=== PATIENT | female | born 1935 | race Caucasian/White ===

== ENCOUNTER 2016-05-21 14:58 | Emergency (ER) | payer OTHER ==
[~2016-05-21] VITALS: Ht 174 cm; Wt 87.5 kg
[2016-05-21 14:58] VITALS: TEMP 36.4; Ht 174 cm; Wt 87.5 kg
[~2016-05-21 14:58] MED LIST: ALBUAER19 INH; ASCO1CAP3 PO; ASPEC81 PO; BENZ100C6 PO; CALCTAB PO; CETI10TA10 PO; CHOL1000 PO; FISHCAP PO; FURO-85 PO; GARL10007 PO; IPRA0.037 NAE; KELP100T PO; MECL1TAB40 PO; NSNN50 NAE; NTRGSL/4 PO; OLOP0.1S2 OP; OXYM0.0592; PLV75 PO; PRLSR20 PO; ROSU5TAB PO; TPRSR/25 PO; ULT50 PO; VITA10004 PO
--- NOTE | 2016-05-21 15:20 | EMERGENCY ROOM VISIT NOTE ---
History Report prepared by Artur: Che Pelletier Under the Supervision of: Dr. Jessi Childress M.D. First contact with patient: 15:04 Chief Complaint: COUGH Stated Complaint: SHORTNESS OF BREATH Nursing Triage Summary: Patient arrived by ambulance ALS from pcp office with c/o productive cough and feeling tired. Patient reports she had a GI illness approx 3 wks ago, and she is now having productive cough and feeling tired. Patient denies any pain or shortness of breath History of Present Illness The patient is a 81 year old female who presents to the Emergency Room with complaints of shortness of breath starting a few days ago and worsening yesterday. The patient also complains of a cough, chills, lightheadedness, and weakness. She denies fevers, chest pain, or any other complaints. She had a GI illness a few weeks ago. Source of History: patient Onset: a few days ago Position: other (global) Quality: other (shortness of breath) Timing: worsening Associated Symptoms: + chills, + cough, + weakness, No chest pain, No fevers Review of Systems See HPI for pertinent positives & negatives. A total of 10 systems reviewed and were otherwise negative. Past Medical & Surgical Medical Problems: (1) Dizziness (2) Fall (3) Headache (4) Heart disease (5) Hypertension (6) Myocardial infarct (7) Rib fracture (8) Rib fracture (9) Urinary tract infection (10) Vertigo Family History Cancer Diabetes mellitus Gallbladder disease Heart disease Hypertension Social History Smoking Status: Never Smoker Alcohol Use: none Marital Status: Housing Status: lives alone Occupation Status: retired Current/Historical Medications Scheduled Ascorbic Acid (Vitamin C), 500 MG PO DAILY Aspirin (Aspirin EC Low Dose), 81 MG PO QAM Calcium Carbonate (Calcarb 600), 1 TAB PO BID Cetirizine Hcl (Zyrtec), 1 TAB PO DAILY Cholecalciferol (Vitamin D3), 1,000 INTER.UNIT PO DAILY Clopidogrel Bisulfate (Clopidogrel), 75 MG PO QAM Fish Oil-Borage Oil-Flaxseed O (Sm Natural [place]-3 Fish O), 1 CAP PO HS Garlic (Garlic), 1,000 MG PO DAILY Kelp (Kelp), 100 MG PO DAILY Metoprolol Succinate (Metoprolol Succinate ER), 25 MG PO HS Mometasone Furoate (Nasal) (Nasonex), 2 SPRY [place] DAILY Nitrofurantoin Monohyd Macro (Macrobid), 100 MG PO BID Omeprazole (Prilosec), 20 MG PO BID Rosuvastatin Calcium (Crestor), 5 MG PO DAILY Vitamin E (Vitamin E), 1,000 INTER.UNIT PO DAILY Scheduled PRN Albuterol Inhaler (Ventolin Inhaler), 2 PUFFS INH QID PRN for Shortness of Breath Benzonatate (Tessalon Perles), 100 MG PO TID PRN for Cough Ipratropium [employer] (Nasal) (Atrovent Nasal [place]), 2 SPRY [place] TID PRN for Nasal Congestion Meclizine HCl (Meclizine HCl), 1 TAB PO TID PRN for vertigo Nitroglycerin (Nitrostat), 0.4 MG PO UD PRN for Chest Pain Olopatadine Hydrochloride (Patanol 0.1% Oph), 1 DROP OP for dry eyes Oxymetazoline Hcl (Nasal [place]), 2 SPRAYS NA Q4H PRN for nasal dryness Tramadol HCl (Tramadol HCl), 1 TAB PO TID PRN for Pain Allergies Coded Allergies: Isosorbide (Unverified Allergy, Mild, HEADACHE TO ISOSORBIDE DINITRATE, ) Codeine (Verified Allergy, Unknown, 05/21/16) Cortisone (Verified Allergy, Unknown, 05/21/16) Latex (Verified Allergy, Unknown, UNKNOWN, 05/21/16) Morphine (Verified Allergy, Unknown, nausea, 05/21/16) Nitroglycerin (Verified Allergy, Unknown, severe headache, 05/21/16) Penicillins (Verified Allergy, Unknown, 05/21/16) Physical Exam Vital Signs Date Time Temp Pulse Resp B/P Pulse Ox O2 Delivery O2 Flow Rate FiO2 05/21/16 18:48 108 22 142/77 95 Room Air 05/21/16 18:48 90 Room Air 05/21/16 17:10 86 18 125/66 96 Room Air 05/21/16 15:05 84 05/21/16 14:58 96 Room Air 05/21/16 14:58 36.4 92 20 125/71 96 Room Air Physical Exam CONSTITUTIONAL: Mild distress. Appears weak but not toxic. HEENT: No icterus, moist mucous membranes NECK: No meningismus, trachea is midline. CARDIOVASCULAR: Regular rate, normal perfusion RESPIRATORY: Unlabored breathing. Clear to auscultation. GASTROINTESTINAL: Non-tender GENITOURINARY: No flank tenderness MUSCULOSKELETAL: Full range of motion NEUROLOGIC: No acute gross focal deficits. PSYCHIATRIC: Normal affect SKIN: Normal for ethnicity. Medical Decision & Procedures ER Provider Diagnostic Interpretation: X-ray results as stated below per interpretation by me and the radiologist. TWO VIEW CHEST CLINICAL HISTORY: Cough and weakness. FINDINGS: PA and lateral chest radiographs are compared to chest x-ray and chest CT dated 02/12/2015. The cardiomediastinal silhouette is unremarkable. There is atherosclerotic calcification of the thoracic area. A large hiatal hernia is similar to previous. There is chronic elevation of the right hemidiaphragm and interstitial thickening. Bibasilar airspace opacities are identified. No pleural effusion or pneumothorax is seen. The skeletal structures are osteopenic. Degenerative change and mild scoliosis are noted in the thoracic spine. Cholecystectomy clips are identified in the right upper quadrant. IMPRESSION: 1. Large hiatal hernia. 2. There are bibasilar airspace opacities. This could represent atelectasis and/or an infectious/inflammatory pneumonitis. Clinical correlation will be required. Electronically signed by: Reyes Everett M.D. 05/21/2016 3:48 PM Dictated Date/Time: 05/21/2016 3:46 PM Laboratory Results 05/21/16 14:46 Red Blood Count 4.83, Mean Corpuscular Volume 89.4, Mean Corpuscular Hemoglobin 30.2, Mean Corpuscular Hemoglobin Concent 33.8, Mean Platelet Volume 9.9, Neutrophils (%) (Auto) 48.9, Lymphocytes (%) (Auto) 42.2, Monocytes (%) (Auto) 6.5, Eosinophils (%) (Auto) 1.7, Basophils (%) (Auto) 0.7, Neutrophils # (Auto) 2.63, Lymphocytes # (Auto) 2.27, Monocytes # (Auto) 0.35, Eosinophils # (Auto) 0.09, Basophils # (Auto) 0.04 05/21/16 14:46 Test 05/21/16 14:46 05/21/16 15:30 05/21/16 17:10 White Blood Count 5.38 K/uL (4.8-10.8) Red Blood Count 4.83 M/uL (4.2-5.4) Hemoglobin 14.6 g/dL (12.0-16.0) Hematocrit 43.2 % (37-47) Mean Corpuscular Volume 89.4 fL (80-100) Mean Corpuscular Hemoglobin 30.2 pg (25-34) Mean Corpuscular Hemoglobin Concent 33.8 g/dl (32-36) Platelet Count 156 K/uL (130-400) Mean Platelet Volume 9.9 fL (7.4-10.4) Neutrophils (%) (Auto) 48.9 % Lymphocytes (%) (Auto) 42.2 % Monocytes (%) (Auto) 6.5 % Eosinophils (%) (Auto) 1.7 % Basophils (%) (Auto) 0.7 % Neutrophils # (Auto) 2.63 K/uL (1.4-6.5) Lymphocytes # (Auto) 2.27 K/uL (1.2-3.4) Monocytes # (Auto) 0.35 K/uL (0.11-0.59) Eosinophils # (Auto) 0.09 K/uL (0-0.5) Basophils # (Auto) 0.04 K/uL (0-0.2) RDW Standard Deviation 46.4 fL (36.4-46.3) RDW Coefficient of Variation 14.2 % (11.5-14.5) Immature Granulocyte % (Auto) 0.0 % Immature Granulocyte # (Auto) 0.00 K/uL (0.00-0.02) Anion Gap 9.0 mmol/L (3-11) Est Creatinine Clear Calc Drug Dose 57.9 ml/min Estimated GFR () 70.4 Estimated GFR (Non- 60.8 BUN/Creatinine Ratio 13.4 (10-20) Calcium Level 8.8 mg/dl (8.5-10.1) Magnesium Level 2.4 mg/dl (1.8-2.4) Total Bilirubin 0.4 mg/dl (0.2-1) Aspartate Amino Transf (AST/SGOT) 19 U/L (15-37) Alanine Aminotransferase (ALT/SGPT) 19 U/L (12-78) Alkaline Phosphatase 75 U/L (45-117) Total Creatine Kinase 88 U/L (26-192) Troponin I < 0.015 ng/ml (0-0.045) Total Protein 7.3 gm/dl (6.4-8.2) Albumin 3.8 gm/dl (3.4-5.0) Globulin 3.5 gm/dl (2.5-4.0) Albumin/Globulin Ratio 1.1 (0.9-2) Lipase 232 U/L (73-393) Thyroid Stimulating Hormone (TSH) 0.904 uIu/ml (0.300-4.500) Chemistry Specimen Hemolysis Influenza Type A Antigen Neg for Influ A (NEG) Influenza Type B Antigen Neg for Influ B (NEG) Urine Color YELLOW Urine Appearance CLOUDY (CLEAR) Urine pH 7.0 (4.5-7.5) Urine Specific [place] 1.014 (1.000-1.030) Urine Protein NEG (NEG) Urine Glucose (UA) NEG (NEG) Urine Ketones NEG (NEG) Urine Occult Blood TRACE (NEG) Urine Nitrite POS (NEG) Urine Bilirubin NEG (NEG) Urine Urobilinogen NEG (NEG) Urine Leukocyte Esterase TRACE (NEG) Urine WBC (Auto) 1-5 /hpf (0-5) Urine RBC (Auto) 10-30 /hpf (0-4) Urine Hyaline Casts (Auto) 1-5 /lpf (0-5) Urine Epithelial Cells (Auto) >30 /lpf (0-5) Urine Bacteria (Auto) 4+ (NEG) Labs reviewed by ED physician. Medications Administered Medications (Trade) Dose Ordered Sig/Brady Route Start Time Stop Time Status Last Admin Dose Admin Ceftriaxone Sodium (Rocephin Inj) 1 gm NOW STAT IV 05/21/16 18:52 05/21/16 18:53 DC 05/21/16 18:52 1 GM ECG Indication: SOB/dyspnea Rate (beats per minute): 87 Rhythm: normal sinus Findings: no ectopy, other (Normal axis; normal ST segments) ED Course 1504: Past medical records reviewed. The patient was evaluated in room C07. A complete history and physical examination was performed. 1852: Rocephin Inj 1 gm IV 1900: Upon reexamination the patient is resting comfortably. I discussed results and treatment plan with the patient. She verbalizes agreement and understanding. The patient is ready for discharge. Medical Decision Differential diagnosis includes but is not limited to viral syndrome, dehydration, pneumonia. 81-year-old presented to the emergency Department with family for evaluation generalized weakness after several weeks of viral like symptoms. Physical exam was essentially benign, vitals normal and laboratory examination ER revealed a likely UTI given the positive nitrates and 4+ bacteria (epithelial cells also noted. Rocephin IV and prescription for Macrobid written. Results discussed with patient and family who are in agreement with plan for discharge at this time. Impression Primary Impression: Weakness Additional Impression: Urinary tract infection Scribe Attestation The scribe's documentation has been prepared under my direction and personally reviewed by me in its entirety. I confirm that the note above accurately reflects all work, treatment, procedures, and medical decision making performed by me. Departure Information Dispostion Home / Self-Care Prescriptions Nitrofurantoin Monohyd Macro (MACROBID) 100 Mg Cap 100 MG PO BID for 7 Days, #14 CAP Prov: Jessi Childress MD 05/21/16 Referrals Karly Taylor M.D. Forms HOME CARE DOCUMENTATION FORM, IMPORTANT VISIT INFORMATION Patient Instructions ED UTI Cystitis Female, My [facility] Problem Qualifiers
[2016-05-21 15:34] LABS: BASO % 0.7 %; BASO ABS # 0.04 K/uL (0-0.2); COMPLETE YES; EOS % 1.7 %; HEMATOCRIT 43.2 % (37-47); LYMPH % 42.2 %; LYMPH ABS # 2.27 K/uL (1.2-3.4); MEAN CELL VOLUME 89.4 fL (80-100); MEAN CORPUSCULAR HEMOGLOBIN 30.2 pg (25-34); MEAN CORPUSCULAR HGB CONC 33.8 g/dl (32-36); MEAN PLATELET VOLUME 9.9 fL (7.4-10.4); MONO % 6.5 %; NEUT % 48.9 %; PLATELET COUNT 156 K/uL (130-400); RED BLOOD COUNT 4.83 M/uL (4.2-5.4); WHITE BLOOD COUNT 5.38 K/uL (4.8-10.8)
--- NOTE | 2016-05-21 15:51 | DIAGNOSTIC IMAGING REPORT ---
TWO VIEW CHEST CLINICAL HISTORY: Cough and weakness. FINDINGS: PA and lateral chest radiographs are compared to chest x-ray and chest CT dated 02/12/2015. The cardiomediastinal silhouette is unremarkable. There is atherosclerotic calcification of the thoracic area. A large hiatal hernia is similar to previous. There is chronic elevation of the right hemidiaphragm and interstitial thickening. Bibasilar airspace opacities are identified. No pleural effusion or pneumothorax is seen. The skeletal structures are osteopenic. Degenerative change and mild scoliosis are noted in the thoracic spine. Cholecystectomy clips are identified in the right upper quadrant. IMPRESSION: 1. Large hiatal hernia. 2. There are bibasilar airspace opacities. This could represent atelectasis and/or an infectious/inflammatory pneumonitis. Clinical correlation will be required. Electronically signed by: Reyes Everett M.D. 05/21/2016 3:48 PM Dictated Date/Time: 05/21/2016 3:46 PM
[2016-05-21 16:12] LABS: ALB/GLOB RATIO 1.1 (0.9-2); ALKALINE PHOSPHATASE 75 U/L (45-117); ALT/SGPT 19 U/L (12-78); AST/SGOT 19 U/L (15-37); BLOOD UREA NITROGEN 12 mg/dl (7-18); BUN/CREATININE RATIO 13.4 (10-20); CALCIUM 8.8 mg/dl (8.5-10.1); CARBON DIOXIDE 28 mmol/L (21-32); CHLORIDE 107 mmol/L (98-107); CREATININE 0.89 mg/dl (0.60-1.20); GLUCOSE 91 mg/dl (70-99); MAGNESIUM 2.4 mg/dl (1.8-2.4); POTASSIUM 3.9 mmol/L (3.5-5.1); SODIUM 144 mmol/L (136-145); THYROID STIMULATING HORMONE 0.904 uIu/ml (0.300-4.500)
[2016-05-21 17:36] LABS: URINE APPEARANCE CLOUDY (CLEAR); URINE BILIRUBIN NEG (NEG); URINE COLOR YELLOW; URINE EPITHELIAL CELL AUTO >30 /lpf (0-5); URINE NITRITE POS (NEG); URINE SPECIFIC GRAVITY 1.014 (1.000-1.030); UROBILINOGEN NEG (NEG); ZZUR CULT IF INDIC CLEAN CATCH YES
[2016-05-21 17:49] LABS: MANUAL MICROSCOPIC REQUIRED? NO; REVIEW REQ? NO
[2016-05-21] MEDS ORDERED: CEFTRIAXONE SOD INJ 1 GM ADDVIAL IV STA (18:52)
[2016-05-21] MEDS ORDERED: NITR1CAP16 PO (18:54)
[2016-05-21 19:43] VITALS: BP 137/64; PULSE 81; O2SAT 96
== END 2016-05-21 20:01 | disposition home or self-care (01) ==
LOC: EDBD 14:58 → C.EDC 15:00
DX: N39.0 Urinary tract infection, site not specified (principal); R53.1 Weakness; R05 Cough; I10 Essential (primary) hypertension; I25.2 Old myocardial infarction; Z79.82 Long term (current) use of aspirin; Z79.899 Other long term (current) drug therapy

== ENCOUNTER 2023-06-12 11:47 | Inpatient (IN) ==
--- OUTSIDE RECORDS SUMMARY | 2023-06-12 11:54 | External Medical Summary | Summary of Care ---
Author Name Unknown Organization [facility] Address [address] [facility] [place] [address] Phone [phone] Care Team Providers Care Ed Special Education Teacher Name Role Phone Karly Taylor MD Primary Care Provider + Reason for Visit * Reason Comments Follow Up Patient presents in office today for a follow-up visit regarding urinary tract infection/bladder infection. Encounter Details Date Type Department Care Team (Late st Contact Info) Description 04/09/2023 1:00 PM EST Office Visit Family Practice [facility] [address] [place] [address] Ritu Gaspar MD [address] [place] [address] Loss of weight*; Post-nasal drip; Urinary frequency; COPD, mild (HCC) Allergies Active Allergy Reactions Criticality Noted Date Comments Codeine Nausea/vomiting 07/07/2012 Isosorbide Other (Please comment) 09/30/2018 Severe headache Latex Rash 03/26/2010 Morphine And Related Nausea/vomiting 02/03/2000 Penicillins Nausea/vomiting 02/03/2000 documented as of this encounter (statuses as of 04/09/2023) Medications Medication Sig Dispensed Refills Start Date End Date Status FISH [id number] LOWER PO CAPS Take by mouth. 0 08/25/2010 Active VITAMIN E 1000 UNIT PO CAPS Take by mouth. 0 11/19/2010 Active GARLIC 1000 MG PO CAPS 1 tablet by mouth daily 0 02/02/2012 Active VITAMIN D3 1000 UNITS PO CAPS 1 CAPSULE DAILY 0 02/02/2012 Active PATANOL 0.1 % ophthalmic solution As needed 0 10/23/2014 Activ e Kelp TABS Take 1 Tab by mouth daily. 0 01/30/2015 Active cetirizine (ZYRTEC) 10 MG TabletIndications:Al lergic rhinitis Take 1 Tab by mouth daily. For allergies. 30 Tab 5 09/19/2015 Active meclizine (ANTIVERT) 25 MG TabletIndications:Di zziness Take 1 Tab by mouth 3 times a day as needed for Dizziness. 30 Tab 1 09/19/2015 Active aspirin enteric coated 81 MG TBECIndications:Athe rosclerosis of chilkoot coronary artery of chilkoot heart without angina pectoris Take 1 Tablet by mouth in the morning. 100 Tab 3 03/01/2018 Active Nitroglycerin 0.4 MG Sublingual Tablet Sublingual (Nitrostat)Indicatio ns:Atherosclerosis of ch[place]koot coronary artery of [place] heart without angina pectoris Place 1 Tab under the tongue as needed for Pain, Chest. May repeat 3 times. If chest pain continues, call 911. 25 Tab 11 02/18/2021 Active Furosemide 20 MG Oral Tablet (Lasix) Take by mouth 1 Tablet in the morning. As needed for ankle swelling. 30 Tablet 5 12/24/2021 Active Triamcinolone Acetonide 0.1 % External Ointment (Aristocort)Indicati ons:Vulvar irritation Apply topically to affected area 2 times a day as needed for Itching. Apply to vulva 30 g 2 01/08/2022 Active Incruse Ellipta 62.5 MCG/INH Inhalation Aerosol Powder Breath Activated (umeclidinium [place])Indications: COPD, mild (HCC) INHALE 1 PUFF BY MOUTH ONCE DAILY 30 Each 11 03/25/2022 Active Calcium 500 MG Oral Tablet Take 1 Tablet by mouth in the morning. 0 Active Benzonatate 100 MG Oral CapsuleIndications:B acterial pneumonia Take 2 Capsules by mouth 3 times a day as needed for Cough. 30 Capsule 1 07/31/2022 Active Clopidogrel Bisulfate 75 MG Oral Tablet (pLAVix)Indications: Atherosclerosis of ch[place]koot coronary artery of ch[place] heart without angina pectoris,Coronary atherosclerosis TAKE 1 TABLET BY MOUTH ONCE DAILY 90 Tablet 3 10/16/2022 Active Metoprolol Succinate ER 25 MG Oral Tablet Extended Release 24 Hour (toPROL XL)Indications:Ather osclerosis of ch[place]koot coronary artery of ch[place] heart without angina pectoris,Coronary atherosclerosis TAKE 1 TABLET BY MOUTH ONCE DAILY 90 Tablet 3 10/16/2022 Active Fish Oil 1000 MG Oral Capsule Take 1 Capsule by mouth in the morning. 0 Active Rosuvastatin Calcium 5 MG Oral Tablet (Crestor) TAKE 1 TABLET BY MOUTH EVERY MORNING 90 Tablet 1 01/11/2023 Active Omeprazole 20 MG Oral Capsule Delayed Release (PriLOSEC)Indication s:Gastroesophageal reflux disease without esophagitis TAKE ONE CAPSULE BY MOUTH IN THE MORNING AND ONE BEFORE BEDTIME 180 Capsule 1 01/11/2023 Active Estradiol 0.1 MG/GM Vaginal Cream (Estrace) Apply topically to affected area every night at bedtime. Apply finger tip amount to external area and urethra 42.5 g 0 01/20/2023 Active Albuterol Sulfate HFA 108 (90 Base) MCG/ACT Inhalation Aerosol SolutionIndications: COPD, mild (HCC) INHALE TWO PUFFS BY MOUTH FOUR TIMES DAILY 18 g 1 01/25/2023 Active DULoxetine HCl 20 MG Oral Capsule Delayed Release Particles (Cymbalta) 1 tab daily for 7 days then 1 tab twice daily 60 Capsule 2 01/26/2023 Active Fluticasone Propionate 50 MCG/ACT Nasal Suspension (Flonase)Indications :Post-nasal drip Administer 2 Sprays into each nostril in the morning. 1 Each 11 04/09/2023 Active fluticasone (FLONASE) 50 MCG/ACT nasal spray Administer 2 Sprays into each nostril daily. 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 MCI (mild cognitive impairment) 11/19/2014 ADVANCE DIRECTIVE INFORMATION 11/24/2012 Overview: Yes, Patient instructed to provide copy of advance directive for provider to review and to be scanned into Electronic Medical Record COPD, mild 09/16/2012 Periodic limb movement 05/08/2011 Sleep related hypoxia 05/08/2011 CEREBROVASCULAR DZ, POST-STROKE 08/14/2008 Overview: Modified per CVA protocol #8 CORONARY ATHEROSCLEROSIS OF UNSPECIFIED TYPE OF VESSEL, [place] OR GRAFT Irritable bowel syndrome Diaphragmatic hernia DIVERTICULOSIS OF COLON GENERALIZED ANXIETY DIS GENERAL OSTEOARTHROSIS documented as of this encounter (statuses as of 04/09/2023) Resolved Problems Problem Noted Date Diagnosed Date Resolved Date 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 06/27/2020 07/31/2021 Hemiplegia 06/27/2020 07/31/2021 Angina pectoris 05/19/2019 05/19/2019 Vertebral fracture, pathological 10/08/2016 10/08/2016 Major depression, single episode 10/08/2016 10/08/2016 Genetic Sleep Disorder [facility] Other*[id number] 12/23/2010 12/04/2015 Other B-complex deficiencies 09/30/2010 10/08/2016 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 Chronic cholecystitis 01/12/20052018 LUMB-LUMBOSAC DISC DEGEN 02/20/200410/2018 CERVICAL DISC DEGEN 02/20/2004 09/06/19 19 Persistent insomnia 08/03/2003 04/29/20 18 LOC PRIM OSTEOART-SHLDER 03/20/200310/2018 FX CARPAL BONE NOS-CLOSE 08/09/200210/2018 irritated inflammed seborrhe ic keratosis- R forearm 06/11/00 05/09/2002 04/29/2018 intradermal nevus- R breast 11/24/01, lower back 05/09/2002 04/29/2018 seborrheic keratosis- upper back 05/09/2002 04/29/2018 traumatized annalise. keratosis-u pper mid back 05/09/2002 04/29/2018 compound nevus- upper R back 05/09/2002 04/29/2018 benign keratosis w/ wart fea tures- mid forehead 05/09/2002 04/29/2018 intradermal nevus-mid back 05/09/2002 04/29/2018 annalise. keratosis-Left & mid back 05/09/2002 04/29/2018 Mixed dyslipidemia 12/16/2001 9 Overview: Per Lipid Taxonomy. [facility] BEHAV [place] SKIN 11/24/2001 8 MALIG [place]ST[place] SKIN LEG 11/24/2001 8 Other allergic rhinitis 05/24/200104/03 Overview: ICD-10 update of inactive term CVA 08/16/2008 Overview: Modified per CVA protocol #8 Postmenopausal bleeding 10/2018 Esophageal reflux 09/05/2018 Dyslipidemia, goal to be determined 03/27/2009 Overview: Per Lipid Taxonomy Bronchitis 10/30/2013 documented as of this encounter (statuses as of 04/09/2023) Immunizations Name Administration Dates Next Due Diptheria/Tetanus (Adult) 08/31/2006 H1N1 2009 Influenza, IM 06/06/2009 Pneumococcal Conjugate Vacc, 13 Valent (Prevnar) 06/17/2018 Seasonal Influenza, Split, I IV3, With Preserve, Inj 02/16/2012,02/03/2011,02/26/2010,2008,03/08/2008 TD, Preservative Free 08/31/2006 documented as of this encounter Social History Tobacco Use Types Packs/Day Years Used Date Smoking Tobacco: Never Smokeless Tobacco: Never Comments:Passive smoke expos ure smoked Alcohol Use Standard Drinks/Week Comments No 0 (1 standard drink = 0.6 oz pur e alcohol) PHQ-2 Answer Date Recorded PHQ Adult Total Score 0 08/25/2022 Hunger Vital Sign Answer Date Recorded Worried About Running Out of Food in the Last Ye ar Never true 05/11/2019 Ran Out of Food in the Last Year Never true 05/11/2019 Sex and Gender Information Value Date Recorded Sex Assigned at Female 11/08/2018 1:27 PM EDT Gender Identity Female 11/08/2018 1:27 PM EDT Sexual Orientation Straight 11/08/2018 1: 27 PM EDT Job Start Date Occupation Industry Not on file Not on file Not on file documented as of this encounter Last Filed Vital Signs Vital Sign Reading Time Taken Comments Blood Pressure 112/64 04/09/2023 1:01 PM EST Pulse 78 04/09/2023 1:01 PM EST Temperature - - Respiratory Rate 18 04/09/2023 1:01 PM EST Oxygen Saturation 98% 04/09/2023 1:01 PM EST Inhaled Oxygen Concentration - - Weight 75.3 kg (166 lb) 04/09/2023 1:01 PM EST Height 174 cm (5' 8.5") 04/09/2023 1:01 PM EST Body Mass Index 24.87 04/09/2023 1:01 PM EST documented in this encounter Patient Instructions * Patient Instructions* Ritu Gaspar MD - 04/09/2023 1:41 PM EST Next Steps: -- restart flonase -- give it 2-4 weeks to see if this helps with nausea and appetite -- if not, let me know. We will get bloodwork, chest x-ray, maybe other imaging. documented in this encounter Progress Notes * Ritu Gaspar MD - 04/09/2023 1:09 PM EST Images from the original note were not included. History of Present Illness Sylvia Torres is a 87 year old female that presents for Follow Up (Patient presents in office today for a follow-up visit regarding urinary tract infection/bladder infection.) Appetite is gone. Has to force self to eat. Nauseous frequently. Sometimes so much so that feels like will pass out. No vomiting. Drinking 100 oz water a day. Also juice (6-8oz cranberry), 1 cup coffee, sometimes chamomile tea. Sometimes other juices. Has to urinate within 150-30min of drinking. Waking 2-3x/night to urinate. Urine usually really clear. Moving bowels regularly. 1-2x/day. Not diarrhea, no blood, not small pellets. Has a lot of mucous in the throat. Sometimes wakes up coughing. Doesn't sense PND. No retrosternal burning, lots of burping/hiccups. Gets short of breath, more like fatigue. Unpredictable. No NSAIDs. No nicotine. Taking omeprazole daily. NOT taking flonase. Ran out. Taking plavix, asa 81, prilosec 20mg 2x/day, toprol 25mg, crestor Decreased vitamin E to 1-2x/wk Takes garlic, kelp, D3, fish oil, B12, calcium. Was getting B12 injections prior ot pandemic. Hasn't been taking OTC supplement. Levels have been within normal range, at the low end. Never started cymbalta. Not taking lasix. medication and allergy list reviewed Past med hx and problem list reviewed Physical Exam Vitals: 04/09/23 1301 Pulse: 78 Resp: 18 SpO2: 98% BP: 112/64 BMI: 24.87 BP Readings from Last 3 Encounters: 04/09/23 112/64 03/09/23 110/64 02/26/23 106/62 Wt Readings from Last 3 Encounters: 04/09/23 75.3 kg (166 lb) 02/24/23 81.2 kg (179 lb) 01/26/23 81.6 kg (179 lb 12.8 oz) Physical Exam Vitals and nursing note reviewed. Constitutional: General: She is not in acute distress. Appearance: Normal appearance. She is not ill-appearing. HENT: Head: Normocephalic and atraumatic. Nose: Nose normal. Mouth/Throat: Mouth: Mucous membranes are moist. Pharynx: Oropharynx is clear. No oropharyngeal exudate. Eyes: General: No scleral icterus. Conjunctiva/sclera: Conjunctivae normal. Pupils: Pupils are equal, round, and reactive to light. Neck: Thyroid: No thyroid mass, thyromegaly or thyroid tenderness. Cardiovascular: Rate and Rhythm: Normal rate and regular rhythm. Heart sounds: No murmur heard. Pulmonary: Effort: Pulmonary effort is normal. Breath sounds: Normal breath sounds. Abdominal: General: Abdomen is flat. There is no distension. Palpations: Abdomen is soft. Tenderness: There is no abdominal tenderness. There is no guarding or rebound. Musculoskeletal: Right lower leg: Edema present. Left lower leg: Edema present. Lymphadenopathy: Cervical: No cervical adenopathy. Skin: General: Skin is warm and dry. Neurological: Mental Status: She is alert. Psychiatric: Mood and Affect: Mood normal. Behavior: Behavior normal. I have reviewed the following results: Urine culture, BMP, and Urinalysis, POC Assessment and Plan Loss of weight Right now seems to be most closely related to loss of appetite. Will see if restarting intranasal steroid helps with postnasal drip. If not improving in 3-4 weeks, especially with persistent weight loss, will need to do further workup with labs and imaging. Post-nasal drip - Fluticasone Propionate 50 MCG/ACT Nasal Suspension (Flonase); Administer 2 Sprays into each nostril in the morning. Urinary frequency Will wait for urine culture to decide on antibiotics given patient looks stable clinically - URINALYSIS WITH MICROSCOPIC EXAM; Future - CULTURE, URINE, QUANTITATIVE; Future - URINALYSIS WITH MICROSCOPIC EXAM - CULTURE, URINE, QUANTITATIVE COPD, mild (HCC) Wrap-Up Follow Up: Return in about 3 months (around 07/09/2023) for Return with Hubert. | For: Return with Hubert Time: I spent a total of 40-54 minutes (exact time 41 mins) on the date of service in preparation, delivery, and documentation of the care provided to Sylvia Torres excluding any time spent in the performance of separately billed services. documented in this encounter Nursing Notes * Nadine Garcias MED ASSIST - 04/09/2023 1:00 PM EST The patient has been properly identified by confirmation of name and date of . Chief Complaint Patient presents with Follow Up Patient presents in office today for a follow-up visit regarding urinary tract infection/bladder infection. documented in this encounter Plan of Treatment Upcoming Encounters Date Type Department Care Team (Late st Contact Info) Description 04/20/2023 12:40 PM EST Office Visit Podiatry [facility] [address] [facility] [place] [address] Zhanna Rodríguez DPM [address] [facility] [place] [address] 2023 11:40 AM EST Office Visit Otolaryngology [facility] [address] [facility] [place] [address] Mame Bishop PA-C [address] [place] [address] 05/27/2023 1:00 PM EST Office Visit General Internal Medicine [facility] [address] [place] [address] Karly Taylor MD [address] [facility] [place] [address] 07/23/2023 1:00 PM EDT Office Visit Family Practice [facility] [address] [facility] [place] [address] Ritu Gaspar MD [address] [place] [address] 07/27/2023 1:20 PM EDT Office Visit Neurology [facility] [address] [place] [address] Therese Mcdonald PA-C [address] [facility] [place] [address] 08/26/2023 1:35 PM EDT Office Visit Urogynecology [facility] [address] [place] [address] Lisa Taylor PA-C [address] [place] [address] Nurse Eren Cuevas [address] [place] [address] 09/08/2023 1:00 PM EDT Imaging Radiology [address] [place] [address] Pending Results Name Type Priority Associated Diagnoses Date /Time CULTURE, URINE, QUANTITATIVE Lab Routine Urinary frequency 04/09/2023 1:43 PM EST Scheduled Orders Name Type Priority Associated Diagnoses Orde r Schedule CULTURE, URINE, QUANTITATIVE Lab Routine Urinary frequency Expected: 04/09/2023, Expires: 04/09/2024 Health Maintenance Due Date Last Done Comments COVID-19 Vaccine (#1) 1935 Alpha-1 Antitrypsin 1953 Zoster Vaccines (1 of 2) 1985 DTaP,Tdap,and Td Vaccines (1 - Tdap) 09/01/2006 08/31/2006, 08/31/2006 Influenza Vaccine (FLU shot) (#1) 2023 02/16/2012, 02/03/2011, 02/26/2010, Additional history exists Albumin/Creatinine Ratio 08/26/2023 023, 12/26/2020, 06/17/2009 CKD HGB USE SMARTSET 62607 08/26/202308/25, 08/25/2022, 07/31/2021, Additional history exists CKD PHOS USE SMARTSET 87648 08/26/202308/02, 12/26/2020, 06/26/2004 Depression Screening 08/26/2023 08/25/2022 Mammogram 09/02/2023 09/01/2022, 05/0 06/2022, 06/16/2021, Additional history exists O2 ASSESSMENT COMPLETED IN PAST YEAR FOR COPD 02/27/2024 02/26/2023 Pneumococcal Vaccine: 65+ Years Completed 06/17/2018, 05/25/2001 GARDASIL-HPV IMMUNIZATION SERIES Aged Out No longer eligible based on patient's age to complete this topic Hepatitis B Aged Out No longer eligi ble based on patient's age to complete this topic MENINGOCOCCAL (MENACTRA/MENVEO) Aged Out No longer eligible based on patient's age to complete this topic documented as of this encounter Medical Devices Not on filedocumented as of this encounter Procedures Procedure Name Priority Date/Time Associated Diagnosis Comments URINALYSIS WITH MICROSCOPIC EXAM Routine 04/09/2023 1:43 PM EST Urinary frequency documented in this encounter Results * (ABNORMAL) URINALYSIS WITH MICROSCOPIC EXAM (04/09/2023 1:43 PM EST) Color, Urine Dark Yellow Light Yellow, Yellow, Dark Yellow 04/09/2023 3:58 PM EST [facility] [place] Clarity, Urine Cloudy(A) Clear 04/09/2023 3:58 PM EST [facility] [place] Glucose, Urine Negative Negative mg/dL 04/09/2023 3:58 PM EST [facility] [place] Bilirubin, Urine Small(A) Negative 04/09/2023 3:58 PM EST [facility] [place] Ketone, Urine Trace(A) Negative mg/dL 04/09/2023 3:58 PM EST [facility] [place] Specific [place], Urine 1.020 1.003 - 1.030 04/09/2023 3:58 PM EST [facility] [place] Blood, Urine Moderate(A) Negative 04/09/2023 3:58 PM EST [facility] [place] pH, Urine 6.0 5.0 - 7.5 Units 04/09/2023 3:58 PM EST [facility] [place] Protein, Urine 100(A) Negative mg/dL 04/09/2023 3:58 PM EST [facility] [place] Urobilinogen, Urine 1.0 0.2, 1.0 mg/dL 04/09/2023 3:58 PM EST [facility] [place] Nitrite, Urine Positive(A) Negative 04/09/2023 3:58 PM EST [facility] [place] Esterase, Urine Large(A) Negative 04/09/2023 3:58 PM EST [facility] [place] RBC, Urine 10-19(A) 0 - 2 /HPF 04/09/2023 3:58 PM EST [facility] [place] WBC, Urine 50+(A) 0 - 2 /HPF 04/09/2023 3:58 PM EST [facility] Bacteria, Urine >200(A) 0 - 25 /HPF 04/09/2023 3:58 PM EST LAB[facility]ORY [facility] [place] [facility] Urine Urine specimen obtained by clean catch procedure / Unknown Non-blood Collection / Unknown 04/09/2023 1:43 PM EST 04/09/2023 1:43 PM EST Ritu Gaspar MD LAB URINE [facility] Organization Address City/State/ZIP Co de Phone Number LABORATORY [facility] [place] [phone] [facility] [place] [address] documented in this encounter Visit Diagnoses Diagnosis Loss of weight- Primary Post-nasal drip Postnasal drip Urinary frequency COPD, mild (HCC) Chronic airway obstruction, not elsewhere classified documented in this encounter Care Teams Ed Special Education Teacher Relationship Specialty Start Date End Date Karly Taylor MD [address] [place] [address] PCP - General 08/18/07 documented as of this encounter
--- OUTSIDE RECORDS SUMMARY | 2023-06-12 11:54 | External Medical Summary | Summary of Care ---
Author Name Unknown Organization [facility] Address [address] [place] [address] Phone [phone] Care Team Providers Care Retail Property Manager Name Role Phone Karly Taylor MD Primary Care Provider + Reason for Visit * Reason Onset Date Comments Medication Refill 04/29/2023 Encounter Details Date Type Department Care Team (Late st Contact Info) Description 04/29/2023 Refill Gynecology/Obstetrics [facility] [address] [place] [address] Crissy Roth CRNP [address] [place] [address] Vulvar irritation Allergies Active Allergy Reactions Criticality Noted Date Comments Codeine Nausea/vomiting 07/07/2012 Isosorbide Other (Please comment) 09/30/2018 Severe headache Latex Rash 03/26/2010 Morphine And Related Nausea/vomiting 02/03/2000 Penicillins Nausea/vomiting 02/03/2000 documented as of this encounter (statuses as of 05/11/2023) Medications Medication Sig Dispensed Refills Start Date End Date Status FISH JJA-HXFENB-OWHA-SAFF LOWER PO CAPS Take by mouth. 0 [...] enteric coated 81 MG TBECIndications:Athe rosclerosis of [place] coronary artery of [place] heart without angina pectoris Take 1 Tablet by mouth in the morning. 100 Tab 3 03/01/2018 Active Nitroglycerin 0.4 MG Sublingual Tablet Sublingual (Nitrostat)Indicatio ns:Atherosclerosis of [place] coronary artery of [place] heart without angina pectoris Place 1 Tab under the tongue as needed for Pain, Chest. May repeat 3 times. If chest pain continues, call 911. 25 Tab 11 02/18/2021 Active Furosemide 20 MG Oral Tablet (Lasix) Take by mouth 1 Tablet in the morning. As needed for ankle swelling. 30 Tablet 5 12/24/2021 Active Incruse Ellipta 62.5 MCG/INH Inhalation Aerosol Powder Breath Activated (umeclidinium [place])Indications: COPD, mild (HCC) INHALE 1 PUFF BY [...] 75 MG Oral Tablet (pLAVix)Indications: Atherosclerosis of [place] coronary artery of [place] heart without angina pectoris,Coronary atherosclerosis TAKE 1 TABLET BY MOUTH ONCE DAILY 90 Tablet 3 10/16/2022 Active Metoprolol Succinate ER 25 MG Oral Tablet Extended Release 24 Hour (toPROL XL)Indications:Ather osclerosis of [place] coronary artery of [place] heart without angina pectoris,Coronary atherosclerosis TAKE 1 [...] the morning. 1 Each 11 04/09/2023 Active Triamcinolone Acetonide 0.1 % External Ointment (Aristocort)Indicati ons:Vulvar irritation Apply topically to affected area 2 times a day as needed for Itching. Apply to vulva 30 g 2 05/11/2023 Active Triamcinolone Acetonide 0.1 % External Ointment (Aristocort)Indicati ons:Vulvar irritation Apply topically to affected area 2 times a day as needed for Itching. Apply to vulva 30 g 2 01/08/2022 04/29/20 23 Discontinu ed(Refill) documented as of this encounter (statuses as of 05/11/2023) Active Problems Problem Noted Date Diagnosed Date [...] CORONARY ATHEROSCLEROSIS OF UNSPECIFIED TYPE OF VESSEL, [place] OR GRAFT Irritable bowel syndrome Diaphragmatic hernia DIVERTICULOSIS OF COLON GENERALIZED ANXIETY DIS GENERAL OSTEOARTHROSIS documented as of this encounter (statuses as of 05/11/2023) Resolved Problems Problem Noted Date Diagnosed Date Resolved Date 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 06/27/2020 07/31/2021 Hemiplegia 06/27/2020 07/31/2021 Angina pectoris 05/19/2019 05/19/2019 Vertebral fracture, pathological 10/08/2016 10/08/2016 Major depression, single episode 10/08/2016 10/08/2016 Genetic Sleep Disorder Resea [facility] Other*[id number] 12/23/2010 12/04/2015 Other B-complex deficiencies 09/30/2010 10/08/2016 [...] as of this encounter (statuses as of 05/11/2023) Immunizations Name Administration Dates Next Due Diptheria/Tetanus [...] on file documented as of this encounter Miscellaneous Notes * Telephone Encounter - Judd Read MD - 05/11/2023 10:25 AM ESTSigned Prescriptions: Disp Refills Triamcinolone Acetonide 0.1 % External Oin*30 g 2 Sig: Apply topically to affected area 2 times a day as needed for Itching. Apply to vulva Authorizing Provider: JUDD READ * Telephone Encounter - Em Hill RN - 04/30/2023 7:57 AM ESTPending Prescriptions: Disp Refills Triamcinolone Acetonide 0.1 % External Oin*30 g 2 Sig: Apply topically to affected area 2 times a day as needed for Itching. Apply to vulva documented in this encounter Plan of Treatment Upcoming Encounters Date Type Department Care Team (Late st Contact Info) Description 05/27/2023 1:00 PM EST Office Visit General Internal Medicine [facility] [address] [place] [address] Karly Taylor MD [address] [facility] [place] [address] 07/22/2023 1:20 PM EDT Office Visit Podiatry [facility] [address] [place] [address] Zhanna Rodríguez DPM [address] [place] [address] 07/23/2023 1:00 PM EDT Office Visit Family Practice [facility] [address] [place] [address] Ritu Gaspar MD [address] [place] [address] 07/27/2023 1:20 PM EDT Office Visit Neurology [facility] [address] [facility] [place] [address] Therese Mcdonald PA-C [address] [facility] [place] [address] 08/26/2023 1:35 PM EDT Office Visit Urogynecology [facility] [address] [place] [address] Lisa Taylor PA-C [address] [place] [address] Nurse Eren Cuevas [facility] [address] [place] [address] 09/08/2023 1:00 PM EDT Imaging [facility] [address] [place] [address] 11/02/2023 11:40 AM EDT Office Visit Otolaryngology [facility] [address] [place] [address] Mame Bishop PA-C [address] [place] [address] Health Maintenance Due Date Last Done Comments COVID-19 Vaccine (#1) 1935 Alpha-1 Antitrypsin 1953 Zoster Vaccines (1 of 2) 1985 DTaP,Tdap,and Td Vaccines (1 - Tdap) 09/01/2006 08/31/2006, 08/31/2006 Influenza Vaccine (FLU shot) (#1) 2023 02/16/2012, 02/03/2011, 02/26/2010, Additional history exists Albumin/Creatinine Ratio 08/26/2023 023, 12/26/2020, 06/17/2009 CKD HGB USE SMARTSET 04652 08/26/202308/25, 08/25/2022, 07/31/2021, Additional history exists CKD PHOS USE SMARTSET 86551 08/26/202308/02, 12/26/2020, 06/26/2004 Depression Screening 08/26/2023 08/25/2022 Mammogram 09/02/2023 09/01/2022, 05/0 06/2022, 06/16/2021, Additional history exists O2 ASSESSMENT COMPLETED IN PAST YEAR FOR COPD 04/09/2024 04/09/2023 Pneumococcal Vaccine: 65+ Years Completed 06/17/2018, 05/25/2001 [...] Not on filedocumented as of this encounter Visit Diagnoses Diagnosis Vulvar irritation 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
--- OUTSIDE RECORDS SUMMARY | 2023-06-12 11:54 | External Medical Summary ---
Author Name Unknown Address Unknown Organization K[facility] [address] [place] [address] Laboratory Report Ordering Provider Test Date Status GEORGE MERCEDES 04/09/2023 13:43:42 Final Observation Date Value Abnormality Reference (Units ) Status Color of Urine by Auto 04/09/2023 13:43:42 Dark Yellow Light Yellow, Yellow, Dark Yellow Final Clarity, Urine 04/09/2023 13:43:42 Cloudy Abnormal Clear Final Glucose [Mass/volume] in Urine by Automated test strip 04/09/2023 13:43:42 Negative Negative (mg/dL) Final Bilirubin.total [Presence] in Urine by Automated test strip 04/09/2023 13:43:42 Small Abnormal Negative Final Ketones [Mass/volume] in Urine by Automated test strip 04/09/2023 13:43:42 Trace Abnormal Negative (mg/dL) Final Specific gravity, Urine 04/09/2023 13:43:42 1.020 1.003-1.030 Final Hemoglobin [Presence] in Urine by Automated test strip 04/09/2023 13:43:42 Moderate Abnormal Negative Final pH, Urine 04/09/2023 13:43:42 6.0 5.0-7.5 (Units) Final Protein [Mass/volume] in Urine by Automated test strip 04/09/2023 13:43:42 100 Abnormal Negative (mg/dL) Final Urobilinogen [Mass/volume] in Urine by Automated test strip 04/09/2023 13:43:42 1.0 0.2, 1.0 (mg/dL) Final Nitrite [Presence] in Urine by Automated test strip 04/09/2023 13:43:42 Positive Abnormal Negative Final Leukocyte esterase [Presence] in Urine by Automated test strip 04/09/2023 13:43:42 Large Abnormal Negative Final RBC, Urine 04/09/2023 13:43:42 10-19 Abnormal 0-2 (/HPF) Final WBC, Urine 04/09/2023 13:43:42 50+ Abnormal 0-2 (/HPF) Final Bacteria [#/area] in Urine sediment by Microscopy high power field 04/09/2023 13:43:42 >200 Abnormal 0-25 (/HPF) Final Performing Location [facility] [address] [place] [address]
--- OUTSIDE RECORDS SUMMARY | 2023-06-12 11:54 | External Medical Summary | Summary of Care ---
Author Name Unknown Organization [facility] Address [address] [facility] [place] [address] Phone [phone] Care Team Providers Care Baker Apprentice Name Role Phone Karly Taylor MD Primary Care Provider + Reason for Visit * Reason Onset Date Comments Referral Requested by Specialist 04/20/2023 Encounter Details Date Type Department Care Team (Late st Contact Info) Description 04/20/2023 Telephone Podiatry [facility] [address] [place] [address] Zhanna Rodríguez DPM [address] [place] [address] Referral Requested by Specialist Allergies Active Allergy Reactions Criticality Noted Date Comments Codeine Nausea/vomiting 07/07/2012 Isosorbide Other (Please comment) 09/30/2018 Severe headache Latex Rash 03/26/2010 Morphine And Related Nausea/vomiting 02/03/2000 Penicillins Nausea/vomiting 02/03/2000 documented as of this encounter (statuses as of 04/20/2023) Medications Medication Sig Dispensed Refills Start Date End Date Status FISH [id number]-CVMJ-SAFFL OWER PO CAPS Take by mouth. 0 08/25/2010 [...] 0 01/30/2015 Active cetirizine (ZYRTEC) 10 MG TabletIndications:All ergic rhinitis Take 1 Tab by mouth daily. For allergies. 30 Tab 5 09/19/2015 Active meclizine (ANTIVERT) 25 MG TabletIndications:Diz ziness Take 1 Tab by mouth 3 times a day as needed for Dizziness. 30 Tab 1 09/19/2015 Active aspirin enteric coated 81 MG TBECIndications:Ather osclerosis of [place] coronary artery of [place] heart without angina pectoris Take 1 Tablet by mouth in the morning. 100 Tab 3 03/01/2018 Active Nitroglycerin 0.4 MG Sublingual Tablet Sublingual (Nitrostat)Indication s:Atherosclerosis of [place] coronary artery of [place] heart without angina pectoris Place 1 Tab under the tongue as needed for Pain, Chest. May repeat 3 times. If chest pain continues, call 911. 25 Tab 11 02/18/2021 Active Furosemide 20 MG Oral Tablet (Lasix) Take by mouth 1 Tablet in the morning. As needed for ankle swelling. 30 Tablet 5 12/24/2021 Active Triamcinolone Acetonide 0.1 % External Ointment (Aristocort)Indicatio ns:Vulvar irritation Apply topically to affected area 2 times a day as needed for Itching. Apply to vulva 30 g 2 01/08/2022 Active Incruse Ellipta 62.5 MCG/INH Inhalation Aerosol Powder Breath Activated (umeclidinium [place])Indications:C OPD, mild (HCC) INHALE 1 PUFF BY MOUTH ONCE DAILY 30 Each 11 03/25/2022 Active Calcium 500 MG Oral Tablet Take 1 Tablet by mouth in the morning. 0 Active Benzonatate 100 MG Oral CapsuleIndications:Ba cterial pneumonia Take 2 Capsules by mouth 3 times a day as needed for Cough. 30 Capsule 1 07/31/2022 Active Clopidogrel Bisulfate 75 MG Oral Tablet (pLAVix)Indications:A therosclerosis of [place] coronary artery of [place] heart without angina pectoris,Coronary atherosclerosis TAKE 1 TABLET BY MOUTH ONCE DAILY 90 Tablet 3 10/16/2022 Active Metoprolol Succinate ER 25 MG Oral Tablet Extended Release 24 Hour (toPROL XL)Indications:Athero sclerosis of [place] coronary artery of [place] heart without angina pectoris,Coronary atherosclerosis TAKE 1 TABLET BY MOUTH ONCE DAILY 90 Tablet 3 10/16/2022 Active Fish Oil 1000 MG Oral Capsule Take 1 Capsule by mouth in the morning. 0 Active Rosuvastatin Calcium 5 MG Oral Tablet (Crestor) TAKE 1 TABLET BY MOUTH EVERY MORNING 90 Tablet 1 01/11/2023 Active Omeprazole 20 MG Oral Capsule Delayed Release (PriLOSEC)Indications :Gastroesophageal reflux disease without esophagitis TAKE ONE CAPSULE BY MOUTH IN THE MORNING AND ONE BEFORE BEDTIME 180 Capsule 1 01/11/2023 Active Estradiol 0.1 MG/GM Vaginal Cream (Estrace) Apply topically to affected area every night at bedtime. Apply finger tip amount to external area and urethra 42.5 g 0 01/20/2023 Active Albuterol Sulfate HFA 108 (90 Base) MCG/ACT Inhalation Aerosol SolutionIndications:C OPD, mild (HCC) INHALE TWO PUFFS BY MOUTH FOUR TIMES DAILY 18 g 1 01/25/2023 Active DULoxetine HCl 20 MG Oral Capsule Delayed Release Particles (Cymbalta) 1 tab daily for 7 days then 1 tab twice daily 60 Capsule 2 01/26/2023 Active Fluticasone Propionate 50 MCG/ACT Nasal Suspension (Flonase)Indications: Post-nasal drip Administer 2 Sprays into each nostril in the morning. 1 Each 11 04/09/2023 Active documented as of this encounter (statuses as of 04/20/2023) Active Problems Problem Noted Date Diagnosed Date [...] CORONARY ATHEROSCLEROSIS OF UNSPECIFIED TYPE OF VESSEL, [place] OR GRAFT Irritable bowel syndrome Diaphragmatic hernia DIVERTICULOSIS OF COLON GENERALIZED ANXIETY DIS GENERAL OSTEOARTHROSIS documented as of this encounter (statuses as of 04/20/2023) Resolved Problems Problem Noted Date Diagnosed Date Resolved Date 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 06/27/2020 07/31/2021 Hemiplegia 06/27/2020 07/31/2021 Angina pectoris 05/19/2019 05/19/2019 Vertebral fracture, pathological 10/08/2016 10/08/2016 Major depression, single episode 10/08/2016 10/08/2016 Genetic Sleep Disorder Resea [facility] Other*[id number] 12/23/2010 12/04/2015 Other B-complex deficiencies 09/30/2010 10/08/2016 [...] as of this encounter (statuses as of 04/20/2023) Immunizations Name Administration Dates Next Due Diptheria/Tetanus (Adult) 08/31/2006 H1N1 2009 Influenza, IM 06/06/2009 Influenza, Whole Virus 02/18/1996 Pneumococcal Conjugate Vacc, 13 Valent (Prevnar) 06/17/2018 Pneumococcal Polysaccharide PPV23 (Pneumovax) 05/25/2001 Seasonal Influenza, Split, I IV3, With Preserve, Inj 02/16/2012,02/03/2011,02/26/2010,04/29,03/08/2008,03/20/2003,02/17/2002 TD, Preservative Free 08/31/2006 documented as of [...] as of this encounter Miscellaneous Notes * Addendum Note - Jen Ortiz LPN - 04/20/2023 9:35 AM ESTAddended by: JEN ORTIZ on: 04/20/2023 09:35 AM Modules accepted: Orders * Telephone Encounter - Jen Ortiz LPN - 04/20/2023 9:35 AM EST Referral pended. Jen Ortiz LPN * Telephone Encounter - Rebecca Gatica OSA - 04/20/2023 9:15 AM EST [facility] [address] [place] [address] , Option 5 04/20/[address] Taylor: This request is in regards to: Sylvia Torres : 1935 Due to Medicare guidelines for Podiatry Routine Footcare & Mycotic Nail visits, we need documented medical necessity for this patient's upcoming appointment TODAY, 04/20/2023. Moving forward, a referral will need to be placed every 6 months and must include the below information for Medicare to pay for services. Can you please assist with placing a new referral with the below outlined? 1) Can Patient perform routine footcare without assistance? (Y/N) 2) Does patient have a chronic condition? (Y/N) If yes, please list condition diagnosis 3)Has patient been seen in the past 6 months by PCP? (Y/N) If yes, please list the date Please visit the following CMS website to choose from a covered diagnosis code: https://www.cms.gov/medicare-coverage-database/view/article.aspx?[email or web address]=33975 &[email or web address] Please return your completed referral along with patient's most recent office note to our office at: [phone]. Sincerely, [facility] documented in this encounter Plan of Treatment Upcoming Encounters Date Type Department Care Team (Late st Contact Info) Description 04/20/2023 12:40 PM EST Office Visit Podiatry [facility] [address] [place] [address] Zhanna Rodríguez DPM [address] [place] [address] 2023 11:40 AM EST Office Visit Otolaryngology [facility] [address] [place] [address] Mame Bishop PA-C [address] [place] [address] 05/27/2023 1:00 PM EST [facility] [address] [place] [address] Karly Taylor MD [address] [place] [address] 07/23/2023 1:00 PM EDT Office Visit Family Practice [facility] [address] [place] [address] Ritu Gaspar MD [address] [place] [address] 07/27/2023 1:20 PM EDT Office Visit Neurology [facility] [address] [place] [address] Therese Mcdonald PA-C [address] [place] [address] 08/26/2023 1:35 PM EDT Office Visit Urogynecology [facility] [address] [facility] [place] [address] Lisa Taylor PA-C [address] [place] [address] CuevasNurse Eren garcia Rust [address] [place] [address] 09/08/2023 1:00 PM EDT Imaging Radiology [facility] 1st [facility] [place] [address] [place] [address] Health Maintenance Due Date Last Done Comments COVID-19 Vaccine (#1) 1935 Alpha-1 Antitrypsin 1953 Zoster Vaccines (1 of 2) 1985 DTaP,Tdap,and Td Vaccines (1 - Tdap) 09/01/2006 08/31/2006, 08/31/2006 Influenza Vaccine (FLU shot) (#1) 2023 02/16/2012, 02/03/2011, 02/26/2010, Additional history exists Albumin/Creatinine Ratio 08/26/2023 023, 12/26/2020, 06/17/2009 CKD HGB USE SMARTSET 94264 08/26/202308/25, 08/25/2022, 07/31/2021, Additional history exists CKD PHOS USE SMARTSET 69607 08/26/202308/02, 12/26/2020, 06/26/2004 Depression Screening 08/26/2023 08/25/2022 [...] Not on filedocumented as of this encounter Care Teams Baker Apprentice Relationship Specialty Start Date End Date Karly Taylor MD [address] [place] [address] PCP - General 08/18/07 documented as of this encounter
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
--- OUTSIDE RECORDS SUMMARY | 2023-06-12 11:54 | External Medical Summary | Summary of Care ---
Author Name Unknown Organization [facility] Address [address] [facility] [place] [address] Phone [phone] Care Team Providers Care Bedspread Seamer Name Role Phone Karly Taylor MD Primary Care Provider + Reason for Visit * Reason Onset Date Comments Advice 03/12/2023 Encounter Details Date Type Department Care Team (Late st Contact Info) Description 03/12/2023 Telephone General Internal Medicine [facility] 200 [place] [address] Karly Taylor MD 200 [place] [address] Advice Allergies Active Allergy Reactions Criticality Noted Date Comments Codeine Nausea/vomiting 07/07/2012 Isosorbide Other (Please comment) 09/30/2018 Severe headache Latex Rash 03/26/2010 Morphine And Related Nausea/vomiting 02/03/2000 Penicillins Nausea/vomiting 02/03/2000 documented as of this encounter (statuses as of 03/15/2023) Medications Medication Sig Dispensed Refills Start Date End Date Status FISH [id number] OWER PO CAPS Take by mouth. 0 [...] enteric coated 81 MG TBECIndications:Ather osclerosis of [place] coronary artery of [place] heart without angina pectoris Take 1 Tablet by mouth in the morning. 100 Tab 3 03/01/2018 Active fluticasone (FLONASE) 50 MCG/ACT nasal spray Administer 2 Sprays into each nostril daily. 1 Inhaler 5 03/02/2018 Active Nitroglycerin 0.4 MG Sublingual Tablet Sublingual (Nitrostat)Indication s:Atherosclerosis of [place] coronary artery of [place] heart without angina pectoris Place 1 Tab [...] MCG/INH Inhalation Aerosol Powder Breath Activated (umeclidinium [place])Indications:C OPD, mild (HCC) INHALE 1 PUFF BY [...] 75 MG Oral Tablet (pLAVix)Indications:A therosclerosis of [place] coronary artery of [place] heart without angina pectoris,Coronary atherosclerosis TAKE 1 TABLET BY MOUTH ONCE DAILY 90 Tablet 3 10/16/2022 Active Metoprolol Succinate ER 25 MG Oral Tablet Extended Release 24 Hour (toPROL XL)Indications:Athero sclerosis of [place] coronary artery of [place] heart without angina pectoris,Coronary atherosclerosis TAKE 1 [...] twice daily 60 Capsule 2 01/26/2023 Active documented as of this encounter (statuses as of 03/15/2023) Active Problems Problem Noted Date Diagnosed Date [...] OF UNSPECIFIED TYPE OF VESSEL, [place] OR GRAFT Irritable bowel syndrome Diaphragmatic hernia DIVERTICULOSIS OF COLON GENERALIZED ANXIETY DIS GENERAL OSTEOARTHROSIS documented as of this encounter (statuses as of 03/15/2023) Resolved Problems Problem Noted Date Diagnosed Date Resolved Date 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 06/27/2020 07/31/2021 Hemiplegia 06/27/2020 07/31/2021 Angina pectoris 05/19/2019 05/19/2019 Vertebral fracture, pathological 10/08/2016 10/08/2016 Major depression, single episode 10/08/2016 10/08/2016 Genetic Sleep Disorder Resea [facility] Other*[id number] 12/23/2010 12/04/2015 Other B-complex deficiencies 09/30/2010 10/08/2016 [...] as of this encounter (statuses as of 03/15/2023) Immunizations Name Administration Dates Next Due Diptheria/Tetanus [...] encounter Miscellaneous Notes * Telephone Encounter - Sivan Pablo - 03/15/2023 1:15 PM EST LM for pt to call back, I scheduled pt for 12-8 @ 12:45pm with Dr Gaspar since it was a cancellation. Will inform pt when she calls back * Telephone Encounter - Madai Daily OSA - 03/15/2023 12:28 PM EST No, explain pt only wants to see Dr. Ritu Gaspar for a F/U * Telephone Encounter - Connie Busby OSA - 03/12/2023 3:35 PM EST No Appointments Available Patient declined appointments?: Yes What Visit Type is needed? Return If Acute Visit Type is needed, were surrounding clinics offered to patient (Yes/No)? N/A Was patient offered appointments with other available providers (Yes/No)? No, explain pt only wantsto see Dr. Ritu Gaspar for a F/U & in the afternoon since pt does not drive See Call Details? (Yes or No): No documented in this encounter Plan of Treatment Upcoming Encounters Date Type Department Care Team (Late st Contact Info) Description 03/30/2023 1:20 PM EST Office Visit Podiatry [facility] [address] [place] [address] Zhanna Rodríguez DPM [address] [place] [address] 04/09/2023 1:00 PM EST Office Visit Family Practice [facility] [address] [place] [address] Ritu Gaspar MD [address] [place] [address] 04/22/2023 3:00 PM EST Office Visit General Internal Medicine [facility] [address] [facility] [place] [address] Karly Taylor MD [address] [facility] [place] [address] 2023 11:40 AM EST Office Visit Otolaryngology [facility] [address] [place] [address] Mame Bishop PA-C [address] [place] [address] 07/27/2023 1:20 PM EDT Office Visit Neurology [facility] [address] [place] [address] Therese Mcdonald PA-C [address] [facility] [place] [address] 08/26/2023 1:35 PM EDT Office Visit Urogynecology [facility] [address] [place] [address] Lisa Taylor PA-C [address] [place] [address] [facility] [address] [place] [address] 09/08/2023 1:00 PM EDT Imaging Radiology [facility]st [facility] [address] [place] [address] Health Maintenance Due Date Last Done Comments COVID-19 Vaccine (#1) 1935 Alpha-1 Antitrypsin 1953 Zoster Vaccines (1 of 2) 1985 DTaP,Tdap,and Td Vaccines (1 - Tdap) 09/01/2006 08/31/2006, 08/31/2006 Influenza Vaccine (FLU shot) (#1) 2023 02/16/2012, 02/03/2011, 02/26/2010, Additional history exists Albumin/Creatinine Ratio 08/26/2023 023, 12/26/2020, 06/17/2009 CKD HGB USE SMARTSET 82847 08/26/202308/25, 08/25/2022, 07/31/2021, Additional history exists CKD PHOS USE SMARTSET 80716 08/26/202308/02, 12/26/2020, 06/26/2004 Depression Screening 08/26/2023 08/25/2022 Mammogram 09/02/2023 09/01/2022, 06/03, 03/25/2020, Additional history exists O2 ASSESSMENT COMPLETED IN [...] filedocumented as of this encounter Care Teams Bedspread Seamer Relationship Specialty Start Date End Date Karly Taylor MD [address] [place] [address] PCP - General 08/18/07 documented as of this encounter
--- OUTSIDE RECORDS SUMMARY | 2023-06-12 11:54 | External Medical Summary | Summary of Care ---
Author Name Unknown Organization [facility] Address [address] [facility] [place] [address] Phone [phone] Care Team Providers Care Web Knitter Name Role Phone Karly Taylor MD Primary Care Provider + Reason for Visit * Reason Onset Date Comments Referral Requested by Specialist 04/20/2023 Encounter Details Date Type Department Care Team (Late st Contact Info) Description 04/20/2023 Telephone Podiatry [facility] [address] [place] [address] Zhanna Rodríguez DPM [address] [place] [address] Referral Requested by Specialist Allergies Active Allergy Reactions Criticality Noted Date Comments Codeine Nausea/vomiting 07/07/2012 Isosorbide Other (Please comment) 09/30/2018 Severe headache Latex Rash 03/26/2010 Morphine And Related Nausea/vomiting 02/03/2000 Penicillins Nausea/vomiting 02/03/2000 documented as of this encounter (statuses as of 04/20/2023) Medications Medication Sig Dispensed Refills Start Date End Date Status FISH [id number]-SAFFL OWER PO CAPS Take by mouth. 0 [...] enteric coated 81 MG TBECIndications:Ather osclerosis of resighini coronary artery of resighini heart without angina pectoris Take 1 Tablet by mouth in the morning. 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 angina pectoris Place 1 Tab [...] MCG/INH Inhalation Aerosol Powder Breath Activated (umeclidinium [place])Indications:C OPD, mild (HCC) INHALE 1 PUFF BY [...] 75 MG Oral Tablet (pLAVix)Indications:A therosclerosis of resighini coronary artery of resighini heart without angina pectoris,Coronary atherosclerosis TAKE 1 TABLET BY MOUTH ONCE DAILY 90 Tablet 3 10/16/2022 Active Metoprolol Succinate ER 25 MG Oral Tablet Extended Release 24 Hour (toPROL XL)Indications:Athero sclerosis of resighini coronary artery of resighini heart without angina pectoris,Coronary atherosclerosis TAKE 1 [...] OF UNSPECIFIED TYPE OF VESSEL, [place] OR GRAFT Irritable bowel syndrome Diaphragmatic hernia [...] episode 10/08/2016 10/08/2016 Genetic Sleep Disorder [facility] Other*[id number] 12/23/2010 12/04/2015 Other B-complex deficiencies 09/30/2010 10/08/2016 [...] encounter Miscellaneous Notes * Telephone Encounter - Jen Ortiz LPN - 04/20/2023 9:35 AM EST Referral pended. Jen Ortiz LPN * Telephone Encounter - Rebecca Gatica OSA - 04/20/2023 9:15 AM EST [id number] [address] [facility] [place] [address] , Option 5 04/20/[address] Taylor: [...] to choose from a covered diagnosis code: https://www.cms.gov/medicare-coverage-database/view/article.[email or web address] Please return your completed referral along with patient's most recent office note to our office at: [phone]. Sincerely, [facility] documented in this encounter Plan of Treatment Upcoming Encounters Date Type Department Care Team (Late st Contact Info) Description 04/20/2023 12:40 PM EST Office Visit Podiatry [facility] [address] [address] Zhanna Rodríguez DPM [address] [place] [address] 2023 11:40 AM EST Office Visit Otolaryngology [facility] [address] [place] [address] Mame Bishop PA-C [address] [place] [address] 05/27/2023 1:00 PM EST Office Visit General Internal Medicine [facility] [address] [address] Karly Taylor MD [address] [address] 07/23/2023 1:00 PM EDT Office Visit Family Practice [facility] [address] [place] [address] Ritu Gaspar MD [address] [place] [address] 07/27/2023 1:20 PM EDT Office Visit Neurology [facility] [address] [address] Therese Mcdonald PA-C [address] [address] 08/26/2023 1:35 PM EDT Office Visit Urogynecology [facility] [address] [place] [address] Lisa Taylor PA-C [address] [place] [address] CuevasNurse Eren garcia Abner [address] [place] [address] 09/08/2023 1:00 PM EDT Imaging Radiology [facility] [address] [facility] [address] [place] [address] Health Maintenance Due Date Last Done Comments COVID-19 Vaccine (#1) 1935 Alpha-1 Antitrypsin 1953 Zoster Vaccines (1 of 2) 1985 DTaP,Tdap,and Td Vaccines (1 - Tdap) 09/01/2006 08/31/2006, 08/31/2006 Influenza Vaccine (FLU shot) (#1) 2023 02/16/2012, 02/03/2011, 02/26/2010, Additional history exists Albumin/Creatinine Ratio 08/26/2023 023, 12/26/2020, 06/17/2009 CKD HGB USE SMARTSET 47790 08/26/202308/25, 08/25/2022, 07/31/2021, Additional history exists CKD PHOS USE SMARTSET 41195 08/26/202308/02, 12/26/2020, 06/26/2004 Depression Screening 08/26/2023 08/25/2022 [...] filedocumented as of this encounter Care Teams Web Knitter Relationship Specialty Start Date End Date Karly Taylor MD [address] [place] [address] PCP - General 08/18/07 documented as of this encounter
--- OUTSIDE RECORDS SUMMARY | 2023-06-12 11:54 | External Medical Summary | Summary of Care ---
Author Name Unknown Organization [facility] Address [address] [facility] [place] [address] Phone [phone] Care Team Providers Care Clinical Liaison Name Role Phone Karly Taylor MD Primary Care Provider + Reason for Visit * Reason Onset Date Comments Advice 03/12/2023 Encounter Details Date Type Department Care Team (Late st Contact Info) Description 03/12/2023 Telephone General Internal Medicine [facility] 200 [facility] [place] [address] Karly Taylor MD 200 [place] [address] Advice Allergies Active Allergy Reactions Criticality Noted Date Comments Codeine Nausea/vomiting 07/07/2012 Isosorbide Other (Please comment) 09/30/2018 Severe headache Latex Rash 03/26/2010 Morphine And Related Nausea/vomiting 02/03/2000 Penicillins Nausea/vomiting 02/03/2000 documented as of this encounter (statuses as of 03/17/2023) Medications Medication Sig Dispensed Refills Start Date End Date Status FISH [id number]-SAFFL OWER PO CAPS Take by mouth. 0 [...] enteric coated 81 MG TBECIndications:Ather osclerosis of [place] coronary artery of [place] heart without angina pectoris Take 1 Tablet by mouth in the morning. 100 Tab 3 03/01/2018 Active fluticasone (FLONASE) 50 MCG/ACT nasal spray Administer 2 Sprays into each nostril daily. 1 Inhaler 5 03/02/2018 Active Nitroglycerin 0.4 MG Sublingual Tablet Sublingual (Nitrostat)Indication s:Atherosclerosis of [place] coronary artery of nikolai heart without angina pectoris Place 1 Tab [...] MCG/INH Inhalation Aerosol Powder Breath Activated (umeclidinium [place])Indications:C OPD, mild (HCC) INHALE 1 PUFF BY [...] 75 MG Oral Tablet (pLAVix)Indications:A therosclerosis of [place] coronary artery of nik[place] heart without angina pectoris,Coronary atherosclerosis TAKE 1 TABLET BY MOUTH ONCE DAILY 90 Tablet 3 10/16/2022 Active Metoprolol Succinate ER 25 MG Oral Tablet Extended Release 24 Hour (toPROL XL)Indications:Athero sclerosis of [place] coronary artery of n[place] heart without angina pectoris,Coronary atherosclerosis TAKE 1 [...] as of this encounter (statuses as of 03/17/2023) Active Problems Problem Noted Date Diagnosed Date [...] CORONARY ATHEROSCLEROSIS OF UNSPECIFIED TYPE OF VESSEL, [place] OR GRAFT Irritable bowel syndrome Diaphragmatic hernia DIVERTICULOSIS OF COLON GENERALIZED ANXIETY DIS GENERAL OSTEOARTHROSIS documented as of this encounter (statuses as of 03/17/2023) Resolved Problems Problem Noted Date Diagnosed Date Resolved Date 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 06/27/2020 07/31/2021 Hemiplegia 06/27/2020 07/31/2021 Angina pectoris 05/19/2019 05/19/2019 Vertebral fracture, pathological 10/08/2016 10/08/2016 Major depression, single episode 10/08/2016 10/08/2016 Genetic Sleep Disorder Resea [facility] Other*[id number] 12/23/2010 12/04/2015 Other B-complex deficiencies 09/30/2010 10/08/2016 [...] as of this encounter (statuses as of 03/17/2023) Immunizations Name Administration Dates Next Due Diptheria/Tetanus [...] * Telephone Encounter - Sivan Pablo - 03/17/2023 8:27 AM EST LM for pt to call back, I scheduled pt for 12-8 @ 12:45pm with Dr Gaspar since it was a cancellation. Will inform pt when she calls back My g also sent * Telephone Encounter - Sivan Pablo - [...] 03/30/2023 1:20 PM EST Office Visit Podiatry [facility] [address] [place] [address] Zhanna Rodríguez DPM [address] [place] [address] 04/09/2023 1:00 PM EST Office Visit Family Practice [facility] [address] [place] [address] Ritu Gaspar MD [address] [place] [address] 04/22/2023 3:00 PM EST Office Visit General Internal Medicine [facility] 200 [facility] [place] [address] Karly Taylor MD 200 [facility] [place] [address] 2023 11:40 AM EST Office Visit Otolaryngology [facility] [address] [place] [address] Mame Bishop PA-C [address] [place] [address] 07/27/2023 1:20 PM EDT Office Visit Neurology [facility] [address] [place] [address] Therese Mcdonald PA-C 200 [facility] [place] [address] 08/26/2023 1:35 PM EDT Office Visit Urogynecology [facility] [address] [place] [address] Lisa Taylor PA-C [address] [place] [address] Nurse Eren Cuevas [address] [place] [address] 09/08/2023 1:00 PM EDT Imaging Radiology [facility] 1st Floor, [place] [address] [place] [address] Health Maintenance Due Date Last Done Comments COVID-19 Vaccine (#1) 1935 Alpha-1 Antitrypsin 1953 Zoster Vaccines (1 of 2) 1985 DTaP,Tdap,and Td Vaccines (1 - Tdap) 09/01/2006 08/31/2006, 08/31/2006 Influenza Vaccine (FLU shot) (#1) 2023 02/16/2012, 02/03/2011, 02/26/2010, Additional history exists Albumin/Creatinine Ratio 08/26/2023 023, 12/26/2020, 06/17/2009 CKD HGB USE SMARTSET 89906 08/26/202308/25, 08/25/2022, 07/31/2021, Additional history exists CKD PHOS USE SMARTSET 36601 08/26/202308/02, 12/26/2020, 06/26/2004 Depression Screening 08/26/2023 08/25/2022 Mammogram 09/02/2023 09/01/2022, 0506/2022, 06/16/2021, Additional history exists O2 ASSESSMENT COMPLETED [...] filedocumented as of this encounter Care Teams Clinical Liaison Relationship Specialty Start Date End Date Karly Taylor MD [address] [place] [address] PCP - General 08/18/07 documented as of this encounter
--- OUTSIDE RECORDS SUMMARY | 2023-06-12 11:54 | External Medical Summary | Summary of Care ---
Author Name Unknown Organization [facility] Address [address] [facility] [place] [address] Phone [phone] Care Team Providers Care Contractor Broomcorn Threshing Name Role Phone Karly Taylor MD Primary Care Provider + Encounter Details Date Type Department Care Team (Late st Contact Info) Description 01/01/2023 Telephone General Internal Medicine [facility] [address] [place] [id number] Karly Taylor MD [address] [facility] [address] Allergies Active Allergy Reactions Criticality Noted Date Comments Codeine Nausea/vomiting 07/07/2012 Isosorbide Other (Please comment) 09/30/2018 Severe headache Latex Rash 03/26/2010 Morphine And Related Nausea/vomiting 02/03/2000 Penicillins Nausea/vomiting 02/03/2000 documented as of this encounter (statuses as of 04/02/2023) Medications Medication Sig Dispensed Refills Start Date End Date Status FISH [id number]-SAFF LOWER PO CAPS Take by mouth. 0 [...] enteric coated 81 MG TBECIndications:Athe rosclerosis of [place] coronary artery of [place] heart without angina pectoris Take 1 Tablet by mouth in the morning. 100 Tab 3 03/01/2018 Active fluticasone (FLONASE) 50 MCG/ACT nasal spray Administer 2 Sprays into each nostril daily. 1 Inhaler 5 03/02/2018 Active Nitroglycerin 0.4 MG Sublingual Tablet Sublingual (Nitrostat)Indicatio ns:Atherosclerosis of [place] coronary artery of [place] heart without angina pectoris Place 1 Tab [...] MCG/INH Inhalation Aerosol Powder Breath Activated (umeclidinium [place])Indications: COPD, mild (HCC) INHALE 1 PUFF BY [...] 75 MG Oral Tablet (pLAVix)Indications: Atherosclerosis of [place] coronary artery of [place] heart without angina pectoris,Coronary atherosclerosis TAKE 1 TABLET BY MOUTH ONCE DAILY 90 Tablet 3 10/16/2022 Active Metoprolol Succinate ER 25 MG Oral Tablet Extended Release 24 Hour (toPROL XL)Indications:Ather osclerosis of [place] coronary artery of [place] heart without angina pectoris,Coronary atherosclerosis TAKE 1 TABLET BY MOUTH ONCE DAILY 90 Tablet 3 10/16/2022 Active Fish Oil 1000 MG Oral Capsule Take 1 Capsule by mouth in the morning. 0 Active Albuterol Sulfate HFA 108 (90 Base) MCG/ACT Inhalation Aerosol SolutionIndications: COPD, mild (HCC) INHALE TWO PUFFS BY MOUTH FOUR TIMES DAILY 18 g 1 03/25/2022 3 Discontinu ed(Refill) Estradiol 0.1 MG/GM Vaginal Cream (Estrace) Apply topically to affected area every night at bedtime. Apply finger tip amount to external area and urethra 42.5 g 0 12/22/2022 3 Discontinu ed(Refill) documented as of this encounter (statuses as of 04/02/2023) Active Problems Problem Noted Date Diagnosed Date [...] CORONARY ATHEROSCLEROSIS OF UNSPECIFIED TYPE OF VESSEL, [place] OR GRAFT Irritable bowel syndrome Diaphragmatic hernia DIVERTICULOSIS OF COLON GENERALIZED ANXIETY DIS GENERAL OSTEOARTHROSIS documented as of this encounter (statuses as of 04/02/2023) Resolved Problems Problem Noted Date Diagnosed Date Resolved Date 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 06/27/2020 07/31/2021 Hemiplegia 06/27/2020 07/31/2021 Angina pectoris 05/19/2019 05/19/2019 Vertebral fracture, pathological 10/08/2016 10/08/2016 Major depression, single episode 10/08/2016 10/08/2016 Genetic Sleep Disorder Resea [facility] Other*[id number] 12/23/2010 12/04/2015 Other B-complex deficiencies 09/30/2010 10/08/2016 [...] back 05/09/2002 04/29/2018 seborrheic keratosis- upper back 1005/09/2002 04/29/2018 traumatized annalise. keratosis-u pper mid back [...] as of this encounter (statuses as of 04/02/2023) Immunizations Name Administration Dates Next Due Diptheria/Tetanus [...] on file documented as of this encounter Plan of Treatment Upcoming Encounters Date Type Department Care Team (Late st Contact Info) Description 04/09/2023 1:00 PM EST Office Visit Family Practice [facility] [address] [place] [address] Ritu Gaspar MD [address] [place] [address] 04/20/2023 12:40 PM EST Office Visit Podiatry [facility] [address] [place] [address] Zhanna Rodríguez, DPPhilippe [address] [place] [address] 04/22/2023 3:00 PM EST Office Visit General Internal Medicine [facility] 200 [facility] [place] [address] Karly Taylor MD [address] [facility] [place] [address] 2023 11:40 AM EST Office Visit Otolaryngology [facility] [address] [place] [address] Mame Bishop PA-C [address] [place] [address] 07/27/2023 1:20 PM EDT Office Visit Neurology [facility] [address] [facility] [place] [address] Therese Mcdonald PA-C 200 [facility] [place] [address] 08/26/2023 1:35 PM EDT Office Visit Urogynecology [facility] [address] [place] [address] Lisa Taylor PA-C [address] [place] [address] CuevasNurse Eren garcia [facility] [address] [place] [address] 09/08/2023 1:00 PM EDT Imaging Radiology [facility] [address] [facility] [address] [place] [address] Health Maintenance Due Date Last Done Comments COVID-19 Vaccine (#1) 1935 Alpha-1 Antitrypsin 1953 Zoster Vaccines (1 of 2) 1985 DTaP,Tdap,and Td Vaccines (1 - Tdap) 09/01/2006 08/31/2006, 08/31/2006 Influenza Vaccine (FLU shot) (#1) 2023 02/16/2012, 02/03/2011, 02/26/2010, Additional history exists Albumin/Creatinine Ratio 08/26/2023 023, 12/26/2020, 06/17/2009 CKD HGB USE SMARTSET 07289 08/26/202308/25, 08/25/2022, 07/31/2021, Additional history exists CKD PHOS USE SMARTSET 90449 08/26/202308/02, 12/26/2020, 06/26/2004 Depression Screening 08/26/2023 08/25/2022 [...] filedocumented as of this encounter Care Teams Contractor Broomcorn Threshing Relationship Specialty Start Date End Date Karly Taylor MD [address] [place] [address] PCP - General 08/18/07 documented as of this encounter
--- OUTSIDE RECORDS SUMMARY | 2023-06-12 11:54 | External Medical Summary | Summary of Care ---
Author Name Unknown Organization [facility] Address [address] [facility] [facility] [place] [address] Phone [phone] Care Team Providers Care Internet Sales Manager Name Role Phone Karly Taylor MD Primary Care Provider + Encounter Details Date Type Department Care Team (Late st Contact Info) Description 04/12/2023 Telephone Family Practice [facility] [address] [place] [address] Ritu Gaspar MD [address] [place] [address] Allergies Active Allergy Reactions Criticality Noted Date Comments Codeine Nausea/vomiting 07/07/2012 Isosorbide Other (Please comment) 09/30/2018 Severe headache Latex Rash 03/26/2010 Morphine And Related Nausea/vomiting 02/03/2000 Penicillins Nausea/vomiting 02/03/2000 documented as of this encounter (statuses as of 04/13/2023) Medications Medication Sig Dispensed Refills Start Date End Date Status FISH [id number]-SAFFL OWER PO CAPS Take by mouth. 0 [...] enteric coated 81 MG TBECIndications:Ather osclerosis of [place] coronary artery of [place] heart without angina pectoris Take 1 Tablet by mouth in the morning. 100 Tab 3 03/01/2018 Active Nitroglycerin 0.4 MG Sublingual Tablet Sublingual (Nitrostat)Indication s:Atherosclerosis of [place] coronary artery of [place] heart without angina pectoris Place 1 Tab [...] MCG/INH Inhalation Aerosol Powder Breath Activated (umeclidinium [place])Indications:C OPD, mild (HCC) INHALE 1 PUFF BY [...] 75 MG Oral Tablet (pLAVix)Indications:A therosclerosis of [place] coronary artery of [place] heart without angina pectoris,Coronary atherosclerosis TAKE 1 TABLET BY MOUTH ONCE DAILY 90 Tablet 3 10/16/2022 Active Metoprolol Succinate ER 25 MG Oral Tablet Extended Release 24 Hour (toPROL XL)Indications:Athero sclerosis of [place] coronary artery of [place] heart without angina pectoris,Coronary atherosclerosis TAKE 1 [...] as of this encounter (statuses as of 04/13/2023) Active Problems Problem Noted Date Diagnosed Date [...] CORONARY ATHEROSCLEROSIS OF UNSPECIFIED TYPE OF VESSEL, [place] OR GRAFT Irritable bowel syndrome Diaphragmatic hernia DIVERTICULOSIS OF COLON GENERALIZED ANXIETY DIS GENERAL OSTEOARTHROSIS documented as of this encounter (statuses as of 04/13/2023) Resolved Problems Problem Noted Date Diagnosed Date Resolved Date 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 06/27/2020 07/31/2021 Hemiplegia 06/27/2020 07/31/2021 Angina pectoris 05/19/2019 05/19/2019 Vertebral fracture, pathological 10/08/2016 10/08/2016 Major depression, single episode 10/08/2016 10/08/2016 Genetic Sleep Disorder [facility] Other*[id number] 12/23/2010 12/04/2015 Other B-complex deficiencies 09/30/2010 10/08/2016 [...] as of this encounter (statuses as of 04/13/2023) Immunizations Name Administration Dates Next Due Diptheria/Tetanus [...] encounter Miscellaneous Notes * Telephone Encounter - Munira Garrett LPN - 04/13/2023 12:46 PM EST Called and spoke with pt. Pt states that she does still have some pain and burning with urination. Pt states that she has started using the flonase and wants to wait and see how this works for her before starting any other medication. Pt will call the office if things do not improve or gets worse. * Telephone Encounter - Ritu Gaspar MD - 04/12/2023 10:48 PM EST Please let patient know that urine culture grew E coli. It's possible this is contamination. If she is having urinary frequency, urgency or dysuria, or is feeling sick/fever, we can treat withabx. Otherwise keep taking flonase to see if helps with nausea and appetite. (Send to [facility] if needs abx, out of office Wednesday and traveling) documented in this encounter Plan of Treatment Upcoming Encounters Date Type Department Care Team (Late st Contact Info) Description 04/20/2023 12:40 PM EST Office Visit Podiatry [facility] [address] [place] [address] Zhanna Rodríguez DPM [address] [place] [address] 2023 11:40 AM EST Office Visit Otolaryngology [facility] [address] [place] [address] Mame Bishop PA-C [address] [place] [address] 05/27/2023 1:00 PM EST Office Visit [facility] [address] [place] [address] Karly Taylor MD [address] [address] 07/23/2023 1:00 PM EDT Office Visit Family Practice [facility] [address] [place] [address] Ritu Gaspar MD [address] [place] [address] 07/27/2023 1:20 PM EDT Office Visit Neurology [facility] [address] [facility] [address] [place] [address] Therese Mcdonald PA-C 200 [facility] [place] [address] 08/26/2023 1:35 PM EDT Office Visit Urogynecology [facility] [address] [place] [address] Lisa Taylor PA-C [address] [place] [address] Nurse Eren Cuevas [facility] [address] [place] [address] 09/08/2023 1:00 PM EDT Imaging Radiology [facility] 1st [facility] [place] [address] Health Maintenance Due Date Last Done Comments COVID-19 Vaccine (#1) 1935 Alpha-1 Antitrypsin 1953 Zoster Vaccines (1 of 2) 1985 DTaP,Tdap,and Td Vaccines (1 - Tdap) 09/01/2006 08/31/2006, 08/31/2006 Influenza Vaccine (FLU shot) (#1) 2023 02/16/2012, 02/03/2011, 02/26/2010, Additional history exists Albumin/Creatinine Ratio 08/26/2023 023, 12/26/2020, 06/17/2009 CKD HGB USE SMARTSET 34175 08/26/202308/25, 08/25/2022, 07/31/2021, Additional history exists CKD PHOS USE SMARTSET 17788 08/26/202308/02, 12/26/2020, 06/26/2004 Depression Screening 08/26/2023 08/25/2022 Mammogram 09/02/2023 09/01/2022, 05/06/2022, 06/16/2021, Additional history exists O2 ASSESSMENT COMPLETED [...] filedocumented as of this encounter Care Teams Internet Sales Manager Relationship Specialty Start Date End Date Karly Taylor MD 200 [facility] [address] PCP - General 08/18/07 documented as of this encounter
--- OUTSIDE RECORDS SUMMARY | 2023-06-12 11:54 | External Medical Summary | Summary of Care ---
Author Name Unknown Organization [facility] Address [address] [place] [address] Phone [phone] Care Team Providers Care Automatic Clipper Name Role Phone Karly Taylor MD Primary Care Provider + Reason for Visit * Reason Comments Follow Up Encounter Details Date Type Department Care Team (Late st Contact Info) Description 2023 11:40 AM EST Office Visit Otolaryngology [facility] [address] [place] [address] Mame Bishop PA-C [address] [place] [address] Perforation of left tympanic membrane* Allergies Active Allergy Reactions Criticality Noted Date Comments Codeine Nausea/vomiting 07/07/2012 Isosorbide Other (Please comment) 09/30/2018 Severe headache Latex Rash 03/26/2010 Morphine And Related Nausea/vomiting 02/03/2000 Penicillins Nausea/vomiting 02/03/2000 documented as of this encounter (statuses as of 2023) Medications Medication Sig Dispensed Refills Start Date End Date Status FISH [id number]-SAFFL OWER PO CAPS Take by mouth. 0 [...] enteric coated 81 MG TBECIndications:Ather osclerosis of [place] coronary artery of [place] heart without angina pectoris Take 1 Tablet by mouth in the morning. 100 Tab 3 03/01/2018 Active Nitroglycerin 0.4 MG Sublingual Tablet Sublingual (Nitrostat)Indication s:Atherosclerosis of [place] coronary artery of [place] heart without angina pectoris Place 1 Tab [...] MCG/INH Inhalation Aerosol Powder Breath Activated (umeclidinium [place])Indications:C OPD, mild (HCC) INHALE 1 PUFF BY [...] 75 MG Oral Tablet (pLAVix)Indications:A therosclerosis of [place] coronary artery of [place] heart without angina pectoris,Coronary atherosclerosis TAKE 1 TABLET BY MOUTH ONCE DAILY 90 Tablet 3 10/16/2022 Active Metoprolol Succinate ER 25 MG Oral Tablet Extended Release 24 Hour (toPROL XL)Indications:Athero sclerosis of [place] coronary artery of [place] heart without angina pectoris,Coronary atherosclerosis TAKE 1 [...] as of this encounter (statuses as of 2023) Active Problems Problem Noted Date Diagnosed Date [...] as of this encounter (statuses as of 2023) Resolved Problems Problem Noted Date Diagnosed Date Resolved Date 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 06/27/2020 07/31/2021 Hemiplegia 06/27/2020 07/31/2021 Angina pectoris 05/19/2019 05/19/2019 Vertebral fracture, pathological 10/08/2016 10/08/2016 Major depression, single episode 10/08/2016 10/08/2016 Genetic Sleep Disorder Resea [facility] Other*[id number] 12/23/2010 12/04/2015 Other B-complex deficiencies 09/30/2010 10/08/2016 [...] as of this encounter (statuses as of 2023) Immunizations Name Administration Dates Next Due Diptheria/Tetanus [...] Sign Reading Time Taken Comments Blood Pressure - - Pulse - - Temperature 36 C (96.8 F) 2023 11: 46 AM EST Respiratory Rate - - Oxygen Saturation - - Inhaled Oxygen Concentration - - Weight 75.2 kg (165 lb 11.2 oz) 024 11:46 AM EST Height 174 cm (5' 8.5") 2023 11:4 6 AM EST Body Mass Index 24.83 2023 11:46 AM EST documented in this encounter Progress Notes * Mame Bishop PA-C - 2023 1:44 PM EST SUBJECTIVE: Sylvia Torres is a 88 year old female. Chief Complaint Patient presents with Follow Up HPI: Pt presents for return appointment. Denies otalgia or otorrhea. She is frustrated with her hearing. 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 VITAMIN E [...] MCG/INH Inhalation Aerosol Powder Breath Activated (umeclidinium [place]) INHALE 1 PUFF BY MOUTH ONCE DAILY [...] No current facility-administered medications for this visit. Review of patient's allergies indicates: Allergen Reactions Codeine Nausea/vomiting Isosorbide Other (Please comment) Severe headache Latex Rash Morphine And Related Nausea/vomiting Penicillins Nausea/vomiting REVIEW OF SYSTEMS Negative for constitutional, heart, lung, liver, kidney, digestive, hematologic, neurologic, rheumatologic, or endocrine complaints except as per history of present illness and past medical history. OBJECTIVE: Temp 36 C (96.8 F) (Tympanic) | Ht 1.74 m (5' 8.5") | Wt 75.2 kg (165 lb 11.2 oz) | BMI 24.83 kg/m | BSA 1.91 m PHYSICAL EXAM: General: alert, healthy and no distress Ears: Examination of the ears revealed that the auricles were normally formed with no lesions. The external auditory canals were cleaned of any obstructing cerumen. The right tympanic membrane was intact and freely mobile to pneumatoscopy without perforation or significant retraction pockets. The left TM with stable/healthy perforation. ASSESSMENT/PLAN: Encounter Diagnoses Name Primary? Perforation of left tympanic membrane Yes Plan:Left TM perforation stable and healthy. She will return in 6 months. Mame Bishop PA-C 2023 1:44 PM documented in this encounter Nursing Notes * Crissy Ortiz LPN - 2023 11:44 AM EST Pt presents today to have cerumen removed. Pt reports having muffled hearing lately. documented in this encounter Plan of Treatment Upcoming Encounters Date Type Department Care Team (Late st Contact Info) Description 05/27/2023 1:00 PM EST Office Visit General Internal Medicine [facility] [address] [place] [address] Karly Taylor MD [address] [facility] [place] [address] 07/22/2023 1:20 PM EDT Office Visit Podiatry [facility] [address] [place] [address] Zhanna Rodríguez DPM [address] [place] [address] 07/23/2023 1:00 PM EDT Office Visit Family Practice [facility] [address] [place] [address] Ritu Gaspar MD [address] [place] [address] 07/27/2023 1:20 PM EDT Office Visit Neurology [facility] [address] [facility] [place] [address] Therese Mcdonald PA-C [address] [facility] [place] [address] 08/26/2023 1:35 PM EDT Office Visit Urogynecology [facility] [address] [place] [address] Lisa Taylor PA-C [address] [place] [address] [facility] [address] [place] [address] 09/08/2023 1:00 PM EDT Imaging Radiology [facility] [address] [place] [address] 11/02/2023 11:40 AM EDT Office Visit Otolaryngology [facility] [address] [place] [address] Mame Bishop PA-C [address] [place] [address] Health Maintenance Due Date Last Done Comments COVID-19 Vaccine (#1) 1935 Alpha-1 Antitrypsin 1953 Zoster Vaccines (1 of 2) 1985 DTaP,Tdap,and Td Vaccines (1 - Tdap) 09/01/2006 08/31/2006, 08/31/2006 Influenza Vaccine (FLU shot) (#1) 2023 02/16/2012, 02/03/2011, 02/26/2010, Additional history exists Albumin/Creatinine Ratio 08/26/2023 023, 12/26/2020, 06/17/2009 CKD HGB USE SMARTSET 06197 08/26/202308/25, 08/25/2022, 07/31/2021, Additional history exists CKD PHOS USE SMARTSET 80710 08/26/202308/02, 12/26/2020, 06/26/2004 Depression Screening 08/26/2023 08/25/2022 [...] as of this encounter Visit Diagnoses Diagnosis Perforation of left tympanic membrane- Primary Perforation of tympanic membrane, unspecified documented in this encounter Care Teams Automatic Clipper Relationship Specialty Start Date End Date Karly Taylor MD [address] [place] [address] PCP - General 08/18/07 documented as of this encounter
--- OUTSIDE RECORDS SUMMARY | 2023-06-12 11:54 | External Medical Summary ---
Author Name Unknown Address Unknown Organization [id number]:[facility] – [place] - [address] [facility] [address] Laboratory Report Ordering Provider Test Date Status MAGOVAZQUEZ 04/09/2023 13:43:42 Final <10,000 colonies/ml mixed no rmal jeffrey Observation Date Value Abnormality Reference (Units ) Status Bacteria identified in Specimen by Culture 04/09/2023 13:43:42 [id number]^ESCHE RICHIA COLI Abnormal Final >100,000 colonies/mL Escheri avery coli Performing Location [facility] – [place] - [address] [facility] [address] Ordering Provider Test Date Status GEORGE MERCEDES 04/09/2023 13:43:42 Final Observation Date Value Abnormality Reference (Units ) Status Ampicillin 04/09/2023 13:43:42 >=32 Resistant Final Ampicillin + Sulbactam 04/09/2023 13:43:42 >=32 Resistant Final Cefazolin 04/09/2023 13:43:42 <=4 Susceptible Final Cefepime susceptibility 04/09/2023 13:43:42 <=1 Susceptible Final Ceftriaxone suceptibility 04/09/2023 13:43:42 <=1 Susceptible Final Ciprofloxacin 04/09/2023 13:43:42 <=0.25 Susceptible Final Due to serious side effects, the FDA has advised against using Ciprofloxacin to treat uncomplicated UTIs and respiratory tract infections unless there are no alternative treatment options. Gentamicin susceptibility 04/09/2023 13:43:42 <=1 Susc eptible Final Nitrofurantoin susceptibility 04/09/2023 13:43:42 <=16 Susceptible Final Piperacillin + Tazobactamsusceptibility 04/09/2023 13:43:42 <=4 Susceptible Final TMP-SMZ susceptibility 04/09/2023 13:43:42 <=20 Suscept ible Final Test: Culture, Urine, Quanti tative
Specimen Source: Urine, Clean Catch
Specimen Type: Urine
Specimen Date: 04/09/2023 1:43 PM
Result Date: 04/12/2023 7:23 AM
Result Status: Final result
Abnormal: Yes
Resulting Lab: [facility] – [place]
[address]
[place] [address]

CULTURE

>100,000 colonies/mL Escherichia coli (Abnormal)

<10,000 colonies/ml mixed normal jeffrey

SUSCEPTIBILITY

Escherichia coli
METHOD MICROBROTH DILUTIONS

AMPICILLIN >=32 Resistant
AMPICILLIN/SULBACTAM >=32 Resistant
CEFAZOLIN <=4 Susceptible
CEFEPIME <=1 Susceptible
CEFTRIAXONE <=1 Susceptible
CIPROFLOXACIN <=0.25 Susceptible [1]
GENTAMICIN <=1 Susceptible
NITROFURANTOIN <=16 Susceptible
PIPERACILLIN TAZOBACTAM <=4 Susceptible
TRIMETH/SULFAMETHOXAZOLE <=20 Susceptible

[1] Due to serious side effects, the FDA has advised against using
Ciprofloxacin to treat uncomplicated UTIs and respiratory tract infections
unless there are no alternative treatment options.

null Performing Location [facility] – [place] - [address] [facility] [address]
--- OUTSIDE RECORDS SUMMARY | 2023-06-12 11:54 | External Medical Summary | Summary of Care ---
Author Name Unknown Organization [facility] Address [address] [place] [address] Phone [phone] Care Team Providers Care Extruding Machine Operator Name Role Phone Karly Taylor MD Primary Care Provider + Reason for Referral * Evaluate & Treat - Unlimited Visits (Within 30 days (routine)) - Authorized Specialty Diagnoses / Procedures Referred By Kizzy perry Referred To Contact Podiatry Diagnoses Onychomycosis Hammer toes, bilateral Zhanna Rodríguez DPM [address] [place] [address] Referral ID Status Reason Start Date Expiration Date Visits Requested Visits Authorized [id number] Authorized Specialty Services Required 3 [phone] Question Answer Referral Priority Within 30 days (routine) Where should this appointment be scheduled? [facility] Which condition are you referring this patient for? Routine Foot Care Medicare Patient? Yes Can Patient perform routine footcare without assistance? No Does patient have a chronic condition? Yes Has patient been seen in the past 6 months? Yes Date last seen for chronic condition: 12/03/2022 Who saw patient for chronic condition? Dr. Taylor Reason for Visit * Reason Onset Date Comments Referral Requested by Specialist 04/20/2023 Encounter Details Date Type Department Care Team (Late st Contact Info) Description 04/20/2023 Telephone Podiatry [facility] [address] [place] [address] Zhanna Rodríguez DPM [address] [place] [address] Referral Requested by Specialist Allergies Active Allergy Reactions Criticality Noted Date Comments Codeine Nausea/vomiting 07/07/2012 Isosorbide Other (Please comment) 09/30/2018 Severe headache Latex Rash 03/26/2010 Morphine And Related Nausea/vomiting 02/03/2000 Penicillins Nausea/vomiting 02/03/2000 documented as of this encounter (statuses as of 04/20/2023) Medications Medication Sig Dispensed Refills Start Date End Date Status FISH [id number]-SAFFL OWER PO CAPS Take by mouth. 0 [...] enteric coated 81 MG TBECIndications:Ather osclerosis of [place] coronary artery of [place] heart without angina pectoris Take 1 Tablet by mouth in the morning. 100 Tab 3 03/01/2018 Active Nitroglycerin 0.4 MG Sublingual Tablet Sublingual (Nitrostat)Indication s:Atherosclerosis of [place] coronary artery of [place] heart without angina pectoris Place 1 Tab [...] MCG/INH Inhalation Aerosol Powder Breath Activated (umeclidinium [place])Indications:C OPD, mild (HCC) INHALE 1 PUFF BY [...] 75 MG Oral Tablet (pLAVix)Indications:A therosclerosis of [place] coronary artery of [place] heart without angina pectoris,Coronary atherosclerosis TAKE 1 TABLET BY MOUTH ONCE DAILY 90 Tablet 3 10/16/2022 Active Metoprolol Succinate ER 25 MG Oral Tablet Extended Release 24 Hour (toPROL XL)Indications:Athero sclerosis of [place] coronary artery of [place] heart without angina pectoris,Coronary atherosclerosis TAKE 1 [...] CORONARY ATHEROSCLEROSIS OF UNSPECIFIED TYPE OF VESSEL, [place] OR GRAFT Irritable bowel syndrome Diaphragmatic [...] episode 10/08/2016 10/08/2016 Genetic Sleep Disorder Resea [facility] Other*[id number] 12/23/2010 12/04/2015 Other B-complex deficiencies 09/30/2010 10/08/2016 [...] encounter Miscellaneous Notes * Addendum Note - Nicole Salmon MD - 04/20/2023 10:31 AM ESTAddended by: NICOLE SALMON on: 04/20/2023 10:31 AM Modules accepted: Orders * Telephone Encounter - Nicole Salmon MD - 04/20/2023 10:31 AM EST Done * Addendum Note - Jen Ortiz LPN - 04/20/2023 9:35 AM ESTAddended by: JEN ORTIZ on: 04/20/2023 09:35 AM Modules accepted: Orders * Telephone Encounter - Jen Ortiz LPN - 04/20/2023 9:35 AM EST Referral pended. Jen Ortiz LPN * Telephone Encounter - Rebecca Gatica OSA - 04/20/2023 9:15 AM EST [facility] [place] [address] [place] [address] [place] [address] , Option 5 04/20/[address] Taylor: [...] to choose from a covered diagnosis code: https://www.cms.gov/medicare-coverage-database/view/article.aspx?[email or web address] &[email or web address] Please return your completed referral along with patient's most recent office note to our office at: [phone]. Sincerely, [facility] Orthopaedics and Podiatry documented in this encounter Plan of Treatment Upcoming Encounters Date Type Department Care Team (Late st Contact Info) Description 04/20/2023 12:40 PM EST Office Visit Podiatry [facility] [address] [place] [address] Zhanna Rodríguez, DPPhilippe [address] [place] [address] 2023 11:40 AM EST Office Visit Otolaryngology [facility] [address] [place] [address] Mame Bishop PA-C [address] [place] [address] 05/27/2023 1:00 PM EST Office Visit General Internal Medicine [facility] [address] [place] [address] Karly Taylor MD [address] [facility] [place] [address] 07/23/2023 1:00 PM EDT Office Visit Family Practice [facility] [address] [place] [address] Ritu Gaspar MD [address] [place] [address] 07/27/2023 1:20 PM EDT Office Visit Neurology [facility] [address] [place] [address] Tehrese Mcdonald PA-C [address] [place] [address] [address] 08/26/2023 1:35 PM EDT Office Visit Urogynecology [facility] [address] [place] [address] Lisa Taylor PA-C [address] [place] [address] Nurse Eren Cuevas [address] [place] [address] 09/08/2023 1:00 PM EDT Imaging Radiology [facility] [place] [address] [place] [address] Scheduled Referrals Name Type Priority Associated Diagnoses [...] 023, 12/26/2020, 06/17/2009 CKD HGB USE SMARTSET 18437 08/26/202308/25, 08/25/2022, 07/31/2021, Additional history exists CKD PHOS USE SMARTSET 98188 08/26/202308/02, 12/26/2020, 06/26/2004 Depression Screening 08/26/2023 08/25/2022 [...] Diagnoses Diagnosis Onychomycosis- Primary Dermatophytosis of nail Hammer toes, bilateral documented in this encounter Care Teams Extruding Machine Operator Relationship Specialty Start Date End Date Karly Taylor MD [address] [facility] [place] [address] PCP - General 08/18/07 documented as of this encounter
--- OUTSIDE RECORDS SUMMARY | 2023-06-12 11:55 | External Medical Summary ---
Author Name Unknown Address Unknown Organization K0G[facility] [address] [place] [address] Laboratory Report Ordering Provider Test Date Status GEORGE MERCEDES 02/26/2023 10:29:23 Final Observation Date Value Abnormality Reference (Units ) Status Color of Urine by Auto 02/26/2023 10:29:23 Yellow Light Yellow, Yellow, Dark Yellow Final Clarity, Urine 02/26/2023 10:29:23 Cloudy Abnormal Clear Final Glucose [Mass/volume] in Urine by Automated test strip 02/26/2023 10:29:23 Negative Negative (mg/dL) Final Bilirubin.total [Presence] in Urine by Automated test strip 02/26/2023 10:29:23 Small Abnormal Negative Final Ketones [Mass/volume] in Urine by Automated test strip 02/26/2023 10:29:23 Trace Abnormal Negative (mg/dL) Final Specific gravity, Urine 02/26/2023 10:29:23 1.025 1.003-1.030 Final Hemoglobin [Presence] in Urine by Automated test strip 02/26/2023 10:29:23 Large Abnormal Negative Final pH, Urine 02/26/2023 10:29:23 5.5 5.0-7.5 (Units) Final Protein [Mass/volume] in Urine by Automated test strip 02/26/2023 10:29:23 >=300 Abnormal Negative (mg/dL) Final Urobilinogen [Mass/volume] in Urine by Automated test strip 02/26/2023 10:29:23 1.0 0.2, 1.0 (mg/dL) Final Nitrite [Presence] in Urine by Automated test strip 02/26/2023 10:29:23 Negative Negative Final Leukocyte esterase [Presence] in Urine by Automated test strip 02/26/2023 10:29:23 Large Abnormal Negative Final RBC, Urine 02/26/2023 10:29:23 10-19 Abnormal 0-2 (/HPF) Final WBC, Urine 02/26/2023 10:29:23 50+ Abnormal 0-2 (/HPF) Final Bacteria [#/area] in Urine sediment by Microscopy high power field 02/26/2023 10:29:23 101-150 Abnormal 0-25 (/HPF) Final Performing Location LAB[facility]ATORY [place] [address] [place] [address]
--- OUTSIDE RECORDS SUMMARY | 2023-06-12 11:55 | External Medical Summary | Summary of Care ---
Author Name Unknown Organization [facility] Address [address] [facility] [address] Phone [phone] Care Team Providers Care Battery Inspector Name Role Phone Karly Taylor MD Primary Care Provider + Reason for Visit * Reason Onset Date Comments Appointment 02/24/2023 Encounter Details Date Type Department Care Team (Late st Contact Info) Description 02/24/2023 Telephone Gynecology/Obstetrics [facility] [address] [place] [address] Josefa Ward PA-C [address] [place] [address] Appointment Allergies Active Allergy Reactions Criticality Noted Date Comments Codeine Nausea/vomiting 07/07/2012 Isosorbide Other (Please comment) 09/30/2018 Severe headache Latex Rash 03/26/2010 Morphine And Related Nausea/vomiting 02/03/2000 Penicillins Nausea/vomiting 02/03/2000 documented as of this encounter (statuses as of 03/01/2023) Medications Medication Sig Dispensed Refills Start Date End Date Status FISH [id number] LOWER PO CAPS Take by mouth. 0 [...] enteric coated 81 MG TBECIndications:Athe rosclerosis of naknek coronary artery of naknek heart without angina pectoris Take 1 Tablet by mouth in the morning. 100 Tab 3 03/01/2018 Active fluticasone (FLONASE) 50 MCG/ACT nasal spray Administer 2 Sprays into each nostril daily. 1 Inhaler 5 03/02/2018 Active Nitroglycerin 0.4 MG Sublingual Tablet Sublingual (Nitrostat)Indicatio ns:Atherosclerosis of naknek coronary artery of naknek heart without angina pectoris Place 1 Tab [...] MCG/INH Inhalation Aerosol Powder Breath Activated (umeclidinium [place])Indications: COPD, mild (HCC) INHALE 1 PUFF BY [...] 75 MG Oral Tablet (pLAVix)Indications: Atherosclerosis of naknek coronary artery of naknek heart without angina pectoris,Coronary atherosclerosis TAKE 1 TABLET BY MOUTH ONCE DAILY 90 Tablet 3 10/16/2022 Active Metoprolol Succinate ER 25 MG Oral Tablet Extended Release 24 Hour (toPROL XL)Indications:Ather osclerosis of naknek coronary artery of nak[place] heart without angina pectoris,Coronary atherosclerosis TAKE 1 [...] twice daily 60 Capsule 2 01/26/2023 Active D-Mannose 500 MG Oral Capsule Take by mouth. 0 02/27/20 23 Discontinu ed(Medicat ion List Clean Up) documented as of this encounter (statuses as of 03/01/2023) Active Problems Problem Noted Date Diagnosed Date [...] CORONARY ATHEROSCLEROSIS OF UNSPECIFIED TYPE OF VESSEL, NISQUALLY OR GRAFT Irritable bowel syndrome Diaphragmatic hernia DIVERTICULOSIS OF COLON GENERALIZED ANXIETY DIS GENERAL OSTEOARTHROSIS documented as of this encounter (statuses as of 03/01/2023) Resolved Problems Problem Noted Date Diagnosed Date Resolved Date 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 06/27/2020 07/31/2021 Hemiplegia 06/27/2020 07/31/2021 Angina pectoris 05/19/2019 05/19/2019 Vertebral fracture, pathological 10/08/2016 10/08/2016 Major depression, single episode 10/08/2016 10/08/2016 Genetic Sleep Disorder [facility] Other*[id number] 12/23/2010 12/04/2015 Other B-complex deficiencies 09/30/2010 10/08/2016 [...] 05/09/2002 04/29/2018 annalise. keratosis-Left & mid back 495 05/09/2002 04/29/2018 Mixed dyslipidemia 12/16/2001 9 Overview: [...] as of this encounter (statuses as of 03/01/2023) Immunizations Name Administration Dates Next Due Diptheria/Tetanus [...] encounter Miscellaneous Notes * Telephone Encounter - Abelardo Bechdel, [place], [employer]ER [employer] - 02/24/2023 2:36 PM EDT TC to patient, no answer, left message for patient to call office. Called to check in on her vulvar issues/itching. Per Josefa if these are resolved and she has no other calibration technician concerns, she really does not need to be seen today. She would just need to follow with urogynas advised for urethral prolapse. documented in this encounter Plan of Treatment Upcoming Encounters Date Type Department Care Team (Late st Contact Info) Description 03/18/2023 4:00 PM EST Office [facility] [address] [place] [phone] Magaly Pina CRNP [address] [place] [address] 03/30/2023 1:20 PM EST Office Visit Podiatry [facility] [address] [address] Zhanna Rodríguez DPM [address] [place] [address] 04/22/2023 3:00 PM EST [facility] [address] [place] [address] Karly Taylor MD [address] [place] [address] 2023 11:40 AM EST Office Visit Otolaryngology [facility] [address] [place] [address] Mame Bishop PA-C [address] [place] [address] 07/27/2023 1:20 PM EDT Office Visit Neurology [facility] [address] [place] [address] Therese Mcdonald PA-C [address] [place] [address] 08/26/2023 1:35 PM EDT Office Visit Urogynecology [facility] [address] [facility] [place] [address] Lisa Taylor PA-C [address] [place] [address] [facility]urse Eren garcia [facility] [address] [place] [address] 09/08/2023 1:00 PM EDT Imaging Radiology [facility]st [facility] [place] [address] [place] [address] Health Maintenance Due Date Last Done Comments COVID-19 Vaccine (#1) 1935 Alpha-1 Antitrypsin 1953 Zoster Vaccines (1 of 2) 1985 DTaP,Tdap,and Td Vaccines (1 - Tdap) 09/01/2006 08/31/2006, 08/31/2006 Influenza Vaccine (FLU shot) (#1) 2023 02/16/2012, 02/03/2011, 02/26/2010, Additional history exists Albumin/Creatinine Ratio 08/26/2023 023, 12/26/2020, 06/17/2009 CKD HGB USE SMARTSET 65494 08/26/202308/25, 08/25/2022, 07/31/2021, Additional history exists CKD PHOS USE SMARTSET 87786 08/26/202308/02, 12/26/2020, 06/26/2004 Depression Screening 08/26/2023 08/25/2022 [...] filedocumented as of this encounter Care Teams Battery Inspector Relationship Specialty Start Date End Date Karly Taylor MD [address] [place] [address] PCP - General 08/18/07 documented as of this encounter
--- OUTSIDE RECORDS SUMMARY | 2023-06-12 11:55 | External Medical Summary | Summary of Care ---
Author Name Unknown Organization [facility] Address [address] [facility] [facility] [address] Phone [phone] Care Team Providers Care Talent Consultant Name Role Phone Karly Taylor MD Primary Care Provider + Reason for Visit * Reason Onset Date Comments Test Results 02/26/2023 Encounter Details Date Type Department Care Team (Late st Contact Info) Description 02/26/2023 Telephone Gynecology/Obstetrics [facility] [address] [place] [address] Josefa Ward PA-C [address] [place] [address] Test Results Allergies Active Allergy Reactions Criticality Noted Date Comments Codeine Nausea/vomiting 07/07/2012 Isosorbide Other (Please comment) 09/30/2018 Severe headache Latex Rash 03/26/2010 Morphine And Related Nausea/vomiting 02/03/2000 Penicillins Nausea/vomiting 02/03/2000 documented as of this encounter (statuses as of 03/01/2023) Medications Medication Sig Dispensed Refills Start Date End Date Status FISH [id number] OWER PO CAPS Take by mouth. 0 [...] enteric coated 81 MG TBECIndications:Ather osclerosis of kenaitze coronary artery of kenait[place] heart without angina pectoris Take 1 Tablet by mouth in the morning. 100 Tab 3 03/01/2018 Active fluticasone (FLONASE) 50 MCG/ACT nasal spray Administer 2 Sprays into each nostril daily. 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 Place 1 Tab [...] MCG/INH Inhalation Aerosol Powder Breath Activated (umeclidinium [place])Indications:C OPD, mild (HCC) INHALE 1 PUFF BY [...] 75 MG Oral Tablet (pLAVix)Indications:A therosclerosis of kenaitze coronary artery of ken[place] heart without angina pectoris,Coronary atherosclerosis TAKE 1 TABLET BY MOUTH ONCE DAILY 90 Tablet 3 10/16/2022 Active Metoprolol Succinate ER 25 MG Oral Tablet Extended Release 24 Hour (toPROL XL)Indications:Athero sclerosis of kenaitze coronary artery of kenaitze heart without angina pectoris,Coronary atherosclerosis TAKE 1 [...] twice daily 60 Capsule 2 01/26/2023 Active Nitrofurantoin Monohyd Macro 100 MG Oral Capsule (Macrobid)Indications :Acute cystitis with hematuria Take 1 Capsule by mouth in the morning and 1 Capsule before bedtime. Do all this for 7 days. 14 Capsule 0 02/26/2023 3 Active documented as of this encounter (statuses [...] CORONARY ATHEROSCLEROSIS OF UNSPECIFIED TYPE OF VESSEL, [place] OR GRAFT Irritable bowel syndrome Diaphragmatic hernia [...] episode 10/08/2016 10/08/2016 Genetic Sleep Disorder Resea [facility] Other*[id number] 12/23/2010 12/04/2015 Other B-complex deficiencies 09/30/2010 10/08/2016 [...] encounter Miscellaneous Notes * Telephone Encounter - Veronica Sen RN - 03/01/2023 9:06 AM EDT Pt's daughter returned call. Reviewed results and all messages. Attempted to schedule pt with physician. First available is 06/2023. Please call pt/daughter to assist with scheduling. * Telephone Encounter - Em Hill RN - 03/01/2023 8:55 AM EDT left message for patient to call office * Telephone Encounter - Josefa Ward PA-C - 02/26/2023 12:26 PM EDT Lisa recommending she hold (stop) vaginal estrogen for now. Please make aware of this when pt is notified of ultrasound results as below and need for follow up. 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 Recently found to have thickened endometrium with cystic changes. I am recommend endometrial sampling. Please advise if she should continue estrodiol vaginal cream given this -- I am inclined to say hold on it for now, pt wanted to reach out to you. Thank you -- Josefa * Telephone Encounter - Josefa Ward PA-C - 02/26/2023 8:30 AM EDT Please call patient: pt ultrasound did showed thickened lining of uterus with cystic changes. This is abnormal finding. Right and left ovaries were not visualized. Recommend endometrial sampling. Given age and health history, please schedule with MD in follow up. Pt daughter was with her at appointment, if pt is okay with you speaking with her regarding these findings and needed follow up. Pt also on estrodiol vaginal cream through Uro[facility], will route to them regarding advise on continueduse given these findings. Josefa Ward PA-C documented in this encounter Plan of Treatment Upcoming Encounters Date Type Department Care Team (Late st Contact Info) Description 03/18/2023 4:00 PM EST [facility] [address] [place] [phone] Magaly Pina CRNP [address] [place] [address] 03/30/2023 1:20 PM EST Office Visit Podiatry [facility] [address] [place] [address] Zhanna Rodríguez DPM [address] [place] [address] 04/22/2023 3:00 PM EST Office Visit General Internal Medicine [facility] [address] [facility] [place] [address] Karly Taylor MD [address] [facility] [place] [address] 2023 11:40 AM EST Office Visit Otolaryngology [facility] [address] [place] [address] Mame Bishop PA-C [address] [place] [address] 07/27/2023 1:20 PM EDT Office Visit Neurology [facility] [address] [facility] [place] [address] Therese Mcdonald PA-C [address] [facility] [place] [address] 08/26/2023 1:35 PM EDT Office Visit Urogynecology [facility] [address] [place] [address] Lisa Taylor PA-C [address] [place] [address] [facility] [address] [place] [address] 09/08/2023 1:00 PM EDT Imaging Radiology [facility] 1st [facility] [place] [address] [place] [address] Health Maintenance Due Date Last Done Comments COVID-19 Vaccine (#1) 1935 Alpha-1 Antitrypsin 1953 Zoster Vaccines (1 of 2) 1985 DTaP,Tdap,and Td Vaccines (1 - Tdap) 09/01/2006 08/31/2006, 08/31/2006 Influenza Vaccine (FLU shot) (#1) 2023 02/16/2012, 02/03/2011, 02/26/2010, Additional history exists Albumin/Creatinine Ratio 08/26/2023 023, 12/26/2020, 06/17/2009 CKD HGB USE SMARTSET 15659 08/26/202308/25, 08/25/2022, 07/31/2021, Additional history exists CKD PHOS USE SMARTSET 30300 08/26/202308/02, 12/26/2020, 06/26/2004 Depression Screening 08/26/2023 08/25/2022 [...] filedocumented as of this encounter Care Teams Talent Consultant Relationship Specialty Start Date End Date Karly Taylor MD [address] [place] [address] PCP - General 08/18/07 documented as of this encounter
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
--- OUTSIDE RECORDS SUMMARY | 2023-06-12 11:55 | External Medical Summary | Summary of Care ---
Author Name Unknown Organization [facility] Address [address] [facility] [place] [address] Phone [phone] Care Team Providers Care Shipping Clerk Name Role Phone Karly Taylor MD Primary Care Provider + Reason for Visit * Reason Onset Date Comments Test Results 02/26/2023 Encounter Details Date Type Department Care Team (Late st Contact Info) Description 02/26/2023 Telephone Gynecology/Obstetrics [facility] [address] [place] [address] Josefa Ward PA-C [address] [place] [address] Test Results Allergies Active Allergy Reactions Criticality Noted Date Comments Codeine Nausea/vomiting 07/07/2012 Isosorbide Other (Please comment) 09/30/2018 Severe headache Latex Rash 03/26/2010 Morphine And Related Nausea/vomiting 02/03/2000 Penicillins Nausea/vomiting 02/03/2000 documented as of this encounter (statuses as of 03/01/2023) Medications Medication Sig Dispensed Refills Start Date End Date Status FISH UOY-KNTOET-CNLK-SAFFL OWER PO CAPS Take by mouth. 0 [...] enteric coated 81 MG TBECIndications:Ather osclerosis of [place] coronary artery of [place] heart without angina pectoris Take 1 Tablet by mouth in the morning. 100 Tab 3 03/01/2018 Active fluticasone (FLONASE) 50 MCG/ACT nasal spray Administer 2 Sprays into each nostril daily. 1 Inhaler 5 03/02/2018 Active Nitroglycerin 0.4 MG Sublingual Tablet Sublingual (Nitrostat)Indication s:Atherosclerosis of [place] coronary artery of [place] heart without angina pectoris Place 1 Tab [...] MCG/INH Inhalation Aerosol Powder Breath Activated (umeclidinium [place])Indications:C OPD, mild (HCC) INHALE 1 PUFF BY [...] 75 MG Oral Tablet (pLAVix)Indications:A therosclerosis of [place] coronary artery of [place] heart without angina pectoris,Coronary atherosclerosis TAKE 1 TABLET BY MOUTH ONCE DAILY 90 Tablet 3 10/16/2022 Active Metoprolol Succinate ER 25 MG Oral Tablet Extended Release 24 Hour (toPROL XL)Indications:Athero sclerosis of [place] coronary artery of [place] heart without angina pectoris,Coronary atherosclerosis TAKE 1 [...] CORONARY ATHEROSCLEROSIS OF UNSPECIFIED TYPE OF VESSEL, [place] OR GRAFT Irritable bowel syndrome Diaphragmatic hernia [...] 10/08/2016 Genetic Sleep Disorder Resea [facility] Other*[id number] 12/23/2010 12/04/2015 Other B-complex deficiencies 09/30/2010 10/08/2016 [...] PM EST [facility] [address] [place] [phone] Magaly Pina CRNP [address] [place] [address] 03/30/2023 1:20 PM EST Office Visit Podiatry [facility] [address] [place] [address] Zhanna Rodríguez DPM [address] [place] [address] 04/22/2023 3:00 PM EST Office Visit General Internal Medicine [facility] [address] [facility] [place] [address] Karly Taylor MD [address] [facility] [place] [address] 2023 11:40 AM EST Office Visit Otolaryngology [facility] [address] [place] [address] Mame Bishop PA-C [address] [place] [address] 07/27/2023 1:20 PM EDT Office Visit Neurology [facility] [address] [facility] [place] [address] Therese Mcdonald PA-C [address] [facility] [place] [address] 08/26/2023 1:35 PM EDT Office Visit Urogynecology [facility] [address] [place] [address] Lisa Taylor PA-C [address] [place] [address] [facility] [address] [place] [address] 09/08/2023 1:00 PM EDT Imaging Radiology [facility] 1st [facility] [place] [address] [place] [address] Health Maintenance Due Date Last Done Comments COVID-19 Vaccine (#1) 1935 Alpha-1 Antitrypsin 1953 Zoster Vaccines (1 of 2) 1985 DTaP,Tdap,and Td Vaccines (1 - Tdap) 09/01/2006 08/31/2006, 08/31/2006 Influenza Vaccine (FLU shot) (#1) 2023 02/16/2012, 02/03/2011, 02/26/2010, Additional history exists Albumin/Creatinine Ratio 08/26/2023 023, 12/26/2020, 06/17/2009 CKD HGB USE SMARTSET 74235 08/26/202308/25, 08/25/2022, 07/31/2021, Additional history exists CKD PHOS USE SMARTSET 29567 08/26/202308/02, 12/26/2020, 06/26/2004 Depression Screening 08/26/2023 08/25/2022 [...] filedocumented as of this encounter Care Teams Shipping Clerk Relationship Specialty Start Date End Date Karyl Taylor MD [address] [place] [address] PCP - General 08/18/07 documented as of this encounter
--- OUTSIDE RECORDS SUMMARY | 2023-06-12 11:55 | External Medical Summary ---
Author Name Unknown Address Unknown Organization K01:[facility] [place] [address] [facility] [address] Laboratory Report Ordering Provider Test Date Status GEORGE MERCEDES 03/09/2023 14:49:42 Final <10,000 colonies/ml mixed no rmal jeffrey Observation Date Value Abnormality Reference (Units ) Status Bacteria identified in Specimen by Culture 03/09/2023 14:49:42 [id number]^ESCHE RICHIA COLI Abnormal Final >100,000 colonies/mL Escheri avery coli Performing Location [facility] [place] [address] [facility] [address] Ordering Provider Test Date Status GEORGE MERCEDES 03/09/2023 14:49:42 Final Observation Date Value Abnormality Reference (Units ) Status Ampicillin 03/09/2023 14:49:42 >=32 Resistant Final Ampicillin + Sulbactam 03/09/2023 14:49:42 >=32 Resistant Final Cefazolin 03/09/2023 14:49:42 <=4 Susceptible Final Cefepime susceptibility 03/09/2023 14:49:42 <=1 Susceptible Final Ceftriaxone suceptibility 03/09/2023 14:49:42 <=1 Susceptible Final Ciprofloxacin 03/09/2023 14:49:42 <=0.25 Susceptible Final Due to serious side effects, the FDA has advised against using Ciprofloxacin to treat uncomplicated UTIs and respiratory tract infections unless there are no alternative treatment options. Gentamicin susceptibility 03/09/2023 14:49:42 <=1 Susc eptible Final Nitrofurantoin susceptibility 03/09/2023 14:49:42 <=16 Susceptible Final Piperacillin + Tazobactamsusceptibility 03/09/2023 14:49:42 <=4 Susceptible Final TMP-SMZ susceptibility 03/09/2023 14:49:42 <=20 Suscept ible Final Test: Culture, Urine, Quanti tative
Specimen Source: Urine, Clean Catch
Specimen Type: Urine
Specimen Date: 03/09/2023 2:49 PM
Result Date: 03/11/2023 9:34 AM
Result Status: Final result
Abnormal: Yes
Resulting Lab: [facility] [place]
[address]
[place] [address]

CULTURE

>100,000 colonies/mL Escherichia coli (Abnormal)

<10,000 [...] alternative treatment options.

null Performing Location [facility] [place] [address] [facility] [address]
--- OUTSIDE RECORDS SUMMARY | 2023-06-12 11:55 | External Medical Summary | Summary of Care ---
Author Name Unknown Organization [facility] Address [address] [facility] [address] Phone [phone] Care Team Providers Care Electrical And Radio Mock Up Mechanic Name Role Phone Karly Taylor MD Primary Care Provider + Reason for Visit * Reason Onset Date Comments Appointment 02/24/2023 Encounter Details Date Type Department Care Team (Late st Contact Info) Description 02/24/2023 Telephone Gynecology/Obstetrics [facility] [address] [place] [address] Josefa Ward PA-C [address] [place] [address] Appointment Allergies Active Allergy Reactions Criticality Noted Date Comments Codeine Nausea/vomiting 07/07/2012 Isosorbide Other (Please comment) 09/30/2018 Severe headache Latex Rash 03/26/2010 Morphine And Related Nausea/vomiting 02/03/2000 Penicillins Nausea/vomiting 02/03/2000 documented as of this encounter (statuses as of 02/25/2023) Medications Medication Sig Dispensed Refills Start Date End Date Status FISH VCI-EOWPIB-ZFXC-SAFFL OWER PO CAPS Take by mouth. 0 [...] enteric coated 81 MG TBECIndications:Ather osclerosis of [place] coronary artery of [place] heart without angina pectoris Take 1 Tablet by mouth in the morning. 100 Tab 3 03/01/2018 Active fluticasone (FLONASE) 50 MCG/ACT nasal spray Administer 2 Sprays into each nostril daily. 1 Inhaler 5 03/02/2018 Active Nitroglycerin 0.4 MG Sublingual Tablet Sublingual (Nitrostat)Indication s:Atherosclerosis of [place] coronary artery of [place] heart without angina pectoris Place 1 Tab [...] MCG/INH Inhalation Aerosol Powder Breath Activated (umeclidinium [place])Indications:C OPD, mild (HCC) INHALE 1 PUFF BY [...] 75 MG Oral Tablet (pLAVix)Indications:A therosclerosis of [place] coronary artery of [place] heart without angina pectoris,Coronary atherosclerosis TAKE 1 TABLET BY MOUTH ONCE DAILY 90 Tablet 3 10/16/2022 Active Metoprolol Succinate ER 25 MG Oral Tablet Extended Release 24 Hour (toPROL XL)Indications:Athero sclerosis of [place] coronary artery of [place] heart without angina pectoris,Coronary atherosclerosis TAKE 1 [...] MG Oral Capsule Take by mouth. 0 Active documented as of this encounter (statuses as of 02/25/2023) Active Problems Problem Noted Date Diagnosed Date [...] CORONARY ATHEROSCLEROSIS OF UNSPECIFIED TYPE OF VESSEL, [place] OR GRAFT Irritable bowel syndrome Diaphragmatic hernia DIVERTICULOSIS OF COLON GENERALIZED ANXIETY DIS GENERAL OSTEOARTHROSIS documented as of this encounter (statuses as of 02/25/2023) Resolved Problems Problem Noted Date Diagnosed Date Resolved Date 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 06/27/2020 07/31/2021 Hemiplegia 06/27/2020 07/31/2021 Angina pectoris 05/19/2019 05/19/2019 Vertebral fracture, pathological 10/08/2016 10/08/2016 Major depression, single episode 10/08/2016 10/08/2016 Genetic Sleep Disorder Resea [facility] Other*[id number] 12/23/2010 12/04/2015 Other B-complex deficiencies 09/30/2010 10/08/2016 [...] 05/09/2002 04/29/2018 annalise. keratosis-Left & mid back 4/95 05/09/2002 04/29/2018 Mixed dyslipidemia 12/16/2001 9 Overview: [...] as of this encounter (statuses as of 02/25/2023) Immunizations Name Administration Dates Next Due Diptheria/Tetanus [...] encounter Miscellaneous Notes * Telephone Encounter - Cheyenne Nicholson, CIGARETTE MAKER - 02/24/2023 2:36 PM EDT TC to patient, no answer, left message for patient to call office. Called to check in on her vulvar issues/itching. Per Josefa if these are resolved and she has no other sole stapler welt concerns, she really does not need to be seen today. She would just need to follow with urogynas advised for urethral prolapse. documented in this encounter Plan of Treatment Upcoming Encounters Date Type Department Care Team (Late st Contact Info) Description 03/18/2023 4:00 PM EST Office Visit Sleep Disorders Ctr [facility] [address] [place] [phone] Magaly Pina CRNP [address] [place] [address] 03/30/2023 1:20 PM EST Office Visit Podiatry [facility] [address] [place] [address] Zhanna Rodríguez DPM [address] [place] [address] 04/22/2023 3:00 PM EST Office [facility] [address] [place] [address] Karly Taylor MD [address] [facility] [place] [address] 2023 11:40 AM EST Office Visit Otolaryngology [facility] [address] [place] [address] Mame Bishop PA-C [address] [place] [address] 07/27/2023 1:20 PM EDT Office Visit Neurology [facility] [address] [facility] [place], [place] [address] Therese Mcdonald PA-C [address] [facility] [place] [address] 08/26/2023 1:35 PM EDT Office Visit Urogynecology [facility] [address] [place] [address] Lisa Taylor PA-C [address] [place] [address] Nurse Eren Cuevas [facility] [address] [place] [address] 09/08/2023 1:00 PM EDT Imaging Radiology [facility] 1st Floor, [place] [address] [place] [address] Health Maintenance Due Date Last Done Comments COVID-19 Vaccine (#1) 1935 Alpha-1 Antitrypsin 1953 Zoster Vaccines (1 of 2) 1985 DTaP,Tdap,and Td Vaccines (1 - Tdap) 09/01/2006 08/31/2006, 08/31/2006 Influenza Vaccine (FLU shot) (#1) 2023 02/16/2012, 02/03/2011, 02/26/2010, Additional history exists Albumin/Creatinine Ratio 08/26/2023 023, 12/26/2020, 06/17/2009 CKD HGB USE SMARTSET 73375 08/26/202308/25, 08/25/2022, 07/31/2021, Additional history exists CKD PHOS USE SMARTSET 08072 08/26/2023 0408/2022, 12/26/2020, 06/26/2004 Depression Screening 08/26/2023 08/25/2022 Mammogram 09/02/2023 09/01/2022, 06/03, 03/25/2020, Additional history exists O2 ASSESSMENT COMPLETED IN PAST YEAR FOR COPD 01/27/2024 01/26/2023 Pneumococcal Vaccine: 65+ Years Completed 06/17/2018, 05/25/2001 [...] filedocumented as of this encounter Care Teams Electrical And Radio Mock Up Mechanic Relationship Specialty Start Date End Date Karly Taylor MD [address] [place] [address] PCP - General 08/18/07 documented as of this encounter
--- OUTSIDE RECORDS SUMMARY | 2023-06-12 11:55 | External Medical Summary | Summary of Care ---
Author Name Unknown Organization [facility] Address [address] [facility] [facility] [address] Phone [phone] Care Team Providers Care Aircraft Engine Mechanic Supervisor Name Role Phone Karly Taylor MD Primary Care Provider + Reason for Visit * Reason Onset Date Comments Test Results 02/26/2023 Encounter Details Date Type Department Care Team (Late st Contact Info) Description 02/26/2023 Telephone Gynecology/Obstetrics [facility] [address] [place] [address] Josefa Ward PA-C [address] [place] [address] Test Results Allergies Active Allergy Reactions Criticality Noted Date Comments Codeine Nausea/vomiting 07/07/2012 Isosorbide Other (Please comment) 09/30/2018 Severe headache Latex Rash 03/26/2010 Morphine And Related Nausea/vomiting 02/03/2000 Penicillins Nausea/vomiting 02/03/2000 documented as of this encounter (statuses as of 03/01/2023) Medications Medication Sig Dispensed Refills Start Date End Date Status FISH HNL-XTTUDN-YZSO-SAFFL OWER PO CAPS Take by mouth. 0 [...] enteric coated 81 MG TBECIndications:Ather osclerosis of [place] coronary artery of [place] heart without angina pectoris Take 1 Tablet by mouth in the morning. 100 Tab 3 03/01/2018 Active fluticasone (FLONASE) 50 MCG/ACT nasal spray Administer 2 Sprays into each nostril daily. 1 Inhaler 5 03/02/2018 Active Nitroglycerin 0.4 MG Sublingual Tablet Sublingual (Nitrostat)Indication s:Atherosclerosis of [place] coronary artery of [place] heart without angina pectoris Place 1 Tab [...] MCG/INH Inhalation Aerosol Powder Breath Activated (umeclidinium [place])Indications:C OPD, mild (HCC) INHALE 1 PUFF BY [...] 75 MG Oral Tablet (pLAVix)Indications:A therosclerosis of [place] coronary artery of [place] heart without angina pectoris,Coronary atherosclerosis TAKE 1 TABLET BY MOUTH ONCE DAILY 90 Tablet 3 10/16/2022 Active Metoprolol Succinate ER 25 MG Oral Tablet Extended Release 24 Hour (toPROL XL)Indications:Athero sclerosis of [place] coronary artery of [place] heart without angina pectoris,Coronary atherosclerosis TAKE 1 [...] CORONARY ATHEROSCLEROSIS OF UNSPECIFIED TYPE OF VESSEL, [place] OR GRAFT Irritable bowel syndrome Diaphragmatic hernia [...] episode 10/08/2016 10/08/[address] [facility] Other*[id number] 12/23/2010 12/04/2015 Other B-complex deficiencies 09/30/2010 10/08/2016 [...] encounter Miscellaneous Notes * Telephone Encounter - Gabriela Coronado OSA - 03/01/2023 11:13 AM EDT Pt scheduled with Dr. Pa on Friday 03/09 at 2 PM. Daughter Edilma is aware. * Telephone Encounter - Gabriela Coronado OSA - 03/01/2023 10:47 AM EDT LM for pt to return PC to schedule with physician. * Telephone Encounter - Veronica Sen RN [...] Description 03/09/2023 2:00 PM EST [facility] [address] [place] [address] Enoch Pa MD [address] [place] [address] 03/18/2023 4:00 PM EST Office Visit [facility] Ctr [facility] [address] [place] [phone] Magaly Pina CRNP [address] [place] [address] 03/30/2023 1:20 PM EST Office Visit Podiatry [facility] [address] [place] [address] Zhanna Rodríguez, DPPhilippe [address] [place] [address] 04/22/2023 3:00 PM EST Office Visit General Internal Medicine [facility] [address] [place] [address] Karly Taylor MD 200 [facility] [place] [address] 2023 11:40 AM EST Office Visit Otolaryngology [facility] [address] [facility] [place] [address] Mame Bishop PA-C [address] [place] [address] 07/27/2023 1:20 PM EDT Office Visit Neurology [facility] [address] [place] [address] Therese Mcdonald PA-C [address] [facility] [place] [address] 08/26/2023 1:35 PM EDT Office Visit Urogynecology [facility] [address] [place] [address] Lisa Taylor PA-C [address] [place] [address] Nurse Eren Cuevas [facility] [address] [place] [address] 09/08/2023 1:00 PM EDT Imaging Radiology [facility] 1st [facility] [address] [place] [address] Health Maintenance Due Date Last Done Comments COVID-19 Vaccine (#1) 1935 Alpha-1 Antitrypsin 1953 Zoster Vaccines (1 of 2) 1985 DTaP,Tdap,and Td Vaccines (1 - Tdap) 09/01/2006 08/31/2006, 08/31/2006 Influenza Vaccine (FLU shot) (#1) 2023 02/16/2012, 02/03/2011, 02/26/2010, Additional history exists Albumin/Creatinine Ratio 08/26/2023 023, 12/26/2020, 06/17/2009 CKD HGB USE SMARTSET 51102 08/26/202308/25, 08/25/2022, 07/31/2021, Additional history exists CKD PHOS USE SMARTSET 73445 08/26/202308/02, 12/26/2020, 06/26/2004 Depression Screening 08/26/2023 08/25/2022 [...] filedocumented as of this encounter Care Teams Aircraft Engine Mechanic Supervisor Relationship Specialty Start Date End Date Karly Taylor MD [address] [place] [address] PCP - General 08/18/07 documented as of this encounter
--- OUTSIDE RECORDS SUMMARY | 2023-06-12 11:55 | External Medical Summary | Summary of Care ---
Author Name Unknown Organization [facility] Address [address] [facility] [address] Phone [phone] Care Team Providers Care Senior Gl Accountant Name Role Phone Karly Taylor MD Primary Care Provider + Reason for Visit * Reason Onset Date Comments Test Results 02/26/2023 Encounter Details Date Type Department Care Team (Late st Contact Info) Description 02/26/2023 Telephone Gynecology/Obstetrics [facility] [address] [place] [address] Josefa Ward PA-C [address] [place] [address] Test Results Allergies Active Allergy Reactions Criticality Noted Date Comments Codeine Nausea/vomiting 07/07/2012 Isosorbide Other (Please comment) 09/30/2018 Severe headache Latex Rash 03/26/2010 Morphine And Related Nausea/vomiting 02/03/2000 Penicillins Nausea/vomiting 02/03/2000 documented as of this encounter (statuses as of 03/01/2023) Medications Medication Sig Dispensed Refills Start Date End Date Status FISH HQY-PCOZOT-YOCO-SAFFL OWER PO CAPS Take by mouth. 0 [...] enteric coated 81 MG TBECIndications:Ather osclerosis of [place] coronary artery of [place] heart without angina pectoris Take 1 Tablet by mouth in the morning. 100 Tab 3 03/01/2018 Active fluticasone (FLONASE) 50 MCG/ACT nasal spray Administer 2 Sprays into each nostril daily. 1 Inhaler 5 03/02/2018 Active Nitroglycerin 0.4 MG Sublingual Tablet Sublingual (Nitrostat)Indication s:Atherosclerosis of [place] coronary artery of [place] heart without angina pectoris Place 1 Tab [...] MCG/INH Inhalation Aerosol Powder Breath Activated (umeclidinium [place])Indications:C OPD, mild (HCC) INHALE 1 PUFF BY [...] 75 MG Oral Tablet (pLAVix)Indications:A therosclerosis of [place] coronary artery of [place] heart without angina pectoris,Coronary atherosclerosis TAKE 1 TABLET BY MOUTH ONCE DAILY 90 Tablet 3 10/16/2022 Active Metoprolol Succinate ER 25 MG Oral Tablet Extended Release 24 Hour (toPROL XL)Indications:Athero sclerosis of [place] coronary artery of [place] heart without angina pectoris,Coronary atherosclerosis TAKE 1 [...] CORONARY ATHEROSCLEROSIS OF UNSPECIFIED TYPE OF VESSEL, [place] OR GRAFT Irritable bowel syndrome Diaphragmatic hernia [...] Disorder Resea [facility] Other*[id number] 12/23/2010 12/04/2015 Other B-complex deficiencies 09/30/2010 10/08/2016 [...] PM EST Office Visit Sleep Disorders Ctr [facility] [address] [place] [phone] Magaly Pina CRNP [address] [place] [address] 03/30/2023 1:20 PM EST Office Visit Podiatry [facility] [address] [place] [address] Zhanna Rodríguez DPM [address] [place] [address] 04/22/2023 3:00 PM EST Office Visit General Internal Medicine [facility] [address] [place] [address] Karly Taylor MD 200 [address] [facility] [place] [address] 2023 11:40 AM EST Office Visit Otolaryngology [facility] [address] [place] [address] Mame Bishop PA-C [address] [place] [address] 07/27/2023 1:20 PM EDT Office Visit Neurology [facility] 200 [facility] [place] [address] Therese Mcdonald PA-C 200 [facility] [place] [address] 08/26/2023 1:35 PM EDT Office Visit Urogynecology [facility] [address] [place] [address] Lisa Taylor PA-C [address] [place] [address] [facility] [address] [place] [address] 09/08/2023 1:00 PM EDT Imaging Radiology [facility] 1st [facility] [place] [address] [place] [address] Health Maintenance Due Date Last Done Comments COVID-19 Vaccine (#1) 1935 Alpha-1 Antitrypsin 1953 Zoster Vaccines (1 of 2) 1985 DTaP,Tdap,and Td Vaccines (1 - Tdap) 09/01/2006 08/31/2006, 08/31/2006 Influenza Vaccine (FLU shot) (#1) 2023 02/16/2012, 02/03/2011, 02/26/2010, Additional history exists Albumin/Creatinine Ratio 08/26/2023 023, 12/26/2020, 06/17/2009 CKD HGB USE SMARTSET 45466 08/26/202308/25, 08/25/2022, 07/31/2021, Additional history exists CKD PHOS USE SMARTSET 91211 08/26/202308/02, 12/26/2020, 06/26/2004 Depression Screening 08/26/2023 08/25/2022 [...] filedocumented as of this encounter Care Teams Senior Gl Accountant Relationship Specialty Start Date End Date Karly Taylor MD [address] [place] [address] PCP - General 08/18/07 documented as of this encounter
--- OUTSIDE RECORDS SUMMARY | 2023-06-12 11:55 | External Medical Summary | Summary of Care ---
Author Name Unknown Organization [facility] Address [address] [facility] [place] [address] Phone [phone] Care Team Providers Care Air Purifier Servicer Name Role Phone Karly Taylor MD Primary Care Provider + Reason for Visit * Reason Onset Date Comments Test Results 03/04/2023 Encounter Details Date Type Department Care Team (Late st Contact Info) Description 03/04/2023 Telephone General Internal Medicine [facility] 200 [facility] [place] [address] Karly Taylor MD 200 [place] [address] Test Results Allergies Active Allergy Reactions Criticality Noted Date Comments Codeine Nausea/vomiting 07/07/2012 Isosorbide Other (Please comment) 09/30/2018 Severe headache Latex Rash 03/26/2010 Morphine And Related Nausea/vomiting 02/03/2000 Penicillins Nausea/vomiting 02/03/2000 documented as of this encounter (statuses as of 03/04/2023) Medications Medication Sig Dispensed Refills Start Date End Date Status FISH [id number]-SAFFL OWER PO CAPS Take by mouth. 0 [...] enteric coated 81 MG TBECIndications:Ather osclerosis of [place] coronary artery of [place] heart without angina pectoris Take 1 Tablet by mouth in the morning. 100 Tab 3 03/01/2018 Active fluticasone (FLONASE) 50 MCG/ACT nasal spray Administer 2 Sprays into each nostril daily. 1 Inhaler 5 03/02/2018 Active Nitroglycerin 0.4 MG Sublingual Tablet Sublingual (Nitrostat)Indication s:Atherosclerosis of [place] coronary artery of [place] heart without angina pectoris Place 1 Tab [...] MCG/INH Inhalation Aerosol Powder Breath Activated (umeclidinium [place])Indications:C OPD, mild (HCC) INHALE 1 PUFF BY [...] 75 MG Oral Tablet (pLAVix)Indications:A therosclerosis of [place] coronary artery of [place] heart without angina pectoris,Coronary atherosclerosis TAKE 1 TABLET BY MOUTH ONCE DAILY 90 Tablet 3 10/16/2022 Active Metoprolol Succinate ER 25 MG Oral Tablet Extended Release 24 Hour (toPROL XL)Indications:Athero sclerosis of [place] coronary artery of [place] heart without angina pectoris,Coronary atherosclerosis TAKE 1 [...] as of this encounter (statuses as of 03/04/2023) Active Problems Problem Noted Date Diagnosed Date [...] CORONARY ATHEROSCLEROSIS OF UNSPECIFIED TYPE OF VESSEL, [place] OR GRAFT Irritable bowel syndrome Diaphragmatic hernia DIVERTICULOSIS OF COLON GENERALIZED ANXIETY DIS GENERAL OSTEOARTHROSIS documented as of this encounter (statuses as of 03/04/2023) Resolved Problems Problem Noted Date Diagnosed Date Resolved Date 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 06/27/2020 07/31/2021 Hemiplegia 06/27/2020 07/31/2021 Angina pectoris 05/19/2019 05/19/2019 Vertebral fracture, pathological 10/08/2016 10/08/2016 Major depression, single episode 10/08/2016 10/08/2016 Genetic Sleep Disorder Resea [facility] Other*[id number] 12/23/2010 12/04/2015 Other B-complex deficiencies 09/30/2010 10/08/2016 [...] as of this encounter (statuses as of 03/04/2023) Immunizations Name Administration Dates Next Due Diptheria/Tetanus [...] Telephone Encounter - Munira Garrett LPN - 03/04/2023 1:16 PM EDT Duplicate being addressed in a myG from 03/01/23 * Telephone Encounter - Yara Covington OSA - 03/04/2023 12:10 PM EDT Who is Requesting Test Results: patient Primary Care Provider : Karly Taylor MD Tests Results Requested : urine sample Date of Test : 02-26-2023 Location of Test: [facility] lab Ordering Provider: paul Callback Number: [phone] Patient has been made aware that the turnaround time for test results are typically as follows: Laboratory results = within 2-3 days ([facility]), 3-5 days (Non[facility], ie. [facility]) Urine Cultures = within 2-3 days depending on growth within the culture Pathology results (biopsy results/PAP) = 1-2 weeks Radiology results = about 1 week Cologuard results = within 2 weeks from the shipment date COVID testing = about 24 hours documented in this encounter Plan of Treatment Upcoming Encounters Date Type Department Care Team (Late st Contact Info) Description 03/09/2023 2:00 PM EST Office Visit Gynecology/Obstetrics Mirta Cuevas [address] [place] [address] Enoch Pa MD 132 [place] [address] 03/18/2023 4:00 PM EST [facility] [address] [place] [phone] Magaly Pina CRNP [address] [place] [address] 03/30/2023 1:20 PM EST Office Visit Podiatry [facility] [address] [place] [address] Zhanna Rodríguez, JHONATHAN [address] [place] [address] 04/22/2023 3:00 PM EST Office Visit General Internal Medicine [facility] [address] [facility] [place] [address] Karly Taylor MD 200 [facility] [place] [address] 2023 11:40 AM EST Office Visit Otolaryngology [facility] [address] [place] [address] Mame Bishop PA-C [address] [place] [address] 07/27/2023 1:20 PM EDT Office Visit Neurology [facility] [address] [place] [address] Therese Mcdonald PA-C 200 [facility] [place] [address] 08/26/2023 1:35 PM EDT Office Visit Urogynecology [facility] [address] [place] [address] Lisa Taylor PA-C [address] [place] [address] Nurse Eren Cuevas Abner [address] [place] [address] 09/08/2023 1:00 PM EDT Imaging Radiology [facility] 1st Floor, [place] [address] [place] [address] Health Maintenance Due Date Last Done Comments COVID-19 Vaccine (#1) 1935 Alpha-1 Antitrypsin 1953 Zoster Vaccines (1 of 2) 1985 DTaP,Tdap,and Td Vaccines (1 - Tdap) 09/01/2006 08/31/2006, 08/31/2006 Influenza Vaccine (FLU shot) (#1) 2023 02/16/2012, 02/03/2011, 02/26/2010, Additional history exists Albumin/Creatinine Ratio 08/26/2023 023, 12/26/2020, 06/17/2009 CKD HGB USE SMARTSET 53578 08/26/202308/25, 08/25/2022, 07/31/2021, Additional history exists CKD PHOS USE SMARTSET 81524 08/26/202308/02, 12/26/2020, 06/26/2004 Depression Screening 08/26/2023 08/25/2022 [...] filedocumented as of this encounter Care Teams Air Purifier Servicer Relationship Specialty Start Date End Date Karly Taylor MD [address] [place] [address] PCP - General 08/18/07 documented as of this encounter
--- OUTSIDE RECORDS SUMMARY | 2023-06-12 11:55 | External Medical Summary ---
Author Name Unknown Address Unknown Organization [id number]:[facility] - [address] [facility] [address] Laboratory Report Ordering Provider Test Date Status MAGOGEORGE 02/26/2023 10:29:52 Final <10,000 colonies/ml mixed no rmal jeffrey Observation Date Value Abnormality Reference (Units ) Status Bacteria identified in Specimen by Culture 02/26/2023 10:29:52 [id number]^ESCHE RICHIA COLI Abnormal Final >100,000 colonies/mL Escheri avery coli Performing Location [facility] - [address] [facility] [address] [facility] [address] Ordering Provider Test Date Status MAGOVAZQUEZ 02/26/2023 10:29:52 Final Observation Date Value Abnormality Reference (Units ) Status Ampicillin 02/26/2023 10:29:52 >=32 Resistant Final Ampicillin + Sulbactam 02/26/2023 10:29:52 >=32 Resistant Final Cefazolin 02/26/2023 10:29:52 <=4 Susceptible Final Cefepime susceptibility 02/26/2023 10:29:52 <=1 Susceptible Final Ceftriaxone suceptibility 02/26/2023 10:29:52 <=1 Susceptible Final Ciprofloxacin 02/26/2023 10:29:52 <=0.25 Susceptible Final Due to serious side effects, the FDA has advised against using Ciprofloxacin to treat uncomplicated UTIs and respiratory tract infections unless there are no alternative treatment options. Gentamicin susceptibility 02/26/2023 10:29:52 <=1 Susc eptible Final Nitrofurantoin susceptibility 02/26/2023 10:29:52 <=16 Susceptible Final Piperacillin + Tazobactamsusceptibility 02/26/2023 10:29:52 <=4 Susceptible Final TMP-SMZ susceptibility 02/26/2023 10:29:52 <=20 Suscept ible Final Test: Culture, Urine, Quanti tative
Specimen Source: Urine, Clean Catch
Specimen Type: Urine
Specimen Date: 02/26/2023 10:29 AM
Result Date: 02/28/2023 1:31 PM
Result Status: Final result
Abnormal: Yes
Resulting Lab: [facility]
[address]
[place] [address]

CULTURE

>100,000 colonies/mL Escherichia coli (Abnormal)

<10,000 [...] alternative treatment options.

null Performing Location [facility] - [address] [facility] [address] [facility] [address]
--- OUTSIDE RECORDS SUMMARY | 2023-06-12 11:55 | External Medical Summary | Summary of Care ---
Author Name Unknown Organization [facility] Address [address] [facility] [place] [address] Phone [phone] Care Team Providers Care Pre Planning Advisor Name Role Phone Karly Taylor MD Primary Care Provider + Reason for Visit * Reason Onset Date Comments Test Results 02/26/2023 Encounter Details Date Type Department Care Team (Late st Contact Info) Description 02/26/2023 Telephone Gynecology/Obstetrics [facility] [address] [place] [address] Josefa Ward PA-C [address] [place] [address] Test Results Allergies Active Allergy Reactions Criticality Noted Date Comments Codeine Nausea/vomiting 07/07/2012 Isosorbide Other (Please comment) 09/30/2018 Severe headache Latex Rash 03/26/2010 Morphine And Related Nausea/vomiting 02/03/2000 Penicillins Nausea/vomiting 02/03/2000 documented as of this encounter (statuses as of 03/01/2023) Medications Medication Sig Dispensed Refills Start Date End Date Status FISH [id number]-SAFFL OWER PO CAPS Take by mouth. 0 [...] enteric coated 81 MG TBECIndications:Ather osclerosis of [place] coronary artery of [place] heart without angina pectoris Take 1 Tablet by mouth in the morning. 100 Tab 3 03/01/2018 Active fluticasone (FLONASE) 50 MCG/ACT nasal spray Administer 2 Sprays into each nostril daily. 1 Inhaler 5 03/02/2018 Active Nitroglycerin 0.4 MG Sublingual Tablet Sublingual (Nitrostat)Indication s:Atherosclerosis of [place] coronary artery of [place] heart without angina pectoris Place 1 Tab [...] MCG/INH Inhalation Aerosol Powder Breath Activated (umeclidinium [place])Indications:C OPD, mild (HCC) INHALE 1 PUFF BY [...] 75 MG Oral Tablet (pLAVix)Indications:A therosclerosis of [place] coronary artery of [place] heart without angina pectoris,Coronary atherosclerosis TAKE 1 TABLET BY MOUTH ONCE DAILY 90 Tablet 3 10/16/2022 Active Metoprolol Succinate ER 25 MG Oral Tablet Extended Release 24 Hour (toPROL XL)Indications:Athero sclerosis of [place] coronary artery of [place] heart without angina pectoris,Coronary atherosclerosis TAKE 1 [...] CORONARY ATHEROSCLEROSIS OF UNSPECIFIED TYPE OF VESSEL, [place] OR GRAFT Irritable bowel syndrome Diaphragmatic hernia [...] episode 10/08/2016 10/08/2016 Genetic Sleep Disorder Resea [facility] Other*[id number] 12/23/2010 12/04/2015 Other B-complex deficiencies 09/30/2010 10/08/2016 [...] PM EST [facility] [address] [place] [phone] Magaly Pina CRNP [address] [place] [address] 03/30/2023 1:20 PM EST Office Visit Podiatry [facility] [address] [place] [address] Zhanna Rodríguez DPM [address] [place] [address] 04/22/2023 3:00 PM EST Office Visit General Internal Medicine [facility] [address] [facility] [place] [address] Karly Taylor MD [address] [facility] [place] [address] 2023 11:40 AM EST Office Visit Otolaryngology [facility] [address] [place] [address] Mame Bishop PA-C [address] [place] [address] 07/27/2023 1:20 PM EDT Office Visit Neurology [facility] [address] [facility] [place] [address] Therese Mcdonald PA-C [address] [facility] [place] [address] 08/26/2023 1:35 PM EDT Office Visit Urogynecology [facility] [address] [place] [address] Lisa Taylor PA-C [address] [place] [address] [facility] [address] [place] [address] 09/08/2023 1:00 PM EDT Imaging Radiology [facility] 1st [facility] [place] [address] [place] [address] Health Maintenance Due Date Last Done Comments COVID-19 Vaccine (#1) 1935 Alpha-1 Antitrypsin 1953 Zoster Vaccines (1 of 2) 1985 DTaP,Tdap,and Td Vaccines (1 - Tdap) 09/01/2006 08/31/2006, 08/31/2006 Influenza Vaccine (FLU shot) (#1) 2023 02/16/2012, 02/03/2011, 02/26/2010, Additional history exists Albumin/Creatinine Ratio 08/26/2023 023, 12/26/2020, 06/17/2009 CKD HGB USE SMARTSET 49031 08/26/202308/25, 08/25/2022, 07/31/2021, Additional history exists CKD PHOS USE SMARTSET 90719 08/26/202308/02, 12/26/2020, 06/26/2004 Depression Screening 08/26/2023 08/25/2022 [...] filedocumented as of this encounter Care Teams Pre Planning Advisor Relationship Specialty Start Date End Date Karly Taylor MD [address] [place] [address] PCP - General 08/18/07 documented as of this encounter
--- OUTSIDE RECORDS SUMMARY | 2023-06-12 11:55 | External Medical Summary | Summary of Care ---
Author Name Unknown Organization [facility] Address [address] [facility] [place] [address] Phone [phone] Care Team Providers Care Pole Lift Operator Name Role Phone Karly Taylor MD Primary Care Provider + Reason for Visit * Reason Onset Date Comments Advice 03/12/2023 Encounter Details Date Type Department Care Team (Late st Contact Info) Description 03/12/2023 Telephone General Internal Medicine [facility] 200 [facility] [place] [address] Karly Taylor MD 200 [place] [address] Advice Allergies Active Allergy Reactions Criticality Noted Date Comments Codeine Nausea/vomiting 07/07/2012 Isosorbide Other (Please comment) 09/30/2018 Severe headache Latex Rash 03/26/2010 Morphine And Related Nausea/vomiting 02/03/2000 Penicillins Nausea/vomiting 02/03/2000 documented as of this encounter (statuses as of 03/15/2023) Medications Medication Sig Dispensed Refills Start Date End Date Status FISH [id number]-SAFFL OWER PO CAPS Take by mouth. 0 [...] enteric coated 81 MG TBECIndications:Ather osclerosis of [place] coronary artery of [place] heart without angina pectoris Take 1 Tablet by mouth in the morning. 100 Tab 3 03/01/2018 Active fluticasone (FLONASE) 50 MCG/ACT nasal spray Administer 2 Sprays into each nostril daily. 1 Inhaler 5 03/02/2018 Active Nitroglycerin 0.4 MG Sublingual Tablet Sublingual (Nitrostat)Indication s:Atherosclerosis of [place] coronary artery of [place] heart without angina pectoris Place 1 Tab [...] MCG/INH Inhalation Aerosol Powder Breath Activated (umeclidinium [place])Indications:C OPD, mild (HCC) INHALE 1 PUFF BY [...] 75 MG Oral Tablet (pLAVix)Indications:A therosclerosis of [place] coronary artery of [place] heart without angina pectoris,Coronary atherosclerosis TAKE 1 TABLET BY MOUTH ONCE DAILY 90 Tablet 3 10/16/2022 Active Metoprolol Succinate ER 25 MG Oral Tablet Extended Release 24 Hour (toPROL XL)Indications:Athero sclerosis of [place] coronary artery of [place] heart without angina pectoris,Coronary atherosclerosis TAKE 1 [...] CORONARY ATHEROSCLEROSIS OF UNSPECIFIED TYPE OF VESSEL, [place] OR GRAFT Irritable bowel syndrome Diaphragmatic hernia [...] episode 10/08/2016 10/08/2016 Genetic Sleep Disorder Resea [facility] Other*[id number] 12/23/2010 12/04/2015 Other B-complex deficiencies 09/30/2010 10/08/2016 [...] encounter Miscellaneous Notes * Telephone Encounter - Madai Daily OSA [...] 03/30/2023 1:20 PM EST [facility] [address] [place] [address] Zhanna Rodríguez DPM [address] [place] [address] 04/22/2023 3:00 PM EST Office Visit General Internal Medicine [address] [place] [address] Karly Taylor MD 200 [facility] [place] [address] 2023 11:40 AM EST [facility] [address] [place] [address] Mame Bishop PA-C [address] [place] [address] 07/27/2023 1:20 PM EDT Office Visit Neurology [facility] [address] [place] [address] Therese Mcdonald PA-C [address] [place] [address] 08/26/2023 1:35 PM EDT Office Visit Urogynecology [facility] [address] [place] [address] Lisa Taylor PA-C [address] [place] [address] [facility] [address] [place] [address] 09/08/2023 1:00 PM EDT Imaging Radiology [facility] 1st [facility] [place] [address] [place] [address] Health Maintenance Due Date Last Done Comments COVID-19 Vaccine (#1) 1935 Alpha-1 Antitrypsin 1953 Zoster Vaccines (1 of 2) 1985 DTaP,Tdap,and Td Vaccines (1 - Tdap) 09/01/2006 08/31/2006, 08/31/2006 Influenza Vaccine (FLU shot) (#1) 2023 02/16/2012, 02/03/2011, 02/26/2010, Additional history exists Albumin/Creatinine Ratio 08/26/2023 023, 12/26/2020, 06/17/2009 CKD HGB USE SMARTSET 14976 08/26/202308/25, 08/25/2022, 07/31/2021, Additional history exists CKD PHOS USE SMARTSET 25974 08/26/202308/02, 12/26/2020, 06/26/2004 Depression Screening 08/26/2023 08/25/2022 [...] filedocumented as of this encounter Care Teams Pole Lift Operator Relationship Specialty Start Date End Date Karly Taylor MD [address] [place] [address] PCP - General 08/18/07 documented as of this encounter
--- OUTSIDE RECORDS SUMMARY | 2023-06-12 11:55 | External Medical Summary | Summary of Care ---
Author Name Unknown Organization [facility] Address [address] [facility] [place] [address] Phone [phone] Care Team Providers Care Cat Operator Name Role Phone Karly Taylor MD Primary Care Provider + Reason for Visit * Reason Comments Outpatient Testing Encounter Details Date Type Department Care Team (Late st Contact Info) Description 03/09/2023 2:40 PM EST Laboratory Laboratory, [facility] 132 [place] [phone] [facility] 132 [place] [address] Arrived Allergies Active Allergy Reactions Criticality Noted Date Comments Codeine Nausea/vomiting 07/07/2012 Isosorbide Other (Please comment) 09/30/2018 Severe headache Latex Rash 03/26/2010 Morphine And Related Nausea/vomiting 02/03/2000 Penicillins Nausea/vomiting 02/03/2000 documented as of this encounter (statuses as of 03/09/2023) Medications Medication Sig Dispensed Refills Start Date End Date Status FISH [id number]-SAFFL OWER PO CAPS Take by mouth. 0 [...] MCG/INH Inhalation Aerosol Powder Breath Activated (umeclidinium [place])Indications:C OPD, mild (HCC) INHALE 1 PUFF BY [...] Until gone. 14 Tablet 0 03/05/2023 3 Active documented as of this encounter (statuses as of 03/09/2023) Active Problems Problem Noted Date Diagnosed Date [...] CORONARY ATHEROSCLEROSIS OF UNSPECIFIED TYPE OF VESSEL, [place] OR GRAFT Irritable bowel syndrome Diaphragmatic hernia DIVERTICULOSIS OF COLON GENERALIZED ANXIETY DIS GENERAL OSTEOARTHROSIS documented as of this encounter (statuses as of 03/09/2023) Resolved Problems Problem Noted Date Diagnosed Date Resolved Date 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 06/27/2020 07/31/2021 Hemiplegia 06/27/2020 07/31/2021 Angina pectoris 05/19/2019 05/19/2019 Vertebral fracture, pathological 10/08/2016 10/08/2016 Major depression, single episode 10/08/2016 10/08/2016 Genetic Sleep Disorder Resea [facility] Other*[id number] 12/23/2010 12/04/2015 Other B-complex deficiencies 09/30/2010 10/08/2016 [...] as of this encounter (statuses as of 03/09/2023) Immunizations Name Administration Dates Next Due Diptheria/Tetanus [...] PM EST Office Visit Sleep Disorders Ctr [facility] [address] [place] [phone] Magaly Pina CRNP [address] [place] [address] 03/30/2023 1:20 PM EST Office Visit Podiatry [facility] [address] [place] [address] Zhanna Rodríguez DPM [address] [place] [address] 04/22/2023 3:00 PM EST Office Visit General Internal Medicine [facility] [address] [address] [address] Karly Taylor MD [address] [address] [address] 2023 11:40 AM EST Office Visit Otolaryngology [facility] [address] [place] [address] Mame Bishop PA-C [address] [place] [address] 07/27/2023 1:20 PM EDT Office Visit Neurology [facility] [address] [place] [address] [address] Therese Mcdonald PA-C [address] [place] [address] 08/26/2023 1:35 PM EDT Office Visit Urogynecology [facility] [address] [place] [address] Lisa Talyor PA-C [address] [place] [address] [facility]urse [facility]ha [facility] [address] [place] [address] 09/08/2023 1:00 PM EDT Imaging Radiology [facility] 1st Floor, [place] [address] [place] [address] Health Maintenance Due Date Last Done Comments COVID-19 Vaccine (#1) 1935 Alpha-1 Antitrypsin 1953 Zoster Vaccines (1 of 2) 1985 DTaP,Tdap,and Td Vaccines (1 - Tdap) 09/01/2006 08/31/2006, 08/31/2006 Influenza Vaccine (FLU shot) (#1) 2023 02/16/2012, 02/03/2011, 02/26/2010, Additional history exists Albumin/Creatinine Ratio 08/26/2023 023, 12/26/2020, 06/17/2009 CKD HGB USE SMARTSET 71440 08/26/202308/25, 08/25/2022, 07/31/2021, Additional history exists CKD PHOS USE SMARTSET 80339 08/26/202308/02, 12/26/2020, 06/26/2004 Depression Screening 08/26/2023 08/25/2022 [...] filedocumented as of this encounter Care Teams Cat Operator Relationship Specialty Start Date End Date Karly Taylor MD 200 [facility] [address] PCP - General 08/18/07 documented as of this encounter
--- OUTSIDE RECORDS SUMMARY | 2023-06-12 11:55 | External Medical Summary | Summary of Care ---
Author Name Unknown Organization [facility] Address [address] [facility] [place] [address] Phone [phone] Care Team Providers Care Founding Partner Name Role Phone Karly Taylor MD Primary Care Provider + Reason for Visit * Reason Comments Acute HOME PARAPROFESSIONAL was unable to ge t a urine sample and advised to see PCP. Patient was been very weak x 3-4 days, urine is dark and red x 1 week. Pt also feels nauseous and having lower right abdominal pain. Patient did have a bowel movement this morning but was dry like pellets. Encounter Details Date Type Department Care Team (Late st Contact Info) Description 02/26/2023 9:40 AM EDT Office [facility] [address] [facility] [address] Ritu Gaspar MD 132 [facility] [place] [address] Acute cystitis with hematuria*; Dysuria; Right lower quadrant abdominal pain Allergies Active Allergy Reactions Criticality Noted Date Comments Codeine Nausea/vomiting 07/07/2012 Isosorbide Other (Please comment) 09/30/2018 Severe headache Latex Rash 03/26/2010 Morphine And Related Nausea/vomiting 02/03/2000 Penicillins Nausea/vomiting 02/03/2000 documented as of this encounter (statuses as of 02/26/2023) Medications Medication Sig Dispensed Refills Start Date End Date Status FISH [id number] LOWER PO CAPS Take by mouth. 0 [...] enteric coated 81 MG TBECIndications:Athe rosclerosis of mi'kmaq coronary artery of mi'kmaq heart without angina pectoris Take 1 Tablet by mouth in the morning. 100 Tab 3 03/01/2018 Active fluticasone (FLONASE) 50 MCG/ACT nasal spray Administer 2 Sprays into each nostril daily. 1 Inhaler 5 03/02/2018 Active Nitroglycerin 0.4 MG Sublingual Tablet Sublingual (Nitrostat)Indicatio ns:Atherosclerosis of mi'kmaq coronary artery of mi'kmaq heart without angina pectoris Place 1 Tab [...] MCG/INH Inhalation Aerosol Powder Breath Activated (umeclidinium [place])Indications: COPD, mild (HCC) INHALE 1 PUFF BY [...] 75 MG Oral Tablet (pLAVix)Indications: Atherosclerosis of mi'kmaq coronary artery of mi'kmaq heart without angina pectoris,Coronary atherosclerosis TAKE 1 TABLET BY MOUTH ONCE DAILY 90 Tablet 3 10/16/2022 Active Metoprolol Succinate ER 25 MG Oral Tablet Extended Release 24 Hour (toPROL XL)Indications:Ather osclerosis of mi'kmaq coronary artery of mi'kmaq heart without angina pectoris,Coronary atherosclerosis TAKE 1 [...] Nitrofurantoin Monohyd Macro 100 MG Oral Capsule (Macrobid)Indication s:Acute cystitis with hematuria Take 1 Capsule by mouth in the morning and 1 Capsule before bedtime. Do all this for 7 days. 14 Capsule 0 02/26/2023 03/05/20 Active D-Mannose 500 MG Oral Capsule Take by mouth. 0 02/27/20 Discontinu ed(Medicat ion List Clean Up) documented as of this encounter (statuses as of 02/26/2023) Active Problems Problem Noted Date Diagnosed Date [...] CORONARY ATHEROSCLEROSIS OF UNSPECIFIED TYPE OF VESSEL, [place] OR GRAFT Irritable bowel syndrome Diaphragmatic hernia DIVERTICULOSIS OF COLON GENERALIZED ANXIETY DIS GENERAL OSTEOARTHROSIS documented as of this encounter (statuses as of 02/26/2023) Resolved Problems Problem Noted Date Diagnosed Date Resolved Date 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 06/27/2020 07/31/2021 Hemiplegia 06/27/2020 07/31/2021 Angina pectoris 05/19/2019 05/19/2019 Vertebral fracture, pathological 10/08/2016 10/08/2016 Major depression, single episode 10/08/2016 10/08/2016 Genetic Sleep Disorder Resea [facility] Other*[id number] 12/23/2010 12/04/2015 Other B-complex deficiencies 09/30/2010 10/08/2016 [...] as of this encounter (statuses as of 02/26/2023) Immunizations Name Administration Dates Next Due Diptheria/Tetanus (Adult) 08/31/2006 H1N1 2009 Influenza, IM 06/06/2009 Pneumococcal Conjugate Vacc, 13 Valent (Prevnar) 06/17/2018 Seasonal Influenza, Split, I IV3, With Preserve, Inj 02/16/2012,02/03/2011,02/26/2010,2008,03/08/2008 TD, Preservative Free 08/31/2006 documented as of this encounter Social History Tobacco Use Types Packs/Day Years Used Date Smoking Tobacco: Never Smokeless Tobacco: Never Tobacco Cessation:Counseling Given: Not Answered Comments:Passive smoke exposure smoked Alcohol Use Standard Drinks/Week Comments No [...] Sign Reading Time Taken Comments Blood Pressure 106/62 02/26/2023 9:45 AM EDT Pulse 79 02/26/2023 9:45 AM EDT Temperature 37.2 C (99 F) 02/26/2023 9:45 AM EDT Respiratory Rate - - Oxygen Saturation 96% 02/26/2023 9:45 AM EDT Inhaled Oxygen Concentration - - Weight - - Height - - Body Mass Index - - documented in this encounter Patient Instructions * Patient Instructions* Ritu Gaspar MD - 02/26/2023 10:42 AM EDT Next Steps: -- start antibiotics for UTI -- push fluids! I want at least 64 ounces a day of fluid -- try glycerin or dulcolax suppository to help with constipation -- if that doesn't produce a large bowel movement, try an enema -- keep taking Miralax -- if abdominal pain is worse, go to emergency department -- if still not improving by Wednesday, let me know and we can order a CT scan of your abdomen. documented in this encounter Progress Notes * Ritu Gaspar MD - 02/26/2023 9:52 AM EDT Images from the original note were not included. History of Present Illness Sylvia Torres is a 87 year old female that presents for Acute (HOME PARAPROFESSIONAL was unable to get a urine sample and advised to see PCP. Patient was been very weak x 3-4 days, urine is dark and red x 1 week. Pt also feels nauseous and having lower right abdominal pain. Patient did have a bowel movement this morning but was dry like pellets. ) Seen 2 days ago by Gynecology. Pelvic exam not performed. Transvaginal ultrasound showed thickened endometrial stripe with cystic changes, not able to see the ovaries. They were not able to get a urine sample. Urinary tract infection in December with pansensitive E coli. This feels similar, but RLQ pain is worse. Has been taking D-mannose from Dr Henao (urogyn) Saw them earlier this week as well, recommended focusing on constipation. Started miralax, had small BM full of hard, dark pellets. Renal ultrasound in August showed bilateral nonobstructive stones Abdominal x-ray a year ago showed large hiatal hernia, moderate stool in colon. Cystectomy clips. Last colonoscopy 2011 noted for small sigmoid diverticula and internal hemorrhoids. Abdominal surgeries include cholecystectomy, appendectomy, tubal ligation. Past medical history notable for prior stroke artery disease, colonic diverticulosis, GERD, CKD 3A,polyneuropathy, thrombocytopenia. medication and allergy list reviewed Physical Exam Vitals: 02/26/23 0945 Temp: 37.2 C (99 F) Pulse: 79 SpO2: 96% BP: 106/62 BP Readings from Last 3 Encounters: 02/26/23 106/62 02/24/23 118/66 01/26/23 124/70 Wt Readings from Last 3 Encounters: 02/24/23 81.2 kg (179 lb) 01/26/23 81.6 kg (179 lb 12.8 oz) 01/20/23 81.2 kg (179 lb) Physical Exam Vitals and nursing note reviewed. Constitutional: Appearance: Normal appearance. Comments: Sitting in wheelchair Eyes: General: No scleral icterus. Cardiovascular: Rate and Rhythm: Normal rate and regular rhythm. Heart sounds: No murmur heard. Pulmonary: Effort: Pulmonary effort is normal. Breath sounds: Normal breath sounds. Abdominal: General: There is no distension. Palpations: Abdomen is soft. There is no mass. Tenderness: There is abdominal tenderness (Epigastric, lateral to umbilicus on the right). There isno guarding or rebound. Musculoskeletal: Right lower leg: No edema. Left lower leg: No edema. Skin: Coloration: Skin is not jaundiced or pale. Neurological: Mental Status: She is alert. Psychiatric: Mood and Affect: Mood normal. Behavior: Behavior normal. I have reviewed the following results: CMP, TSH, CBC, B12, and 25-Hydroxy Vit D Assessment and Plan Acute cystitis with hematuria Urine is visibly cloudy, reddish brown and opaque. It has a foul odor. Will treat empirically for urinary tract infection. Will follow-up urinalysis and urine culture. - Nitrofurantoin Monohyd Macro 100 MG Oral Capsule (Macrobid); Take 1 Capsule by mouth in the morning and 1 Capsule before bedtime. Do all this for 7 days. Dysuria - CULTURE, URINE, QUANTITATIVE - URINALYSIS WITH MICROSCOPIC EXAM; Future - URINALYSIS WITH MICROSCOPIC EXAM Right lower quadrant abdominal pain Patient Instructions Next Steps: -- start antibiotics for UTI -- push fluids! I want at least 64 ounces a day of fluid -- try glycerin or dulcolax suppository to help with constipation -- if that doesn't produce a large bowel movement, try an enema -- keep taking Miralax -- if abdominal pain is worse, go to emergency department -- if still not improving by Wednesday, let me know and we can order a CT scan of your abdomen. Wrap-Up Time: I spent a total of 20-29 minutes (exact time 28 mins) on the date of service in preparation, delivery, and documentation of the care provided to Sylvia Torres excluding any time spent in the performance of separately billed services. documented in this encounter Plan of Treatment Upcoming Encounters Date Type Department Care Team (Late st Contact Info) Description 03/18/2023 4:00 PM EST Office Visit Sleep Disorders Ctr [facility] [address] [facility] [place] [phone] Magaly Pina CRNP 132 [facility] [place] [address] 03/30/2023 1:20 PM EST Office Visit Podiatry [facility] [address] [place] [address] Zhanna Rodríguez DPM [address] [place] [address] 04/22/2023 3:00 PM EST Office Visit General Internal Medicine [facility] [address] [place] [address] Karly Taylor MD [address] [facility] [place] [facility] [place] [address] 2023 11:40 AM EST Office Visit Otolaryngology [facility] [address] [place] [address] Mame Bishop PA-C [address] [place] [address] 07/27/2023 1:20 PM EDT Office Visit Neurology [facility] [address] [place] [address] Therese Mcdonald PA-C [address] [facility] [place] [address] 08/26/2023 1:35 PM EDT Office Visit Urogynecology [facility] [address] [address] Lisa Taylor PA-C [address] [place] [address] [facility] [address] [place] [address] 09/08/2023 1:00 PM EDT Imaging Radiology [facility] [facility] [address] [place] [address] Pending Results Name Type Priority Associated Diagnoses Date /Time CULTURE, URINE, QUANTITATIVE Lab STAT Dysuria 02/26/2023 10:29 AM EDT URINALYSIS WITH MICROSCOPIC EXAM Lab STAT Dysuria 02/26/2023 10:29 AM EDT Scheduled Orders Name Type Priority Associated Diagnoses Orde r Schedule URINALYSIS WITH MICROSCOPIC EXAM Lab STAT Dysuria Expected: 02/26/2023 (Approximate), Expires: 02/26/2024 Health Maintenance Due Date Last Done Comments COVID-19 Vaccine (#1) 1935 Alpha-1 Antitrypsin 1953 Zoster Vaccines (1 of 2) 1985 DTaP,Tdap,and Td Vaccines (1 - Tdap) 09/01/2006 08/31/2006, 08/31/2006 Influenza Vaccine (FLU shot) (#1) 2023 02/16/2012, 02/03/2011, 02/26/2010, Additional history exists Albumin/Creatinine Ratio 08/26/2023 023, 12/26/2020, 06/17/2009 CKD HGB USE SMARTSET 27795 08/26/202308/25, 08/25/2022, 07/31/2021, Additional history exists CKD PHOS USE SMARTSET 96392 08/26/202308/02, 12/26/2020, 06/26/2004 Depression Screening 08/26/2023 08/25/2022 Mammogram 09/02/2023 09/01/2022, 06/03, 03/25/2020, Additional history exists O2 ASSESSMENT COMPLETED IN PAST YEAR FOR COPD 01/27/2024 02/26/2023 Pneumococcal Vaccine: 65+ Years Completed 06/17/2018, [...] as of this encounter Visit Diagnoses Diagnosis Acute cystitis with hematuria- Primary Acute cystitis Dysuria Right lower quadrant abdominal pain Abdominal pain, right lower quadrant documented in this encounter Care Teams Founding Partner Relationship Specialty Start Date End Date Karly Taylor MD [address] [facility] [place] [address] PCP - General 08/18/07 documented as of this encounter
--- OUTSIDE RECORDS SUMMARY | 2023-06-12 11:56 | External Medical Summary | Summary of Care ---
Author Name Unknown Organization [facility] Address [address] [facility] [place] [address] Phone [phone] Care Team Providers Care Marine Rigger Name Role Phone Karly Taylor MD Primary Care Provider + Reason for Visit * Reason Comments eRx-Medication Refill Encounter Details Date Type Department Care Team Description 01/09/2023 Refill General Internal Medicine [facility] [place] [address] [facility] [place] [id number] Karly Taylor MD [address] [facility] [place] [address] Encounter for long-term (current) use of other medications*; Gastroesophageal reflux disease without esophagitis; Pure hypercholesterolemia; Atherosclerosis of [place] coronary artery of [place] heart without angina pectoris Allergies Active Allergy Reactions Severity Noted Date Comments Codeine Nausea/vomiting 07/07/2012 Isosorbide Other (Please comment) 09/30/2018 Severe headache Latex Rash 03/26/2010 Morphine And Related Nausea/vomiting 02/03/2000 Penicillins Nausea/vomiting 02/03/2000 documented as of this encounter (statuses as of 01/11/2023) Medications Medication Sig Dispensed Refills Start Date End Date Status FISH [id number]-DYBW-SAF FLOWER PO CAPS 1 capsule by mouth at bedtime 0 1 Active VITAMIN E 1000 UNIT PO CAPS 1 CAPSULE DAILY 0 1 Active GARLIC 1000 MG PO CAPS 1 tablet by mouth daily 0 2 Active VITAMIN D3 1000 UNITS PO CAPS 1 CAPSULE DAILY 0 2 Active PATANOL 0.1 % ophthalmic solution As needed 0 5 Active Kelp TABS Take 1 Tab by mouth daily. 0 5 Active cetirizine (ZYRTEC) 10 MG TabletIndications:A llergic rhinitis Take 1 Tab by mouth daily. For allergies. 30 Tab 5 6 Active Additional Information Patient not taking.Informant: Patient, Reported on 01/01/2023 meclizine (ANTIVERT) 25 MG TabletIndications:D izziness Take 1 Tab by mouth 3 times a day as needed for Dizziness. 30 Tab 1 6 Active aspirin enteric coated 81 MG TBECIndications:Ath erosclerosis of [place] coronary artery of [place] heart without angina pectoris Take 1 Tablet by mouth in the morning. 100 Tab 3 8 Active fluticasone (FLONASE) 50 MCG/ACT nasal spray Administer 2 Sprays into each nostril daily. 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 May repeat 3 times. If chest pain continues, call 911. 25 Tab 11 1 Active Furosemide 20 MG Oral Tablet (Lasix) Take by mouth 1 Tablet in the morning. As needed for ankle swelling. 30 Tablet 5 2 Active Additional Information Patient not taking.Reported on 01/01/2023 Triamcinolone Acetonide 0.1 % External Ointment (Aristocort)Indicat ions:Vulvar irritation Apply topically to affected area 2 times a day as needed for Itching. Apply to vulva 30 g 2 2 Active Additional Information Patient not taking.Reported on 01/01/2023 Albuterol Sulfate HFA 108 (90 Base) MCG/ACT Inhalation Aerosol SolutionIndications :COPD, mild (HCC) INHALE TWO PUFFS BY MOUTH FOUR TIMES DAILY 18 g 1 2 Active Incruse Ellipta 62.5 MCG/INH Inhalation Aerosol Powder Breath Activated (umeclidinium [place])Indications :COPD, mild (HCC) INHALE 1 PUFF BY MOUTH ONCE DAILY 30 Each 11 2 Active Additional Information Patient not taking.Reported on 01/01/2023 Calcium 500 MG Oral Tablet Take 1 Tablet by mouth in the morning. 0 Active Benzonatate 100 MG Oral CapsuleIndications: Bacterial pneumonia Take 2 Capsules by mouth 3 times a day as needed for Cough. 30 Capsule 1 3 Active Clopidogrel Bisulfate 75 MG Oral Tablet (pLAVix)Indications :Atherosclerosis of [place] coronary artery of [place] heart without angina pectoris,Coronary atherosclerosis TAKE 1 TABLET BY MOUTH ONCE DAILY 90 Tablet 3 3 Active Metoprolol Succinate ER 25 MG Oral Tablet Extended Release 24 Hour (toPROL XL)Indications:Athe rosclerosis of [place] coronary artery of [place] heart without angina pectoris,Coronary atherosclerosis TAKE 1 TABLET BY MOUTH ONCE DAILY 90 Tablet 3 3 Active Estradiol 0.1 MG/GM Vaginal Cream (Estrace) Apply topically to affected area every night at bedtime. Apply finger tip amount to external area and urethra 42.5 g 0 3 Active Fish Oil 1000 MG Oral Capsule Take 1 Capsule by mouth in the morning. 0 Active Rosuvastatin Calcium 5 MG Oral Tablet (Crestor) TAKE 1 TABLET BY MOUTH EVERY MORNING 90 Tablet 1 3 Active Omeprazole 20 MG Oral Capsule Delayed Release (PriLOSEC)Indicatio ns:Gastroesophageal reflux disease without esophagitis TAKE ONE CAPSULE BY MOUTH IN THE MORNING AND ONE BEFORE BEDTIME 180 Capsule 1 3 Active Rosuvastatin Calcium 5 MG Oral Tablet (Crestor) TAKE ONE TABLET BY MOUTH EVERY MORNING 90 Tablet 1 3 01/12/20 23 Discontinued Omeprazole 20 MG Oral Capsule Delayed Release (PriLOSEC)Indicatio ns:Gastroesophageal reflux disease without esophagitis TAKE ONE CAPSULE BY MOUTH IN THE MORNING AND ONE AT BEDTIME 180 Capsule 1 3 01/12/20 23 Discontinued documented as of this encounter (statuses as of 01/11/2023) Active Problems Problem Noted Date Chronic kidney disease, stage 3a 021 Overview: Per CKD protocol Thrombocytopenia 06/27/2020 Hyperlipidemia, unspecified 05/19/2019 History of osteoporosis 08/11/2017 Gastroesophageal reflux disease without esophagitis 04/23/2017 Idiopathic progressive polyneuropathy MCI (mild cognitive impairment) 11/20/19 15 ADVANCE DIRECTIVE INFORMATION 11/24/2012 Overview: Yes, Patient instructed to provide copy of advance directive for provider to review and to be scanned into Electronic Medical Record COPD, mild 09/16/2012 Periodic limb movement 05/08/2011 Sleep related hypoxia 05/08/2011 CEREBROVASCULAR DZ, POST-STROKE 08/15/19 09 Overview: Modified per CVA protocol #8 CORONARY ATHEROSCLEROSIS OF UNSPECIFIED TYPE OF VESSEL, LAC [place]AM[place] OR GRAFT Irritable bowel syndrome Diaphragmatic hernia DIVERTICULOSIS OF COLON GENERALIZED ANXIETY DIS GENERAL OSTEOARTHROSIS documented as of this encounter (statuses as of 01/11/2023) Resolved Problems Problem Noted Date Resolved Date 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 06/27/2020 07/31/2021 Hemiplegia 06/27/2020 07/31/2021 Angina pectoris 05/19/2019 05/19/2019 Vertebral fracture, pathological 10/08/2016 10/08/2016 Major depression, single episode 10/08/2016 10/08/2016 Genetic Sleep Disorder Research Other*[id number] 12/23/2010 12/04/2015 Other B-complex deficiencies 09/30/201012/2016 Hereditary and idiopathic peripheral neuropathy 09/25/2010 09/05/2018 Dyslipidemia, goal LDL below 100 04/17/2009 10/30/2013 Overview: Per Lipid Taxonomy. Chronic cholecystitis 01/12/2005 09/05/2018 LUMB-LUMBOSAC DISC DEGEN 02/20/2004 019 CERVICAL DISC DEGEN 02/20/2004 09/05/2018 Persistent insomnia 08/03/2003 04/29/2018 LOC PRIM OSTEOART-SHLDER 03/20/2003 019 FX CARPAL BONE NOS-CLOSE 08/09/2002 019 irritated inflammed seborrheic keratosis- R fore arm 06/11/00 05/09/2002 04/29/2018 intradermal nevus- R breast 11/24/01, lower back 05/09/2002 04/29/2018 seborrheic keratosis- upper back 3 04/29/2018 traumatized annalise. keratosis-upper mid back 05/09/2002 04/29/2018 compound nevus- upper R back 05/09/2002 04/29/2018 benign keratosis w/ wart features- mid forehead 05/09/2002 04/29/2018 intradermal nevus-mid back 05/09/2002 04/29/2018 annalise. keratosis-Left & mid back 05/09/2002 04/29/2018 Mixed dyslipidemia 12/16/2001 04/17/2009 Overview: Per Lipid Taxonomy. [facility] BEHAV [place] SKIN 11/24/2001 04/29/2018 MALIG WEST[place] SKIN LEG 11/24/2001 04/29/2018 Other allergic rhinitis 05/24/2001 04/29/20 18 Overview: ICD-10 update of inactive term CVA 08/16/2008 Overview: Modified per CVA protocol #8 Postmenopausal bleeding 09/06/19 19 Esophageal reflux 09/05/2018 Dyslipidemia, goal to be determined 03/27/2009 Overview: Per Lipid Taxonomy Bronchitis 10/30/2013 documented as of this encounter (statuses as of 01/11/2023) Immunizations Name Administration Dates Next Due Diptheria/Tetanus [...] drink = 0.6 oz pur e alcohol) Food Insecurity Answer Date Recorded Within the past 12 months, y ou worried that your food would run out before you got money to buy more. Never true 05/11/2019 Within the past 12 months, t he food you bought just didn't last and you didn't have money to get more. Never true 05/11/2019 Sex Assigned at Date Recorded Female 11/08/2018 1:27 PM E DT Job Start Date Occupation Industry Not on file Not on file Not on file documented as of this encounter Miscellaneous Notes * Telephone Encounter - Riley Mckoy RPh - 01/11/2023 11:09 AM EDTSigned Prescriptions: Disp Refills Rosuvastatin Calcium 5 MG Oral Tablet (Cre*90 Tab*1 Sig: TAKE 1 TABLET BY MOUTH EVERY MORNINGAuthorizing Provider: KARLY TAYLOR User: RILEY MCKOY Omeprazole 20 MG Oral Capsule Delayed Rele*180 Ca*1 Sig: TAKE ONE CAPSULE BY MOUTH IN THE MORNING AND ONE BEFORE BEDTIMEAuthorizing Provider: KARLY TAYLOR User: RILEY MCKOY * Telephone Encounter - iRley Mckoy RPh - 01/11/2023 11:07 AM EDT Per refill protocol patient needs magnesium lab on file within the past 2 years while using PPIs. Lab work ordered. Patient may obtain with next routine labs. Thank you, Riley Mckoy, PharmD Clinical Pharmacist [facility] (formerly [employer]) [phone] 01/11/2023, 11:07 AM * Telephone Encounter - Interface, E-Rx Ss Inbound - 01/11/2023 6:05 AM EDT Pending Prescriptions: Disp Refills Rosuvastatin Calcium 5 MG Oral Tablet [Pha*90 Tab*0 Sig: TAKE 1TABLET BY MOUTH EVERY MORNING Omeprazole 20 MG Oral Capsule Delayed Rele*180 Ca*0 Sig: TAKE ONE CAPSULE BY MOUTH IN THE MORNING AND ONE BEFORE BEDTIME documented in this encounter Plan of Treatment Upcoming Encounters Date Type Specialty Care Team Description 01/20/2023 Office Visit Gynecology Urology Trenton Henao MD [address] [place] [address] Nurse Eren Cuevas [address] [place] [address] 01/26/2023 Office Visit Neurology Therese Mcdonald PA-C 200 [place] [address] 02/24/2023 Office Visit Gynecology Obstetrics Josefa Ward PA-C [address] [place] [address] 03/18/2023 Office Visit Sleep Disorders Magaly Pina CRNP [address] [place] [address] 03/30/2023 Office Visit Podiatry Zhanna Rodríguez DPM [address] [place] [address] 04/22/2023 Office Visit Internal Medicine Karly Taylor MD 200 [place] [address] 09/08/2023 Imaging Radiology Scheduled Orders Name Type Priority Associated Diagnoses Orde r Schedule MAGNESIUM Lab Routine Encounter for long-term (current) use of other medications Expected: 01/18/2023 (Approximate), Expires: 01/12/2024 LDL CHOLESTEROL (DIRECT MEASURE) Lab Routine Pure hypercholesterolemia Atherosclerosis of [place] coronary artery of [place] heart without angina pectoris Expected: 01/18/2023 (Approximate), Expires: 01/12/2024 Health Maintenance Due Date Last Done Comments COVID-19 Vaccine (#1) 1935 Alpha-1 Antitrypsin 1953 Zoster Vaccines (1 of 2) 1985 DTaP,Tdap,and Td Vaccines (1 - Tdap) 09/01/2006 08/31/2006, 08/31/2006 Influenza Vaccine (FLU shot) (#1) 2023 02/16/2012, 02/03/2011, 02/26/2010, Additional history exists Albumin/Creatinine Ratio 08/26/2023 023, 12/26/2020, 06/17/2009 CKD HGB USE SMARTSET 13965 08/26/202308/25, 08/25/2022, 07/31/2021, Additional history exists CKD PHOS USE SMARTSET 44970 08/26/202308/02, 12/26/2020, 06/26/2004 Depression Screening 08/26/2023 08/25/2022 Mammogram 09/02/2023 09/01/2022, 06/03, 03/25/2020, Additional history exists O2 ASSESSMENT COMPLETED IN PAST YEAR FOR COPD 12/04/2023 12/03/2022 Pneumococcal Vaccine: 65+ Years Completed 06/17/2018, 05/25/2001 [...] as of this encounter Visit Diagnoses Diagnosis Encounter for long-term (current) use of other medications- Primary Gastroesophageal reflux disease without esophagitis Esophageal reflux Pure hypercholesterolemia Atherosclerosis of [place] coronary artery of [place] heart without angina pectoris documented in this encounter Care Teams Marine Rigger Relationship Specialty Start Date End Date Karly Taylor MD [address] [facility] [place] [address] PCP - General 08/18/07 documented as of this encounter
--- OUTSIDE RECORDS SUMMARY | 2023-06-12 11:56 | External Medical Summary | Summary of Care ---
Author Name Unknown Organization [facility] Address [address] [facility] [place] [address] Phone [phone] Care Team Providers Care Collator Operator Name Role Phone Karly Taylor MD Primary Care Provider + Reason for Visit * Reason Onset Date Comments Medication Refill 01/22/2023 Encounter Details Date Type Department Care Team Description 01/22/2023 Refill General Internal Medicine [facility] [place] [address] [facility] [address] [place] [id number] Karly Taylor MD 200 [facility] [place] [address] COPD, mild (HCC) Allergies Active Allergy Reactions Severity Noted Date Comments Codeine Nausea/vomiting 07/07/2012 Isosorbide Other (Please comment) 09/30/2018 Severe headache Latex Rash 03/26/2010 Morphine And Related Nausea/vomiting 02/03/2000 Penicillins Nausea/vomiting 02/03/2000 documented as of this encounter (statuses as of 01/25/2023) Medications Medication Sig Dispensed Refills Start Date End Date Status FISH PIU-[id number]-EYEM-SAFF LOWER PO CAPS Take by mouth. 0 1 Active VITAMIN E 1000 UNIT [...] 0 5 Active cetirizine (ZYRTEC) 10 MG TabletIndications:Al lergic rhinitis Take 1 Tab by mouth daily. For allergies. 30 Tab 5 6 Active meclizine (ANTIVERT) 25 MG TabletIndications:Di zziness Take 1 Tab by mouth 3 times a day as needed for Dizziness. 30 Tab 1 6 Active aspirin enteric coated 81 MG TBECIndications:Athe rosclerosis of [place] coronary artery of [place] heart without angina pectoris Take 1 Tablet by mouth in the morning. 100 Tab 3 8 Active fluticasone (FLONASE) 50 MCG/ACT nasal spray Administer 2 Sprays into each nostril daily. 1 Inhaler 5 8 Active Additional Information Patient not taking.Informant: Patient, Reported on 01/01/2023 Nitroglycerin 0.4 MG Sublingual Tablet Sublingual (Nitrostat)Indicatio ns:Atherosclerosis of [place] coronary artery of [place] heart without angina pectoris Place 1 Tab [...] 01/01/2023 Triamcinolone Acetonide 0.1 % External Ointment (Aristocort)Indicati ons:Vulvar irritation Apply topically to affected area 2 times a day as needed for Itching. Apply to vulva 30 g 2 2 Active Incruse Ellipta 62.5 MCG/INH Inhalation Aerosol Powder Breath Activated (umeclidinium [place])Indications: COPD, mild (HCC) INHALE 1 PUFF BY MOUTH ONCE DAILY 30 Each 11 2 Active Calcium 500 MG Oral Tablet Take 1 Tablet by mouth in the morning. 0 Active Benzonatate 100 MG Oral CapsuleIndications:B acterial pneumonia Take 2 Capsules by mouth 3 times a day as needed for Cough. 30 Capsule 1 3 Active Clopidogrel Bisulfate 75 MG Oral Tablet (pLAVix)Indications: Atherosclerosis of [place] coronary artery of [place] heart without angina pectoris,Coronary atherosclerosis TAKE 1 TABLET BY MOUTH ONCE DAILY 90 Tablet 3 3 Active Metoprolol Succinate ER 25 MG Oral Tablet Extended Release 24 Hour (toPROL XL)Indications:Ather osclerosis of [place] coronary artery of [place] heart without angina pectoris,Coronary atherosclerosis TAKE 1 TABLET BY MOUTH ONCE DAILY 90 Tablet 3 3 Active Fish Oil 1000 MG Oral [...] BEFORE BEDTIME 180 Capsule 1 3 Active Estradiol 0.1 MG/GM Vaginal Cream (Estrace) Apply topically to affected area every night at bedtime. Apply finger tip amount to external area and urethra 42.5 g 0 3 Active Albuterol Sulfate HFA 108 (90 Base) MCG/ACT Inhalation Aerosol SolutionIndications: COPD, mild (HCC) INHALE TWO PUFFS BY MOUTH FOUR TIMES DAILY 18 g 1 3 Active Albuterol Sulfate HFA 108 (90 Base) MCG/ACT Inhalation Aerosol SolutionIndications: COPD, mild (HCC) INHALE TWO PUFFS BY MOUTH FOUR TIMES DAILY 18 g 1 2 01/23/20 23 Discontinu ed(Refill) documented as of this encounter (statuses as of 01/25/2023) Active Problems Problem Noted Date Chronic kidney [...] related hypoxia 05/08/2011 CEREBROVASCULAR DZ, POST-STROKE 08/15/19 Overview: Modified per CVA protocol #8 CORONARY ATHEROSCLEROSIS OF UNSPECIFIED TYPE OF VESSEL, [place] OR GRAFT Irritable bowel syndrome Diaphragmatic hernia DIVERTICULOSIS OF COLON GENERALIZED ANXIETY DIS GENERAL OSTEOARTHROSIS documented as of this encounter (statuses as of 01/25/2023) Resolved Problems Problem Noted Date Resolved Date 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 06/27/2020 07/31/2021 Hemiplegia 06/27/2020 07/31/2021 Angina pectoris 05/19/2019 05/19/2019 Vertebral fracture, pathological 10/08/2016 10/08/2016 Major depression, single episode 10/08/2016 10/08/2016 Genetic Sleep Disorder Research Other*[id number] 12/23/2010 12/04/2015 Other B-complex deficiencies 09/30/201012/2016 Hereditary [...] as of this encounter (statuses as of 01/25/2023) Immunizations Name Administration Dates Next Due Diptheria/Tetanus [...] encounter Miscellaneous Notes * Telephone Encounter - Karly Taylor MD - 01/25/2023 9:41 AM EDTSigned Prescriptions: Disp Refills Albuterol Sulfate HFA 108 (90 Base) MCG/AC*18 g 1 Sig: INHALE TWO PUFFS BY MOUTH FOUR TIMES DAILY Authorizing Provider: KARLY TAYLOR * Telephone Encounter - Nanette Dove LPN - 01/22/2023 2:37 PM EDTPending Prescriptions: Disp Refills Albuterol Sulfate HFA 108 (90 Base) MCG/AC*18 g 1 Sig: INHALE TWO PUFFS BY MOUTH FOUR TIMES DAILY * Telephone Encounter - Minoo Leach - 01/22/2023 12:50 PM EDT Did you pend patient's preferred pharmacy and medication before forwarding?yes Pharmacy: [id number] [facility] Pending Prescriptions: Disp Refills Albuterol Sulfate HFA 108 (90 Base) MCG/A*18 g 1 Sig: INHALE TWO PUFFS BY MOUTH FOUR TIMES DAILY Last Visit: 12/03/2022 (in office), Visit date not found (telemedicine) Next Visit: 04/22/2023 If no future appointments scheduled, and last appointment is greater than a year ago, please schedule patient for a follow-up appointment Last date the medication was ordered: 07/30/2022 Is this request for a controlled substance?No Urine Drug Screen:No results found. However, due to the size of the patient record, not all encounters were searched. Please check Results Review for a complete set of results. Patient Phone Numbers Labs: Lab Results Component Value Date/Time CREAT 0.8 08/25/2022 04:37 PM CREAT 1.0 12/19/2019 03:45 PM CREAT 0.8 01/31/1996 06:05 PM POTASSIUM 3.9 08/25/2022 04:37 PM POTASSIUM 4.0 12/19/2019 03:45 PM POTASSIUM 4.3 01/31/1996 06:05 PM TSH 1.34 08/25/2022 04:37 PM TSH 1.16 08/19/2016 02:31 PM LDLCALC 95 12/19/2019 03:45 PM LDLDIRECT 100 07/03/2020 10:44 AM LDLDIRECT NOT APPLICABLE 12/19/2019 03:45 PM LDLDIRECT 112 04/29/2018 03:05 PM ALT 23 08/25/2022 04:37 PM ALT 13 12/19/2019 03:45 PM ALT 14 01/31/1996 06:05 PM HGBA1C 5.5 07/03/2020 10:44 AM HGBA1C 5.6 02/06/2015 12:06 PM documented in this encounter Plan of Treatment Upcoming Encounters Date Type Specialty Care Team Description 01/26/2023 Office Visit Neurology Therese Mcdonald PA-C [address] [facility] [address] 02/19/2023 Office Visit Gynecology Urology Lisa Taylor PA-C [address] [place] [address] Nurse Eren Cuevas [address] [place] [address] 02/24/2023 Office Visit Gynecology Obstetrics Josefa Ward PA-C [address] [place] [address] 03/18/2023 Office Visit Sleep Disorders Magaly Pina CRNP [address] [place] [address] 03/30/2023 Office Visit Podiatry Zhanna Rodríguez DPM [address] [place] [address] 04/22/2023 Office Visit Internal Medicine Karly Taylor MD 200 [facility] [place] [address] 09/08/2023 Imaging Radiology Health Maintenance Due Date Last Done Comments COVID-19 Vaccine (#1) 1935 Alpha-1 Antitrypsin 1953 Zoster Vaccines (1 of 2) 1985 DTaP,Tdap,and Td Vaccines (1 - Tdap) 09/01/2006 08/31/2006, 08/31/2006 Influenza Vaccine (FLU shot) (#1) 2023 02/16/2012, 02/03/2011, 02/26/2010, Additional history exists Albumin/Creatinine Ratio 08/26/2023 023, 12/26/2020, 06/17/2009 CKD HGB USE SMARTSET 93440 08/26/202308/25, 08/25/2022, 07/31/2021, Additional history exists CKD PHOS USE SMARTSET 93715 08/26/202308/02, 12/26/2020, 06/26/2004 Depression Screening 08/26/2023 08/25/2022 [...] as of this encounter Visit Diagnoses Diagnosis COPD, mild (HCC) Chronic airway obstruction, not elsewhere classified documented in this encounter Care Teams Collator Operator Relationship Specialty Start Date End Date Karly Taylor MD [address] [place] [address] [place] [address] PCP - General 08/18/07 documented as of this encounter
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
--- OUTSIDE RECORDS SUMMARY | 2023-06-12 11:56 | External Medical Summary ---
Author Name Unknown Address Unknown Organization K01:[facility] [place] [address] [place] [id number] Laboratory Report Ordering Provider Test Date Status GISELL TRAVIS 01/20/2023 14:55:19 Final Observation Date Value Abnormality Reference (Units) Status Bacteria identified in Specimen by Culture 01/20/2023 14:55:19 No significant growth Final Test: Culture, Urine, Quanti tative
Specimen Source: Urine, Clean Catch
Specimen Type: Urine
Specimen Date: 01/20/2023 2:55 PM
Result Date: 01/21/2023 4:25 PM
Result Status: Final result
Resulting Lab: [facility]
[address]
[place] [id number]

CULTURE

No significant growth

null Performing Location [facility] [place] [address] [facility] [address]
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
--- OUTSIDE RECORDS SUMMARY | 2023-06-12 11:56 | External Medical Summary | Summary of Care ---
Author Name Unknown Organization [facility] Address [address] [facility] [place] [address] Phone [phone] Care Team Providers Care Claims Auditor Name Role Phone Karly Taylor MD Primary Care Provider + Reason for Visit * Reason Onset Date Comments Test Results 02/18/2023 Encounter Details Date Type Department Care Team Description 02/18/2023 Telephone General Internal Medicine [facility] [place] [address] [facility] [place] [id number] Karly [facility] MD [facility] [address] Test Results Allergies Active Allergy Reactions Severity Noted Date Comments Codeine Nausea/vomiting 07/07/2012 Isosorbide Other (Please comment) 09/30/2018 Severe headache Latex Rash 03/26/2010 Morphine And Related Nausea/vomiting 02/03/2000 Penicillins Nausea/vomiting 02/03/2000 documented as of this encounter (statuses as of 02/18/2023) Medications Medication Sig Dispensed Refills Start Date End Date Status FISH [id number]-SAFFL OWER PO CAPS Take by mouth. 0 [...] 5 09/19/2015 Active meclizine (ANTIVERT) 25 MG TabletIndications:Dimyra ziness Take 1 Tab by mouth 3 times a day as needed for Dizziness. 30 Tab 1 09/19/2015 Active aspirin enteric coated 81 MG TBECIndications:Ather osclerosis of [place] coronary artery of [place] heart without angina pectoris Take 1 Tablet by mouth in the morning. 100 Tab 3 03/01/2018 Active fluticasone (FLONASE) 50 MCG/ACT nasal spray Administer 2 Sprays into each nostril daily. 1 Inhaler 5 03/02/2018 Active Nitroglycerin 0.4 MG Sublingual Tablet Sublingual (Nitrostat)Indication s:Atherosclerosis of [place] coronary artery of [place] heart without angina pectoris Place 1 Tab [...] MCG/INH Inhalation Aerosol Powder Breath Activated (umeclidinium [place])Indications:C OPD, mild (HCC) INHALE 1 PUFF BY [...] 75 MG Oral Tablet (pLAVix)Indications:A therosclerosis of [place] coronary artery of [place] heart without angina pectoris,Coronary atherosclerosis TAKE 1 TABLET BY MOUTH ONCE DAILY 90 Tablet 3 10/16/2022 Active Metoprolol Succinate ER 25 MG Oral Tablet Extended Release 24 Hour (toPROL XL)Indications:Athero sclerosis of [place] coronary artery of [place] heart without angina pectoris,Coronary atherosclerosis TAKE 1 [...] as of this encounter (statuses as of 02/18/2023) Active Problems Problem Noted Date Chronic kidney [...] CORONARY ATHEROSCLEROSIS OF UNSPECIFIED TYPE OF VESSEL, [place] TRIBE OR GRAFT Irritable bowel syndrome Diaphragmatic hernia DIVERTICULOSIS OF COLON GENERALIZED ANXIETY DIS GENERAL OSTEOARTHROSIS documented as of this encounter (statuses as of 02/18/2023) Resolved Problems Problem Noted Date Resolved Date 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 06/27/2020 07/31/2021 Hemiplegia 06/27/2020 07/31/2021 Angina pectoris 05/19/2019 05/19/2019 Vertebral fracture, pathological 10/08/2016 10/08/2016 Major depression, single episode 10/08/2016 10/08/2016 Genetic Sleep Disorder Research Other*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 keratosis-Left & mid back 05/09/2002 04/29/2018 Mixed [...] as of this encounter (statuses as of 02/18/2023) Immunizations Name Administration Dates Next Due Diptheria/Tetanus [...] encounter Miscellaneous Notes * Telephone Encounter - Paola Jones LPN - 02/18/2023 4:34 PM EDT Patient aware and verbalized understanding. Pt does not wish to see general surgery at this time. Is currently being seen by [facility]. * Telephone Encounter - Gissel Lucas LPN - 02/18/2023 11:39 AM EDT Left message for pt to call back. * Telephone Encounter - Gissel Lucas LPN - 02/18/2023 11:38 AM EDT ----- Message from Karly Taylor MD sent at 01/27/2023 8:56 AM EDT ----- Regarding: CXR Xray chest was done by Neuro for sob. Has Large hiatal hernia. Continue curren tmeds. Looking at her age and health issues, not a candidate for surgery for hernia but still prefer can refer to general surgery to get an opinion. ER if any emergencies in the meantime. documented in this encounter Plan of Treatment Upcoming Encounters Date Type Specialty Care Team Description 02/19/2023 Office Visit Gynecology Urology Lisa Taylor PA-C [address] [place] [address] Nurse Eren Cuevas [address] [place] [address] 02/24/2023 Office Visit Gynecology Obstetrics Josefa Ward PA-C [address] [place] [address] 03/18/2023 Office Visit Sleep Disorders Magaly Pina CRNP [address] [place] [address] 03/30/2023 Office Visit Podiatry Zhanna Rodríguez DPM [address] [place] [address] 04/22/2023 Office Visit Internal Medicine Karly Taylor MD [address] [place] [address] 2023 Office Visit Otolaryngology Mame Bishop PA-C [address] [place] [address] 07/27/2023 Office Visit Neurology Therese Mcdonald PA-C [address] [place] [address] 09/08/2023 Imaging Radiology Health Maintenance Due Date Last Done Comments COVID-19 Vaccine (#1) 1935 Alpha-1 Antitrypsin 1953 Zoster Vaccines (1 of 2) 1985 DTaP,Tdap,and Td Vaccines (1 - Tdap) 09/01/2006 08/31/2006, 08/31/2006 Influenza Vaccine (FLU shot) (#1) 2023 02/16/2012, 02/03/2011, 02/26/2010, Additional history exists Albumin/Creatinine Ratio 08/26/2023 023, 12/26/2020, 06/17/2009 CKD HGB USE SMARTSET 88913 08/26/202308/25, 08/25/2022, 07/31/2021, Additional history exists CKD PHOS USE SMARTSET 58043 08/26/2023 0408/2022, 12/26/2020, 06/26/2004 Depression Screening 08/26/2023 [...] filedocumented as of this encounter Care Teams Claims Auditor Relationship Specialty Start Date End Date Karly Taylor MD [address] [place] [address] PCP - General 08/18/07 documented as of this encounter
--- OUTSIDE RECORDS SUMMARY | 2023-06-12 11:56 | External Medical Summary | Summary of Care ---
Author Name Unknown Organization [facility] Address [address] [facility] [place] [address] Phone [phone] Care Team Providers Care Registered Nurse Name Role Phone Karly Taylor MD Primary Care Provider + Reason for Visit * Reason Comments Follow Up Bladder Instillation Encounter Details Date Type Department Care Team Description 02/19/2023 Office Visit Urogynecology Mirta Cuevas [address] [place] [address] Lisa Taylor PA-C [address] [place] [address] Nurse Eren Cuevas [address] [place] [address] Prolapsed urethral mucosa* Allergies Active Allergy Reactions Severity Noted Date Comments Codeine Nausea/vomiting 07/07/2012 Isosorbide Other (Please comment) 09/30/2018 Severe headache Latex Rash 03/26/2010 Morphine And Related Nausea/vomiting 02/03/2000 Penicillins Nausea/vomiting 02/03/2000 documented as of this encounter (statuses as of 02/19/2023) Medications Medication Sig Dispensed Refills Start Date End Date Status FISH [id number]-SAFFL OWER PO CAPS Take by mouth. 0 [...] enteric coated 81 MG TBECIndications:Ather osclerosis of [place] coronary artery of [place] heart without angina pectoris Take 1 Tablet by mouth in the morning. 100 Tab 3 03/01/2018 Active fluticasone (FLONASE) 50 MCG/ACT nasal spray Administer 2 Sprays into each nostril daily. 1 Inhaler 5 03/02/2018 Active Nitroglycerin 0.4 MG Sublingual Tablet Sublingual (Nitrostat)Indication s:Atherosclerosis of [place] coronary artery of [place] heart without angina pectoris Place 1 Tab [...] MCG/INH Inhalation Aerosol Powder Breath Activated (umeclidinium [place])Indications:C OPD, mild (HCC) INHALE 1 PUFF BY MOUTH ONCE DAILY 30 Each 03/25/2022 Active Calcium 500 MG Oral Tablet Take 1 Tablet by mouth in the morning. 0 Active Benzonatate 100 MG Oral CapsuleIndications:Ba cterial pneumonia Take 2 Capsules by mouth 3 times a day as needed for Cough. 30 Capsule 1 07/31/2022 Active Clopidogrel Bisulfate 75 MG Oral Tablet (pLAVix)Indications:A therosclerosis of [place] coronary artery of [place] heart without angina pectoris,Coronary atherosclerosis TAKE 1 TABLET BY MOUTH ONCE DAILY 90 Tablet 3 10/16/2022 Active Metoprolol Succinate ER 25 MG Oral Tablet Extended Release 24 Hour (toPROL XL)Indications:Athero sclerosis of [place] coronary artery of [place] heart without angina pectoris,Coronary atherosclerosis TAKE 1 [...] as of this encounter (statuses as of 02/19/2023) Active Problems Problem Noted Date Chronic kidney [...] CORONARY ATHEROSCLEROSIS OF UNSPECIFIED TYPE OF VESSEL, [place] OR GRAFT Irritable bowel syndrome Diaphragmatic hernia DIVERTICULOSIS OF COLON GENERALIZED ANXIETY DIS GENERAL OSTEOARTHROSIS documented as of this encounter (statuses as of 02/19/2023) Resolved Problems Problem Noted Date Resolved Date 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 06/27/2020 07/31/2021 Hemiplegia 06/27/2020 07/31/2021 Angina pectoris 05/19/2019 05/19/2019 Vertebral fracture, pathological 10/08/2016 10/08/2016 Major depression, single episode 10/08/2016 10/08/2016 Genetic Sleep Disorder Research Other*[id number] 12/23/2010 12/04/2015 Other B-complex deficiencies 09/30/201012/2016 Hereditary [...] as of this encounter (statuses as of 02/19/2023) Immunizations Name Administration Dates Next Due Diptheria/Tetanus [...] as of this encounter Progress Notes * Lisa Taylor PA-C - 02/19/2023 3:01 PM EDT Sylvia Torres presents for a follow up visit at [facility]. 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 No concerns or complaints. Denies dysuria. Daytime frequency 2 hours. Nocturia 0-1x nightly. Urinary: Very rare urge incontinence not bothersome to patient. No urgency, frequency or dysuria. Voiding well. GI: Constipation. Training Program Developer: No abnormal discharge or vaginal bleeding. Overall is pleased with current treatment plan and would like to continue current treatment. No complaints or concerns at this time. Review of patient's allergies indicates: Allergen Reactions Codeine Nausea/vomiting Isosorbide Other (Please comment) Severe headache Latex Rash Morphine And Related Nausea/vomiting Penicillins Nausea/vomiting Current Outpatient Medications Medication Sig Dispense Refill FISH [id number]-SAFFLOWER PO CAPS Take by mouth. VITAMIN E [...] mouth in the morning. 100 Tab 3 fluticasone (FLONASE) 50 MCG/ACT nasal spray Administer 2 Sprays into each nostril daily. 1 Inhaler5 Nitroglycerin 0.4 MG Sublingual Tablet Sublingual (Nitrostat) [...] MCG/INH Inhalation Aerosol Powder Breath Activated (umeclidinium [place]) INHALE 1 PUFF BY MOUTH ONCE DAILY [...] 1 tab twice daily 60 Capsule 2 No current facility-administered medications for this visit. ROS: Per HPI GENERAL: alert, healthy, no distress, well nourished and well developed SKIN: Skin color, texture, and turgor normal. 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 Continue vaginal estrogen cream twice weekly. Continue d-mannose supplement. RTC in 6 months or sooner as needed. I spent a total of 20-29 minutes (exact time 20 mins) on the date of service in preparation, delivery, and documentation of the care provided to Sylvia Torres excluding any time spent in the performance of separately billed services. Lisa Taylor PA-C 02/19/2023 3:01 PM Lisa Taylor PA-C Urogynecology [facility] [address] [place] [address] documented in this encounter Nursing Notes * Jenna Live LPN - 02/19/2023 2:59 PM EDT Prior nursing entry was not correct. Patient presents to the clinic today for a follow up. Continues to have lower abdominal pain but has constipation. Denies burning with urination. Using the vaginal cream as directed. And is taking the D-mannose. * Jenna Live LPN - 02/19/2023 2:57 PM EDT Patient presents for a bladder instillation. documented in this encounter Plan of Treatment Upcoming Encounters Date Type Specialty Care Team Description 02/24/2023 Office Visit Gynecology Obstetrics Josefa Ward PA-C [address] [place] [address] 03/18/2023 Office Visit Sleep Disorders Magaly Pina CRNP [address] [place] [address] 03/30/2023 Office Visit Podiatry Zhanna Rodríguez DPM [address] [place] [address] 04/22/2023 Office Visit Internal Medicine Karly Taylor MD [address] [place], [place] [address] [address] 2023 Office Visit Otolaryngology Mame Bishop PA-C [address] [place] [address] 07/27/2023 Office Visit Neurology Therese Mcdonald PA-C [address] [facility] [address] 08/26/2023 Office Visit Gynecology Urology Lisa Taylor PA-C [address] [place] [address] Nurse Eren Cuevas [address] [place] [address] 09/08/2023 Imaging Radiology Health Maintenance Due Date Last Done Comments COVID-19 Vaccine (#1) 1935 Alpha-1 Antitrypsin 1953 Zoster Vaccines (1 of 2) 1985 DTaP,Tdap,and Td Vaccines (1 - Tdap) 09/01/2006 08/31/2006, 08/31/2006 Influenza Vaccine (FLU shot) (#1) 2023 02/16/2012, 02/03/2011, 02/26/2010, Additional history exists Albumin/Creatinine Ratio 08/26/2023 023, 12/26/2020, 06/17/2009 CKD HGB USE SMARTSET 15610 08/26/202308/25, 08/25/2022, 07/31/2021, Additional history exists CKD PHOS USE SMARTSET 30766 08/26/202308/02, 12/26/2020, 06/26/2004 Depression Screening 08/26/2023 08/25/2022 [...] Visit Diagnoses Diagnosis Prolapsed urethral mucosa- Primary documented in this encounter Care Teams Registered Nurse Relationship Specialty Start Date End Date Karly Taylor MD 200 [facility] [place] [address] PCP - General 08/18/07 documented as of this encounter
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
--- OUTSIDE RECORDS SUMMARY | 2023-06-12 11:56 | External Medical Summary | Summary of Care ---
Author Name Unknown Organization [facility] Address [address] [facility] [place] [address] Phone [phone] Care Team Providers Care Shift Production Associate Name Role Phone Karly Taylor MD Primary Care Provider + Reason for Visit * Reason Onset Date Comments Test Results 01/27/2023 Encounter Details Date Type Department Care Team Description 01/27/2023 Telephone Neurology [facility] [place] [address] [place] [address] Therese Mcdonald PA-C [address] [facility] [place] [address] Test Results Allergies Active Allergy Reactions Severity Noted Date Comments Codeine Nausea/vomiting 07/07/2012 Isosorbide Other (Please comment) 09/30/2018 Severe headache Latex Rash 03/26/2010 Morphine And Related Nausea/vomiting 02/03/2000 Penicillins Nausea/vomiting 02/03/2000 documented as of this encounter (statuses as of 01/27/2023) Medications Medication Sig Dispensed Refills Start Date End Date Status FISH [id number]-SAFFL OWER PO CAPS Take by mouth. 0 [...] enteric coated 81 MG TBECIndications:Ather osclerosis of [place] coronary artery of [place] heart without angina pectoris Take 1 Tablet by mouth in the morning. 100 Tab 3 03/01/2018 Active fluticasone (FLONASE) 50 MCG/ACT nasal spray Administer 2 Sprays into each nostril daily. 1 Inhaler 5 03/02/2018 Active Nitroglycerin 0.4 MG Sublingual Tablet Sublingual (Nitrostat)Indication s:Atherosclerosis of [place] coronary artery of [place] heart without angina pectoris Place 1 Tab [...] MCG/INH Inhalation Aerosol Powder Breath Activated (umeclidinium [place])Indications:C OPD, mild (HCC) INHALE 1 PUFF BY [...] 75 MG Oral Tablet (pLAVix)Indications:A therosclerosis of [place] coronary artery of [place] heart without angina pectoris,Coronary atherosclerosis TAKE 1 TABLET BY MOUTH ONCE DAILY 90 Tablet 3 10/16/2022 Active Metoprolol Succinate ER 25 MG Oral Tablet Extended Release 24 Hour (toPROL XL)Indications:Athero sclerosis of [place] coronary artery of [place] heart without angina pectoris,Coronary atherosclerosis TAKE 1 [...] as of this encounter (statuses as of 01/27/2023) Active Problems Problem Noted Date Chronic kidney [...] CORONARY ATHEROSCLEROSIS OF UNSPECIFIED TYPE OF VESSEL, [place] OR GRAFT Irritable bowel syndrome Diaphragmatic hernia DIVERTICULOSIS OF COLON GENERALIZED ANXIETY DIS GENERAL OSTEOARTHROSIS documented as of this encounter (statuses as of 01/27/2023) Resolved Problems Problem Noted Date Resolved Date 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 06/27/2020 07/31/2021 Hemiplegia 06/27/2020 07/31/2021 Angina pectoris 05/19/2019 05/19/2019 Vertebral fracture, pathological 10/08/2016 10/08/2016 Major depression, single episode 10/08/2016 10/08/2016 Genetic Sleep Disorder Research Other*[id number] 12/23/2010 12/04/2015 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 She has myg but she does not know how to access. Thank you KK ----- Message ----- From: Damon Manriquez In Sent: 01/27/2023 6:26 AM EDT To: Therese Mcdonald PA-C documented in this encounter Plan of Treatment Upcoming Encounters Date Type Specialty Care Team Description 02/19/2023 Office Visit Gynecology Urology Lisa Taylor PA-C [address] [place] [address] Nurse Eren Cuevas [address] [place] [address] 02/24/2023 Office Visit Gynecology Obstetrics Josefa Ward PA-C [address] [place] [address] 03/18/2023 Office Visit Sleep Disorders Magaly Pina CRNP [address] [place] [address] 03/30/2023 Office Visit Podiatry Zhanna Rodríguez DPM [address] [place] [address] 04/22/2023 Office Visit Internal Medicine Karly Taylor MD [address] [place] [address] 07/27/2023 Office Visit Neurology Therese Mcdonald PA-C [address] [place], [place] [address] 09/08/2023 Imaging Radiology Health Maintenance Due Date Last Done Comments COVID-19 Vaccine (#1) 1935 Alpha-1 Antitrypsin 1953 Zoster Vaccines (1 of 2) 1985 DTaP,Tdap,and Td Vaccines (1 - Tdap) 09/01/2006 08/31/2006, 08/31/2006 Influenza Vaccine (FLU shot) (#1) 2023 02/16/2012, 02/03/2011, 02/26/2010, Additional history exists Albumin/Creatinine Ratio 08/26/2023 023, 12/26/2020, 06/17/2009 CKD HGB USE SMARTSET 73503 08/26/202308/25, 08/25/2022, 07/31/2021, Additional history exists CKD PHOS USE SMARTSET 73808 08/26/202308/02, 12/26/2020, 06/26/2004 Depression Screening 08/26/2023 08/25/2022 [...] filedocumented as of this encounter Care Teams Shift Production Associate Relationship Specialty Start Date End Date Karly Taylor MD [address] [facility] [place] [address] PCP - General 08/18/07 documented as of this encounter
--- OUTSIDE RECORDS SUMMARY | 2023-06-12 11:56 | External Medical Summary | Summary of Care ---
Author Name Unknown Organization [facility] Address [address] [facility] [place] [address] Phone [phone] Care Team Providers Care Dry Primer Powder Blender Name Role Phone Karly Taylor MD Primary Care Provider + Reason for Visit * Reason Comments Return Neuro Encounter Details Date Type Department Care Team Description 01/26/2023 Office Visit Neurology [place] [address] [place] [address] Therese Mcdonald PA-C [address] [facility] [place] [address] Idiopathic progressive polyneuropathy*; SOB (shortness of breath) on exertion Allergies Active Allergy Reactions Severity Noted Date Comments Codeine Nausea/vomiting 07/07/2012 Isosorbide Other (Please comment) 09/30/2018 Severe headache Latex Rash 03/26/2010 Morphine And Related Nausea/vomiting 02/03/2000 Penicillins Nausea/vomiting 02/03/2000 documented as of this encounter (statuses as of 01/26/2023) Medications Medication Sig Dispensed Refills Start Date End Date Status FISH SQD-[id number]-FBQN-SAFFL OWER PO CAPS Take by mouth. 0 [...] enteric coated 81 MG TBECIndications:Ather osclerosis of [place] coronary artery of [place] heart without angina pectoris Take 1 Tablet by mouth in the morning. 100 Tab 3 03/01/2018 Active fluticasone (FLONASE) 50 MCG/ACT nasal spray Administer 2 Sprays into each nostril daily. 1 Inhaler 5 03/02/2018 Active Nitroglycerin 0.4 MG Sublingual Tablet Sublingual (Nitrostat)Indication s:Atherosclerosis of [place] coronary artery of [place] heart without angina pectoris Place 1 Tab [...] MCG/INH Inhalation Aerosol Powder Breath Activated (umeclidinium [place])Indications:C OPD, mild (HCC) INHALE 1 PUFF BY [...] 75 MG Oral Tablet (pLAVix)Indications:A therosclerosis of [place] coronary artery of [place] heart without angina pectoris,Coronary atherosclerosis TAKE 1 TABLET BY MOUTH ONCE DAILY 90 Tablet 3 10/16/2022 Active Metoprolol Succinate ER 25 MG Oral Tablet Extended Release 24 Hour (toPROL XL)Indications:Athero sclerosis of [place] coronary artery of [place] heart without angina pectoris,Coronary atherosclerosis TAKE 1 [...] as of this encounter (statuses as of 01/26/2023) Active Problems Problem Noted Date Chronic kidney [...] CORONARY ATHEROSCLEROSIS OF UNSPECIFIED TYPE OF VESSEL, COEUR D'ALENE OR GRAFT Irritable bowel syndrome Diaphragmatic hernia DIVERTICULOSIS OF COLON GENERALIZED ANXIETY DIS GENERAL OSTEOARTHROSIS documented as of this encounter (statuses as of 01/26/2023) Resolved Problems Problem Noted Date Resolved Date 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 06/27/2020 07/31/2021 Hemiplegia 06/27/2020 07/31/2021 Angina pectoris 05/19/2019 05/19/2019 Vertebral fracture, pathological 10/08/2016 10/08/2016 Major depression, single episode 10/08/2016 10/08/2016 Genetic Sleep Disorder Research Other*[id number] 12/23/2010 12/04/2015 Other B-complex deficiencies 09/30/201012/2016 Hereditary [...] as of this encounter (statuses as of 01/26/2023) Immunizations Name Administration Dates Next Due Diptheria/Tetanus [...] Sign Reading Time Taken Comments Blood Pressure 124/70 01/26/2023 1:15 PM EDT Pulse 74 01/26/2023 1:15 PM EDT Temperature 36.2 C (97.2 F) 01/26/2023 1:15 PM ED T Respiratory Rate 18 01/26/2023 1:15 PM EDT Oxygen Saturation 97% 01/26/2023 1:15 PM EDT Inhaled Oxygen Concentration - - Weight 81.6 kg (179 lb 12.8 oz) 01/26/2023 1:15 PM EDT Height - - Body Mass Index 26.94 12/22/2022 12:59 PM EDT documented in this encounter Progress Notes * Therese Mcdonald PA-C - 01/26/2023 1:18 PM EDT HISTORY & PHYSICAL EXAMINATION - NEUROLOGY Name: Sylvia Torres Date: 01/26/2023 Time: 1:18 PM Referring Provider: Karly Taylor MD Chief Complaint: Chief Complaint Patient presents with Return Neuro This is a 87 year old right handed woman returns today for follow up for neuropathy. HPI & Source of HPI The patient was the historian, and she is reliable. 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 She was not treated at that time and she feels it was worsening. She does also have some hip pain and swelling in her feet which she has know heart disease and arthritis. She has no feeling in her feet and they get blue when she lets them hand down any length of time. She also gets burning pain in her feet. She has had no recent falls. Her memory issues are stable and [facility] well [facility]. She was taking gabapentin 100 mg hs but it gave her night farmre and she stopped it.She is ok during the day but at night she gets burning pain and sometimes squeezing pain. She walks about 2 miles every day and her legs feel better when she walks on them. She was ordered cymbalta but she never started taking it but she wants to try it now. She is also complaining of SOB with exertion. She gets a lot of phlem in her throat with she doesn't know what todo about it. denies CP, SOB, abdominal pain, one sided weakness, numbness tingling. I have reviewed the patient's medications and allergies, past medical, surgical, social and family history, updating these as appropriate. See Histories section of the electronic medical record for adisplay of this information. Patient Active Problem List Diagnosis Code CORONARY ATHEROSCLEROSIS OF UNSPECIFIED TYPE OF VESSEL, COEUR D'ALENE OR GRAFT I25.10 Irritable bowel syndrome K58.9 [...] D69.6 Chronic kidney disease, stage 3a N18.31 Family History Problem Relation Age of Onset Cervical Cancer Mother uterine? Skin cancer Mother Brain cancer Mother Lung cancer Daughter 55 Stomach cancer Brother Cervical Cancer Aunt (Maternal) Uterine cancer Grandmother (Maternal) Breast Cancer Aunt (Maternal) Bilateral Mastectomy Hodgkin's lymphoma Son 46 Lupus Daughter 33 Obesity Daughter Bipolar Disorder Daughter 14 Colon cancer Daughter Cancer Granddaughter non Hodgkins Medications: Are you taking your medications? yes Current Outpatient Medications Medication Sig Dispense Refill FISH SNP-HCOELO-UVOY-SAFFLOWER PO CAPS Take by mouth. VITAMIN E [...] MCG/INH Inhalation Aerosol Powder Breath Activated (umeclidinium [place]) INHALE 1 PUFF BY MOUTH ONCE DAILY [...] Rash Morphine And Related Nausea/vomiting Penicillins Nausea/vomiting Review of Systems: A total number of 10 systems were reviewed pertinent negative and positives not addressed in HPI are listed in the following review. Physical Exam: Constitutional: BP 124/70 (BP Site: Right Arm, BP Position: Sitting, BP Cuff Size: Regular) | Pulse74 | Temp 36.2 C (97.2 F) (Tympanic) | Resp 18 | Wt 81.6 kg (179 lb 12.8 oz) | SpO2 97% | BMI 26.94 kg/m | BSA 1.99 m , appearance nourished, healthy, and normal Ears, Nose, Mouth and Throat: mucous membranes moist, no injection and skin normal, eyes normal Cardiovascular: normal S-1 and S-2 Respiratory: clear to auscultation (CTA) and but distant Musculoskeletal: bilateral LE edema +1 pitting Skin: ankles with bilateral swelling and venous stasis Eyes: extraocular muscles intact (EOMI) NEUROLOGIC EXAMINATION: Mental status: Alert and interactive Oriented to person Speech fluent with no evidence of aphasia Cranial Nerves Normal findings for Cranial Nerves II - XII Reflexes: Lower extremity reflexes decreased Bilateral Sensory: Decreased LE to touch and vibration Coordination: on [id number] Gait/Stance: Posture abnormal: Kyphosis/osteoporosis. Gait abnormal: steady slightly orthopedic with kyphosis. Motor: Negative for pronator drift of out stretched arms with eyes closed. Strength: generalized weakness, deconditioned, and uses arms of chair to stand up LABORATORY: Recent labs reviewed Review of prior Studies: No recent imaging available. Impression: Sylvia Torres is a 87 year old woman with a history of neuropathy and SOB on exertion.Her neurologic examination today reveals no new focal deficits. The history and examination are suggestive of diagnosis/problem list. Testing and Referrals ordered: none ICD-10-CM 1. 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 SOB (shortness of breath) on exertion R06.02 Return in 6 months or sooner if needed Start cymbalta 20 mg (1 tab) daily x 7 days then increase to (1 tab) twice daily - can be increasedif needed and tolerating CXR- SOB on exertion ROB hose may be helpful for the leg swelling PT offered for in home but she is remodeling her kitchen and doesn't want them in PCP for medical management Call with questions concerns. Medical Decision Making (determined by lowest of 2 of 3 elements): The medical decision making element of the number and complexity of problems addressed included at least 1 or more chronic illnesses with exacerbation, progression, or side effects of treatment (level 4) and 1 undiagnosed new problem with uncertain prognosis (level 4). The medical decision making element of risk of complications, morbidity, and mortality of patient management is moderate (level 4) due to prescription drug management (moderate risk). The medical decision making element of the amount and complexity of data reviewed and analyzed included an independent interpretation of a test (level 4 at least). When 2 of 3 reach level 4, then this element is considered extensive (level 5). I personally spent a total of 30 minutes. This time was for a new office or established visit and was on the same calendar day. Education / Consultation - Topics covered as I spent 20 minutes, which is greater than 50% of this visit, counseling the patient on: Diagnostic Results Prognosis Importance of compliance with chosen treatment options Risk factor reductions Patient and family education Consulted with physician: Alvino Nascimento DO was available for direct supervision. Copy of note sent to PCP and Referring Provider. Total time of visit: 30 minutes. Therese Mcdonald PA-C Neurology [address] [address] 01/26/2023 1:18 PM documented in this encounter Nursing Notes * Shavon Loyola LPN - 01/26/2023 1:14 PM EDT Patient verified identity by spelling of last name and date. Chief Complaint Patient presents with Return Neuro documented in this encounter Plan of Treatment Upcoming Encounters Date Type Specialty Care Team Description 02/19/2023 Office Visit Gynecology Urology Lisa Taylor PA-C [address] [place] [address] Nurse Eren Cuevas [address] [place] [address] 02/24/2023 Office Visit Gynecology Obstetrics Josefa Ward PA-C [address] [place] [address] 03/18/2023 Office Visit Sleep Disorders Magaly Pina CRNP [address] [place] [address] 03/30/2023 Office Visit Podiatry Zhanna Rodríguez, JHONATHAN [address] [place] [address] 04/22/2023 Office Visit Internal Medicine Karly Taylor MD [address] [facility] [address] 07/27/2023 Office Visit Neurology Tehrese Mcdonald PA-C [address] [place] [address] 09/08/2023 Imaging Radiology Pending Results Name Type Priority Associated Diagnoses Date /Time XR CHEST 2 VIEWS Medical Imaging Routine SOB (shortness of breath) on exertion 01/26/2023 1:55 PM EDT Health Maintenance Due Date Last Done Comments COVID-19 Vaccine (#1) 1935 Alpha-1 Antitrypsin 1953 Zoster Vaccines (1 of 2) 1985 DTaP,Tdap,and Td Vaccines (1 - Tdap) 09/01/2006 08/31/2006, 08/31/2006 Influenza Vaccine (FLU shot) (#1) 2023 02/16/2012, 02/03/2011, 02/26/2010, Additional history exists Albumin/Creatinine Ratio 08/26/2023 023, 12/26/2020, 06/17/2009 CKD HGB USE SMARTSET 01988 08/26/202308/25, 08/25/2022, 07/31/2021, Additional history exists CKD PHOS USE SMARTSET 80514 08/26/2023 0408/2022, 12/26/2020, 06/26/2004 Depression Screening 08/26/2023 [...] as of this encounter Visit Diagnoses Diagnosis Idiopathic progressive polyneuropathy- Primary SOB (shortness of breath) on exertion Shortness of breath documented in this encounter Care Teams Dry Primer Powder Blender Relationship Specialty Start Date End Date Karly Taylor MD [address] [facility] [address] PCP - General 08/18/07 documented as of this encounter"
--- OUTSIDE RECORDS SUMMARY | 2023-06-12 11:56 | External Medical Summary | Summary of Care ---
Author Name Unknown Organization [facility] Address [address] [facility] [place] [address] Phone [phone] Care Team Providers Care Bone Char Kiln Operator Name Role Phone Karly Taylor MD Primary Care Provider + Reason for Visit * Reason Onset Date Comments Medication Question 01/05/2023 Encounter Details Date Type Department Care Team Description 01/05/2023 Telephone Gynecology/Obstetrics [facility] [address] [place] [address] Josefa Ward PA-C [address] [place] [address] Medication Question Allergies Active Allergy Reactions Severity Noted Date Comments Codeine Nausea/vomiting 07/07/2012 Isosorbide Other (Please comment) 09/30/2018 Severe headache Latex Rash 03/26/2010 Morphine And Related Nausea/vomiting 02/03/2000 Penicillins Nausea/vomiting 02/03/2000 documented as of this encounter (statuses as of 01/06/2023) Medications Medication Sig Dispensed Refills Start Date End Date Status FISH GHQ-KWGPOS-HSHE-SAFFL OWER PO CAPS 1 capsule by mouth at bedtime 0 08/25/2010 Active VITAMIN E 1000 UNIT PO CAPS 1 CAPSULE DAILY 0 11/19/2010 Active GARLIC 1000 MG PO [...] For allergies. 30 Tab 5 09/19/2015 Active Additional Information Patient not taking.Informant: Patient, Reported on 01/01/2023 meclizine (ANTIVERT) 25 MG TabletIndications:Diz ziness Take 1 Tab by mouth 3 times a day as needed for Dizziness. 30 Tab 1 09/19/2015 Active aspirin enteric coated 81 MG TBECIndications:Ather osclerosis of [place] coronary artery of [place] heart without angina pectoris Take 1 Tablet by mouth in the morning. 100 Tab 3 03/01/2018 Active fluticasone (FLONASE) 50 MCG/ACT nasal spray Administer 2 Sprays into each nostril daily. 1 Inhaler 5 03/02/2018 Active Additional Information Patient not taking.Informant: Patient, Reported on 01/01/2023 Nitroglycerin 0.4 MG Sublingual Tablet Sublingual (Nitrostat)Indication s:Atherosclerosis of [place] coronary artery of [place] heart without angina pectoris Place 1 Tab under the tongue as needed for Pain, Chest. May repeat 3 times. If chest pain continues, call 911. 25 Tab 11 02/18/2021 Active Furosemide 20 MG Oral Tablet (Lasix) Take by mouth 1 Tablet in the morning. As needed for ankle swelling. 30 Tablet 5 12/24/2021 Active Additional Information Patient not taking.Reported on 01/01/2023 Triamcinolone Acetonide 0.1 % External Ointment (Aristocort)Indicatio ns:Vulvar irritation Apply topically to affected area 2 times a day as needed for Itching. Apply to vulva 30 g 2 01/08/2022 Active Additional Information Patient not taking.Reported on 01/01/2023 Albuterol Sulfate HFA 108 (90 Base) MCG/ACT Inhalation Aerosol SolutionIndications:C OPD, mild (HCC) INHALE TWO PUFFS BY MOUTH FOUR TIMES DAILY 18 g 1 03/25/2022 Active Incruse Ellipta 62.5 MCG/INH Inhalation Aerosol Powder Breath Activated (umeclidinium [place])Indications:C OPD, mild (HCC) INHALE 1 PUFF BY MOUTH ONCE DAILY 30 Each 11 03/25/2022 Active Additional Information Patient not taking.Reported on 01/01/2023 Calcium 500 MG Oral Tablet Take 1 Tablet by mouth in the morning. 0 Active Rosuvastatin Calcium 5 MG Oral Tablet (Crestor) TAKE ONE TABLET BY MOUTH EVERY MORNING 90 Tablet 1 07/22/2022 Active Omeprazole 20 MG Oral Capsule Delayed Release (PriLOSEC)Indications :Gastroesophageal reflux disease without esophagitis TAKE ONE CAPSULE BY MOUTH IN THE MORNING AND ONE AT BEDTIME 180 Capsule 1 07/22/2022 Active Benzonatate 100 MG Oral CapsuleIndications:Ba cterial pneumonia Take 2 Capsules by mouth 3 times a day as needed for Cough. 30 Capsule 1 07/31/2022 Active Clopidogrel Bisulfate 75 MG Oral Tablet (pLAVix)Indications:A therosclerosis of [place] coronary artery of [place] heart without angina pectoris,Coronary atherosclerosis TAKE 1 TABLET BY MOUTH ONCE DAILY 90 Tablet 3 10/16/2022 Active Metoprolol Succinate ER 25 MG Oral Tablet Extended Release 24 Hour (toPROL XL)Indications:Athero sclerosis of [place] coronary artery of [place] heart without angina pectoris,Coronary atherosclerosis TAKE 1 TABLET BY MOUTH ONCE DAILY 90 Tablet 3 10/16/2022 Active Estradiol 0.1 MG/GM Vaginal Cream (Estrace) Apply topically to affected area every night at bedtime. Apply finger tip amount to external area and urethra 42.5 g 0 12/22/2022 Active Fish Oil 1000 MG Oral Capsule Take 1 Capsule by mouth in the morning. 0 Active documented as of this encounter (statuses as of 01/06/2023) Active Problems Problem Noted Date Chronic kidney [...] Sleep related hypoxia 05/08/2011 CEREBROVASCULAR DZ, POST-STROKE 04/14/20 09 Overview: Modified per CVA protocol #8 CORONARY ATHEROSCLEROSIS OF UNSPECIFIED TYPE OF VESSEL, [place] OR GRAFT Irritable bowel syndrome Diaphragmatic hernia DIVERTICULOSIS OF COLON GENERALIZED ANXIETY DIS GENERAL OSTEOARTHROSIS documented as of this encounter (statuses as of 01/06/2023) Resolved Problems Problem Noted Date Resolved Date 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 06/27/2020 07/31/2021 Hemiplegia 06/27/2020 07/31/2021 Angina pectoris 05/19/2019 05/19/2019 Vertebral fracture, pathological 10/08/2016 10/08/2016 Major depression, single episode 10/08/2016 10/08/2016 Genetic Sleep Disorder Research Other*[id number] 12/23/2010 12/04/2015 Other B-complex deficiencies 09/30/201012/2016 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 It is important she keep this appointment d/t the urethral issue seen on exam.She can reduce down to twice weekly (such as Wednesday and ) at bedtime if concerns given her history. If in need of refills, let me know. * Telephone Encounter - EBENEZER Cowan - 01/05/2023 4:25 PM EDT Pt had an appt today at 4pm however she got stuck in traffic and we had to reschedule her appt. Theappt was for a medication follow up, she states you gave her some medication to use for 2 weeks, her next apt is now the end of January. Her question is should she continue using the medications or discontinue? It seems like the medication helped, however with her heart conditions she wants to see if she should continue the med/cream. Please call her or have a nurse to call her if possible documented in this encounter Plan of Treatment Upcoming Encounters Date Type Specialty Care Team Description 01/20/2023 Office Visit Gynecology Urology Trenton Henao MD [address] [place] [address] Nurse Eren Cuevas [address] [place] [address] 01/26/2023 Office Visit Neurology Therese Mcdonald PA-C [address] [facility], [place] [address] 02/24/2023 Office Visit Gynecology Obstetrics Josefa Ward PA-C [address] [place] [address] 03/18/2023 Office Visit Sleep Disorders Magaly Pina CRNP [address] [place] [address] 03/30/2023 Office Visit Podiatry Zhanna Rodríguez DPM [address] [place] [address] 04/22/2023 Office Visit [facility] [address] 09/08/2023 Imaging Radiology Health Maintenance Due Date Last Done Comments COVID-19 Vaccine (#1) 1935 Alpha-1 Antitrypsin 1953 Zoster Vaccines (1 of 2) 1985 DTaP,Tdap,and Td Vaccines (1 - Tdap) 09/01/2006 08/31/2006, 08/31/2006 Influenza Vaccine (FLU shot) (#1) 2023 02/16/2012, 02/03/2011, 02/26/2010, Additional history exists Albumin/Creatinine Ratio 08/26/2023 023, 12/26/2020, 06/17/2009 CKD HGB USE SMARTSET 35498 08/26/202308/25, 08/25/2022, 07/31/2021, Additional history exists CKD PHOS USE SMARTSET 58367 08/26/202308/02, 12/26/2020, 06/26/2004 Depression Screening, Annual for Pts 12 and Over 08/26/2023 08/25/2022 Mammogram 09/02/2023 09/01/2022, 06/03, 03/25/2020, [...] filedocumented as of this encounter Care Teams Bone Char Kiln Operator Relationship Specialty Start Date End Date Karly Taylor MD [address] [facility] [place] [address] PCP - General 08/18/07 documented as of this encounter
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
--- OUTSIDE RECORDS SUMMARY | 2023-06-12 11:57 | External Medical Summary | Summary of Care ---
Author Name Unknown Organization [facility] Address [address] [facility] [place] [address] Phone [phone] Care Team Providers Care Refrigerating Technician Name Role Phone Karly Taylor MD Primary Care Provider + Reason for Visit * Reason Onset Date Comments Test Results 12/08/2022 Encounter Details Date Type Department Care Team Description 12/08/2022 Telephone General Internal Medicine [facility] [address] [facility] [place] [phone] [facility] MD [facility] [address] Test Results Allergies Active Allergy Reactions Severity Noted Date Comments Codeine Nausea/vomiting 07/07/2012 Isosorbide Other (Please comment) 09/30/2018 Severe headache Latex Rash 03/26/2010 Morphine And Related Nausea/vomiting 02/03/2000 Penicillins Nausea/vomiting 02/03/2000 documented as of this encounter (statuses as of 12/31/2022) Medications Medication Sig Dispensed Refills Start Date End Date Status FISH [id number] OWER PO CAPS 1 capsule by mouth [...] enteric coated 81 MG TBECIndications:Ather osclerosis of [place] coronary artery of [place] heart without angina pectoris Take 1 Tablet by mouth in the morning. 100 Tab 3 03/01/2018 Active fluticasone (FLONASE) 50 MCG/ACT nasal spray Administer 2 Sprays into each nostril daily. 1 Inhaler 5 03/02/2018 Active Nitroglycerin 0.4 MG Sublingual Tablet Sublingual (Nitrostat)Indication s:Atherosclerosis of [place] coronary artery of [place] heart without angina pectoris Place 1 Tab [...] to vulva 30 g 2 01/08/2022 Active Albuterol Sulfate HFA 108 (90 Base) MCG/ACT Inhalation Aerosol SolutionIndications:C OPD, mild (HCC) INHALE TWO PUFFS BY MOUTH FOUR TIMES DAILY 18 g 1 03/25/2022 Active Incruse Ellipta 62.5 MCG/INH Inhalation Aerosol Powder Breath Activated (umeclidinium [place])Indications:C OPD, mild (HCC) INHALE 1 PUFF BY [...] 75 MG Oral Tablet (pLAVix)Indications:A therosclerosis of [place] coronary artery of [place] heart without angina pectoris,Coronary atherosclerosis TAKE 1 TABLET BY MOUTH ONCE DAILY 90 Tablet 3 10/16/2022 Active Metoprolol Succinate ER 25 MG Oral Tablet Extended Release 24 Hour (toPROL XL)Indications:Athero sclerosis of [place] coronary artery of [place] heart without angina pectoris,Coronary atherosclerosis TAKE 1 TABLET BY MOUTH ONCE DAILY 90 Tablet 3 10/16/2022 Active Sulfamethoxazole-Trim ethoprim 800-160 MG Oral Tablet (Bactrim DS)Indications:Cloudy urine,Foul smelling urine Take 1 Tablet by mouth in the morning and 1 Tablet before bedtime. Do all this for 7 days. Until gone. 14 Tablet 0 12/03/2022 3 Nystatin-Triamcinolon e 028885-4.1 UNIT/GM-% External Ointment (Mycolog) Apply topically to affected area 2 times a day for 14 days. To affacted area for two weeks. 30 g 3 12/03/2022 3 documented as of this encounter (statuses as of 12/31/2022) Active Problems Problem Noted Date Chronic kidney [...] as of this encounter (statuses as of 12/31/2022) Resolved Problems Problem Noted Date Resolved Date 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 06/27/2020 07/31/2021 Hemiplegia 06/27/2020 07/31/2021 Angina pectoris 05/19/2019 05/19/2019 Vertebral fracture, pathological 10/08/2016 10/08/2016 Major depression, single episode 10/08/2016 10/08/2016 Genetic Sleep Disorder Research Other*[id number] 12/23/2010 12/04/2015 Other B-complex deficiencies 09/30/201012/2016 Hereditary [...] as of this encounter (statuses as of 12/31/2022) Immunizations Name Administration Dates Next Due Diptheria/Tetanus [...] encounter Miscellaneous Notes * Telephone Encounter - Gissel Lucas LPN - 12/31/2022 4:09 PM EDT Had appt with [employer] * Telephone Encounter - River Gilliland CMA - 12/09/2022 11:31 AM EDT Attempted to call patient, unable to reach due to phone going to busy dial tried x2. * Telephone Encounter - Karly Tyalor MD - 12/09/2022 9:34 AM EDT As far as symptoms not getting worse, continue and finish the med. * Telephone Encounter - Karina Valle LPN - 12/08/2022 10:24 AM EDT Provider to address: message Reason for Call: Test Results Contact: Telephone Call Contact Type: Follow-up Outcome: Patient is calling. Got the medication. Is about 3 or 4 days into it. She is no better. Having a lot of lower abdominal pain. Rates it as an 8 out of 10. Not worse, just no better. They did not have the cream at the Pharmacy. Has gone down twice. Patient was just in on 12/03. Please advise. Total Time including non face to face (minutes): 15 * Telephone Encounter - EBENEZER Salgado - 12/08/2022 10:21 AM EDT Reason for patient's call: returning call Caller was transferred to [facility] at the nurse line. * Telephone Encounter - River Gilliland CMA - 12/08/2022 9:24 AM EDT Called, left message for patient to return call. * Telephone Encounter - River Gilliland CMA - 12/08/2022 9:23 AM EDT ----- Message from Karly Taylor MD sent at 12/08/2022 8:27 AM EDT ----- Recent urine culture shows E coli and sensitive to an antibiotic we gave her recently. Continue hydration and please find out how she is doing clinically. documented in this encounter Plan of Treatment Upcoming Encounters Date Type Specialty Care Team Description 01/01/2023 Office Visit Cardiology Nic Casillas DO [address] [place] [address] 01/05/2023 Office Visit Gynecology Obstetrics Josefa Ward PA-C [address] [place] [address] 01/20/2023 Office Visit Gynecology Urology Trenton Henao MD [address] [place], [place] [phone] Nurse Eren Cuevas [address] [place] [address] 01/26/2023 Office Visit Neurology Therese Mcdonald PA-C [address] [facility] [place] [address] 03/18/2023 Office Visit Sleep Disorders Magaly Pina CRNP [address] [place] [address] 03/30/2023 Office Visit Podiatry Zhanna Rodríguez, JHONATHAN [address] [place] [address] 04/22/2023 Office Visit Internal Medicine Karly Taylor MD [address] [place] [address] 09/08/2023 Imaging Radiology Health Maintenance Due Date Last Done Comments COVID-19 Vaccine (#1) 1935 Alpha-1 Antitrypsin 1953 Zoster Vaccines (1 of 2) 1985 DTaP,Tdap,and Td Vaccines (1 - Tdap) 09/01/2006 08/31/2006, 08/31/2006 Influenza Vaccine (FLU shot) (#1) 2023 02/16/2012, 02/03/2011, 02/26/2010, Additional history exists Albumin/Creatinine Ratio 08/26/2023 023, 12/26/2020, 06/17/2009 CKD HGB USE SMARTSET 58944 08/26/202308/25, 08/25/2022, 07/31/2021, Additional history exists CKD PHOS USE SMARTSET 66735 08/26/202308/02, 12/26/2020, 06/26/2004 Depression Screening, Annual for [...] filedocumented as of this encounter Care Teams Refrigerating Technician Relationship Specialty Start Date End Date Karly Taylor MD [address] [facility] [place] [address] PCP - General 08/18/07 documented as of this encounter
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
--- OUTSIDE RECORDS SUMMARY | 2023-06-12 11:57 | External Medical Summary ---
Author Name Unknown Address Unknown Organization K01:LABORATORY [address] [facility] [address] Laboratory Report Ordering Provider Test Date Status JOSELYN RUIZ 12/22/2022 13:44:42 Final Observation Date Value Abnormality Reference (Units ) Status Aleja glabrata DNA [Presence] in Vaginal fluid by CATARINA with probe detection 12/22/2022 13:44:42 Negative Negative Final Aleja glabrata not detecte d by PCR. Aleja albicans DNA [Presen ce] in Vaginal fluid by CATARINA with probe detection 12/22/2022 13:44:42 Negative Negative Final Aleja albicans not detecte d by PCR. Trichomonas vaginalis DNA [P resence] in Vaginal fluid by CATARINA with probe detection 12/22/2022 13:44:42 Negative Negative Final Trichomonas vaginalis not de tected by PCR. Gardnerella vaginalis DNA [P resence] in Vaginal fluid by Probe with signal amplification 12/22/2022 13:44:42 Negative Negative Final Gardnerella vaginalis not de tected by PCR.

This test was developed and its performance characteristics determined by [facility]. It has not been cleared or approved by the U.S. Food and Drug Administration (FDA). FDA does not require this test to go through premarket FDA review. This test is used for clinical purposes. It should not be regarded as investigational or for research. This laboratory is certified under the Clinical Laboratory Improvement Amendments (CLIA) as qualified to perform high complexity clinical laboratory testing.

The validation of self-collected vaginal swabs for this assay was developed and performance characteristics determined by [facility]. The validation of alternate specimen types has not been cleared or approved by the U.S. Food and Drug Administration (FDA). It has been determined that such clearance or approval is not necessary.

null Performing Location LABORATORY [facility] - [address] [facility] [address]
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
[2023-06-12] MEDS: ONDANSETRON INJ 2 MG/ML 2 ML VIAL IV STA (12:23)
[2023-06-12 12:48] LABS: Basophils # (auto) 0.01 K/uL (0.00-0.20); Basophils % (auto) 0.3 %; Eosinophils # (auto) 0.03 K/uL (0.00-0.50); Eosinophils % (auto) 0.8 %; Hematocrit (blood only) 45.6 % (37.0-47.0); Hemoglobin 15.3 g/dl (12.0-16.0); Immature Granulocytes # (auto) 0.01 K/uL (0.01-0.20); Immature Granulocytes % (auto) 0.3 %; Lymphocytes # (auto) 1.95 K/uL (1.20-3.40); Lymphocytes % (auto) 48.8 %; Mean Corpuscular Hemoglobin 29.3 pg (25.0-34.0); Mean Corpuscular Hgb Conc 33.6 g/dL (32.0-36.0); Mean Corpuscular Volume 87.4 fL (80.0-100.0); Mean Platelet Volume 9.8 fL (9.4-12.4); Monocytes # (auto) 0.26 K/uL (0.11-0.59); Monocytes % (auto) 6.5 %; Neutrophils # (auto) 1.74 K/uL (1.40-6.50); Neutrophils % (auto) 43.3 %; Platelet Count 119 K/uL (130-400); RDW Coefficient of Variation 15.3 % (11.5-14.5); RDW Standard Deviation 48.8 fL (36.4-46.3); Red Blood Count 5.22 M/uL (4.20-5.40)
[2023-06-12 13:01] LABS: Albumin Globulin Ratio 0.9 (0.9-2); Albumin Level 3.4 gm/dl (3.4-5.0); BUN Creatinine Ratio 11.4 (10-20); Bilirubin,Total 0.9 mg/dl (0.2-1.0); Calcium 8.8 mg/dl (8.6-10.3); Creatinine Clr Calc Pharmacy 44.6 ml/min; Est GFR (Non-African American) 58.7 ml/min; Globulin 3.8 gm/dl (2.5-4.0); Potassium 3.1 mmol/L (3.5-5.1); Total Protein 7.2 gm/dl (6.0-8.3)
[2023-06-12] MEDS: ACETAMINOPHEN 1,000 MG/100 ML VIAL IV STA (13:04)
[2023-06-12] MEDS: POTASSIUM CHLORIDE / WTR 10 MEQ/100 ML PLCT IV ONE (13:33)
[2023-06-12 13:42] LABS: Troponin I High Sensitivity 8.2 pg/ml (0-14)
--- NOTE | 2023-06-12 14:26 | CT Scan Report ---
CT SCAN OF THE ABDOMEN AND PELVIS WITHOUT IV CONTRAST CLINICAL HISTORY: Lower abdominal pain. Vomiting. COMPARISON STUDY: Abdominal CT dated 09/25/2010. TECHNIQUE: CT scan of the abdomen and pelvis is performed from the lung bases to the proximal femora. Images are reviewed in the axial, sagittal, and coronal planes. IV contrast was not administered for this examination as per the referring clinician. Note that the examination was performed in signific antly suboptimal fashion without oral and IV contrast. There is also significant motion artifact. A d ose lowering technique was utilized adhering to the principles of ALARA. CT DOSE: 1100.81 mGy.cm FINDINGS: Lung bases: The heart is normal in size and without pericardial effusion. The coronary arteries are d ensely calcified. There is bibasilar scarring/atelectasis. No airspace consolidation typical for pneu monia or pleural effusion is identified. There is a large hiatal hernia, with the majority of the sto mach located in the thorax. Liver: The unenhanced liver is normal in size, contour, and attenuation. There is no intrahepatic rubina iary ductal dilatation. Gallbladder: Surgically absent noting clips in the gallbladder fossa. Spleen: Normal in size and attenuation. Pancreas: The unenhanced pancreas is mildly atrophic and grossly unremarkable. Adrenal glands: Unremarkable. Kidneys: The unenhanced kidneys are normal in size and without hydronephrosis. There is a 7 mm calcul us in the left renal pelvis seen on image #158. At least 4 additional nonobstructing left calculi johnny sure up to 3 mm. There are also punctate nonobstructing right renal calculi. No ureteral stone is see n. A 3.2 cm exophytic cyst arises from the right lower pole. A retroaortic left renal vein is inciden tally noted. Abdominal vasculature: The abdominal aorta is normal in course and caliber noting advanced atheroscle rotic calcification. Bowel: There is mild colonic diverticulosis without CT evidence of acute diverticulitis. No bowel obs truction is seen. [id number] fecal retention is noted throughout the colon. The appendix is no t identified and reported surgically absent. Peritoneum: There is no intraperitoneal free air or abdominal ascites. There is a small fat-containin g umbilical hernia. Lymphadenopathy: None. Pelvic viscera: The bladder wall appears circumferentially thickened. The uterus and adnexa are brandi l as visualized. Skeletal structures: The skeletal structures are osteopenic. There is an acute appearing fracture of the left L1 transverse process. There is mild to moderate lumbosacral spondylosis. No lytic or blasti c lesions are seen. IMPRESSION: 1. Suboptimal examination without oral and IV contrast. There is also significant motion artifact. 2. There is an acute appearing left L1 transverse process fracture. Correlate for point tenderness. 3. No additional findings are suspicious for acute fracture. 3. The bladder wall appears thickened. Correlate with clinical findings and urinalysis. 4. Large hiatal hernia. 5. Bilateral nephrolithiasis as above including a 7 mm stone in the left renal pelvis. There is no hy dronephrosis. 6. Additional findings as above. ACT 112: Negative or not required by law. Electronically signed by: Reyes Everett M.D. 06/12/2023 2:24 PM
[2023-06-12 14:29] LABS: Adenovirus PCR Not Detected (NotDetected); Bordetella parapertussis PCR Not Detected (NotDetected); Bordetella pertussis PCR Not Detected (NotDetected); Chlamydia pneumoniae PCR Not Detected (NotDetected); Coronavirus 229E PCR Not Detected (NotDetected); Coronavirus CoV-2 (COVID19)PCR DETECTED (NotDetected); Coronavirus HKU1 PCR Not Detected (NotDetected); Coronavirus NL63 PCR Not Detected (NotDetected); Coronavirus OC43PCR Not Detected (NotDetected); Human Metapneumovirus PCR Not Detected (NotDetected); Influenza A PCR Not Detected (NotDetected); Influenza B PCR Not Detected (NotDetected); Mycoplasma pneumoniae PCR Not Detected (NotDetected); Parainfluenza Virus 1 PCR Not Detected (NotDetected); Parainfluenza Virus 2 PCR Not Detected (NotDetected); Parainfluenza Virus 3 PCR Not Detected (NotDetected); Parainfluenza Virus 4 PCR Not Detected (NotDetected); Respiratory Syncytial VirusPCR Not Detected (NotDetected); Rhinovirus/Enterovirus PCR Not Detected (NotDetected)
--- NOTE | 2023-06-12 14:29 | XRay Report ---
SINGLE VIEW CHEST CLINICAL HISTORY: Cough. FINDINGS: An AP, portable, upright chest radiograph is compared to study dated 05/26/2018 and correlat ed with chest CT dated 02/12/2015. There is a large hiatal hernia. The cardiomediastinal silhouette i s unremarkable noting atherosclerotic calcification of the thoracic aorta. Chronic interstitial thick ening is similar to previous. There is bibasilar scarring/atelectasis. No airspace consolidation or l arge pleural effusion is identified. No pneumothorax is seen. The skeletal structures are osteopenic. The bony thorax is grossly intact. Cholecystectomy clips are noted in the right upper quadrant. IMPRESSION: 1. No acute cardiopulmonary abnormality. 2. Large hiatal hernia. ACT 112: Negative or not required by law. Electronically signed by: Reyes Everett M.D. 06/12/2023 2:27 PM
[2023-06-12 14:31] LABS: Appearance Urine Turbid (Clear); Bacteria Urine Automated 4+ (Negative); Bilirubin Urine Negative (Negative); Blood Urine 1+ (Negative); Color Urine Dark Yellow; Epithelial Cell Urine Auto 0-5 /lpf (0-5); Glucose Urine UA Negative (Negative); Ketones Urine Trace (Negative); Leukocyte Esterase Urine 3+ (Negative); Nitrite Urine Positive (Negative); Protein Urine 1+ (Negative); Specific Gravity Urine 1.021 (1.000-1.030); Urobilinogen Urine Positive (Negative); WBC Urine Automated >30 /hpf (0-5); pH Urine 6.5 (4.5-7.5)
--- NOTE | 2023-06-12 14:56 | Emergency Department Note ---
Impression & Plan COVID-19, Fracture of transverse process of lumbar vertebra, Acute UTI (urinary tract infection), Cystitis, Acute dehydration ED Provider Note NAME: DELFINA ALICEA AGE: 88 SEX: Female INFORMANT: Patient ED PROVIDER(S): Benito Marcos MD CHIEF COMPLAINT: Abdominal pain and weakness PLAN: Disposition: Admitted Outpatient prescription management: none Referral: None MEDICAL DECISION MAKING: [ Patient presented because of abdominal pain and feeling weak. Family notes she was not eating or drinking well. An IV was established. A workup was obtained. Patient's CBC showed a mild leukopenia. Chemistry panel revealed hypokalemia. Cardiac labs unremarkable. ECG was nonischemic. Patient had an unremarkable chest x-ray. CT scan of the abdomen pelvis revealed cystitis. Patient also appeared to have an L1 transverse process fracture. On reassessment the patient did note some back discomfort and stumbled last week but did not report a fall. No other traumatic issues were seen on imaging per radiology. Urinalysis done by catheter specimen was concerning for UTI. This would fit with her findings on CT imaging. She did have most of her tenderness over the bladder so I suspect the cystitis is the cause of her abdominal discomfort. She was given IV Rocephin. She was also given IV potassium. Patient was gently hydrated. Bio fire testing was performed and patient does have COVID-19. I suspect this is contributing to her weakness and overall condition as well. Discussed further management in the hospital with patient and family. [facility] Case discussed and diagnostics were reviewed. Patient was evaluated for further management Care/management discussed with: Discussed with technical publications manager Level of care consideration(s): After review of the information above and other included data, I feel the patient requires escalation of care to admission. Triage Nursing notes: reviewed and agree them. Vital Signs: reviewed and remarkable for no significant abnormalities Additional History obtained from: none Chronic Medical/Social Conditions affecting care: Hypertension Prior/ Outside/ External records reviewed: none Differential Diagnosis: Infection, dehydration, metabolic abnormality, hypo/hyperglycemia, electrolyte disturbance, anemia, hypoxia, cardiac sources, intracerebral event, toxicologic, neurologic, as well as other pathologies. Diagnostics, independently interpreted by me: ECG: Twelve-lead ECG was normal sinus rhythm at 96 bpm. Poor R wave progression. No ST elevation. Cardiac Monitoring: Cardiac monitoring ordered by me: The patient was placed on continuous cardiac monitoring and observed. It revealed a normal sinus rhythm at 89 beats per minute without ectopy or evidence of dysrhythmia. Medical decision rules: none Imaging studies: Chest x-ray. Findings: A chest x-ray was performed and revealed no pneumothorax, effusion, infiltrate, pulmonary edema, free air under the diaphragm, or wide mediastinum. Impression: No acute disease. HPI: 88 year old Female arrives for evaluation of abdominal. And weakness. This has been present for the last 4 to 5 days. The patient had some nausea as well. She has not been eating or drinking well per family. She also has a cough and congestion. Family is sick with respiratory symptoms. Patient did stumble a few days ago and noted a strain to her back but did not actually fall. Pt denies LOC, headache, fevers, chills, diaphoresis, visual changes, neck pain, chest pain, breathing difficulties,melena, hematochezia, urinary symptoms, numbness, rash, or other complaints. PAST MEDICAL HISTORY: See Below, hypertension PAST SURGICAL HISTORY: See Below, SOCIAL HISTORY: See Below, retired HOME MEDICATIONS: See Below ALLERGIES: See Below VITALS: See Below PHYSICAL EXAMINATION: GENERAL: Awake, tired appearing, in no distress HENT: Normocephalic, atraumatic. Oropharynx unremarkable. EYES: Normal conjunctiva. Sclera non-icteric. NECK: Inspection normal. Non-tender. Supple. No nuchal rigidity. FROM. No masses. RESPIRATORY: Clear to auscultation. No wheezes. No rales. Normal respiratory effort. CARDIAC: Normal rate. Normal rhythm. No murmurs. No rubs. Extremities warm and well perfused. Pulses equal. No JVD. GI: Soft, non-distended. Suprapubic tenderness to palpation. No rebound or guarding. No masses. RECTAL: Deferred. MUSCULOSKELETAL: Atraumatic. Chest examination reveals no tenderness. The back is symmetrical on inspection without obvious abnormality. There is no CVA tenderness to palpation. Upper lumbar tenderness. No joint edema. LOWER EXTREMITIES: Calves are equal size bilaterally and non-tender. No edema. No discoloration. NEURO: Normal sensorium. No sensory or motor deficits noted. SKIN: No rash or jaundice noted. PROCEDURES: none CRITICAL CARE: none OBSERVATION NOTE: none Past Med/Surg History Medical History (Updated 06/12/23 @ 15:23 by Zulema Cyr PA-C) Hiatal hernia Osteoporosis Urinary tract infection Rib fracture Myocardial infarct Heart disease Hypertension Surgical History (Updated 08/04/19 @ 08:39 by Austin Ferguson MD) History of mandibular surgery History of hernia repair History of cholecystectomy History of cataract surgery History of appendectomy Family History (Updated 08/04/19 @ 08:40 by Austin Ferguson MD) Son Cancer Aunt Cancer Mother Cancer Father Coronary heart disease Hypertension Social History Smoking Status: Never smoker Hx Alcohol Use: No Preferred Language: [place]ian marital status: current occupational status: retired Feels Safe at Home: Yes Allergies Allergies Allergy/AdvReac Type Severity Reaction Status Date / Time Penicillins Allergy Severe Anaphylaxis Verified 06/12/23 15:23 peanut Allergy Intermediate Migraine Unverified 06/12/23 15:04 peanut oil Allergy Intermediate Migraine Unverified 06/12/23 15:04 isosorbide Allergy Mild HEADACHE Verified 06/12/23 15:04 TO ISOSORBIDE DINITRATE codeine Allergy Unknown Anaphylaxis Verified 06/12/23 15:23 cortisone Allergy Unknown Anaphylaxis Verified 06/12/23 15:23 latex Allergy Unknown UNKNOWN Verified 06/12/23 15:04 morphine Allergy Unknown nausea Verified 06/12/23 15:04 nitroglycerin Allergy Unknown severe Verified 06/12/23 15:04 headache Home Meds Home Medications Medication Instructions Recorded Confirmed omega 8-idn-izq-fish oil 1,000 mg 1 cap PO DAILY 01/24/19 06/12/23 (120 mg-180 mg) capsule (Fish Oil) aspirin 81 mg tablet,delayed 81 mg PO DAILY 09/23/22 06/12/23 release cholecalciferol (vitamin D3) 50 50 mcg PO DAILY 09/23/22 06/12/23 mcg (2,000 unit) capsule clopidogrel 75 mg tablet 75 mg PO DAILY 09/23/22 06/12/23 metoprolol succinate 50 mg 50 mg PO DAILY 09/23/22 06/12/23 tablet,extended release 24 hr omeprazole 20 mg capsule,delayed 20 mg PO BID 09/23/22 06/12/23 release rosuvastatin 5 mg tablet 5 mg PO DAILY 09/23/22 06/12/23 vitamin E 600 unit capsule 600 unit PO DAILY 09/23/22 06/12/23 fluticasone propionate 50 2 spray intranasal DAILY 06/12/23 06/12/23 mcg/actuation nasal spray,suspension Previous Rx's Medication Instructions Recorded triamcinolone acetonide 0.1 % 1 applic topical .COMPLEX #30 grams 05/06/23 topical ointment Results & Data (ED) Vital Signs Vital Signs - 24 hr 06/12/23 11:57 06/12/23 12:19 06/12/23 12:44 Temperature 36.4 C L Temperature Source Temporal Artery Scan Pulse Rate 101 H 89 Pulse Rate [Apical] 97 H Respiratory Rate 20 19 Respiratory Effort / Characteristics Non-Labored Spontaneous Non-Labored Spontaneous Respiratory Depth Normal Normal Blood Pressure 104/54 L Blood Pressure [Right Arm] 127/67 Blood Pressure Mean 70 Blood Pressure Mean [Right Arm] 87 Pulse Oximetry 96 95 Oxygen Delivery Method Room Air Room Air Sepsis Recent Fever Within 48 Hours No Sepsis New/Unexplained Change in Mental Status N/A Sepsis Action Taken by Nursing No Action Required Laboratory Data 06/12/23 12:15 06/12/23 12:15 Lab Results 06/12/23 06/12/23 Range/Units 12:15 13:50 WBC 4.00 L (4.8-10.8) K/ul RBC 5.22 (4.20-5.40) M/uL Hgb 15.3 (12.0-16.0) g/dl Hct 45.6 (37.0-47.0) % MCV 87.4 (80.0-100.0) fL MCH 29.3 (25.0-34.0) pg MCHC 33.6 (32.0-36.0) g/dL RDW Std Deviation 48.8 H (36.4-46.3) fL RDW Coeff of [place] 15.3 H (11.5-14.5) % Plt Count 119 L (130-400) K/uL MPV 9.8 (9.4-12.4) fL Immature Gran % (Auto) 0.3 % Neut % (Auto) 43.3 % Lymph % (Auto) 48.8 % Dawson % (Auto) 6.5 % Eos % (Auto) 0.8 % Baso % (Auto) 0.3 % Neut # (Auto) 1.74 (1.40-6.50) K/uL Lymph # (Auto) 1.95 (1.20-3.40) K/uL Dawson # (Auto) 0.26 (0.11-0.59) K/uL Eos # (Auto) 0.03 (0.00-0.50) K/uL Baso # (Auto) 0.01 (0.00-0.20) K/uL Immature Gran # (Auto) 0.01 (0.01-0.20) K/uL Sodium 139 (136-145) mmol/L Potassium 3.1 L (3.5-5.1) mmol/L Chloride 100 (98-107) mmol/L Carbon Dioxide 29 (21-32) mmol/L Anion Gap 10 (3-11) BUN 10 (6-23) mg/dl Creatinine 0.88 (0.6-1.2) mg/dl Est Cr Clr Drug Dosing 44.6 ml/min Est GFR ( Amer) 68.0 ml/min Est GFR (Non-Af Amer) 58.7 ml/min BUN/Creatinine Ratio 11.4 (10-20) Glucose 142 H (70-99(Fasting)) mg/dl Calcium 8.8 (8.6-10.3) mg/dl Total Bilirubin 0.9 (0.2-1.0) mg/dl AST 72 H (13-39) U/L ALT 25 (7-52) U/L Alkaline Phosphatase 87 (34-104) U/L Troponin I High Sens 8.2 (0-14) pg/ml B-Natriuretic Peptide 74 (0-100) pg/ml Total Protein 7.2 (6.0-8.3) gm/dl Albumin 3.4 (3.4-5.0) gm/dl Globulin 3.8 (2.5-4.0) gm/dl Albumin/Globulin Ratio 0.9 (0.9-2) Lipase 61 (11-82) U/L Urine Color Dark Yellow Urine Appearance Turbid A (Clear) Urine pH 6.5 (4.5-7.5) Ur Specific [place] 1.021 (1.000-1.030) Urine Protein 1+ H (Negative) Urine Glucose (UA) Negative (Negative) Urine Ketones Trace H (Negative) Urine Blood 1+ H (Negative) Urine Nitrite Positive A (Negative) Urine Bilirubin Negative (Negative) Urine Urobilinogen Positive H (Negative) Ur Leukocyte Esterase 3+ H (Negative) Urine WBC (Auto) >30 H (0-5) /hpf Urine RBC (Auto) 10-30 H (0-4) /hpf U Hyaline Cast (Auto) 1-5 (0-5) /lpf U Epithel Cells (Auto) 0-5 (0-5) /lpf Urine Bacteria (Auto) 4+ H (Negative) Adenovirus (PCR) Not Detected (NotDetected) B. pertussis DNA (PCR) Not Detected (NotDetected) B.parapertussis DNA PCR Not Detected (NotDetected) C. pneumoniae DNA (PCR) Not Detected (NotDetected) Coronavirus OC43 (PCR) Not Detected (NotDetected) Coronavirus HKU1 (PCR) Not Detected (NotDetected) Coronavirus 229E (PCR) Not Detected (NotDetected) SARS-CoV-2 (PCR) DETECTED A (NotDetected) Coronavirus NL63 (PCR) Not Detected (NotDetected) Human Metapneumovir PCR Not Detected (NotDetected) Influenza Type A (PCR) Not Detected (NotDetected) Influenza Type B (PCR) Not Detected (NotDetected) M. pneumoniae (PCR) Not Detected (NotDetected) Parainfluenza 1 (PCR) Not Detected (NotDetected) Parainfluenza 2 (PCR) Not Detected (NotDetected) Parainfluenza 3 (PCR) Not Detected (NotDetected) Parainfluenza 4 (PCR) Not Detected (NotDetected) RSV (PCR) Not Detected (NotDetected) Entero/Rhino (PCR) Not Detected (NotDetected) Administered Medications Sodium Chloride (Nss) 1,000 mls @ 125 mls/hr IV .Q8H JAMISON Stop: 07/12/23 14:44 Last Admin: 06/12/23 14:57 Dose: 125 mls/hr Documented By: SHELBY Discontinued Medications Acetaminophen (Ofirmev) 1,000 mg in 100 mls @ 400 mls/hr IV NOW STA Stop: 06/12/23 13:10 Last Infusion: 02/10/24 13:30 Dose: Infused Documented By: Admin: 06/12/23 13:04 Dose: 400 mls/hr Documented By: SHELBY Potassium Chloride (K Galidno / Wtr) 10 meq in 100 mls @ 100 mls/hr IV ONE ONE Stop: 06/12/23 14:12 Last Admin: 06/12/23 13:33 Dose: 100 mls/hr Documented By: SHELBY Ceftriaxone Sodium (Rocephin) 2,000 mg in 50 mls @ 100 mls/hr IV NOW STA Stop: 06/12/23 15:11 Last Admin: 06/12/23 15:27 Dose: 100 mls/hr Documented By: SHELBY Ondansetron HCl (Ondansetron Inj 2 Mg/Ml 2 Ml Vial) 4 mg IV NOW STA Stop: 06/12/23 12:02 Last Admin: 06/12/23 12:23 Dose: 4 mg Documented By: [facility] Imaging Data Radiologist's Impression: Abdomen/Pelvis CT 06/12/23 12:56 CT SCAN OF THE ABDOMEN AND PELVIS WITHOUT IV CONTRAST CLINICAL HISTORY: Lower abdominal pain. Vomiting. COMPARISON STUDY: Abdominal CT dated 09/25/2010. TECHNIQUE: CT scan of the abdomen and pelvis is performed from the lung bases to the proximal femora. Images are reviewed in the axial, sagittal, and coronal planes. IV contrast was not administered for this examination as per the referring clinician. Note that the examination was performed in significantly suboptimal fashion without oral and IV contrast. There is also significant motion artifact. A dose lowering technique was utilized adhering to the principles of ALARA. CT DOSE: 1100.81 mGy.cm FINDINGS: Lung bases: The heart is normal in size and without pericardial effusion. The coronary arteries are densely calcified. There is bibasilar scarring/atelectasis. No airspace consolidation typical for pneumonia or pleural effusion is identified. There is a large hiatal hernia, with the majority of the stomach located in the thorax. Liver: The unenhanced liver is normal in size, contour, and attenuation. There is no intrahepatic biliary ductal dilatation. Gallbladder: Surgically absent noting clips in the gallbladder fossa. Spleen: Normal in size and attenuation. Pancreas: The unenhanced pancreas is mildly atrophic and grossly unremarkable. Adrenal glands: Unremarkable. Kidneys: The unenhanced kidneys are normal in size and without hydronephrosis. There is a 7 mm calculus in the left renal pelvis seen on image #158. At least 4 additional nonobstructing left calculi measure up to 3 mm. There are also punctate nonobstructing right renal calculi. No ureteral stone is seen. A 3.2 cm exophytic cyst arises from the right lower pole. A retroaortic left renal vein is incidentally noted. Abdominal vasculature: The abdominal aorta is normal in course and caliber noting advanced atherosclerotic calcification. Bowel: There is mild colonic diverticulosis without CT evidence of acute diverticulitis. No bowel obstruction is seen. Akqs-so-hablmhna fecal retention is noted throughout the colon. The appendix is not identified and reported surgically absent. Peritoneum: There is no intraperitoneal free air or abdominal ascites. There is a small fat-containing umbilical hernia. Lymphadenopathy: None. Pelvic viscera: The bladder wall appears circumferentially thickened. The uterus and adnexa are normal as visualized. Skeletal structures: The skeletal structures are osteopenic. There is an acute appearing fracture of the left L1 transverse process. There is mild to moderate lumbosacral spondylosis. No lytic or blastic lesions are seen. IMPRESSION: 1. Suboptimal examination without oral and IV contrast. There is also significant motion artifact. 2. There is an acute appearing left L1 transverse process fracture. Correlate for point tenderness. 3. No additional findings are suspicious for acute fracture. 3. The bladder wall appears thickened. Correlate with clinical findings and urinalysis. 4. Large hiatal hernia. 5. Bilateral nephrolithiasis as above including a 7 mm stone in the left renal pelvis. There is no hydronephrosis. 6. Additional findings as above. ACT 112: Negative or not required by law. Electronically signed by: Reyes Everett M.D. 06/12/2023 2:24 PM Chest X-Ray 06/12/23 12:56 SINGLE VIEW CHEST CLINICAL HISTORY: Cough. FINDINGS: An AP, portable, upright chest radiograph is compared to study dated 05/26/2018 and correlated with chest CT dated 02/12/2015. There is a large hiatal hernia. The cardiomediastinal silhouette is unremarkable noting atherosclerotic calcification of the thoracic aorta. Chronic interstitial thickening is similar to previous. There is bibasilar scarring/atelectasis. No airspace consolidation or large pleural effusion is identified. No pneumothorax is seen. The skeletal structures are osteopenic. The bony thorax is grossly intact. Cholecystectomy clips are noted in the right upper quadrant. IMPRESSION: 1. No acute cardiopulmonary abnormality. 2. Large hiatal hernia. ACT 112: Negative or not required by law. Electronically signed by: Reyes Everett M.D. 06/12/2023 2:27 PM Discharge Plan Visit Data Chief Complaint: Abdominal Pain Stated Complaint: PAIN IN STOMACHE HAS NOT EATEN ED Provider: Benito Marcos Discharge Problem: COVID-19, Fracture of transverse process of lumbar vertebra, Acute UTI (urinary tract infection), Cystitis, Acute dehydration Forms Stand Alone Forms: My [facility] [employer] Prescriptions Prescriptions: No Action triamcinolone acetonide 0.1 % ointment 1 applic topical .COMPLEX Qty: 30 0RF Rx Instructions: Apply sparingly to affected area(s) of the extremities twice daily x 10 days as needed for flaring. omega 9-afb-zjh-fish oil [Fish Oil] 1,000 mg (120 mg-180 mg) capsule 1 cap PO DAILY omeprazole 20 mg capsule,delayed release(DR/EC) 20 mg PO BID metoprolol succinate 50 mg tablet extended release 24 hr 50 mg PO DAILY clopidogrel 75 mg tablet 75 mg PO DAILY rosuvastatin 5 mg tablet 5 mg PO DAILY vitamin E 600 unit capsule 600 unit PO DAILY aspirin 81 mg tablet,delayed release (DR/EC) 81 mg PO DAILY cholecalciferol (vitamin D3) 50 mcg (2,000 unit) capsule 50 mcg PO DAILY fluticasone propionate 50 mcg/actuation spray,suspension 2 spray INTRANASAL DAILY Referrals Referrals: Karly Taylor MD [Primary Care Provider] -
[2023-06-12] MEDS: SODIUM CHLORIDE 0.9% 1,000 ML IV SCH ×2 (14:57→18:48)
[2023-06-12] MEDS: cefTRIAXone SODIUM 2,000 MG/50 ML BAG IV STA (15:27)
--- NOTE | 2023-06-12 15:34 | History & Physical Report ---
Date of Service June 12, 2023 Assessment & Plan (1) Acute UTI (urinary tract infection): (2) Acute dehydration: (3) COVID-19: (4) Fracture of transverse process of lumbar vertebra: (5) Osteoporosis: (6) Hypertension: (7) Hypokalemia: (8) Hiatal hernia: Plan: Abdominal pain Acute dehydration UTI Hypokalemia Weakness -Admit to [facility] with telemetry - Dehydration likely secondary to acute UTI, await urine culture, blood cultures x 2, IV antibiotics, Afebrile, WBC 4K -Patient has history of recurrent UTIs, outpatient [facility] chart reviewed personally showing urine cultures in January, March and April all positive for E. coli, resistant to ampicillin and Unasyn but otherwise sensitive to other antibiotics - UA appears to be grossly infected with turbid urine, positive nitrate and esterase, WBC greater than 30, 4+ bacteria. -Creatinine is at baseline at 0.8 - K 3.1, order PO 40 meq now, given 10 meq IV in the ER - AST mildly elevated at 72, follow am labs - Encourage oral intake, cont NSS at 125 ml/hr x 1 more bag - Antiemetics ordered prn Thrombocytopenia -Platelet count of 119 on admission, possibly secondary to viral illness-most recent previous lab work from [facility] in August 2022 showed normal platelet count of 180s, prior to that since 2019 was also in the 180s -Monitor with a.m. CBC COVID-19 - Supportive treatment with pulmonary toilet, flutter, incentive spirometry, mucinex, nasal spray, robitussin Dm prn - pt is not hypoxic, sx for at least 3 days at this time - CXR is unremarkable, consider CT of the chest if any changes Acute L1 transverse process fracture -PT/OT consult -Orthospine consultation -- pt reports fall 3 days ago, no LOC, no trauma, she is point tender over the right of L1 process on exam. -- may need brace -Pain control with Tylenol, voltaren gel, lidocaine patch -Osteopenia noted on imaging, check vit D level CAD HTN HLD - Continue home baby aspirin, plavix, metoprolol succ 50 mg QPM, rosuvastatin 5 mg QPM - Chronic, stable DVT PPx: - teds, scds, heparin BID Lines: 2 PIV CODE: Full code FEN/GI: HH diet Dispo: From home, likely to remain in the hospital x 1-2 days History of Present Illness Chief Complaint: Abdominal pain Primary Care Provider: Karly Taylor MD This is an 88-year-old female with PMHx of CAD, HLD, history of stroke, irritable bowel syndrome, recurrent UTI, osteoarthrosis, anxiety, GERD who presents to the hospital with worsening cough, mucus production, weakness, shortness of breath and lower abdominal pain over the past 3 days. She states that she is very active person, and typically walks between 500 to 1000 feet across her property on daily average, however has not been able to do this the past 3 days because of her symptoms. She lives at home independently. Patient has no prior supplemental O2 needs. She reports decreased appetite and nausea, also with 1 loose bowel movement this morning. She has tolerated fluids but is not interested in food. Patient denies any fevers, chills or sweats. PT has a chronic cough at baseline as well as frequent UTIs. She has not been on any recent antibiotics. Patient denies dysuria but admits to increased urinary frequency, no hematuria. Patient manages all her home medications independently but did not take them this morning. Her daughter, Edilma, is present at bedside supports the history. Patient is found to be positive for COVID-19, CXR is negative other than large hiatal hernia, osteopenic skeletal structures, there is a new L1 transverse process fracture noted on CT abdomen/pelvis imaging, Potassium is found to be low at 3.1, AST mildly elevated at 72, and UA appears to be grossly infected with turbid urine, positive nitrate and esterase, WBC greater than 30, 4+ bacteria. Allergies Allergy/AdvReac Type Severity Reaction Status Date / Time Penicillins Allergy Severe Anaphylaxis Verified 06/12/23 15:23 peanut Allergy Intermediate Migraine Unverified 06/12/23 15:04 peanut oil Allergy Intermediate Migraine Unverified 06/12/23 15:04 isosorbide Allergy Mild HEADACHE Verified 06/12/23 15:04 TO ISOSORBIDE DINITRATE codeine Allergy Unknown Anaphylaxis Verified 06/12/23 15:23 cortisone Allergy Unknown Anaphylaxis Verified 06/12/23 15:23 latex Allergy Unknown UNKNOWN Verified 06/12/23 15:04 morphine Allergy Unknown nausea Verified 06/12/23 15:04 nitroglycerin Allergy Unknown severe Verified 06/12/23 15:04 headache Home Medications Medication Instructions Recorded Confirmed Type omega [id number]-zfy-pde-fish oil 1,000 mg 1 cap PO DAILY 01/24/19 06/12/23 History (120 mg-180 mg) capsule (Fish Oil) aspirin 81 mg tablet,delayed 81 mg PO DAILY 09/23/22 06/12/23 History release cholecalciferol (vitamin D3) 50 50 mcg PO DAILY 09/23/22 06/12/23 History mcg (2,000 unit) capsule clopidogrel 75 mg tablet 75 mg PO DAILY 09/23/22 06/12/23 History metoprolol succinate 50 mg 50 mg PO DAILY 09/23/22 06/12/23 History tablet,extended release 24 hr omeprazole 20 mg capsule,delayed 20 mg PO BID 09/23/22 06/12/23 History release rosuvastatin 5 mg tablet 5 mg PO DAILY 09/23/22 06/12/23 History vitamin E 600 unit capsule 600 unit PO DAILY 09/23/22 06/12/23 History triamcinolone acetonide 0.1 % 1 applic topical .COMPLEX #30 grams 05/06/23 06/12/23 Rx topical ointment fluticasone propionate 50 2 spray intranasal DAILY 06/12/23 06/12/23 History mcg/actuation nasal spray,suspension Past Med/Surg History Medical History (Updated 06/12/23 @ 15:23 by Zulema Cyr PA-C) Hiatal hernia Osteoporosis Urinary tract infection Rib fracture Myocardial infarct Heart disease Hypertension Surgical History (Updated 08/04/19 @ 08:39 by Austin Ferguson MD) History of mandibular surgery History of hernia repair History of cholecystectomy History of cataract surgery History of appendectomy Family History (Updated 08/04/19 @ 08:40 by Austin Ferguson MD) Son Cancer Aunt Cancer Mother Cancer Father Coronary heart disease Hypertension Social History Smoking Status: Never smoker Hx Alcohol Use: No Hx Substance Use: No Preferred Language: [place] [employer] Mechanical [employer] Required: No Beliefs That Will Affect Care: None marital status: Current Living Situation: Alone current occupational status: retired Other Information That Helps Us Care for You: No Feels Safe at Home: Yes Safety Concerns: Feels Safe At This Time Assistive Devices: None, Denture - Upper and Denture - Lower Review of Systems Review of Systems: Constitutional: No fever, sweats or chills, + generalized weakness Eyes: No diplopia, no worsening or blurred vision ENT: normal hearing, no trouble swallowing Respiratory: As per HPI, + Cough, sputum, and dyspnea on exertion Cardiovascular: No chest pain, tightness or palpitations Abdomen: As per HPI, + pain, nausea, no vomiting, loose bm x 1 today, no diarrhea or constipation Musculoskeletal: No joint pain, calf pain, swelling Neurologic: + Generalized weakness, no numbness/tingling, no balance problems Psychiatric: No anxiety or depression Skin: No rash or itch Physical Exam Physical Exam: General: awake, alert, no apparent distress, elderly white female, BMI 25 Head: Normocephalic, atraumatic ENT: PERRL, EOMI, no pharyngeal exudate, mucous membranes slightly dry Chest: Patient is initially on 2 LPM NC, taken off during my evaluation and patient maintaining sats on room air at 93 to 94%, + fine crackles throughout, no wheeze or Rales Cardiac: Regular rate and rhythm, + few PVCs, no murmur, no JVD, normal peripheral pulses, good capillary refill Abdominal: NABS x 4 quadrants, soft, nondistended, + suprapubic tenderness to palpation, no rebound or guarding Extremities: Normal inspection, + trace pitting peripheral edema BLE, feet are cool, no mottling, + delayed capillary refill time, calfs nontender to palpation Psych: Normal mood and affect Neuro: AAO x 3, strength intact bilaterally and rated 5/5, no motor deficits, speech is clear, + peripheral sensory deficits from knees down bilaterally Results & Data Results & Data Vital Signs (Past 12 Hours) Vital Signs Temp Pulse Pulse Resp BP BP Pulse Ox 06/12/23 12:44 89 06/12/23 12:19 97 H 19 127/67 95 06/12/23 11:57 36.4 C L 101 H 20 104/54 L 96 O2 Del Method 06/12/23 12:44 06/12/23 12:19 Room Air 06/12/23 11:57 Room Air Laboratory Results 06/12/23 13:50 Urine Culture - Pending Urine,Straight Cath 06/12/23 06/12/23 13:50 12:15 WBC 4.00 L RBC 5.22 Hgb 15.3 Hct 45.6 MCV 87.4 MCH 29.3 MCHC 33.6 RDW Std Deviation 48.8 H RDW Coeff of [place] 15.3 H Plt Count 119 L MPV 9.8 Immature Gran % (Auto) 0.3 Neut % (Auto) 43.3 Lymph % (Auto) 48.8 [place] % (Auto) 6.5 Eos % (Auto) 0.8 Baso % (Auto) 0.3 Neut # (Auto) 1.74 Lymph # (Auto) 1.95 [place] # (Auto) 0.26 Eos # (Auto) 0.03 Baso # (Auto) 0.01 Immature Gran # (Auto) 0.01 Sodium 139 Potassium 3.1 L Chloride 100 Carbon Dioxide 29 Anion Gap 10 BUN 10 Creatinine 0.88 Est Cr Clr Drug Dosing 44.6 Est GFR ( Amer) 68.0 Est GFR (Non-Af Amer) 58.7 BUN/Creatinine Ratio 11.4 Glucose 142 H Calcium 8.8 Total Bilirubin 0.9 AST 72 H ALT 25 Alkaline Phosphatase 87 Troponin I High Sens 8.2 B-Natriuretic Peptide 74 Total Protein 7.2 Albumin 3.4 Globulin 3.8 Albumin/Globulin Ratio 0.9 Lipase 61 Urine Color Dark Yellow Urine Appearance Turbid A Urine pH 6.5 Ur Specific [place] 1.021 Urine Protein 1+ H Urine Glucose (UA) Negative Urine Ketones Trace H Urine Blood 1+ H Urine Nitrite Positive A Urine Bilirubin Negative Urine Urobilinogen Positive H Ur Leukocyte Esterase 3+ H Urine WBC (Auto) >30 H Urine RBC (Auto) 10-30 H U Hyaline Cast (Auto) 1-5 U Epithel Cells (Auto) 0-5 Urine Bacteria (Auto) 4+ H Adenovirus (PCR) Not Detected B. pertussis DNA (PCR) Not Detected B.parapertussis DNA PCR Not Detected C. pneumoniae DNA (PCR) Not Detected Coronavirus OC43 (PCR) Not Detected Coronavirus HKU1 (PCR) Not Detected Coronavirus 229E (PCR) Not Detected SARS-CoV-2 (PCR) DETECTED A Coronavirus NL63 (PCR) Not Detected Human Metapneumovir PCR Not Detected Influenza Type A (PCR) Not Detected Influenza Type B (PCR) Not Detected M. pneumoniae (PCR) Not Detected Parainfluenza 1 (PCR) Not Detected Parainfluenza 2 (PCR) Not Detected Parainfluenza 3 (PCR) Not Detected Parainfluenza 4 (PCR) Not Detected RSV (PCR) Not Detected Entero/Rhino (PCR) Not Detected Diagnostic Findings Abdomen/Pelvis CT 06/12/23 12:56 CT SCAN OF THE ABDOMEN AND PELVIS WITHOUT IV CONTRAST CLINICAL HISTORY: Lower abdominal pain. Vomiting. COMPARISON STUDY: Abdominal CT dated 09/25/2010. TECHNIQUE: CT scan of the abdomen and pelvis is performed from the lung bases to the proximal femora. Images are reviewed in the axial, sagittal, and coronal planes. IV contrast was not administered for this examination as per the referring clinician. Note that the examination was performed in significantly suboptimal fashion without oral and IV contrast. There is also significant motion artifact. A dose lowering technique was utilized adhering to the principles of ALARA. CT DOSE: 1100.81 mGy.cm FINDINGS: Lung bases: The heart is normal in size and without pericardial effusion. The coronary arteries are densely calcified. There is bibasilar scarring/atelectasis. No airspace consolidation typical for pneumonia or pleural effusion is identified. There is a large hiatal hernia, with the majority of the stomach located in the thorax. Liver: The unenhanced liver is normal in size, contour, and attenuation. There is no intrahepatic biliary ductal dilatation. Gallbladder: Surgically absent noting clips in the gallbladder fossa. Spleen: Normal in size and attenuation. Pancreas: The unenhanced pancreas is mildly atrophic and grossly unremarkable. Adrenal glands: Unremarkable. Kidneys: The unenhanced kidneys are normal in size and without hydronephrosis. There is a 7 mm calculus in the left renal pelvis seen on image #[id number]. At least 4 additional nonobstructing left calculi measure up to 3 mm. There are also punctate nonobstructing right renal calculi. No ureteral stone is seen. A 3.2 cm exophytic cyst arises from the right lower pole. A retroaortic left renal vein is incidentally noted. Abdominal vasculature: The abdominal aorta is normal in course and caliber noting advanced atherosclerotic calcification. Bowel: There is mild colonic diverticulosis without CT evidence of acute diverticulitis. No bowel obstruction is seen. [id number] fecal retention is noted throughout the colon. The appendix is not identified and reported surgically absent. Peritoneum: There is no intraperitoneal free air or abdominal ascites. There is a small fat-containing umbilical hernia. Lymphadenopathy: None. Pelvic viscera: The bladder wall appears circumferentially thickened. The uterus and adnexa are normal as visualized. Skeletal structures: The skeletal structures are osteopenic. There is an acute appearing fracture of the left L1 transverse process. There is mild to moderate lumbosacral spondylosis. No lytic or blastic lesions are seen. IMPRESSION: 1. Suboptimal examination without oral and IV contrast. There is also significant motion artifact. 2. There is an acute appearing left L1 transverse process fracture. Correlate for point tenderness. 3. No additional findings are suspicious for acute fracture. 3. The bladder wall appears thickened. Correlate with clinical findings and urinalysis. 4. Large hiatal hernia. 5. Bilateral nephrolithiasis as above including a 7 mm stone in the left renal pelvis. There is no hydronephrosis. 6. Additional findings as above. ACT 112: Negative or not required by law. Electronically signed by: Reyes Everett M.D. 06/12/2023 2:24 PM Chest X-Ray 06/12/23 12:56 SINGLE VIEW CHEST CLINICAL HISTORY: Cough. FINDINGS: An AP, portable, upright chest radiograph is compared to study dated 05/26/2018 and correlated with chest CT dated 02/12/2015. There is a large hiatal hernia. The cardiomediastinal silhouette is unremarkable noting atherosclerotic calcification of the thoracic aorta. Chronic interstitial thickening is similar to previous. There is bibasilar scarring/atelectasis. No airspace consolidation or large pleural effusion is identified. No pneumothorax is seen. The skeletal structures are osteopenic. The bony thorax is grossly intact. Cholecystectomy clips are noted in the right upper quadrant. IMPRESSION: 1. No acute cardiopulmonary abnormality. 2. Large hiatal hernia. ACT 112: Negative or not required by law. Electronically signed by: Reyes Everett M.D. 06/12/2023 2:27 PM ECG Additional Comments: Reviewed personally showing NSR, no signs of ST wave inversions or acute ischemia Code Status & VTE Plan Code Status Full code - discussed with pt at bedside Supervising Physician Co-Signing Physician Notes Attending addendum: The patient was seen and examined in medical telemetry unit and in the COVID room She has been complaining of pain in the hypogastrium Denies any problem with urine, no dysuria but has frequency Does not have any cough and no shortness of breath On examination Lying in bed comfortably Hemodynamically stable and afebrile Chest-clear to auscultate bilaterally Heart-S1-S2, regular Abdomen-soft. Bowel sound present. Hypogastric tenderness Extremities-negative for any edema Her admission labs, imaging studies and medications reviewed Noted to have UTI and started on ceftriaxone COVID-19 positive without any symptoms-will not need any treatment for that Advised to drink more fluid Reviewed with assessment and plan as outlined above by Zulema Perez
[2023-06-12] MEDS ORDERED: ALBUTEROL HFA 8 GM INHALER INH PRN (18:09)
[2023-06-12] MEDS: LIDOCAINE 2% JELLY 5 ML TUBE EXT ONE (18:48)
[2023-06-12] MEDS: ASPIRIN 81 MG ECTAB PO SCH (20:07)
[2023-06-12] MEDS: CLOPIDOGREL BISULFATE 75 MG TAB PO SCH (20:07)
[2023-06-12] MEDS: LIDOCAINE 5% 1 PATCH TD STA (20:08)
[2023-06-12] MEDS: BENZONATATE 100 MG CAPSULE PO SCH (20:10)
[2023-06-12] MEDS: DICLOFENAC SOD 1% GEL 100 GM TUBE EXT SCH (20:10)
[2023-06-12] MEDS: guaiFENesin 600 MG TABCR PO SCH (20:10)
[2023-06-12] MEDS: PANTOprazole 40 MG TAB PO SCH (20:11)
[2023-06-12] MEDS: HEPARIN SOD 5,000 UNIT/0.5 ML VIAL SQ SCH (20:11)
[2023-06-12] MEDS: METOPROLOL SUCC 50MG EXT REL TAB PO SCH (20:11)
[2023-06-12] MEDS: ROSUVASTATIN CALCIUM 5 MG TAB PO SCH (20:12)
[2023-06-12] MEDS ORDERED: TRIAMCINOLONE ACET 0.1% OINT 15 GM TUBE TOP PRN (21:00)
[2023-06-12] MEDS: POTASSIUM CHLORIDE CRTAB 20 MEQ TABCR PO STA (21:17)
[2023-06-13] MEDS: ACETAMINOPHEN 325 MG TAB PO PRN (02:30)
[2023-06-13 06:13] LABS: Hematocrit (blood only) 38.2 % (37.0-47.0); Hemoglobin 12.2 g/dl (12.0-16.0); Mean Corpuscular Hemoglobin 28.7 pg (25.0-34.0); Mean Corpuscular Hgb Conc 31.9 g/dL (32.0-36.0); Mean Corpuscular Volume 89.9 fL (80.0-100.0); Mean Platelet Volume 10.3 fL (9.4-12.4); Platelet Count 84 K/uL (130-400); RDW Coefficient of Variation 15.4 % (11.5-14.5); RDW Standard Deviation 50.7 fL (36.4-46.3); Red Blood Count 4.25 M/uL (4.20-5.40); White Blood Count 3.54 K/ul (4.8-10.8)
[2023-06-13 06:17] LABS: BUN Creatinine Ratio 16.7 (10-20); Calcium 7.7 mg/dl (8.6-10.3); Creatinine Clr Calc Pharmacy 65.4 ml/min; Est GFR (African American) 94.3 ml/min; Est GFR (Non-African American) 81.4 ml/min; Potassium 3.3 mmol/L (3.5-5.1)
[2023-06-13 06:50] LABS: Platelet Estimate Decreased (Normal)
--- NOTE | 2023-06-13 07:18 | Electrocardiogram Report ---
Test Reason : Blood Pressure : / mmHG Vent. Rate : 096 BPM Atrial Rate : 096 BPM P-R Int : 138 ms QRS Dur : 072 ms QT Int : 370 ms P-R-T Axes : 064 014 044 degrees QTc Int : 467 ms Normal sinus rhythm When compared with ECG of 21-MAY-2016 15:32, No significant change was found Confirmed by Hema Montano ([id number]) on 06/13/2023 7:18:10 AM Referred By: Confirmed By:Chico Montano
[2023-06-13] MEDS: TOCOPHERYL, DL-ALPHA 100 UNITS 67 MG CAP PO SCH (08:17)
[2023-06-13] MEDS: OMEGA-3 (PURIFIED FISH OIL) 1 GM CAP PO SCH (08:17)
[2023-06-13] MEDS: CHOLECALCIFEROL 25 MCG (1000 UNITS) TAB PO SCH (08:17)
[2023-06-13] MEDS: guaiFENesin/DEXTROM SYRUP 100MG/10MG 5ML UDC PO PRN (08:17)
[2023-06-13] MEDS: FLUTICASONE PROPIONATE NA SPR 16 GM BTL NAE SCH (08:18)
[2023-06-13] MEDS ORDERED: PHENAZOPYRIDINE HCL 100 MG TAB PO PRN (11:37)
--- NOTE | 2023-06-13 12:27 | Hospitalist Progress Note ---
Date of Service June 13, 2023 Assessment & Plan (1) Acute UTI (urinary tract infection): (2) Acute dehydration: (3) COVID-19: (4) Fracture of transverse process of lumbar vertebra: (5) Osteoporosis: (6) Hypertension: (7) Hypokalemia: (8) Hiatal hernia: Plan: Per admitting services addendum: Generalized weakness secondary to COVID-19 infection, UTI -Admit to [facility] with telemetry - Dehydration likely secondary to acute UTI, await urine culture, blood cultures x 2, IV antibiotics, Afebrile, WBC 4K -Patient has history of recurrent UTIs, outpatient [facility] chart reviewed personally showing urine cultures in January, March and April all positive for E. coli, resistant to ampicillin and Unasyn but otherwise sensitive to other antibiotics - UA appears to be grossly infected with turbid urine, positive nitrate and es terase, WBC greater than 30, 4+ bacteria. -Creatinine is at baseline at 0.8 - K 3.1, order PO 40 meq now, given 10 meq IV in the ER - AST mildly elevated at 72, follow am labs - Encourage oral intake, cont NSS at 125 ml/hr x 1 more bag - Antiemetics ordered prn 06/13 COVID-19 infection possible acute bronchitis No hypoxia Chest x-ray: No pneumonia Discussed benefits and risks of remdesivir Patient would like to think about it, will follow-up decision later today Continue Mucinex, flutter valve, incentive spirometry On heparin subcu for DVT prophylaxis Urine culture: Pending Continue empiric IV ceftriaxone Continue gentle IV fluids PT and OT evaluation Thrombocytopenia -Platelet count of 119 on admission, possibly secondary to viral illness-most recent previous lab work from [facility] in August 2022 showed normal platelet count of 180s, prior to that since 2019 was also in the 180s -Monitor with a.m. CBC WBC 3.5 Hemoglobin 12.2 Platelet 84 No signs of bleeding Monitor Acute L1 transverse process fracture -PT/OT consult -Orthospine consultation -- pt reports fall 3 days ago, no LOC, no trauma, she is point tender over the right of L1 process on exam. -- may need brace -Pain control with Tylenol, voltaren gel, lidocaine patch -Osteopenia noted on imaging, check vit D level CAD HTN HLD - Continue home baby aspirin, plavix, metoprolol succ 50 mg QPM, rosuvastatin 5 mg QPM - Chronic, stable DVT PPx: - teds, scds, heparin BID CODE: Full code Dispo: Lives at home PT and OT evaluation Admission and Anticipated Discharge Date Admission Date: June 12, 2023 Subjective Follow-up for COVID-19 infection, UTI, weakness, etc. Seen resting in bed, sitting up, not in distress States she feels terrible States she still feels weak, having intermittent productive cough Appetite is fair Had 1 soft bowel movement today Reports discomfort over the bladder area No problems with urination No other new symptoms Review of Systems Review of Systems: all noted and negative except for above Physical Exam Physical Exam: General- oriented x 3, not in distress, speaks in sentences with no effort or accessory muscle use Eyes- anicteric Neck- no JVD Lungs- clear breath sounds bilaterally, no rales/wheezes Heart- normal rate, regular rhythm; no murmurs Abdomen- normal bowel sounds, nondistended, soft, mild suprapubic tenderness Extremities-trace pretibial edema, no calf tenderness Neuro- alert, oriented x 3; no gross focal neurologic deficits Skin- warm & dry Results & Data Results & Data Vital Signs (Past 12 Hours) Vital Signs Temp Pulse Pulse Resp BP BP Pulse Ox 06/13/23 12:22 36.7 C 76 18 105/67 94 06/13/23 08:23 06/13/23 08:23 36.5 C 75 16 105/68 94 06/13/23 08:00 72 06/13/23 04:00 36.6 C 81 18 130/75 95 O2 Del Method 06/13/23 12:22 Room Air 06/13/23 08:23 Room Air 06/13/23 08:23 Room Air 06/13/23 08:00 06/13/23 04:00 Room Air all noted and reviewed including below
[2023-06-13] MEDS: cefTRIAXone SODIUM 1,000 MG in DEXTROSE 5 % MINI-B 50 ML IV SCH (12:53)
[2023-06-13] MEDS: PHENAZOPYRIDINE HCL 100 MG TAB PO STA (12:53)
[2023-06-13] MEDS: REMDESIVIR 200 MG in SODIUM CHLORIDE 0.9% 210 ML IV ONE (18:09)
[2023-06-14 05:27] LABS: BUN Creatinine Ratio 11.1 (10-20); Calcium 7.6 mg/dl (8.6-10.3); Est GFR (African American) 92.8 ml/min; Est GFR (Non-African American) 80.1 ml/min; Potassium 3.2 mmol/L (3.5-5.1)
[2023-06-14 06:35] LABS: Hematocrit (blood only) 36.3 % (37.0-47.0); Hemoglobin 11.7 g/dl (12.0-16.0); Mean Corpuscular Hemoglobin 29.1 pg (25.0-34.0); Mean Corpuscular Hgb Conc 32.2 g/dL (32.0-36.0); Mean Corpuscular Volume 90.3 fL (80.0-100.0); Mean Platelet Volume 10.9 fL (9.4-12.4); Platelet Count 79 K/uL (130-400); RDW Coefficient of Variation 15.6 % (11.5-14.5); RDW Standard Deviation 51.8 fL (36.4-46.3); Red Blood Count 4.02 M/uL (4.20-5.40)
[2023-06-14 06:57] LABS: ALC (manual) 2.49 K/uL (1.2-3.4); ANC (manual) 0.88 K/uL (1.4-6.5); Lymphocytes % (manual) 60 %; Monocytes # (manual) 0.11 K/uL (0.11-0.59); Monocytes % (manual) 3 %; Myelocytes # (manual) 0.04 K/uL (0-0); Myelocytes % (manual) 1 %; Neutrophils # (manual) 0.88 K/uL (1.40-6.50); Neutrophils % (manual) 25 %; RBC Morphology Unremarkable; Reactive Lymphocytes # (manual) 0.39 K/uL; Reactive Lymphocytes % (manual) 11 %
--- NOTE | 2023-06-14 09:36 | Consultation ---
Date of Consultation June 14, 2023 Assessment & Plan (1) Fracture of transverse process of lumbar vertebra: Delfina Is a 88-year-old female who is presents with weakness and is COVID- positive and has UTI with recent fall showing an acute left L1 transverse process fracture. Dr. White has reviewed imaging. Treatment is supportive. No surgical intervention or bracing warranted. Ambulate ad yazan. Continue with pain control. Recommend lifting no greater than 5 to 10 pounds. Orthopedically stable. Will sign off. History of Present Illness Reason for Consultation: L1 transverse process fracture Attending Physician: Chris Jimenez MD History of Present Illness This is an 88-year-old female who presented to the ER on June 12, 2023 with weakness and abdominal pain. She had a recent fall. Chart has been reviewed. Also has complaints of back pain. Allergies Allergy/AdvReac Type Severity Reaction Status Date / Time Penicillins Allergy Severe Anaphylaxis Verified 06/12/23 15:23 peanut Allergy Intermediate Migraine Unverified 06/12/23 15:04 peanut oil Allergy Intermediate Migraine Unverified 06/12/23 15:04 isosorbide Allergy Mild HEADACHE Verified 06/12/23 15:04 TO ISOSORBIDE DINITRATE codeine Allergy Unknown Anaphylaxis Verified 06/12/23 15:23 cortisone Allergy Unknown Anaphylaxis Verified 06/12/23 15:23 latex Allergy Unknown UNKNOWN Verified 06/12/23 15:04 morphine Allergy Unknown nausea Verified 06/12/23 15:04 nitroglycerin Allergy Unknown severe Verified 06/12/23 15:04 headache Home Medications Medication Instructions Recorded Confirmed Type omega 2-nic-mga-fish oil 1,000 mg 1 cap PO DAILY 01/24/19 06/12/23 History (120 mg-180 mg) capsule (Fish Oil) aspirin 81 mg tablet,delayed 81 mg PO DAILY 09/23/22 06/12/23 History release cholecalciferol (vitamin D3) 50 50 mcg PO DAILY 09/23/22 06/12/23 History mcg (2,000 unit) capsule clopidogrel 75 mg tablet 75 mg PO DAILY 09/23/22 06/12/23 History metoprolol succinate 50 mg 50 mg PO DAILY 09/23/22 06/12/23 History tablet,extended release 24 hr omeprazole 20 mg capsule,delayed 20 mg PO BID 09/23/22 06/12/23 History release rosuvastatin 5 mg tablet 5 mg PO DAILY 09/23/22 06/12/23 History vitamin E 600 unit capsule 600 unit PO DAILY 09/23/22 06/12/23 History triamcinolone acetonide 0.1 % 1 applic topical .COMPLEX #30 grams 05/06/23 06/12/23 Rx topical ointment fluticasone propionate 50 2 spray intranasal DAILY 06/12/23 06/12/23 History mcg/actuation nasal spray,suspension Patient History Medical History Hiatal hernia Osteoporosis Urinary tract infection Rib fracture Myocardial infarct Heart disease Hypertension Surgical History History of mandibular surgery History of hernia repair History of cholecystectomy History of cataract surgery History of appendectomy Family History Son Cancer Aunt Cancer Mother Cancer Father Coronary heart disease Hypertension Social History Smoking Status: Never smoker Hx Alcohol Use: No Hx Substance Use: No Preferred Language: Macedonian Communication Ability: Effective L D Rn Required: No Beliefs That Will Affect Care: None marital status: Current Living Situation: Alone current occupational status: retired Other Information That Helps Us Care for You: No Feels Safe at Home: Yes Safety Concerns: Feels Safe At This Time Assistive Devices: Denture - Upper and Denture - Lower Review of Systems Review of Systems: All systems reviewed & are unremarkable except as noted in HPI & below Physical Exam Physical Exam: Not performed Results & Data Vital Signs (Past 12 Hours) Vital Signs Temp Pulse Pulse Resp BP Pulse Ox O2 Del Method 06/14/23 07:46 36.7 C 79 18 113/70 94 Room Air 06/14/23 07:04 72 06/14/23 03:52 36.1 C L 70 16 85/46 L 94 Room Air 06/13/23 23:12 36.7 C 74 16 107/67 94 Room Air 06/13/23 21:55 75 Diagnostic Findings [facility], [place] [phone] CT Scan Report Patient: DELFINA ALICEA Admit Date: 06/12/23 MR#: [id number] Address1: [address] [place] [address] Acct ID:[id number] Address2: [address] Date: 1935 [facility] Zip: [place] [address] Age: 88 Location: ED Sex: F Room/Bed: Att Phy: Diagnosis: PAIN IN STOMACHE HAS NOT EATEN Fabiola Phy: Karly Taylor MD Service Date: 06/12/23 [facility] Phy: Interpreting Phy: Reyes Everett MDAdmit Phy: Ordering Phy: Benito Marcos MD cc: ~ CT SCAN OF THE ABDOMEN AND PELVIS WITHOUT IV CONTRAST CLINICAL HISTORY: Lower abdominal pain. Vomiting. COMPARISON STUDY: Abdominal CT dated 09/25/2010. TECHNIQUE: CT scan of the abdomen and pelvis is performed from the lung bases to the proximal femora. Images are reviewed in the axial, sagittal, and coronal planes. IV contrast was not administered for this examination as per the referring clinician. Note that the examination was performed in significantly suboptimal fashion without oral and IV contrast. There is also significant motion artifact. A dose lowering technique was utilized adhering to the principles of ALARA. CT DOSE: 1100.81 mGy.cm FINDINGS: Lung bases: The heart is normal in size and without pericardial effusion. The coronary arteries are densely calcified. There is bibasilar scarring/atelectasis. No airspace consolidation typical for pneumonia or pleural effusion is identified. There is a large hiatal hernia, with the majority of the stomach located in the thorax. Liver: The unenhanced liver is normal in size, contour, and attenuation. There is no intrahepatic biliary ductal dilatation. Gallbladder: Surgically absent noting clips in the gallbladder fossa. Spleen: Normal in size and attenuation. Pancreas: The unenhanced pancreas is mildly atrophic and grossly unremarkable. Adrenal glands: Unremarkable. Kidneys: The unenhanced kidneys are normal in size and without hydronephrosis. There is a 7 mm calculus in the left renal pelvis seen on image #158. At least 4 additional nonobstructing left calculi measure up to 3 mm. There are also punctate nonobstructing right renal calculi. No ureteral stone is seen. A 3.2 cm exophytic cyst arises from the right lower pole. A retroaortic left renal vein is incidentally noted. Abdominal vasculature: The abdominal aorta is normal in course and caliber noting advanced atherosclerotic calcification. Bowel: There is mild colonic diverticulosis without CT evidence of acute diverticulitis. No bowel obstruction is seen. [id number] fecal retention is noted throughout the colon. The appendix is not identified and reported surgically absent. Peritoneum: There is no intraperitoneal free air or abdominal ascites. There is a small fat-containing umbilical hernia. Lymphadenopathy: None. Pelvic viscera: The bladder wall appears circumferentially thickened. The uterus and adnexa are normal as visualized. Skeletal structures: The skeletal structures are osteopenic. There is an acute appearing fracture of the left L1 transverse process. There is mild to moderate lumbosacral spondylosis. No lytic or blastic lesions are seen. IMPRESSION: 1. Suboptimal examination without oral and IV contrast. There is also significant motion artifact. 2. There is an acute appearing left L1 transverse process fracture. Correlate for point tenderness. 3. No additional findings are suspicious for acute fracture. 3. The bladder wall appears thickened. Correlate with clinical findings and urinalysis. 4. Large hiatal hernia. 5. Bilateral nephrolithiasis as above including a 7 mm stone in the left renal pelvis. There is no hydronephrosis. 6. Additional findings as above. ACT 112: Negative or not required by law. Electronically signed by: Reyes Everett M.D. 06/12/2023 2:24 PM Dictated: 06/12/23 1415 Transcribed: 06/12/23 1415
[2023-06-14] MEDS: ONDANSETRON INJ 2 MG/ML 2 ML VIAL IV PRN (11:39)
[2023-06-14] MEDS ORDERED: REMDESIVIR 100 MG in SODIUM CHLORIDE 0.9% 230 ML IV SCH (12:00)
[2023-06-14] MEDS: PROMETHAZINE HCL 12.5 MG in SODIUM CHLORIDE 0.9% 50 ML IV PRN (15:17)
--- NOTE | 2023-06-14 17:58 | Hospitalist Progress Note ---
Date of Service June 14, 2023 Assessment & Plan (1) Acute UTI (urinary tract infection): (2) Acute dehydration: (3) COVID-19: (4) Fracture of transverse process of lumbar vertebra: (5) Osteoporosis: (6) Hypertension: (7) Hypokalemia: (8) Hiatal hernia: Plan: Per admitting services addendum: Generalized weakness secondary to COVID-19 infection, UTI -Admit to [facility] with telemetry - Dehydration likely secondary to acute UTI, await urine culture, blood cultures x 2, IV antibiotics, Afebrile, WBC 4K -Patient has history of recurrent UTIs, outpatient [facility] chart reviewed personally showing urine cultures in January, March and April all positive for E. coli, resistant to ampicillin and Unasyn but otherwise sensitive to other antibiotics - UA appears to be grossly infected with turbid urine, positive nitrate and es terase, WBC greater than 30, 4+ bacteria. -Creatinine is at baseline at 0.8 - K 3.1, order PO 40 meq now, given 10 meq IV in the ER - AST mildly elevated at 72, follow am labs - Encourage oral intake, cont NSS at 125 ml/hr x 1 more bag - Antiemetics ordered prn 06/13 COVID-19 infection possible acute bronchitis No hypoxia Chest x-ray: No pneumonia Discussed benefits and risks of remdesivir Patient would like to think about it, will follow-up decision later today Continue Mucinex, flutter valve, incentive spirometry On heparin subcu for DVT prophylaxis Urine culture: Pending Continue empiric IV ceftriaxone Continue gentle IV fluids 06/14 Patient and daughter has declined remdesivir Remains stable from respiratory standpoint Continue supportive care Urine culture: E. coli Clinically improving Continue IV ceftriaxone day #2 PT and OT evaluation Thrombocytopenia Neutropenia -Platelet count of 119 on admission, possibly secondary to viral illness-most recent previous lab work from [facility] in August 2022 showed normal platelet count of 180s, prior to that since 2019 was also in the 180s -Monitor with a.m. CBC Likely secondary to COVID-19 infection, UTI WBC 3.5 ANC 800 Hemoglobin 12.2 Platelet 84 No signs of bleeding Monitor Acute L1 transverse process fracture -PT/OT consult -Orthospine consultation -- pt reports fall 3 days ago, no LOC, no trauma, she is point tender over the right of L1 process on exam. Ortho consulted-does not recommend surgical intervention at this point as well as bracing Continue supportive care CAD HTN HLD - Continue home baby aspirin, plavix, metoprolol succ 50 mg QPM, rosuvastatin 5 mg QPM - Chronic, stable DVT PPx: - teds, scds, heparin BID CODE: Full code Dispo: Lives at home PT and OT evaluation Patient prefers to return home when medically stable plan of care discussed with patient and her daughter at the bedside in detail and at length all questions answered They are understanding, agreeable, comfortable with the plan of care Admission and Anticipated Discharge Date Admission Date: June 12, 2023 Subjective Follow-up for COVID-19 infection, UTI, etc. Seen resting in bed, comfortable, sitting up, not in distress Daughter at the bedside visiting States she feels a little bit better than yesterday Still having some intermittent cough, no shortness of breath Bladder discomfort somewhat improving No fevers or chills Still having some nausea No other new symptoms Review of Systems Review of Systems: all noted and negative except for above Physical Exam Physical Exam: General- oriented x 3, not in distress, speaks in sentences with no effort or accessory muscle use Eyes- anicteric Neck- no JVD Lungs- clear breath sounds bilaterally, no crackles or wheezing Heart- normal rate, regular rhythm; no murmurs Abdomen- normal bowel sounds, nondistended, soft, no tenderness Extremities- no pretibial edema, no calf tenderness Neuro- alert, oriented x 3; no gross focal neurologic deficits Skin- warm & dry Results & Data Results & Data Vital Signs (Past 12 Hours) Vital Signs Temp Pulse Pulse Resp BP Pulse Ox O2 Del Method 06/14/23 16:22 36.5 C 69 16 97/60 L 93 Room Air 06/14/23 15:55 64 06/14/23 11:38 36.6 C 71 18 95/56 L 96 Room Air 06/14/23 11:01 Room Air 06/14/23 07:46 36.7 C 79 18 113/70 94 Room Air 06/14/23 07:04 72 all noted and reviewed including below
[2023-06-15 05:38] LABS: BUN Creatinine Ratio 10.2 (10-20); Calcium 7.9 mg/dl (8.6-10.3); Creatinine Clr Calc Pharmacy 72.6 ml/min; Est GFR (African American) 94.8 ml/min; Est GFR (Non-African American) 81.8 ml/min; Potassium 3.3 mmol/L (3.5-5.1)
[2023-06-15 06:12] LABS: Hematocrit (blood only) 37.8 % (37.0-47.0); Hemoglobin 12.2 g/dl (12.0-16.0); Mean Corpuscular Hgb Conc 32.3 g/dL (32.0-36.0); Mean Platelet Volume 10.3 fL (9.4-12.4); Platelet Count 91 K/uL (130-400); RDW Coefficient of Variation 15.8 % (11.5-14.5); RDW Standard Deviation 52.2 fL (36.4-46.3); White Blood Count 4.18 K/ul (4.8-10.8)
[2023-06-15 06:32] LABS: Basophils # (auto) 0.02 K/uL (0.00-0.20); Basophils % (auto) 0.5 %; Eosinophils # (auto) 0.13 K/uL (0.00-0.50); Eosinophils % (auto) 3.1 %; Immature Granulocytes # (auto) 0.01 K/uL (0.01-0.20); Immature Granulocytes % (auto) 0.2 %; Lymphocytes # (auto) 2.31 K/uL (1.20-3.40); Lymphocytes % (auto) 55.3 %; Monocytes # (auto) 0.23 K/uL (0.11-0.59); Monocytes % (auto) 5.5 %; Neutrophils # (auto) 1.48 K/uL (1.40-6.50); Neutrophils % (auto) 35.4 %; RBC Morphology Unremarkable
[2023-06-15] MEDS: POTASSIUM CHLORIDE CRTAB 20 MEQ TABCR PO STA (11:00)
--- NOTE | 2023-06-15 13:17 | Hospitalist Progress Note ---
Date of Service June 15, 2023 Assessment & Plan (1) Acute UTI (urinary tract infection): (2) Acute dehydration: (3) COVID-19: (4) Fracture of transverse process of lumbar vertebra: (5) Osteoporosis: (6) Hypertension: (7) Hypokalemia: (8) Hiatal hernia: Plan: Per admitting services addendum: Generalized weakness secondary to COVID-19 infection, UTI -Patient has history of recurrent UTIs, outpatient [facility] chart reviewed pers onally showing urine cultures in January, March and April all positive for E. coli, resistant to ampicillin and Unasyn but otherwise sensitive to other antibiotics - UA appears to be grossly infected with turbid urine, positive nitrate and esterase, WBC greater than 30, 4+ bacteria. Chest x-ray: No pneumonia Offered remdesivir, patient and her daughter has declined Given supportive care including Mucinex, flutter valve, incentive spirometry On heparin subcu for DVT prophylaxis Respiratory status stable, remains on room air Urine culture: E. coli Clinically improving Continue IV ceftriaxone day #3 Discharged on p.o. antibiotics to complete 7-day course upon discharge PT and OT evaluation Thrombocytopenia Neutropenia -Platelet count of 119 on admission, possibly secondary to viral illness-most recent previous lab work from [facility] in August 2022 showed normal platelet count of 180s, prior to that since 2019 was also in the 180s -Monitor with a.m. CBC Likely secondary to COVID-19 infection, UTI Improving Continue to follow-up CBC as an outpatient Acute L1 transverse process fracture -PT/OT consult -Orthospine consultation -- pt reports fall 3 days ago, no LOC, no trauma, she is point tender over the right of L1 process on exam. Ortho consulted-does not recommend surgical intervention at this point as well as bracing Continue supportive care CAD HTN HLD - Continue home baby aspirin, plavix, metoprolol succ 50 mg QPM, rosuvastatin 5 mg QPM - Chronic, stable DVT PPx: - teds, scds, heparin BID CODE: Full code Dispo: Lives at home PT and OT evaluation Patient prefers to return home when medically stable Admission and Anticipated Discharge Date Admission Date: June 12, 2023 Subjective Follow-up for COVID-19 infection, UTI, Seen resting in bed, sitting up, comfortable, not in distress Good spirits States she continues to feel improved No shortness of breath, cough improving No abdominal pain, has mild nausea but improving No other new symptoms Review of Systems Review of Systems: all noted and negative except for above Physical Exam Physical Exam: General- oriented x 3, not in distress, speaks in sentences with no effort or accessory muscle use Eyes- anicteric Neck- no JVD Lungs- clear breath sounds bilaterally, no crackles or wheezing Heart- normal rate, regular rhythm; no murmurs Abdomen- normal bowel sounds, nondistended, soft, no tenderness Extremities- no pretibial edema, no calf tenderness Neuro- alert, oriented x 3; no gross focal neurologic deficits Skin- warm & dry Results & Data Results & Data Vital Signs (Past 12 Hours) Vital Signs Temp Pulse Pulse Resp BP Pulse Ox O2 Del Method 06/15/23 12:36 36.9 C 81 18 107/63 92 Room Air 06/15/23 08:43 36.8 C 86 18 126/72 93 Room Air 06/15/23 07:19 77 06/15/23 03:34 36.8 C 78 16 117/69 94 Room Air all noted and reviewed including below
[2023-06-15] MEDS: ADVANCED PROBIOTIC 1250 MG CAPSULE PO SCH (14:02)
[2023-06-16 05:33] LABS: BUN Creatinine Ratio 8.8 (10-20); Calcium 8.1 mg/dl (8.6-10.3); Creatinine Clr Calc Pharmacy 75.1 ml/min; Est GFR (African American) 95.9 ml/min; Est GFR (Non-African American) 82.8 ml/min; Potassium 3.6 mmol/L (3.5-5.1)
[2023-06-16 06:42] LABS: Hemoglobin 12.2 g/dl (12.0-16.0); Mean Corpuscular Hemoglobin 28.4 pg (25.0-34.0); Mean Corpuscular Hgb Conc 31.3 g/dL (32.0-36.0); Mean Corpuscular Volume 90.7 fL (80.0-100.0); Mean Platelet Volume 10.7 fL (9.4-12.4); Platelet Count 97 K/uL (130-400); RDW Coefficient of Variation 15.8 % (11.5-14.5); RDW Standard Deviation 52.2 fL (36.4-46.3); White Blood Count 3.44 K/ul (4.8-10.8)
[2023-06-16 06:48] LABS: Basophils # (auto) 0.02 K/uL (0.00-0.20); Basophils % (auto) 0.6 %; Eosinophils # (auto) 0.13 K/uL (0.00-0.50); Eosinophils % (auto) 3.8 %; Lymphocytes # (auto) 2.08 K/uL (1.20-3.40); Lymphocytes % (auto) 60.5 %; Monocytes # (auto) 0.23 K/uL (0.11-0.59); Monocytes % (auto) 6.7 %; Neutrophils # (auto) 0.98 K/uL (1.40-6.50); Neutrophils % (auto) 28.4 %
[2023-06-16] MEDS: BENZONATATE 100 MG CAPSULE PO PRN (09:47)
--- NOTE | 2023-06-16 11:52 | Discharge Summary ---
Date of Service June 16, 2023 Admission HPI Per Admitting Provider This is an 88-year-old female with PMHx of CAD, HLD, history of stroke, irritable bowel syndrome, recurrent UTI, osteoarthrosis, anxiety, GERD who presents to the hospital with worsening cough, mucus production, weakness, shortness of breath and lower abdominal pain over the past 3 days. She states that she is very active person, and typically walks between 500 to 1000 feet across her property on daily average, however has not been able to do this the past 3 days because of her symptoms. She lives at home independently. Patient has no prior supplemental O2 needs. She reports decreased appetite and nausea, also with 1 loose bowel movement this morning. She has tolerated fluids but is not interested in food. Patient denies any fevers, chills or sweats. PT has a chronic cough at baseline as well as frequent UTIs. She has not been on any recent antibiotics. Patient denies dysuria but admits to increased urinary frequency, no hematuria. Patient manages all her home medications independently but did not take them this morning. Her daughter, Edilma, is present at bedside supports the history. Patient is found to be positive for COVID-19, CXR is negative other than large hiatal hernia, osteopenic skeletal structures, there is a new L1 transverse process fracture noted on CT abdomen/pelvis imaging, Potassium is found to be low at 3.1, AST mildly elevated at 72, and UA appears to be grossly infected with turbid urine, positive nitrate and esterase, WBC greater than 30, 4+ bacteria. Admission Exam Per Admitting Provider General: awake, alert, no apparent distress, elderly white female, BMI 25 Head: Normocephalic, atraumatic ENT: PERRL, EOMI, no pharyngeal exudate, mucous membranes slightly dry Chest: Patient is initially on 2 LPM NC, taken off during my evaluation and patient maintaining sats on room air at 93 to 94%, + fine crackles throughout, no wheeze or Rales Cardiac: Regular rate and rhythm, + few PVCs, no murmur, no JVD, normal peripheral pulses, good capillary refill Abdominal: NABS x 4 quadrants, soft, nondistended, + suprapubic tenderness to palpation, no rebound or guarding Extremities: Normal inspection, + trace pitting peripheral edema BLE, feet are cool, no mottling, + delayed capillary refill time, calfs nontender to palpation Psych: Normal mood and affect Neuro: AAO x 3, strength intact bilaterally and rated 5/5, no motor deficits, speech is clear, + peripheral sensory deficits from knees down bilaterally Principal Diagnosis COVID 19 infection Urinary tract infection Fracture of transverse process of lumbar vertebra Age related osteoporosis with current pathological fracture, lumbar vertebra Discharge Exam Constitutional + well hydrated; no acute distress Eyes PERRL, conjunctivae normal, anicteric sclerae ENMT external ear and nose normal, oropharynx normal Respiratory normal respiratory effort, lungs clear to auscultation Cardiovascular Rate/Rhythm: regular rate and regular rhythm S1 S2 Gastrointestinal (Abdomen) normal bowel sounds, soft, nontender, no hepatosplenomegaly Musculoskeletal No pedal edema Neurologic PERRL, EOMI, accommodation nl, no face palsy, no dysarthria Psychiatric A+Ox3, euthymic affect Discharge Data Allergies Allergy/AdvReac Type Severity Reaction Status Date / Time Penicillins Allergy Severe Anaphylaxis Verified 06/12/23 15:23 peanut Allergy Intermediate Migraine Unverified 06/12/23 15:04 peanut oil Allergy Intermediate Migraine Unverified 06/12/23 15:04 isosorbide Allergy Mild HEADACHE Verified 06/12/23 15:04 TO ISOSORBIDE DINITRATE codeine Allergy Unknown Anaphylaxis Verified 06/12/23 15:23 cortisone Allergy Unknown Anaphylaxis Verified 06/12/23 15:23 latex Allergy Unknown UNKNOWN Verified 06/12/23 15:04 morphine Allergy Unknown nausea Verified 06/12/23 15:04 nitroglycerin Allergy Unknown severe Verified 06/12/23 15:04 headache Consultations 06/12/23 15:32 ED Decision to Admit Stat 06/12/23 16:34 Consult Orthopedic Spine Surgery Routine Ordered Studies 06/12/23 12:56 CT Abd and Pelvis [CT abd pelvis wo con] Stat Hospital Course (1) Acute UTI (urinary tract infection): (2) Acute dehydration: (3) COVID-19: (4) Fracture of transverse process of lumbar vertebra: (5) Osteoporosis: (6) Hypertension: (7) Hypokalemia: (8) Hiatal hernia: Generalized weakness secondary to COVID-19 infection, UTI -Patient has history of recurrent UTIs, outpatient epic chart reviewed personally showing urine cultures in January, March and April all positive for E. coli, resistant to ampicillin and Unasyn but otherwise sensitive to other antibiotics - UA appears to be grossly infected with turbid urine, positive nitrate and esterase, WBC greater than 30, 4+ bacteria. Chest x-ray: No pneumonia Previous Provider offered remdesivir, patient and her daughter has declined Given supportive care including Mucinex, flutter valve, incentive spirometry Respiratory status stable, remains on room air Urine culture: E. coli Was treated with IV ceftriaxone inpatient Denied any symptoms today Changed to PO cefdinir to complete treatment on discharge PCP to consider Urology eval for recurrent UTI Thrombocytopenia Neutropenia Platelet count of 119 on admission, possibly secondary to viral illness-most recent previous lab work from [facility] in August 2022 showed normal platelet count of 180s, prior to that since 2019 was also in the 180s PCP to check CBC on follow up Likely secondary to COVID-19 infection, UTI Acute L1 transverse process fracture PT/OT evaluated Orthospine surgery evaluated and does not recommend surgical intervention at this point as well as bracing Continue supportive care CAD HTN HLD Continue home aspirin, plavix, metoprolol succ 50 mg QPM, rosuvastatin 5 mg QPM Chronic, stable Total Time Total Time Spent Total Time Spent (In Minutes): 45 Total Time Includes: Examination of the Patient, Discharge Planning, Medication Reconciliation and Other (call daughter and updated her) Discharge Plan Discharge Items Patient Disposition: Home - Self-Care Reason For Visit: COVID, UTI, HYPOKALEMIA Discharge Diagnosis: COVID 19 infection Urinary tract infection Fracture of transverse process of lumbar vertebra Activity: Resume your previous activity Lifting: None Non-emergency contact: Primary Care Provider Call non-emergency contact if: you have any medication questions Follow-up/Referrals: Kalry Taylor MD [Primary Care Provider] - (Date & Time 06/21/2023 11:20 AM Provider Ritu Gaspar MD Department Family Practice [facility] ) Diet: Heart Healthy Addtl Attending Provider Instructions: Mrs Torres You came to the hospital complaining of weakness, shortness of breath and abdominal pain. You were evaluated and managed for the above listed diagnoses. You are being discharged home on 2 more days of antibiotics to complete treatment. Please ensure follow up with your Primary Doctor. It was a pleasure taking care of you. Pending Studies at Discharge: No Stand-Alone Forms: My [employer], Smoking Cessation Medications and DC Order Prescriptions: New dextromethorphan-guaifenesin 10-100 mg/5 mL Syrup 5 ml PO Q6H PRN (Reason: cough) Qty: 500 0RF cefdinir 300 mg capsule 300 mg PO BID 2 Days Qty: 4 0RF Continued triamcinolone acetonide 0.1 % ointment 1 applic topical .COMPLEX Qty: 30 0RF Rx Instructions: Apply sparingly to affected area(s) of the extremities twice daily x 10 days as needed for flaring. omega 6-nvb-pbd-fish oil [Fish Oil] 1,000 mg (120 mg-180 mg) capsule 1 cap PO DAILY omeprazole 20 mg capsule,delayed release(DR/EC) 20 mg PO BID metoprolol succinate 50 mg tablet extended release 24 hr 50 mg PO DAILY clopidogrel 75 mg tablet 75 mg PO DAILY rosuvastatin 5 mg tablet 5 mg PO DAILY vitamin E 600 unit capsule 600 unit PO DAILY aspirin 81 mg tablet,delayed release (DR/EC) 81 mg PO DAILY cholecalciferol (vitamin D3) 50 mcg (2,000 unit) capsule 50 mcg PO DAILY fluticasone propionate 50 mcg/actuation spray,suspension 2 spray INTRANASAL DAILY Discharge Orders: Discharge Order (Routine); Ordered 06/16/23 Ordered By: Susy Curiel Admission Data Admit Date/Time: 06/12/23 15:39 Attending Provider: Susy Curiel I. Admit Provider: Rocio Perez Primary Care Provider: Karly Taylor Other Providers: Andi White; Rocio Perez; Chris Jimenez Other Interventions: Discharge Summary Assessment (RN) Last Done: 06/16/23 13:16
== END 2023-06-16 15:32 | disposition home or self-care (01) | DRG 178 ==
LOC: ED 11:47 → SUATTDRO 15:39 → 2W 15:39

== ENCOUNTER 2025-03-27 13:10 | Inpatient (IN) ==
[2025-03-27] MEDS: cefTRIAXone SODIUM 2,000 MG/50 ML BAG IV STA (13:48)
[2025-03-27] MEDS: PLASMA-LYTE A 500 ML IV ONE ×2 (13:56→15:18)
[2025-03-27 14:02] LABS: Base Excess VBG 4.7 mEq/L; HCO3 VBG 31 mmol/L; Oxygen Saturation VBG < 60.0 %; PCO2 VBG 51 mmHg (38-50); PO2 VBG < 20 mmHg; pH VBG 7.39 (7.36-7.41)
[2025-03-27 14:10] LABS: Hematocrit (blood only) 47.6 % (37.0-47.0); Hemoglobin 15.5 g/dL (12.0-16.0); Immature Granulocytes # (auto) 0.06 K/uL (0.01-0.20); Immature Granulocytes % (auto) 0.4 %; Mean Corpuscular Hemoglobin 29.2 pg (25.0-34.0); Mean Corpuscular Volume 89.8 fL (80.0-100.0); Platelet Count 335 K/uL (130-400); RDW Standard Deviation 48.8 fL (36.4-46.3); Red Blood Count 5.30 M/uL (4.20-5.40); White Blood Count 15.78 K/ul (4.8-10.8)
--- NOTE | 2025-03-27 14:24 | XRay Report ---
XR chest 1V portable CLINICAL HISTORY: Sepsis COMPARISON STUDY: 06/12/2023 FINDINGS: Stable large hiatal hernia. Heart size and pulmonary vasculature are normal. No consolidati on or pleural effusion seen. No pneumothorax. IMPRESSION: No acute findings. ACT 112: Negative or not required by law. Electronically signed by: Luis Malone M.D. 03/27/2025 2:23 PM
[2025-03-27 14:27] LABS: Alanine Aminotransferase 14.0 U/L (7-52); Albumin Level 3.8 gm/dl (3.4-5.0); Alkaline Phosphatase 142.0 U/L (34-104); Anion Gap 9.0 (3-11); Bilirubin,Total 1.0 mg/dl (0.2-1.0); Blood Urea Nitrogen 9.0 mg/dl (6-23); Calcium 9.2 mg/dl (8.6-10.3); Carbon Dioxide 30.0 mmol/L (21-32); Chloride 99.0 mmol/L (98-107); Creatinine Clr Calc Pharmacy 52.0 ml/min; Glucose 153.0 mg/dl (70-99(Fasting)); Magnesium 1.9 mg/dl (1.7-2.4); Potassium 3.8 mmol/L (3.5-5.1); Sodium 138.0 mmol/L (136-145); Total Protein 8.3 gm/dl (6.0-8.3)
[2025-03-27] MEDS: OPTIRAY 320 100ml IV ONE (14:40)
--- NOTE | 2025-03-27 15:01 | CT Scan Report ---
ABDOMEN AND PELVIS CT WITH IV CONTRAST CT DOSE: 2030.72 mGy.cm HISTORY: eval for perf, appendicitis, stent malfunction, smiley TECHNIQUE: Multiaxial CT images of the abdomen and pelvis were performed following the IV administrat ion of 90 cc of Optiray, A dose lowering technique was utilized adhering to the principles of ALARA. COMPARISON STUDY: 06/12/2023 FINDINGS: Stable very large hiatal hernia. There is mild atelectasis versus early pneumonia posterior right lung base. ABDOMEN: Gallbladder is surgically absent. Liver, spleen, pancreas, and adrenal glands are unremarkab le. Kidneys show no hydronephrosis. Left ureteral stent is well positioned. There are a few small javier culi in both kidneys. There is mild inflammation at the left renal collecting system. There are scatt ered atherosclerotic calcifications. No abdominal aortic aneurysm. There are a few small cysts at bot h kidneys. Pelvis: Uterus and adnexal regions are grossly unremarkable. Urinary bladder is nondistended. There i s mild sigmoid diverticulosis. No acute diverticulitis. No bowel inflammation or obstruction seen. No free fluid, free air, or abscess. Appendix is not visualized. No enlarged adenopathy seen. Osseous structures: There is osteopenia. There are mild degenerative changes at the lumbar spine and hips. No acute osseous findings. IMPRESSION: 1. Atelectasis versus early pneumonia right lung base. 2. No hydronephrosis. Well positioned left ureteral stent. Mild inflammation of the left renal collec ting system, postoperative versus early pyelonephritis. No renal abscess. 3. No bowel inflammation or obstruction seen. 4. Otherwise as described. ACT 112: Negative or not required by law. The above report was generated using voice recognition software. It may contain grammatical, syntax o r spelling errors. Electronically signed by: Luis Malone M.D. 03/27/2025 2:59 PM
[2025-03-27] MEDS: ONDANSETRON INJ 2 MG/ML 2 ML VIAL IV STA (15:26)
[2025-03-27] MEDS: KETOROLAC TROMETHAMINE 15 MG/ML VIAL IV ONE (15:27)
[2025-03-27] MEDS: MoRPHine SULFATE 4 MG/ML 1 ML CARP\\VIAL IV STA (15:31)
[2025-03-27 15:39] LABS: Appearance Urine Cloudy (Clear); Bacteria Urine Automated 1+ (None Seen); Glucose Urine UA Negative (Negative); RBC Urine Automated >20 /hpf (0-2); WBC Urine Automated >50 /hpf (0-5)
--- NOTE | 2025-03-27 16:22 | History & Physical Report ---
Date of Service March 27, 2025 Assessment & Plan (1) Lower abdominal pain: (2) Sepsis: (3) Urinary tract infection: (4) History of nephrolithiasis: (5) History of hydronephrosis: (6) Ureteral stent present: Plan Patient is an 89-year-old female with past medical history significant for HLD, COPD, hiatal hernia, CAD, cerebrovascular disease with history of TIAs, history of paroxysmal SVT, chronic bilateral lower extremity edema, IBS, GERD, CKD stage IIIa, lichen sclerosus of vulva, osteoporosis, history of nonmelanoma skin cancer, idiopathic progressive polyneuropathy, thrombocytopenia, mild cognitive impairment, depression and anxiety who presented to the ED with c/o lower abdominal pain. #Lower abdominal pain, primary LLQ In light of possible early pyelonephritis, UTI as per below. No bowel inflammation or obstruction seen on CTAP. Continue PRN analgesia, K-pad application may be beneficial as well. #Severe sepsis >> Meets criteria on admission 2/2 leukocytosis, tachycardia, lac tic acidosis and active source = UTI, possible pyelonephritis seen on CTAP. #Complicated UTI 2/2 recent left ureteral stent exchange S/p dose of IV Rocephin in the ED. No renal abscess seen on CTAP, left ureteral stent well-positioned as per below. No evidence of hydronephrosis. Urinating without difficulty. Blood and urine cultures pending. Will continue with IV Rocephin for UTI, possible pyelonephritis coverage for now pending culture results. BP remains soft but responding to IVF. Will hold off on additional IVF for now and follow BP trend, repeat lactate. #History of nephrolithiasis and left hydronephrosis s/p recent stent exchange S/p cystoscopy, left ureteral stent removal, left ureteroscopy, laser lithotripsy and left ureteral stent placement on 03/15/25 at [facility]. -Was admitted overnight following the above procedure >> POD#1 noted to have asymptomatic hypotension which resolved s/p IVF. Returned back to [facility] on 03/23/25 for left ureteral stent removal. -Pt reportedly hypotensive, tachycardic and weak on day of intended stent removal so was sent over to their ED for further eval. -Lab work in the ED was grossly unremarkable. Imaging evaluation including CXR, chest CT PE protocol also grossly unremarkable. -Hypotension and tachycardia resolved s/p IVF and electrolyte repletion so pt was DC'd home. Has yet to have her left ureteral stent removed. Pt's daughter attempted to reschedule >> was told that she is not scheduled until ? May to have this done. Daughter still waiting for call back from scheduling to clear this up. Left ureteral stent well positioned on CTAP. In the meantime, will consult urology here while pt is admitted at this facility for further discussion regarding removal. #Atelectasis vs early RLL PNA seen on CTAP #History of COPD Pt with productive cough since last week, productive of yellowish phlegm. Also with some mild SOB. No supplemental O2 requirement [employer]EL [employer]DER. O2 sat declined to 82% on RA in the ED >> was placed on 3L NC with rebound in O2 sat to 95% at rest during admitting eval in ED. No reported fevers, some sinus congestion. Daughter recently sick with URI whom is with her often. Respiratory BioFire panel negative. Procalcitonin also negative. VBG reviewed, pH WNL. Doubt PNA, possible COPD exacerbation with component of compressive atelectasis given history of a large hiatal hernia. Will provide atypical coverage for now with p.o. doxycycline in addition to above IV Rocephin. Wean O2 requirement as able. Scheduled nebs, pulmonary toileting with ISP/FV. #CAD #Cerebrovascular disease with history of TIAs Will hold ASA and Plavix for now pending urology eval for consideration of L ureteral stent removal while inpatient. Can continue statin therapy without interruption. #Chronic BLE edema, L>R 2+ LLE, 1+ RLE appreciated on exam at time of admission >> mostly unchanged from baseline per pt and her daughter. Has been off Lasix 2/2 hypotension. Will continue to hold Lasix for now given soft BPs, check orthostatics. #History of paroxysmal SVT Continue BB for now. #CKD stage IIIa Creatinine around baseline, baseline creatinine 0.7-1 as per records. Continue to monitor and avoid nephrotoxic agents as able. #Anxiety/depression Continue Lexapro. #GERD Continue PPI. DVT Prophylaxis: SCDs/TEDs for now Code Status: FULL CODE PCP: Fermin Mcgarry MD Disposition: Admit to PCU >> appreciate routine PT/OT evals to determine DC planning needs. Patient seen in collaboration with Dr. Perez. Please see addendum. I spent a total of 76 minutes coordinating, documenting, and providing care for this patient excluding time spent in the performance of separately billed services or time spent by another provider/QHP. This included personally reviewing all current laboratories and imaging studies, medical reconciliation, outpatient chart review and discussion with specialists. This chart was completed in part utilizing Speech Voice Recognition Software. Grammatical errors, random word insertions, pronoun errors, and incomplete sentences are an occasional consequence of this system due to software limitations, ambient noise, and hardware issues. Any formal questions or concerns about the content, text, or information contained within the body of this dictation should be directly addressed to the provider for clarification. History of Present Illness Chief Complaint: Lower abdominal pain, recent ureteral stent placement Primary Care Provider: Fermin Mcgrary MD Patient is an 89-year-old female with past medical history significant for HLD, COPD, diaphragmatic hernia, CAD, cerebrovascular disease with history of TIAs, history of paroxysmal SVT, chronic bilateral lower extremity edema, IBS, GERD, CKD stage IIIa, lichen sclerosus of vulva, osteoporosis, history of nonmelanoma skin cancer, idiopathic progressive polyneuropathy, thrombocytopenia, mild cognitive impairment, depression and anxiety who presented to the ED with c/o lower abdominal pain. History obtained from the patient, patient's daughter at bedside, discussion with ED provider and associated chart review. History of nephrolithiasis with left hydronephrosis. S/p cystoscopy, left ureteral stent removal, left ureteroscopy, possible retrograde pyelogram, laser lithotripsy and left ureteral stent placement on 03/15/25 at [facility]. Was admitted for overnight monitoring. Had asymptomatic hypotension POD#1. IM was consulted who recommended discontinuing Lasix. Otherwise recovered well after surgery and BP improved with IV fluid repletion. Was discharged home on 03/03 08/25. Was then scheduled for left ureteral stent removal on 03/23/25 at [facility]. Patient was reportedly hypotensive, tachycardic and weak at that time so the ureteral stent removal was canceled and patient was sent to the ED for further evaluation. Lab work in the ED was grossly unremarkable. Imaging evaluation including CXR, chest CT PE protocol also grossly unremarkable. Tachycardia and hypotension resolved with administration of IV fluids. Patient was discharged home. There was some issue with the rescheduling of her stent removal. Daughter reports she was rescheduled for May; she called the urology office today but has not yet heard back. Patient has experienced some lower abdominal pain, primarily LLQ, since her ureteral stent was replaced. However, the pain acutely worsened over the past 2 to 3 days. No reported nausea or vomiting. Describes poor p.o. intake since her stent exchange. Denies any urinary complaints such as dysuria, hematuria or increased urinary frequency. No reported issues with bowel movements. Does have a productive cough which has been ongoing since last week. Notes yellowish phlegm production. No reported fevers. Has been feeling slightly short of breath. No supplemental O2 use [employer]EL [employer]DER. Has chronic BLE edema, L>R. Feels this is unchanged from baseline. Denies any chest pain. Allergies Allergy/AdvReac Type Severity Reaction Status Date / Time Penicillins Allergy Severe Anaphylaxis Verified 03/27/25 16:51 peanut Allergy Intermediate Migraine Unverified 03/27/25 16:51 peanut oil Allergy Intermediate Migraine Unverified 03/27/25 16:51 isosorbide Allergy Mild HEADACHE Verified 03/27/25 16:51 TO ISOSORBIDE DINITRATE codeine Allergy Unknown Anaphylaxis Verified 03/27/25 16:51 cortisone Allergy Unknown Anaphylaxis Verified 03/27/25 16:51 latex Allergy Unknown UNKNOWN Verified 03/27/25 16:51 morphine Allergy Unknown nausea Verified 03/27/25 16:51 nitroglycerin Allergy Unknown severe Verified 03/27/25 16:51 headache Home Medications Medication Instructions Recorded Confirmed Type omega 3-lty-wge-fish oil 1,000 mg 1 cap PO DAILY 01/24/19 03/27/25 History (120 mg-180 mg) capsule (Fish Oil) aspirin 81 mg tablet,delayed 81 mg PO DAILY 09/23/22 03/27/25 History release cholecalciferol (vitamin D3) 50 50 mcg PO DAILY 09/23/22 03/27/25 History mcg (2,000 unit) capsule clopidogrel 75 mg tablet 75 mg PO DAILY 09/23/22 03/27/25 History rosuvastatin 5 mg tablet 5 mg PO DAILY 09/23/22 03/27/25 History fluticasone propionate 50 2 spray intranasal DAILY 06/12/23 03/27/25 History mcg/actuation nasal spray,suspension albuterol sulfate 90 mcg/actuation 1 puff inhalation Q4H PRN 03/27/25 03/27/25 History aerosol inhaler SOB/Wheezing escitalopram oxalate 5 mg tablet 5 mg PO HS 03/27/25 03/27/25 History furosemide 20 mg tablet See Rx Instructions .Route .COMPLEX 03/27/25 03/27/25 History metoprolol succinate 25 mg 25 mg PO BID 03/27/25 03/27/25 History tablet,extended release 24 hr pantoprazole 40 mg tablet,delayed 40 mg PO DAILY 03/27/25 03/27/25 History release potassium chloride 20 mEq 20 meq PO DAILY 03/27/25 03/27/25 History tablet,extended release Past Med/Surg History Problem List (Updated 03/27/25 @ 18:35 by Farrah Trent PA-C) COPD exacerbation Sepsis Ureteral stent present History of nephrolithiasis History of hydronephrosis Lower abdominal pain Hiatal hernia Hypokalemia Acute dehydration (Acute) Cystitis (Acute) Acute UTI (urinary tract infection) (Acute) Fracture of transverse process of lumbar vertebra (Acute) COVID-19 (Acute) History of basal cell carcinoma Osteoporosis Hypertension (Chronic) Heart disease (Chronic) Bradycardia (Acute) Chest pain (Acute) Medical History Osteoporosis Rib fracture Surgical History History of mandibular surgery History of hernia repair History of cholecystectomy History of cataract surgery History of appendectomy Family History Son Cancer Aunt Cancer Mother Cancer Father Coronary heart disease Hypertension Social History Smoking Status: Never smoker Hx Alcohol Use: No Hx Substance Use: No Preferred Language: [place] Communication Ability: Effective Customer Services Manager Required: No Beliefs That Will Affect Care: None marital status: Current Living Situation: Alone current occupational status: retired Feels Safe at Home: Yes Safety Concerns: Feels Safe At This Time Assistive Devices: Denture - Upper, Denture - Lower and Hearing Aid - Left Review of Systems Review of Systems: At least ten systems reviewed and negative, except as noted in the HPI. Physical Exam Physical Exam: General: Elderly female, NAD, sitting up in bed. Mildly ill-appearing. A&Ox3, significantly ZUNI. Daughter at bedside. HEENT: Normocephalic, atraumatic. Somewhat dry mucous membranes. Respiratory: Normal respiratory effort. On 3L NC and saturating around 95% at rest. + wet-sounding cough. Decreased air entry bilaterally. No wheeze. Cardiovascular: Tachycardic rate (HR 105bpm), regular rhythm. 2+ LLE edema, 1+ RLE edema. Abdomen/GI: Active bowel sounds, somewhat tender to palpation across lower abdominal region (primarily L-sided). Soft, nondistended. No guarding. Extremities/Musculoskeletal: No cyanosis or clubbing, extremities motor strength intact, moves all extremities. Neurologic: No overt focal deficits, CN's II-XI not formally tested but appear grossly intact bilaterally. Results & Data Results & Data Vital Signs (Past 12 Hours) Vital Signs Temp Pulse Pulse Resp BP BP Pulse Ox 03/27/25 15:10 115 H 20 154/80 H 96 03/27/25 14:30 112 H 37 H 03/27/25 14:00 110 H 34 H 03/27/25 13:42 36.8 C 03/27/25 13:39 124 H 22 130/80 95 03/27/25 13:33 121 H 27 H 94 03/27/25 13:33 121 H O2 Del Method 03/27/25 15:10 Room Air 03/27/25 14:30 03/27/25 14:00 03/27/25 13:42 03/27/25 13:39 Room Air 03/27/25 13:33 Room Air 03/27/25 13:33 Laboratory Results Short CBC 03/27/25 Range/Units 13:48 WBC 15.78 H (4.8-10.8) K/ul Hgb 15.5 (12.0-16.0) g/dL Hct 47.6 H (37.0-47.0) % Plt Count 335 (130-400) K/uL BMP 03/27/25 13:48 Sodium 138 Potassium 3.8 Chloride 99 Carbon Dioxide 30 BUN 9 Creatinine 0.81 Glucose 153 H Calcium 9.2 Liver Function 03/27/25 Range/Units 13:48 Total Bilirubin 1.0 (0.2-1.0) mg/dl Direct Bilirubin 0.4 H (0-0.2) mg/dl AST 26 (13-39) U/L ALT 14 (7-52) U/L Alkaline Phosphatase 142 H (34-104) U/L Albumin 3.8 (3.4-5.0) gm/dl Urine 03/27/25 Range/Units 15:10 Urine Color Yellow Urine Appearance Cloudy A (Clear) Urine pH 7.5 (4.5-7.5) Ur Specific Vantage > 1.045 H (1.000-1.030) Urine Protein 2+ H (Negative) Urine Glucose (UA) Negative (Negative) Diagnostic Findings Abdomen/Pelvis CT 03/27/25 13:[address] WITH IV CONTRAST CT DOSE: 2030.72 mGy.cm HISTORY: eval for perf, appendicitis, stent malfunction, smiley TECHNIQUE: Multiaxial CT images of the abdomen and pelvis were performed following the IV administration of 90 cc of Optiray, A dose lowering technique was utilized adhering to the principles of ALARA. COMPARISON STUDY: 06/12/2023 FINDINGS: Stable very large hiatal hernia. There is mild atelectasis versus early pneumonia posterior right lung base. ABDOMEN: Gallbladder is surgically absent. Liver, spleen, pancreas, and adrenal glands are unremarkable. Kidneys show no hydronephrosis. Left ureteral stent is well positioned. There are a few small calculi in both kidneys. There is mild inflammation at the left renal collecting system. There are scattered at herosclerotic calcifications. No abdominal aortic aneurysm. There are a few small cysts at both kidneys. Pelvis: Uterus and adnexal regions are grossly unremarkable. Urinary bladder is nondistended. There is mild sigmoid diverticulosis. No acute diverticulitis. No bowel inflammation or obstruction seen. No free fluid, free air, or abscess. Appendix is not visualized. No enlarged adenopathy seen. Osseous structures: There is osteopenia. There are mild degenerative changes at the lumbar spine and hips. No acute osseous findings. IMPRESSION: 1. Atelectasis versus early pneumonia right lung base. 2. No hydronephrosis. Well positioned left ureteral stent. Mild inflammation of the left renal collecting system, postoperative versus early pyelonephritis. No renal abscess. 3. No bowel inflammation or obstruction seen. 4. Otherwise as described. ACT 112: Negative or not required by law. The above report was generated using voice recognition software. It may contain grammatical, syntax or spelling errors. Electronically signed by: Luis Malone M.D. 03/27/2025 2:59 PM Chest X-Ray 03/27/25 13:31 XR chest 1V portable CLINICAL HISTORY: Sepsis COMPARISON STUDY: 06/12/2023 FINDINGS: Stable large hiatal hernia. Heart size and pulmonary vasculature are normal. No consolidation or pleural effusion seen. No pneumothorax. IMPRESSION: No acute findings. ACT 112: Negative or not required by law. Electronically signed by: Luis Malone M.D. 03/27/2025 2:23 PM Medications Administered Discontinued Medications Fentanyl Citrate (Fentanyl Citrate Pf 100 Mcg/2 Ml Vial) 50 mcg IV NOW ONE Stop: 03/27/25 13:32 Last Admin: 03/27/25 13:48 Dose: 50 mcg Documented By: KIANNA Ceftriaxone Sodium (Rocephin) 2,000 mg in 50 mls @ 100 mls/hr IV NOW STA Stop: 03/27/25 14:00 Last Infusion: 03/27/25 14:25 Dose: Infused Documented By: Admin: 03/27/25 13:48 Dose: 100 mls/hr Documented By: CAP Parenteral Electrolytes (Plasma-Lyte A Ph 7.4) 500 mls @ 999 mls/hr IV .Q31M ONE Stop: 03/27/25 14:24 Last Infusion: 03/27/25 14:25 Dose: Infused Documented By: Admin: 03/27/25 13:56 Dose: 999 mls/hr Documented By: CAP Parenteral Electrolytes (Plasma-Lyte A Ph 7.4) 500 mls @ 999 mls/hr IV .Q31M ONE Stop: 03/27/25 15:45 Last Infusion: 03/27/25 15:49 Dose: Infused Documented By: Admin: 03/27/25 15:18 Dose: 999 mls/hr Documented By: DARLING Ioversol (Optiray 320 100ml) 94 ml IV ONCE ONE Stop: 03/27/25 14:40 Last Admin: 03/27/25 14:40 Dose: 94 ml Documented By: PALLAVI Ketorolac Tromethamine (Ketorolac Tromethamine 15 Mg/Ml Vial) 10 mg IV NOW ONE Stop: 03/27/25 15:21 Last Admin: 03/27/25 15:27 Dose: 10 mg Documented By: DARLING Morphine Sulfate (Morphine Sulfate 4 Mg/Ml 1 Ml Carp\Vial) 4 mg IV NOW STA Stop: 03/27/25 15:21 Last Admin: 03/27/25 15:31 Dose: Not Given Documented By: DARLING Ondansetron HCl (Ondansetron Inj 2 Mg/Ml 2 Ml Vial) 4 mg IV NOW STA Stop: 03/27/25 15:22 Last Admin: 03/27/25 15:26 Dose: 4 mg Documented By: DARLING Supervising Physician Co-Signing Physician Notes Attending addendum: The patient was seen and examined in emergency room She has been complaining of lower abdominal pain mainly in the hypogastrium with frequency of urination She is a status post left ureteral stent placement on 03/15/2025 and was supposed to be removed on 03/22/2025 but that was not removed due to hypotension She presented to ER with lower abdominal pain without fever and chills, no nausea or vomiting but felt generally weak and lethargic On examination Lying in bed without any apparent distress Was tachycardic with blood pressure on the lower side but afebrile Chest was clear to auscultate bilaterally HeartS1-S2, regular Abdomenmildly tender hypogastrium without guarding and no rigidity and no tenderness in the renal angles Extremitiestrace edema bilaterally CNSalert,, awake and oriented x 3. Generally weak but no focal neurodeficit Her labs, EKG and imaging studies reviewed Noted to have sepsis secondary to complicated UTI/pyelonephritis as per CT findings Blood and urine cultures were sent and she was started with intravenous ceftriaxone Chest x-ray showed possible atelectasis/pneumonitis so doxycycline was added as well Her other significant medical conditions remained stable as above Agree with assessment plan as outlined above by Farrah Trent PA-C and take the full responsibility of care in the hospital Total time taken to examining the patient, reviewing chart and imaging studies also medications and planning management was [address] Philippe Perez
--- NOTE | 2025-03-27 16:26 | Electrocardiogram Report ---
Test Reason : Blood Pressure : */* mmHG Vent. Rate : 125 BPM Atrial Rate : 125 BPM P-R Int : 128 ms QRS Dur : 64 ms QT Int : 318 ms P-R-T Axes : * 2 154 degrees QTcB Int : 458 ms Sinus tachycardia Low voltage QRS Abnormal ECG When compared with ECG of 12-Jun-2023 12:12, Nonspecific T wave abnormality, worse in Inferior leads Nonspecific T wave abnormality now evident in Lateral leads Confirmed by Hema Montano ([id number]) on 03/27/2025 4:26:14 PM Referred By: REFERRED SELF Confirmed By: Hema Montano
[2025-03-27 16:47] LABS: Chlamydia pneumoniae PCR Not Detected (NotDetected); Coronavirus 229E PCR Not Detected (NotDetected); Coronavirus CoV-2 (COVID19)PCR Not Detected (NotDetected); Coronavirus HKU1 PCR Not Detected (NotDetected); Coronavirus NL63 PCR Not Detected (NotDetected); Coronavirus OC43PCR Not Detected (NotDetected); Human Metapneumovirus PCR Not Detected (NotDetected); Parainfluenza Virus 1 PCR Not Detected (NotDetected); Parainfluenza Virus 2 PCR Not Detected (NotDetected); Parainfluenza Virus 3 PCR Not Detected (NotDetected); Parainfluenza Virus 4 PCR Not Detected (NotDetected); Respiratory Syncytial VirusPCR Not Detected (NotDetected); Rhinovirus/Enterovirus PCR Not Detected (NotDetected)
--- NOTE | 2025-03-27 17:20 | Emergency Department Note ---
Impression & Plan Sepsis, Acute pyelonephritis, Acute on chronic respiratory failure with hypoxia and hypercapnia, Pneumonia, Atelectasis, Retained ureteral stent ED Provider Note NAME: DELFINA ALICEA AGE: 89 SEX: F : 1935 ARRIVES VIA: Walk-In INFORMANT: Patient, daughter ED PROVIDER(S): Nish Thomason DO CHIEF COMPLAINT: abdominal pain HPI: This is an 89-year-old female with the PMHx of HTN, HLD, SVT, COPD, recurrent nephrolithiasis s/p recent stent [place] [facility] [place], osteoporosis, CKD, and GERD presenting to [facility] for further evaluation of abdominal pain. Patient is accompanied by her daughter who provide additional history. Patient is reporting ongoing pain in her lower quadrants of her abdomen. She states that she had a recent stent placed but removal has been delayed. She states she is now having severe pain over the last three days. This is associated with nausea. She notes dyspnea at rest. She does have congestion and a productive cough of yellow sputum. They deny fever or chills. Denies chest pain or palpitations. No vomiting. No urinary complaints. No recent changes in bowel movements. Patient denies recent changes in medications or OTC supplements. Patient offers no other complaints, today. ADDITIONAL HISTORY OBTAINED: Per HPI Chronic Medical/Social Conditions Affecting Care: Per HPI PAST MEDICAL HISTORY: See Below PAST SURGICAL HISTORY: See Below FAMILY HISTORY: See Below SOCIAL HISTORY: See Below HOME MEDICATIONS: See Below ALLERGIES: See Below VITALS: See Below PHYSICAL EXAMINATION: GENERAL: Sitting up in bed, alert, ill appearing, well nourished, no distress, non-toxic EYE EXAM: normal conjunctiva. PERRL and EOM's grossly intact. OROPHARYNX: no exudate, no erythema, lips, buccal mucosa, and tongue normal and mucous membranes are dry NECK: supple, no nuchal rigidity, no adenopathy, non-tender LUNGS: Clear to auscultation. Normal chest wall mechanics HEART: no murmurs, tachycardic rate, regular rhythm ABDOMEN: abdomen soft, TTP in the L side of the abdomen, no masses, no rebound or guarding. BACK: Back is symmetrical on inspection and there is no deformity, no midline tenderness, no CVA tenderness. SKIN: no rashes and no bruising UPPER EXTREMITIES: upper extremities are grossly normal. LOWER EXTREMITIES: Trace lower edema. NEURO EXAM: Normal sensorium, GCS 15, normal speech, no gross weakness of arms, no gross weakness of legs. MEDICAL DECISION MAKING: Differential diagnoses includes but not limited to sepsis, bacteremia, viral URI, electrolyte derangements, dehydration, stent pain, appendicitis, bowel obstruction, diverticulitis, malignancy, nephrolithiasis, gastroenteritis, ACS, PNA, pancreatitis, hepatobiliary disease, UTI In summary, this is an 89 year old female who presented with abdominal pain. Differential as above. Nursing notes and pertinent past medical records reviewed. Vital signs reviewed and the patient is tachycardic and tachypneic. Her BP is low normal and will be closely monitored. She has a history of asymptomatic hypotension that has responded to IVFR in the past. Noted to have new hypoxia with respiratory complaints. Presentation is not consistent with COPD or fluid overload but still a possibility. LFNC was applied with improvement. History and presentation revealed worsening abdominal pain in the setting of recurrent nephrolithiasis and stenting. This raises concern for possible complication or a urinary source of her sepsis. Physical examination revealed as above. As a result of my initial evaluation, IV access was established and the patient was placed on CCRM. Vitals signs show the patient meets criteria for SIRS. Sepsis workup initiated. 2g IV CTX ordered for suspected possible sources including bacteremia, urine and respiratory. She will be given IVFR and pain control. Analgesia initiated with IV Fentanyl. Plan for CT imaging given her TTP. Diagnostics interpreted by me include EKG and cardiac monitoring as listed below: -Cardiac Monitoring: An order was placed for continuous cardiac monitoring. The monitor shows a rate of 100-130 with regular rhythm. -ECG: ST at 125 bpm. Some T wave abnormalities throughout the inferolateral leads. No significant ST segment changes to suggest STEMI. Intervals within normal limits otherwise. Patient completed laboratory studies and imaging. CXR independently interpreted by me reveals no evidence of focal consolidation to suggest pna. No large pneumothorax or pleural effusion. No obvious displaced rib fracture. Results independently interpreted by me are new leukocytosis further meeting SIRS criteria. No anemia. There is no significant electrolyte derangements or significant kidney dysfunction from baseline. No changes in LFTs besides mild, stable alkphos. Normal lactate. Negative viral swab. +UA for infection. VBG shows chronic hypercapnia. The patient was managed with abx, IVFR and analgesia. She continued to have pain and managed further with IVP Toradol and Morphine. There was some improvement intermittently. CTAP shows evidence of possible pneumonia which could explain labs and vital signs/oxygen requirement. Further IVFR ordered with mild improvement in tachycardia. CTAP independently interpreted by me shows evidence of L sided ureteritis / pyelonephritis. She requires admission for sepsis 2/2 UTI c/b acute on chronic respiratory failure. Ultimately, the decision was made to admit the patient for sepsis 2/2 UTI. I discussed the case with the hospitalist service via telephone/TigerText and they are agreeable to admit the patient to their services. Based on the above, including the patient's age, coexisting illnesses, labs, imaging, and exam findings the decision to treat as an inpatient. I discussed the patient with the hospitalist team who recommended admission to their services. They received the medications, treatments, interventions indicated above and their condition remained guarded. I discussed my findings with the patient and their family and they understand and agree with the treatment plan. All patient / family questions were answered to their satisfaction. Consults/Care Managements Discussions: Per MDM ER treatment provided: See above Procedures:none Critical Care: I have personally spent 30 minutes of critical care time in direct management of this patient. This includes bedside care, interpretation of diagnostic studies, and testing, discussion with consultants, patient, and family members, and other require inpatient management activities. This 30 minutes is in excess of all separately billable procedures. The chart was completed utilizing [employer] Speech voice recognition software. Grammatical errors, random word insertions, pronoun errors, and incomplete sentences are an occasional consequence of this system due to software limitations, ambient noise, and hardware issues. Any formal questions or concerns about the content, text, or information contained within the body of this dictation should be directly addressed to the physician for clarification. Past Med/Surg History Problem List (Updated 03/29/25 @ 17:12 by Nish Thomason DO) Retained ureteral stent (Acute) Atelectasis (Acute) Pneumonia (Acute) Acute on chronic respiratory failure with hypoxia and hypercapnia (Acute) Acute pyelonephritis (Acute) Sepsis (Acute) H/O supraventricular tachycardia Bronchitis COPD exacerbation Sepsis Ureteral stent present History of nephrolithiasis History of hydronephrosis Lower abdominal pain Hiatal hernia Hypokalemia Acute dehydration (Acute) Cystitis (Acute) Acute UTI (urinary tract infection) (Acute) Fracture of transverse process of lumbar vertebra (Acute) COVID-19 (Acute) History of basal cell carcinoma Osteoporosis Hypertension (Chronic) Heart disease (Chronic) Bradycardia (Acute) Chest pain (Acute) Medical History Osteoporosis Rib fracture Surgical History History of mandibular surgery History of hernia repair History of cholecystectomy History of cataract surgery History of appendectomy Family History Son Cancer Aunt Cancer Mother Cancer Father Coronary heart disease Hypertension Social History Smoking Status: Never smoker Hx Alcohol Use: No Hx Substance Use: No Preferred Language: Faroese Communication Ability: Effective Color Specialist Required: No Beliefs That Will Affect Care: None marital status: Current Living Situation: Alone current occupational status: retired Feels Safe at Home: Yes Safety Concerns: Feels Safe At This Time Assistive Devices: Cane and Walker Allergies Allergies Allergy/AdvReac Type Severity Reaction Status Date / Time Penicillins Allergy Severe Anaphylaxis Verified 03/27/25 16:51 peanut Allergy Intermediate Migraine Unverified 03/27/25 16:51 peanut oil Allergy Intermediate Migraine Unverified 03/27/25 16:51 isosorbide Allergy Mild HEADACHE Verified 03/27/25 16:51 TO ISOSORBIDE DINITRATE codeine Allergy Unknown Anaphylaxis Verified 03/27/25 16:51 cortisone Allergy Unknown Anaphylaxis Verified 03/27/25 16:51 latex Allergy Unknown UNKNOWN Verified 03/27/25 16:51 morphine Allergy Unknown nausea Verified 03/27/25 16:51 nitroglycerin Allergy Unknown severe Verified 03/27/25 16:51 headache Home Meds Home Medications Medication Instructions Recorded Confirmed omega [id number] oil 1,000 mg 1 cap PO DAILY 01/24/19 03/27/25 (120 mg-180 mg) capsule (Fish Oil) aspirin 81 mg tablet,delayed 81 mg PO DAILY 09/23/22 03/27/25 release cholecalciferol (vitamin D3) 50 50 mcg PO DAILY 09/23/22 03/27/25 mcg (2,000 unit) capsule clopidogrel 75 mg tablet 75 mg PO DAILY 09/23/22 03/27/25 rosuvastatin 5 mg tablet 5 mg PO DAILY 09/23/22 03/27/25 fluticasone propionate 50 2 spray intranasal DAILY 06/12/23 03/27/25 mcg/actuation nasal spray,suspension albuterol sulfate 90 mcg/actuation 1 puff inhalation Q4H PRN 03/27/25 03/27/25 aerosol inhaler SOB/Wheezing escitalopram oxalate 5 mg tablet 5 mg PO HS 03/27/25 03/27/25 furosemide 20 mg tablet See Rx Instructions .Route .COMPLEX 03/27/25 03/27/25 metoprolol succinate 25 mg 25 mg PO BID 03/27/25 03/27/25 tablet,extended release 24 hr pantoprazole 40 mg tablet,delayed 40 mg PO DAILY 03/27/25 03/27/25 release potassium chloride 20 mEq 20 meq PO DAILY 03/27/25 03/27/25 tablet,extended release Results & Data (ED) Vital Signs Vital Signs - 24 hr 03/27/25 13:33 03/27/25 13:33 03/27/25 13:39 Temperature Temperature Source Pulse Rate 121 H 121 H 124 H Pulse Rate [Apical] Pulse Rate from SpO2 Sensor 121 H Respiratory Rate 27 H 22 Respiratory Effort / Characteristics Non-Labored Spontaneous Respiratory Depth Normal Respiratory Pattern Regular Blood Pressure 130/80 Blood Pressure [Right Arm] Blood Pressure Mean 96 Blood Pressure Mean [Right Arm] Blood Pressure Position Sitting Pulse Oximetry 94 95 Oxygen Delivery Method Room Air Room Air Oxygen Flow Rate Sepsis Recent Fever Within 48 Hours No Sepsis New/Unexplained Change in Mental Status No Sepsis Action Taken by Nursing Physician Notified Oxygen Flow Rate - Titration Pulse Oximetry Post Tiitration 03/27/25 13:42 03/27/25 14:00 03/27/25 14:30 Temperature 36.8 C Temperature Source Oral Pulse Rate 110 H 112 H Pulse Rate [Apical] Pulse Rate from SpO2 Sensor 112 H Respiratory Rate 34 H 37 H Respiratory Effort / Characteristics Respiratory Depth Respiratory Pattern Blood Pressure Blood Pressure [Right Arm] Blood Pressure Mean Blood Pressure Mean [Right Arm] Blood Pressure Position Pulse Oximetry Oxygen Delivery Method Oxygen Flow Rate Sepsis Recent Fever Within 48 Hours Sepsis New/Unexplained Change in Mental Status Sepsis Action Taken by Nursing Oxygen Flow Rate - Titration Pulse Oximetry Post Tiitration 03/27/25 15:10 03/27/25 16:00 03/27/25 16:00 Temperature Temperature Source Pulse Rate Pulse Rate [Apical] 115 H 113 H Pulse Rate from SpO2 Sensor Respiratory Rate 20 18 Respiratory Effort / Characteristics Non-Labored Spontaneous Non-Labored Spontaneous Respiratory Depth Normal Normal Respiratory Pattern Regular Regular Blood Pressure Blood Pressure [Right Arm] 154/80 H 116/59 L Blood Pressure Mean Blood Pressure Mean [Right Arm] 104 78 Blood Pressure Position Pulse Oximetry 96 82 L 94 Oxygen Delivery Method Room Air Room Air Nasal Cannula Nasal Cannula Oxygen Flow Rate 0 3 Sepsis Recent Fever Within 48 Hours Sepsis New/Unexplained Change in Mental Status Sepsis Action Taken by Nursing Oxygen Flow Rate - Titration 3 Pulse Oximetry Post Tiitration 94 Laboratory Data 03/29/25 06:49 03/29/25 06:49 Lab Results 03/27/25 03/27/25 03/27/25 Range/Units 13:10 13:48 15:10 WBC 15.78 H (4.8-10.8) K/ul RBC 5.30 (4.20-5.40) M/uL Hgb 15.5 (12.0-16.0) g/dL Hct 47.6 H (37.0-47.0) % MCV 89.8 (80.0-100.0) fL MCH 29.2 (25.0-34.0) pg MCHC 32.6 (32.0-36.0) g/dL RDW Std Deviation 48.8 H (36.4-46.3) fL RDW Coeff of [place] 14.8 H (11.5-14.5) % Plt Count 335 (130-400) K/uL MPV 8.9 L (9.4-12.4) fL Immature Gran % (Auto) 0.4 % Neut % (Auto) 82.1 % Lymph % (Auto) 12.5 % [place] % (Auto) 4.4 % Eos % (Auto) 0.2 % Baso % (Auto) 0.4 % Neut # (Auto) 12.96 H (1.40-6.50) K/uL Lymph # (Auto) 1.98 (1.20-3.40) K/uL [place] # (Auto) 0.69 H (0.11-0.59) K/uL Eos # (Auto) 0.03 (0.00-0.50) K/uL Baso # (Auto) 0.06 (0.00-0.20) K/uL Immature Gran # (Auto) 0.06 (0.01-0.20) K/uL VBG pH 7.39 (7.36-7.41) VBG pCO2 51 H (38-50) mmHg VBG pO2 < 20 mmHg VBG HCO3 31 mmol/L VBG O2 Saturation < 60.0 % VBG Base Excess 4.7 mEq/L Sodium 138 (136-145) mmol/L Potassium 3.8 (3.5-5.1) mmol/L Chloride 99 (98-107) mmol/L Carbon Dioxide 30 (21-32) mmol/L Anion Gap 9 (3-11) BUN 9 (6-23) mg/dl Creatinine 0.81 (0.6-1.2) mg/dl Est Cr Clr Drug Dosing 52.0 ml/min eGFR 69.34 BUN/Creatinine Ratio 11.1 (10-20) Glucose 153 H (70-99(Fasting)) mg/dl Lactate 2.4 H* (0.4-2.0) mmol/L Calcium 9.2 (8.6-10.3) mg/dl Magnesium 1.9 (1.7-2.4) mg/dl Total Bilirubin 1.0 (0.2-1.0) mg/dl Direct Bilirubin 0.4 H (0-0.2) mg/dl AST 26 (13-39) U/L ALT 14 (7-52) U/L Alkaline Phosphatase 142 H (34-104) U/L Troponin I High Sens 9.0 (0-14) pg/ml B-Natriuretic Peptide 97 (0-100) pg/ml Total Protein 8.3 (6.0-8.3) gm/dl Albumin 3.8 (3.4-5.0) gm/dl Procalcitonin 0.04 (0-0.5) ng/ml Urine Color Yellow Urine Appearance Cloudy A (Clear) Urine pH 7.5 (4.5-7.5) Ur Specific [place] > 1.045 H (1.000-1.030) Urine Protein 2+ H (Negative) Urine Glucose (UA) Negative (Negative) Urine Ketones Trace H (Negative) Urine Blood 3+ H (Negative) Urine Nitrite Negative (Negative) Urine Bilirubin Negative (Negative) Urine Urobilinogen Positive H (Negative) Ur Leukocyte Esterase 2+ H (Negative) Urine WBC (Auto) >50 H (0-5) /hpf Urine RBC (Auto) >20 H (0-2) /hpf U Hyaline Cast (Auto) 11-20 H (0-2) /lpf U Epithel Cells (Auto) 3-5 H (0-2) /hpf Urine Bacteria (Auto) 1+ H (None Seen) Hyaline Casts Present A (None Presnt) /lpf Granular Casts Present A (None Prsent) /lpf Urine Mucus Present A (None Prsent) Urine Comment Adenovirus (PCR) (NotDetected) B. pertussis DNA (PCR) (NotDetected) B.parapertussis DNA PCR (NotDetected) C. pneumoniae DNA (PCR) (NotDetected) Coronavirus OC43 (PCR) (NotDetected) Coronavirus HKU1 (PCR) (NotDetected) Coronavirus 229E (PCR) (NotDetected) SARS-CoV-2 (PCR) (NotDetected) Coronavirus NL63 (PCR) (NotDetected) Human Metapneumovir PCR (NotDetected) Influenza Type A (PCR) (NotDetected) Influenza Type B (PCR) (NotDetected) M. pneumoniae (PCR) (NotDetected) Parainfluenza 1 (PCR) (NotDetected) Parainfluenza 2 (PCR) (NotDetected) Parainfluenza 3 (PCR) (NotDetected) Parainfluenza 4 (PCR) (NotDetected) RSV (PCR) (NotDetected) Entero/Rhino (PCR) (NotDetected) 03/27/25 03/27/25 Range/Units 15:20 15:51 WBC (4.8-10.8) K/ul RBC (4.20-5.40) M/uL Hgb (12.0-16.0) g/dL Hct (37.0-47.0) % MCV (80.0-100.0) fL MCH (25.0-34.0) pg MCHC (32.0-36.0) g/dL RDW Std Deviation (36.4-46.3) fL RDW Coeff of [place] (11.5-14.5) % Plt Count (130-400) K/uL MPV (9.4-12.4) fL Immature Gran % (Auto) % Neut % (Auto) % Lymph % (Auto) % [place] % (Auto) % Eos % (Auto) % Baso % (Auto) % Neut # (Auto) (1.40-6.50) K/uL Lymph # (Auto) (1.20-3.40) K/uL [place] # (Auto) (0.11-0.59) K/uL Eos # (Auto) (0.00-0.50) K/uL Baso # (Auto) (0.00-0.20) K/uL Immature Gran # (Auto) (0.01-0.20) K/uL VBG pH (7.36-7.41) VBG pCO2 (38-50) mmHg VBG pO2 mmHg VBG HCO3 mmol/L VBG O2 Saturation % VBG Base Excess mEq/L Sodium (136-145) mmol/L Potassium (3.5-5.1) mmol/L Chloride (98-107) mmol/L Carbon Dioxide (21-32) mmol/L Anion Gap (3-11) BUN (6-23) mg/dl Creatinine (0.6-1.2) mg/dl Est Cr Clr Drug Dosing ml/min eGFR BUN/Creatinine Ratio (10-20) Glucose (70-99(Fasting)) mg/dl Lactate 2.2 H* (0.4-2.0) mmol/L Calcium (8.6-10.3) mg/dl Magnesium (1.7-2.4) mg/dl Total Bilirubin (0.2-1.0) mg/dl Direct Bilirubin (0-0.2) mg/dl AST (13-39) U/L ALT (7-52) U/L Alkaline Phosphatase (34-104) U/L Troponin I High Sens (0-14) pg/ml B-Natriuretic Peptide (0-100) pg/ml Total Protein (6.0-8.3) gm/dl Albumin (3.4-5.0) gm/dl Procalcitonin (0-0.5) ng/ml Urine Color Urine Appearance (Clear) Urine pH (4.5-7.5) Ur Specific [place] (1.000-1.030) Urine Protein (Negative) Urine Glucose (UA) (Negative) Urine Ketones (Negative) Urine Blood (Negative) Urine Nitrite (Negative) Urine Bilirubin (Negative) Urine Urobilinogen (Negative) Ur Leukocyte Esterase (Negative) Urine WBC (Auto) (0-5) /hpf Urine RBC (Auto) (0-2) /hpf U Hyaline Cast (Auto) (0-2) /lpf U Epithel Cells (Auto) (0-2) /hpf Urine Bacteria (Auto) (None Seen) Hyaline Casts (None Presnt) /lpf Granular Casts (None Prsent) /lpf Urine Mucus (None Prsent) Urine Comment Adenovirus (PCR) Not Detected (NotDetected) B. pertussis DNA (PCR) Not Detected (NotDetected) B.parapertussis DNA PCR Not Detected (NotDetected) C. pneumoniae DNA (PCR) Not Detected (NotDetected) Coronavirus OC43 (PCR) Not Detected (NotDetected) Coronavirus HKU1 (PCR) Not Detected (NotDetected) Coronavirus 229E (PCR) Not Detected (NotDetected) SARS-CoV-2 (PCR) Not Detected (NotDetected) Coronavirus NL63 (PCR) Not Detected (NotDetected) Human Metapneumovir PCR Not Detected (NotDetected) Influenza Type A (PCR) Not Detected (NotDetected) Influenza Type B (PCR) Not Detected (NotDetected) M. pneumoniae (PCR) Not Detected (NotDetected) Parainfluenza 1 (PCR) Not Detected (NotDetected) Parainfluenza 2 (PCR) Not Detected (NotDetected) Parainfluenza 3 (PCR) Not Detected (NotDetected) Parainfluenza 4 (PCR) Not Detected (NotDetected) RSV (PCR) Not Detected (NotDetected) Entero/Rhino (PCR) Not Detected (NotDetected) Administered Medications Acetaminophen (Acetaminophen 500 Mg Tab) 1,000 mg PO Q8 PRN PRN Reason: Pain or Fever Stop: 04/26/25 18:32 Last Admin: 03/28/25 20:48 Dose: 1,000 mg Documented By: HOMAR Aspirin (Aspirin 81 Mg Ectab) 81 mg PO DAILY JAMISON Stop: 04/27/25 10:44 Last Admin: 03/29/25 07:58 Dose: 81 mg Documented By: Admin: 03/28/25 12:32 Dose: 81 mg Documented By: LUCIA Clopidogrel Bisulfate (Clopidogrel Bisulfate 75 Mg Tab) 75 mg PO DAILY JAMISON Stop: 04/27/25 10:44 Last Admin: 03/29/25 07:58 Dose: 75 mg Documented By: Admin: 03/28/25 12:32 Dose: 75 mg Documented By: LUCIA Docusate Sodium (Docusate Sodium 100 Mg Cap) 100 mg PO BID JAMISON Stop: 04/27/25 10:44 Last Admin: 03/29/25 08:06 Dose: 100 mg Documented By: Admin: 03/28/25 20:46 Dose: 100 mg Documented By: Admin: 03/28/25 12:31 Dose: 100 mg Documented By: LUCIA Doxycycline Hyclate (Doxycycline Hyclate 100 Mg Cap) 100 mg PO BIDM JAMISON Stop: 04/01/25 17:24 Last Admin: 03/29/25 07:56 Dose: 100 mg Documented By: Admin: 03/28/25 16:07 Dose: 100 mg Documented By: Admin: 03/28/25 09:09 Dose: 100 mg Documented By: Admin: 03/27/25 21:28 Dose: 100 mg Documented By: KHADAR Escitalopram Oxalate (Escitalopram Oxalate 10 Mg Tab) 5 mg PO HS JAMISON Stop: 04/26/25 20:59 Last Admin: 03/28/25 20:46 Dose: 5 mg Documented By: Admin: 03/27/25 21:30 Dose: 5 mg Documented By: KHADAR Fluticasone Propionate (Fluticasone Propionate Na Spr 16 Gm Btl) 2 sprays NA DAILY JAMISON Stop: 04/27/25 08:59 Last Admin: 03/29/25 07:58 Dose: 2 sprays Documented By: Admin: 03/28/25 09:10 Dose: 2 sprays Documented By: LUCIA Guaifenesin (Guaifenesin 600 Mg Tabcr) 1,200 mg PO Q12 JAMISON Stop: 04/27/25 10:39 Last Admin: 03/29/25 07:58 Dose: 1,200 mg Documented By: Admin: 03/28/25 20:46 Dose: 1,200 mg Documented By: Admin: 03/28/25 12:31 Dose: 1,200 mg Documented By: LUCIA Ceftriaxone Sodium (Rocephin) 2,000 mg in 50 mls @ 100 mls/hr IV Q24H JAMISON Stop: 04/04/25 12:59 Last Infusion: 03/29/25 13:28 Dose: Infused Documented By: Admin: 03/29/25 12:31 Dose: 100 mls/hr Documented By: Infusion: 03/28/25 14:28 Dose: Infused Documented By: Admin: 03/28/25 13:58 Dose: 100 mls/hr Documented By: LUCIA Metoclopramide HCl (Metoclopramide Hcl Inj 5 Mg/Ml 2 Ml Vial) 10 mg IV Q6H PRN PRN Reason: Nausea Stop: 04/27/25 13:54 Last Admin: 03/28/25 16:04 Dose: 10 mg Documented By: LUCIA Metoprolol Succinate (Metoprolol Succ 25mg Ext Rel Tab) 25 mg PO BID JAMISON Stop: 04/26/25 20:59 Last Admin: 03/28/25 09:08 Dose: Not Given Documented By: Admin: 03/27/25 21:29 Dose: 25 mg Documented By: KHADAR Pantoprazole Sodium (Pantoprazole 40 Mg Tab) 40 mg PO BIDM JAMISON Stop: 04/27/25 16:59 Last Admin: 03/29/25 07:57 Dose: 40 mg Documented By: Admin: 03/28/25 16:07 Dose: 40 mg Documented By: LUCIA Polyethylene Glycol (Polyethylene (Miralax) 17 Gm Pack) 8.5 gm PO DAILY JAMISON Stop: 04/27/25 10:39 Last Admin: 03/29/25 08:06 Dose: 8.5 gm Documented By: Admin: 03/28/25 12:30 Dose: 8.5 gm Documented By: LUCIA Rosuvastatin Calcium (Rosuvastatin Calcium 5 Mg Tab) 5 mg PO DAILY JAMISON Stop: 04/27/25 08:59 Last Admin: 03/29/25 07:59 Dose: 5 mg Documented By: Admin: 03/28/25 09:08 Dose: 5 mg Documented By: LUCIA Vitamin D (Cholecalciferol 25 Mcg (1000 Units) Tab) 50 mcg PO DAILY JAMISON Stop: 04/27/25 08:59 Last Admin: 03/29/25 07:57 Dose: 50 mcg Documented By: Admin: 03/28/25 09:12 Dose: Not Given Documented By: LUCIA Discontinued Medications Acetaminophen (Acetaminophen 325 Mg Tab) 650 mg PO Q4H PRN PRN Reason: Pain or Fever Stop: 04/26/25 18:32 Last Admin: 03/27/25 21:28 Dose: 650 mg Documented By: KHADAR Albuterol (Albut/Ipratrop 3mg/0.5mg Neb 3 Ml Vial) 3 ml NEB Q6R JAMISON; Protocol Stop: 04/26/25 18:59 Last Admin: 03/28/25 13:04 Dose: 3 ml Documented By: Admin: 03/28/25 07:07 Dose: 3 ml Documented By: Admin: 03/28/25 01:37 Dose: 3 ml Documented By: Admin: 03/27/25 19:50 Dose: 3 ml Documented By: EVA Fentanyl Citrate (Fentanyl Citrate Pf 100 Mcg/2 Ml Vial) 50 mcg IV NOW ONE Stop: 03/27/25 13:32 Last Admin: 03/27/25 13:48 Dose: 50 mcg Documented By: KIANNA Hydromorphone HCl (Hydromorphone Inj 0.5 Mg/0.5 Ml Syr) 0.5 mg IV Q6H PRN PRN Reason: Mod-Sev Pain (Scale 4-10) Stop: 04/10/25 18:23 Last Admin: 03/28/25 12:30 Dose: 0.5 mg Documented By: LUCIA Ceftriaxone Sodium (Rocephin) 2,000 mg in 50 mls @ 100 mls/hr IV NOW STA Stop: 03/27/25 14:00 Last Infusion: 03/27/25 14:25 Dose: Infused Documented By: Admin: 03/27/25 13:48 Dose: 100 mls/hr Documented By: KIANNA Parenteral Electrolytes (Plasma-Lyte A Ph 7.4) 500 mls @ 999 mls/hr IV .Q31M ONE Stop: 03/27/25 14:24 Last Infusion: 03/27/25 14:25 Dose: Infused Documented By: Admin: 03/27/25 13:56 Dose: 999 mls/hr Documented By: CAP Parenteral Electrolytes (Plasma-Lyte A Ph 7.4) 500 mls @ 999 mls/hr IV .Q31M ONE Stop: 03/27/25 15:45 Last Infusion: 03/27/25 15:49 Dose: Infused Documented By: Admin: 03/27/25 15:18 Dose: 999 mls/hr Documented By: GCC Sodium Chloride (Nss) 500 mls @ 500 mls/hr IV .Q1H STA Stop: 03/28/25 00:37 Last Infusion: 03/28/25 01:10 Dose: Infused Documented By: Admin: 03/27/25 23:51 Dose: 500 mls/hr Documented By: KHADAR Sodium Chloride (Nss) 1,000 mls @ 75 mls/hr IV .[id number] ONE Stop: 03/28/25 13:49 Last Infusion: 03/28/25 13:46 Dose: Infused Documented By: Admin: 03/27/25 23:52 Dose: 75 mls/hr Documented By: KHADAR Potassium Chloride (K Gal[place] / Wtr) 10 meq in 100 mls @ 100 mls/hr IV Q1H JAMISON Stop: 03/28/25 15:29 Last Infusion: 03/28/25 18:27 Dose: Infused Documented By: Admin: 03/28/25 16:03 Dose: 100 mls/hr Documented By: Infusion: 03/28/25 14:58 Dose: Infused Documented By: Admin: 03/28/25 13:58 Dose: 100 mls/hr Documented By: LUCIA Sodium Chloride (Nss) 1,000 mls @ 75 mls/hr IV .[id number] JAMISON Stop: 03/31/25 13:59 Last Infusion: 03/29/25 12:13 Dose: Infused Documented By: Admin: 03/29/25 03:09 Dose: 75 mls/hr Documented By: Infusion: 03/29/25 03:09 Dose: Infused Documented By: Admin: 03/28/25 13:58 Dose: 75 mls/hr Documented By: LUCIA Ioversol (Optiray 320 100ml) 94 ml IV ONCE ONE Stop: 03/27/25 14:40 Last Admin: 03/27/25 14:40 Dose: 94 ml Documented By: PALLAVI Ketorolac Tromethamine (Ketorolac Tromethamine 15 Mg/Ml Vial) 10 mg IV NOW ONE Stop: 03/27/25 15:21 Last Admin: 03/27/25 15:27 Dose: 10 mg Documented By: DARLING Morphine Sulfate (Morphine Sulfate 4 Mg/Ml 1 Ml Carp\Vial) 4 mg IV NOW STA Stop: 03/27/25 15:21 Last Admin: 03/27/25 15:31 Dose: Not Given Documented By: DARLING Ondansetron HCl (Ondansetron Inj 2 Mg/Ml 2 Ml Vial) 4 mg IV NOW STA Stop: 03/27/25 15:22 Last Admin: 03/27/25 15:26 Dose: 4 mg Documented By: DARLING Pantoprazole Sodium (Pantoprazole 40 Mg Tab) 40 mg PO DAILY JAMISON Stop: 04/27/25 08:59 Last Admin: 03/28/25 09:09 Dose: 40 mg Documented By: LUCIA Imaging Data Radiologist's Impression: Abdomen/Pelvis CT 03/27/25 13:[address] WITH IV CONTRAST CT DOSE: 2030.72 mGy.cm HISTORY: eval for perf, appendicitis, stent malfunction, smiley TECHNIQUE: Multiaxial CT images of the abdomen and pelvis were performed following the IV administration of 90 cc of Optiray, A dose lowering technique was utilized adhering to the principles of ALARA. COMPARISON STUDY: 06/12/2023 FINDINGS: Stable very large hiatal hernia. There is mild atelectasis versus early pneumonia posterior right lung base. ABDOMEN: Gallbladder is surgically absent. Liver, spleen, pancreas, and adrenal glands are unremarkable. Kidneys show no hydronephrosis. Left ureteral stent is well positioned. There are a few small calculi in both kidneys. There is mild inflammation at the left renal collecting system. There are scattered atherosclerotic calcifications. No abdominal aortic aneurysm. There are a few small cysts at both kidneys. Pelvis: Uterus and adnexal regions are grossly unremarkable. Urinary bladder is nondistended. There is mild sigmoid diverticulosis. No acute diverticulitis. No bowel inflammation or obstruction seen. No free fluid, free air, or abscess. Appendix is not visualized. No enlarged adenopathy seen. Osseous structures: There is osteopenia. There are mild degenerative changes at the lumbar spine and hips. No acute osseous findings. IMPRESSION: 1. Atelectasis versus early pneumonia right lung base. 2. No hydronephrosis. Well positioned left ureteral stent. Mild inflammation of the left renal collecting system, postoperative versus early pyelonephritis. No renal abscess. 3. No bowel inflammation or obstruction seen. 4. Otherwise as described. ACT 112: Negative or not required by law. The above report was generated using voice recognition software. It may contain grammatical, syntax or spelling errors. Electronically signed by: Luis Malone M.D. 03/27/2025 2:59 PM Chest X-Ray 03/27/25 13:31 XR chest 1V portable CLINICAL HISTORY: Sepsis COMPARISON STUDY: 06/12/2023 FINDINGS: Stable large hiatal hernia. Heart size and pulmonary vasculature are normal. No consolidation or pleural effusion seen. No pneumothorax. IMPRESSION: No acute findings. ACT 112: Negative or not required by law. Electronically signed by: Luis Malone M.D. 03/27/2025 2:23 PM Discharge Plan Visit Data Chief Complaint: Abdominal Pain Stated Complaint: ABD PAIN, HAS STENT FROM SURGERY ED Provider: Nish Thomason Discharge Problem: Sepsis, Acute pyelonephritis, Acute on chronic respiratory failure with hypoxia and hypercapnia, Pneumonia, Atelectasis, Retained ureteral stent Patient Disposition: Admitted As Inpatient Condition: Serious Discharge Instructions Interventions: ED Discharge Assessment Last Done: 03/27/25 17:34
[2025-03-27] MEDS ORDERED: ONDANSETRON INJ 2 MG/ML 2 ML VIAL IV PRN (18:33)
[2025-03-27] MEDS ORDERED: MAGNESIUM HYDROXIDE SUSP 30 ML UDC PO PRN (18:33)
[2025-03-27] MEDS ORDERED: POLYETHYLENE (MIRALAX) 17 GM PACK PO PRN (18:33)
[2025-03-27] MEDS: ALBUT/IPRATROP 3MG/0.5MG NEB 3 ML VIAL NEB SCH (19:50)
[2025-03-27] MEDS: ACETAMINOPHEN 325 MG TAB PO PRN (21:28)
[2025-03-27] MEDS: DOXYCYCLINE HYCLATE 100 MG CAP PO SCH (21:28)
[2025-03-27] MEDS: METOPROLOL SUCC 25MG EXT REL TAB PO SCH (21:29)
[2025-03-27] MEDS: ESCITALOPRAM OXALATE 10 MG TAB PO SCH (21:30)
[2025-03-27] MEDS: SODIUM CHLORIDE 0.9% 500 ML IV STA (23:51)
[2025-03-27] MEDS: SODIUM CHLORIDE 0.9% 1,000 ML IV ONE (23:52)
[2025-03-28 08:06] LABS: Hematocrit (blood only) 36.0 % (37.0-47.0); Hemoglobin 11.7 g/dL (12.0-16.0); Immature Granulocytes # (auto) 0.05 K/uL (0.01-0.20); Immature Granulocytes % (auto) 0.4 %; Mean Corpuscular Hemoglobin 29.7 pg (25.0-34.0); Mean Corpuscular Volume 91.4 fL (80.0-100.0); Platelet Count 279 K/uL (130-400); RDW Standard Deviation 49.9 fL (36.4-46.3); Red Blood Count 3.94 M/uL (4.20-5.40); White Blood Count 12.71 K/ul (4.8-10.8)
[2025-03-28 08:20] LABS: Anion Gap 5.0 (3-11); Blood Urea Nitrogen 13.0 mg/dl (6-23); Calcium 7.9 mg/dl (8.6-10.3); Carbon Dioxide 31.0 mmol/L (21-32); Chloride 102.0 mmol/L (98-107); Creatinine Clr Calc Pharmacy 47.1 ml/min; Glucose 102.0 mg/dl (70-99(Fasting)); Magnesium 1.8 mg/dl (1.7-2.4); Potassium 3.5 mmol/L (3.5-5.1); Sodium 138.0 mmol/L (136-145)
--- NOTE | 2025-03-28 08:44 | Hospitalist Progress Note ---
Date of Service March 28, 2025 Assessment & Plan (1) Lower abdominal pain: (2) Sepsis: (3) Urinary tract infection: (4) History of nephrolithiasis: (5) History of hydronephrosis: (6) Ureteral stent present: Plan Patient is an 89-year-old female with past medical history significant for HLD, COPD, hiatal hernia, CAD, cerebrovascular disease with history of TIAs, history of paroxysmal SVT, chronic bilateral lower extremity edema, IBS, GERD, CKD stage IIIa, lichen sclerosus of vulva, osteoporosis, history of nonmelanoma skin cancer, idiopathic progressive polyneuropathy, thrombocytopenia, mild cognitive impairment, depression and anxiety who presented to the ED on 03/28/2025 with c/o abdominal pain. Complicated UTI Left ureteral stent present s/p cystoscopy, left ureteral stent removal, left ureteroscopy, laser lithotripsy and left ureteral stent placement on 03/15/[address] Hill of [facility] Scheduled for stent removal on 03/23/[address] Hill but referred to ED instead due to hypotension, tachycardia, weakness-> discharged home from ED after IVF Presented to our ED with acute worsening of LLQ pain radiating to back and thigh CTAP revealed well positioned stent without hydronephrosis, mild inflammation of left renal collecting system could be postoperative vs early pyelonephritis Labs revealed leukocytosis of 15K and elevated lactate (2.4, 2.2, 1.2) UA +leuk esterase, WBC, bacteria via clean catch, asymptomatic Appt on 04/06/[address] Hill for stent removal but only if no active infection Obtain UA and culture via straight cath per request of Dr. Hill Continue ceftriaxone until culture results Tylenol and dialudid PRN for pain control Hypotension BPs 70s/40s overnight Improved after 500cc bolus Continue maintenance fluids Hold metoprolol and lasix for now Sepsis Meets criteria on admission with leukocytosis, tachycardia, elevated lactate in setting of complicated UTI Blood and urine cultures pending Continue fluids and antibiotics as above Tachycardia PAT History of SVT HR 90-100 Likely secondary to sepsis, pain, and metoprolol on hold due to hypotension Short run of PAT on tele, asymptomatic Consider reduced dose of metoprolol if sustained PAT or symptomatic Constipation Last BM 03/23 per patient Start bowel regimen with scheduled docusate and miralax Glycerin supp PRN Bronchitis vs possible PNA Patient reports acute worsening of wet productive cough over last 7 days Hypoxic in ED to 82% on RA-> placed on oxygen CXR, biofire, procalcitonin negative Obtain sputum culture Continue doxycycline for now Continue mucinex, ISP/FV, nebs PRN Wean O2 as able CAD History of CVA/TIA Continue aspirin, Plavix, statin CKD stage IIIa Baseline creatinine 0.7-1 as per records Avoid nephrotoxic agents as able Monitor renal function Anxiety/depression Continue Lexapro GERD Continue PPI DVT Prophylaxis: SQ Heparin Code Status: FULL CODE PCP: Fermin Mcgarry MD Disposition: PT/OT recs dc back to home with assistance of daughter Patient seen in collaboration with Dr. Park. Please see addendum. I spent a total of 60 minutes coordinating, documenting and providing care for this patient excluding time spent in the performance of separately billed services or time spent by another provider/QHP. Admission and Anticipated Discharge Date Admission Date: March 27, 2025 Supervising Physician Co-Signing Physician Notes Pt seen and examined by me, care coordinated w/ M. PAULINA Johnson, pls refer to her note above for further detail. Pt is an 89 yo female with past medical history significant for HLD, COPD, hiatal hernia, CAD, cerebrovascular disease with history of TIAs, history of paroxysmal SVT, chronic bilateral lower extremity edema, IBS, GERD, CKD stage IIIa, lichen sclerosus of vulva, osteoporosis, history of nonmelanoma skin cancer, idiopathic progressive polyneuropathy, thrombocytopenia, mild cognitive impairment, depression and anxiety who presented to the ED with c/o lower abdominal pain. Has recent hx of ureteral stent exchange. Currently treated for sepsis secondary to UTI, poss. PNA. Urology contacted and instructed to obtain UA by straight cath. Will also obtain sputum cultx. Blood cultx pending. Pt was started on ceftriaxone and doxycycline on admission, will cont. for now. Pt is currently sitting up in bed in NAD, awake, able to answer simple questions appropriately, but appears tired, has occasional cough. Currently on 2L of suppl. O2. Decreased breath sounds, no wheezing noted, mildly tachycardic. Abdomen soft, + tenderness at LLQ, moves extremities. Cont. above treatment and work up, cont. to closely monitor. MD Vivian Subjective Patient seen sitting up in bed Reports LLQ pain that radiates into back and thigh - 5/10 but improved since admission Endorses nausea and constipation with last BM 6 days ago Reports wet cough with yellow phlegm for about a month that acutely worsened over the last week Denies fevers, dizziness, chest pain, SOB, vomiting, weakness Review of Systems Review of Systems: All systems reviewed & are unremarkable except as noted in HPI & below Physical Exam Physical Exam: General/Psych: elderly, sitting up in bed, NAD, conversing easily Head: normocephalic, atraumatic Eyes: normal inspection, PERRL, conjunctivae pink ENT: external ear and nose normal, oropharynx normal Neck: normal visual inspection, trachea midline Respiratory: normal respiratory effort, lungs clear to auscultation, no wheeze/rales/rhonchi, no accessory muscle use Cardiovascular: tachycardic rate and rhythm, no murmur/rub/gallop Extremities: no cyanosis or clubbing, normal peripheral pulses, no BLE edema Abdomen/GI: normal bowel sounds, soft, tender on palpation of LLQ Neurologic/MSK: A+Ox3, motor strength 5/5, moves all extremities Skin: no rashes, normal color, warm and dry Results & Data Results & Data Vital Signs (Past 12 Hours) Vital Signs Temp Pulse Pulse Resp BP BP Pulse Ox 03/28/25 08:00 36.7 C 107 H 18 102/63 93 03/28/25 07:52 99 H 03/28/25 07:07 95 H 18 95 03/28/25 03:41 36.8 C 94 H 18 90/58 L 93 03/28/25 01:37 88 16 94 03/28/25 01:00 89 96/61 L 03/27/25 23:33 36.8 C 90 18 70/45 L 78/45 L 93 O2 Del Method O2 Flow Rate 03/28/25 08:00 Nasal Cannula 2.0 03/28/25 07:52 03/28/25 07:07 Nasal Cannula 2 03/28/25 03:41 Nasal Cannula 03/28/25 01:37 Nasal Cannula 2 03/28/25 01:00 03/27/25 23:33 Nasal Cannula 2 Laboratory Results Short CBC 03/27/25 03/28/25 Range/Units 13:48 07:16 WBC 15.78 H 12.71 H (4.8-10.8) K/ul Hgb 15.5 11.7 L D (12.0-16.0) g/dL Hct 47.6 H 36.0 L (37.0-47.0) % Plt Count 335 279 (130-400) K/uL BMP 03/27/25 03/28/25 13:48 07:17 Sodium 138 138 Potassium 3.8 3.5 Chloride 99 102 Carbon Dioxide 30 31 BUN 9 13 Creatinine 0.81 0.90 Glucose 153 H 102 H Calcium 9.2 7.9 L Liver Function 03/27/25 Range/Units 13:48 Total Bilirubin 1.0 (0.2-1.0) mg/dl Direct Bilirubin 0.4 H (0-0.2) mg/dl AST 26 (13-39) U/L ALT 14 (7-52) U/L Alkaline Phosphatase 142 H (34-104) U/L Albumin 3.8 (3.4-5.0) gm/dl Urine 03/27/25 Range/Units 15:10 Urine Color Yellow Urine Appearance Cloudy A (Clear) Urine pH 7.5 (4.5-7.5) Ur Specific [place] > 1.045 H (1.000-1.030) Urine Protein 2+ H (Negative) Urine Glucose (UA) Negative (Negative) I have independently reviewed and interpreted patient's labs including CBC, BMP, mag, phos. Medications Administered Current Inpatient Medications Acetaminophen (Acetaminophen 325 Mg Tab) 650 mg PO Q4H PRN PRN Reason: Pain or Fever Stop: 04/26/25 18:32 Last Admin: 03/27/25 21:28 Dose: 650 mg Albuterol (Albut/Ipratrop 3mg/0.5mg Neb 3 Ml Vial) 3 ml NEB Q6R JAMISON; Protocol Stop: 04/26/25 18:59 Last Admin: 03/28/25 07:07 Dose: 3 ml Doxycycline Hyclate (Doxycycline Hyclate 100 Mg Cap) 100 mg PO BIDM JAMISON Stop: 04/01/25 17:24 Last Admin: 03/27/25 21:28 Dose: 100 mg Escitalopram Oxalate (Escitalopram Oxalate 10 Mg Tab) 5 mg PO HS JAMISON Stop: 04/26/25 20:59 Last Admin: 03/27/25 21:30 Dose: 5 mg Fluticasone Propionate (Fluticasone Propionate Na Spr 16 Gm Btl) 2 sprays NA DAILY [facility] Stop: 04/27/25 08:59 Hydromorphone HCl (Hydromorphone Inj 0.5 Mg/0.5 Ml Syr) 0.5 mg IV Q6H PRN PRN Reason: Mod-Sev Pain (Scale 4-10) Stop: 04/10/25 18:23 Ceftriaxone Sodium (Rocephin) 2,000 mg in 50 mls @ 100 mls/hr IV Q24H JAMISON Stop: 04/04/25 12:59 Sodium Chloride (Nss) 1,000 mls @ 75 mls/hr IV .[id number] ONE Stop: 03/28/25 13:49 Last Admin: 03/27/25 23:52 Dose: 75 mls/hr Magnesium Hydroxide (Magnesium Hydroxide Susp 30 Ml Udc) 30 ml PO Q12H PRN PRN Reason: Constipation Stop: 04/26/25 18:32 Metoprolol Succinate (Metoprolol Succ 25mg Ext Rel Tab) 25 mg PO BID JAMISON Stop: 04/26/25 20:59 Last Admin: 03/27/25 21:29 Dose: 25 mg Ondansetron HCl (Ondansetron Inj 2 Mg/Ml 2 Ml Vial) 4 mg IV Q6H PRN PRN Reason: Nausea Stop: 04/26/25 18:32 Pantoprazole Sodium (Pantoprazole 40 Mg Tab) 40 mg PO DAILY [facility] Stop: 04/27/25 08:59 Polyethylene Glycol (Polyethylene (Miralax) 17 Gm Pack) 17 gm PO DAILY PRN PRN Reason: Constipation Stop: 04/26/25 18:32 Rosuvastatin Calcium (Rosuvastatin Calcium 5 Mg Tab) 5 mg PO DAILY JAMISON Stop: 04/27/25 08:59 Vitamin D (Cholecalciferol 25 Mcg (1000 Units) Tab) 50 mcg PO DAILY JAMISON Stop: 04/27/25 08:59
[2025-03-28] MEDS: ROSUVASTATIN CALCIUM 5 MG TAB PO SCH (09:08)
[2025-03-28] MEDS: CHOLECALCIFEROL 25 MCG (1000 UNITS) TAB PO SCH (09:09)
[2025-03-28] MEDS: FLUTICASONE PROPIONATE NA SPR 16 GM BTL SCH (09:10)
[2025-03-28] MEDS: HYDROmorphone INJ 0.5 MG/0.5 ML SYR IV PRN (12:30)
[2025-03-28] MEDS: POLYETHYLENE (MIRALAX) 17 GM PACK PO SCH (12:30)
[2025-03-28] MEDS: guaiFENesin 600 MG TABCR PO SCH (12:31)
[2025-03-28] MEDS: DOCUSATE SODIUM 100 MG CAP PO SCH (12:31)
[2025-03-28] MEDS: ASPIRIN 81 MG ECTAB PO SCH (12:32)
[2025-03-28] MEDS: CLOPIDOGREL BISULFATE 75 MG TAB PO SCH (12:32)
[2025-03-28] MEDS: cefTRIAXone SODIUM 2,000 MG/50 ML BAG IV SCH (13:58)
[2025-03-28] MEDS: POTASSIUM CHLORIDE / WTR 10 MEQ/100 ML PLCT IV SCH (13:58)
[2025-03-28] MEDS: SODIUM CHLORIDE 0.9% 1,000 ML IV SCH (13:58)
[2025-03-28] MEDS ORDERED: GLYCERIN ADULT 12 SUPP/BOX SUPP PR PRN (14:29)
[2025-03-28] MEDS ORDERED: HYDROmorphone INJ 0.5 MG/0.5 ML SYR IV PRN (14:29)
[2025-03-28 14:43] LABS: Appearance Urine Cloudy (Clear); Bacteria Urine Automated None Seen (None Seen); Epithelial Cell Urine Auto 0-2 /hpf (0-2); Glucose Urine UA Negative (Negative); RBC Urine Automated >20 /hpf (0-2); WBC Urine Automated >50 /hpf (0-5)
[2025-03-28] MEDS: METOCLOPRAMIDE HCL INJ 5 MG/ML 2 ML VIAL IV PRN (16:04)
[2025-03-28] MEDS: ACETAMINOPHEN 500 MG TAB PO PRN (20:48)
[2025-03-29 07:15] LABS: Hematocrit (blood only) 35.9 % (37.0-47.0); Hemoglobin 11.6 g/dL (12.0-16.0); Mean Corpuscular Hemoglobin 29.3 pg (25.0-34.0); Mean Corpuscular Volume 90.7 fL (80.0-100.0); Platelet Count 249 K/uL (130-400); RDW Standard Deviation 49.8 fL (36.4-46.3); Red Blood Count 3.96 M/uL (4.20-5.40); White Blood Count 8.57 K/ul (4.8-10.8)
[2025-03-29 07:34] LABS: Anion Gap 5.0 (3-11); Blood Urea Nitrogen 10.0 mg/dl (6-23); Calcium 7.9 mg/dl (8.6-10.3); Carbon Dioxide 28.0 mmol/L (21-32); Chloride 105.0 mmol/L (98-107); Creatinine Clr Calc Pharmacy 67.9 ml/min; Glucose 105.0 mg/dl (70-99(Fasting)); Magnesium 1.6 mg/dl (1.7-2.4); Potassium 3.6 mmol/L (3.5-5.1); Sodium 138.0 mmol/L (136-145)
--- NOTE | 2025-03-29 11:31 | Hospitalist Progress Note ---
<Statement entered by Bryan Harrison DO - 03/29/25 16:48> patient seen and examined Continue CTX for suspected pyelonephritis Bowel regimen for constipation. New O2 requirements with essentially unrevealing CXR Continue doxy. Even if there is underlying PNA not seen on CXR, CTX and doxy is appropriate coverage I spent a total of 25 minutes coordinating, documenting, and providing care for this patient excluding time spent in the performance of separately billed services. This included personally reviewing all current laboratories and imaging studies, medical reconciliation, outpatient chart review and discussion with specialists Date of Service March 29, 2025 Assessment & Plan (1) Urinary tract infection: (2) Sepsis: (3) Ureteral stent present: (4) Bronchitis: (5) H/O supraventricular tachycardia: Plan Patient is an 89-year-old female with past medical history significant for HLD, COPD, hiatal hernia, CAD, cerebrovascular disease with history of TIAs, history of paroxysmal SVT, chronic bilateral lower extremity edema, IBS, GERD, CKD stage IIIa, lichen sclerosus of vulva, osteoporosis, history of nonmelanoma skin cancer, idiopathic progressive polyneuropathy, thrombocytopenia, mild cognitive impairment, depression and anxiety who presented to the ED on 03/28/2025 with c/o abdominal pain. Complicated UTI 2/2 Left ureteral stent present in setting of sepsis s/p cystoscopy, left ureteral stent removal, left ureteroscopy, laser lithotripsy and left ureteral stent placement on 03/15/[address] Hill of [facility]; presented to [facility] on 03/23 w/ hypotension, tachycardia, weakness and unable to remove stent Met sepsis criteria (leukocytosis, tachycardia, elevated lactate) * Leukocytosis on admission WBC 15K and elevated lactate (2.4, 2.2, 1.2)-> WBC 8.57 K today; on Ceftriaxone now * UA +leuk esterase, WBC, bacteria via clean catch, asymptomatic-> initial urine culture negative; repeat straight cath yesterday per Dr. Hill request collected and pending * Had abdominal pain; CTAP revealed well positioned stent without hydronephrosis, mild inflammation of left renal collecting system could be postoperative vs early pyelonephritis * Continue Ceftriaxone for now until repeat urine culture results Today has 4/10 abd pain-> continue Tylenol and Dilaudid PRN for pain control Discharge planning: Anticipate d/c to home with family support; Appt on 04/06/[address] Hill for stent removal but only if no active infection Bronchitis vs possible PNA Patient reports acute worsening of wet productive cough over last 7 days Hypoxic in ED to 82% on RA-> placed on oxygen; now comfortable on 2-3 LPM; not oxygen dependent at home CXR without consolidation, with evidence of bronchitis; additional workup biofire and procalcitonin negative CTAP showing Atelectasis versus early pneumonia right lung base Sputum culture pending Continue doxycycline for CAP coverage Continue mucinex, ISP/FV, nebs PRN Wean O2 as able Tachycardia possibly 2/2 SVT with history of symptomatic tachycardia Short run of PAT on tele this admission Per outside record, history exertional dyspnea with tachycardia; Zio monitoring outpatient showed a run of Vtach as well as SVT and trigeminy Metoprolol XR dosing increased outpatient with minimal improvement in symptoms Metoprolol has been held d/t hypotension this admission; heart rates 94-107 in past 24 hours; will resume metoprolol 25 mg XL today; BP's stable now 116/70 CAD History of CVA/TIA Continue aspirin, Plavix, statin CKD stage IIIa Baseline creatinine 0.7-1 as per records Avoid nephrotoxic agents as able Monitor renal function Constipation Last BM 03/23 per patient Start bowel regimen with scheduled docusate and miralax Glycerin supp PRN Anxiety/depression Continue Lexapro GERD Continue PPI DVT Prophylaxis: SQ Heparin Code Status: FULL CODE PCP: Fermin Mcgarry MD Disposition: PT/OT recs dc back to home with assistance of daughter Patient seen in collaboration with Dr. Harrison. Please see addendum. I spent a total of 45 minutes coordinating, documenting and providing care for this patient excluding time spent in the performance of separately billed services or time spent by another provider/QHP. Admission and Anticipated Discharge Date Admission Date: March 27, 2025 Subjective Patient seen and examined at bedside. Daughter, Deepthi, at bedside. Patient was sleeping upon my arrival on 3LPM oxygen support and in NAD. Reporting abdominal pain to RLQ 4/10, constant. Reports not having a bowel movement since receiving miralax this admission. Also with shortness of breath that she feels is no different than baseline but does not have oxygen at home; per the patient's daughter, patient has a hiatal hernia that pushes into the lungs causing shortness of breath. Has a wet, nonproductive cough today that started a few days ago. Patient has been off lasix for about 3 weeks, stopped by PCP for concerns of weight loss ~5lbs as per family report. Family Review of Systems Review of Systems: All systems reviewed & are unremarkable except as noted in Subjective Physical Exam Physical Exam: VITALS: Reviewed. WEIGHT/BMI reviewed. GEN: Healthy appearing, well-developed, NAD. PSYCH: Mildly confused. AOx3. Even mood. Not agitated. HEENT -Head: NC/AT; -Eyes: PERRL, EOMI. No discharge or redn ess; -Ears: External ears are normal. -Nose: Normal nares. -Mouth and throat: MMM. Normal gums, muc tiago, palate,. Good dentition. NECK: Supple, with no masses. CV: Tachycardic, systolic murmur to left sternal border, rhythm regular LUNGS: Coarse to bilateral bases with intermittent exp wheeze, 3LPM supplemental oxygen ABD: Soft, NT/ND, NBS, no masses or organomegaly. : N/A SKIN: Warm, well perfused. Multiple keratotic lesions. MSK: No deformities, Diminished strength to lower legs EXT: No clubbing, cyanosis, or edema. NEURO: CN II-XII grossly intact. Hard of hearing. No focal deficits. Results & Data Results & Data Vital Signs (Past 12 Hours) Vital Signs Temp Pulse Pulse Resp BP Pulse Ox O2 Del Method 03/29/25 08:22 36.7 C 103 H 18 116/70 96 Nasal Cannula 03/29/25 08:00 Nasal Cannula 03/29/25 03:41 36.6 C 92 H 18 102/62 93 Nasal Cannula 03/29/25 02:02 101 H 03/28/25 23:19 36.7 C 99 H 18 101/62 96 Nasal Cannula O2 Flow Rate 03/29/25 08:22 3.0 03/29/25 08:00 3 03/29/25 03:41 2 03/29/25 02:02 03/28/25 23:19 3 Laboratory Results Short CBC 03/29/25 Range/Units 06:49 WBC 8.57 (4.8-10.8) K/ul Hgb 11.6 L (12.0-16.0) g/dL Hct 35.9 L (37.0-47.0) % Plt Count 249 (130-400) K/uL BMP 03/29/25 06:49 Sodium 138 Potassium 3.6 Chloride 105 Carbon Dioxide 28 BUN 10 Creatinine 0.63 Glucose 105 H Calcium 7.9 L Urine 03/28/25 Range/Units 13:42 Urine Color Dark Yellow Urine Appearance Cloudy A (Clear) Urine pH 5.5 (4.5-7.5) Ur Specific [place] 1.036 H (1.000-1.030) Urine Protein 2+ H (Negative) Urine Glucose (UA) Negative (Negative)
[2025-03-29] MEDS: HYDROmorphone INJ 0.5 MG/0.5 ML SYR IV PRN (22:09)
[2025-03-30 06:34] LABS: Hematocrit (blood only) 38.7 % (37.0-47.0); Hemoglobin 12.4 g/dL (12.0-16.0); Mean Corpuscular Hemoglobin 29.5 pg (25.0-34.0); Mean Corpuscular Volume 91.9 fL (80.0-100.0); Platelet Count 277 K/uL (130-400); RDW Standard Deviation 50.1 fL (36.4-46.3); Red Blood Count 4.21 M/uL (4.20-5.40); White Blood Count 6.38 K/ul (4.8-10.8)
[2025-03-30 06:52] LABS: Anion Gap 5.0 (3-11); Blood Urea Nitrogen 8.0 mg/dl (6-23); Calcium 8.6 mg/dl (8.6-10.3); Carbon Dioxide 32.0 mmol/L (21-32); Chloride 102.0 mmol/L (98-107); Creatinine Clr Calc Pharmacy 66.7 ml/min; Glucose 105.0 mg/dl (70-99(Fasting)); Magnesium 1.7 mg/dl (1.7-2.4); Potassium 3.6 mmol/L (3.5-5.1); Sodium 139.0 mmol/L (136-145)
--- NOTE | 2025-03-30 07:32 | Hospitalist Progress Note ---
<Statement entered by Bryan Harrison, - 03/30/25 18:49> Seen and examined Agree with NATE I spent a total of 24 minutes coordinating, documenting, and providing care for this patient excluding time spent in the performance of separately billed services. This included personally reviewing all current laboratories and imaging studies, medical reconciliation, outpatient chart review and discussion with specialists D/w patient and daughter at bedside. CT chest reviewed, atelectasis vs PNA. Already on CAP coverage. weaning O2 Date of Service March 30, 2025 Assessment & Plan (1) Urinary tract infection: (2) Sepsis: (3) Ureteral stent present: (4) Bronchitis: (5) H/O supraventricular tachycardia: Plan Patient is an 89-year-old female with past medical history significant for HLD, COPD, hiatal hernia, CAD, cerebrovascular disease with history of TIAs, history of paroxysmal SVT, chronic bilateral lower extremity edema, IBS, GERD, CKD stage IIIa, lichen sclerosus of vulva, osteoporosis, history of nonmelanoma skin cancer, idiopathic progressive polyneuropathy, thrombocytopenia, mild cognitive impairment, depression and anxiety who presented to the ED on 03/28/2025 with c/o abdominal pain. Complicated UTI 2/2 Left ureteral stent present in setting of sepsis s/p cystoscopy, left ureteral stent removal, left ureteroscopy, laser lithotripsy and left ureteral stent placement on 03/15/[address] Hill of [facility]; presented to [facility] on 03/23 w/ hypotension, tachycardia, weakness and unable to remove stent Met sepsis criteria (leukocytosis, tachycardia, elevated lactate) * Leukocytosis on admission WBC 15K and elevated lactate -> WBC 6.38 K today; will transition from IV Ceftriaxone to Cefdinir today * UA +leuk esterase, WBC, bacteria via clean catch, asymptomatic-> initial urine culture negative; repeat straight cath yesterday per Dr. Hill request collected and pending * Had abdominal pain; CTAP revealed well positioned stent without hydronephrosis, mild inflammation of left renal collecting system could be postoperative vs early pyelonephritis * Preliminary urine culture from 03/28 with no growth Today has 4/10 abd pain-> continue Tylenol and Dilaudid PRN for pain control Discharge planning: Anticipate d/c to home with family support; Appt on 04/06/[address] Hill for stent removal but only if no active infection Bronchitis vs possible PNA Hypoxic in ED to 82% on RA-> placed on oxygen; now comfortable on 2-3 LPM; not oxygen dependent at home-> CT chest today showing increased consolidation to BL lung bases; CXR from admission without consolidation, with evidence of bronchitis; additional workup Biofire and procalcitonin negative CTAP showing Atelectasis versus early pneumonia right lung base Sputum culture pending, gram stain showing Moderate Gram Positive Cocci Continue doxycycline for CAP coverage; WBC trending down Continue mucinex, ISP/FV, nebs PRN Wean O2 as able; now at 2LPM may need home oxygen at d/c Tachycardia possibly 2/2 SVT with history of symptomatic tachycardia Short run of PAT on tele this admission Per outside record, history exertional dyspnea with tachycardia; Zio monitoring outpatient showed a run of Vtach as well as SVT and trigeminy Metoprolol XR dosing increased outpatient with minimal improvement in symptoms Metoprolol has been held d/t hypotension this admission; heart rates improving; continue metoprolol 25 mg XL; BP's stable now 107/62 CAD History of CVA/TIA CT chest findings from today showing coronary artery calcifications- patient on statin Continue aspirin, Plavix, statin CKD stage IIIa Baseline creatinine 0.7-1 as per records Avoid nephrotoxic agents as able Monitor renal function Constipation Last BM 03/23 per patient Start bowel regimen with scheduled docusate and miralax Glycerin supp PRN Anxiety/depression Continue Lexapro GERD Continue PPI DVT Prophylaxis: SQ Heparin Code Status: FULL CODE PCP: Fermin Mcgarry MD Disposition: PT/OT recs dc back to home with assistance of daughter Patient seen in collaboration with Dr. Harrison. Please see addendum. I spent a total of 45 minutes coordinating, documenting and providing care for this patient excluding time spent in the performance of separately billed services or time spent by another provider/QHP. Admission and Anticipated Discharge Date Admission Date: March 27, 2025 Subjective Patient seen and examined at bedside. Daughter, Deepthi, at bedside. Patient awake and alert, eating breakfast and NAD. Supplemental oxygen weaned to 2 LPM this morning with plan to continue weaning as tolerated. Discussed plan for CT chest today for ongoing hypoxia in the setting of improved bronchitis pneumonia. Patient continues to have a wet, nonproductive cough. Patient has been off lasix for about 3 weeks, stopped by PCP for concerns of weight loss ~5lbs as per family report. Also discussed morning labs with improved white blood cell count indicating positive clinical response to antibiotics; will transition to oral antibiotics today. Preliminary urine culture negative. Patient and her daughter agreeable to plan. Patient continued to report abdominal pain to RLQ 2-4/10, intermittent today, responding well to acetaminophen. Review of Systems Review of Systems: All systems reviewed & are unremarkable except as noted in Subjective Physical Exam Physical Exam: VITALS: Reviewed. WEIGHT/BMI reviewed. GEN: Healthy appearing, well-developed, NAD. PSYCH: AOx3. Even mood. HEENT -Head: NC/AT; -Eyes: PERRL, EOMI. No discharge or redn ess; -Ears: External ears are normal. -Nose: Normal nares. -Mouth and throat: MMM. Normal gums, muc tiago, palate,. Good dentition. NECK: Supple, with no masses. CV: Tachycardic, systolic murmur to left sternal border, rhythm regular LUNGS: Coarse to bilateral bases with intermittent exp wheeze, 2LPM supplemental oxygen ABD: Soft, NT/ND, NBS, no masses or organomegaly. : N/A SKIN: Warm, well perfused. Multiple keratotic lesions. MSK: No deformities, Diminished strength to lower legs 2/5 EXT: No clubbing, cyanosis, or edema. NEURO: CN II-XII grossly intact. Hard of hearing. No focal deficits. Results & Data Results & Data Vital Signs (Past 12 Hours) Vital Signs Temp Pulse Pulse Resp BP Pulse Ox O2 Del Method 03/30/25 07:24 37.5 C 104 H 19 99/59 L 96 Nasal Cannula 03/30/25 04:35 37.4 C 101 H 18 110/66 98 Nasal Cannula 03/30/25 00:31 36.9 C 95 H 16 95/57 L 98 Nasal Cannula 03/29/25 21:35 100 H 03/29/25 21:00 Nasal Cannula 03/29/25 20:18 37.1 C 100 H 18 114/67 98 Nasal Cannula O2 Flow Rate 03/30/25 07:24 3 03/30/25 04:35 3 03/30/25 00:31 3 03/29/25 21:35 03/29/25 21:00 3 03/29/25 20:18 3 Laboratory Results Short CBC 03/30/25 Range/Units 05:37 WBC 6.38 (4.8-10.8) K/ul Hgb 12.4 (12.0-16.0) g/dL Hct 38.7 (37.0-47.0) % Plt Count 277 (130-400) K/uL BMP 03/30/25 05:37 Sodium 139 Potassium 3.6 Chloride 102 Carbon Dioxide 32 BUN 8 Creatinine 0.64 Glucose 105 H Calcium 8.[address] 03/30/25 07:46 CT chest diagnostic wo con CT DOSE: 775.54 mGy.cm CLINICAL HISTORY: hypoxia. TECHNIQUE: Multiaxial CT images of the chest were performed without contrast. A dose lowering technique was utilized adhering to the principles of ALARA. COMPARISON STUDY: Chest x-ray of 03/27/[address] of 03/27/2025 FINDINGS: There is a very large hiatal hernia with the entire stomach above the diaphragm. There are secretions in some of the right lower lobe bronchi. There is a moderate sized area of bandlike consolidation medial lower right lower lobe and mild to moderate bandlike consolidation medial left lower lobe, progressive, atelectasis versus pneumonia. No pleural effusion or pneumothorax. No enlarged adenopathy. There are diffuse coronary artery calcifications. No pericardial effusion. There is osteopenia. There is mild chronic-appearing height loss in a few thoracic vertebral bodies. No acute osseous findings seen. IMPRESSION: 1. Very large hiatal hernia. 2. Increased consolidation in the lung bases could represent atelectasis or pneumonia. No pleural effusion or pneumothorax seen. 3. Otherwise as described. ACT 112: Negative or not required by law. Electronically signed by: Luis Malone M.D. 03/30/2025 10:07 AM
[2025-03-30] MEDS: CEFDINIR 300 MG CAP PO SCH (08:19)
--- NOTE | 2025-03-30 10:10 | CT Scan Report ---
CT chest diagnostic wo con CT DOSE: 775.54 mGy.cm CLINICAL HISTORY: hypoxia. TECHNIQUE: Multiaxial CT images of the chest were performed without contrast. A dose lowering techni que was utilized adhering to the principles of ALARA. COMPARISON STUDY: Chest x-ray of 03/27/[address] of 03/27/2025 FINDINGS: There is a very large hiatal hernia with the entire stomach above the diaphragm. There are secretions in some of the right lower lobe bronchi. There is a moderate sized area of bandlike consol idation medial lower right lower lobe and mild to moderate bandlike consolidation medial left lower l obe, progressive, atelectasis versus pneumonia. No pleural effusion or pneumothorax. No enlarged isa opathy. There are diffuse coronary artery calcifications. No pericardial effusion. There is osteopeni a. There is mild chronic-appearing height loss in a few thoracic vertebral bodies. No acute osseous f indings seen. IMPRESSION: 1. Very large hiatal hernia. 2. Increased consolidation in the lung bases could represent atelectasis or pneumonia. No pleural eff usion or pneumothorax seen. 3. Otherwise as described. ACT 112: Negative or not required by law. Electronically signed by: Luis Malone M.D. 03/30/2025 10:07 AM
[2025-03-30] MEDS: ALBUT/IPRATROP 3MG/0.5MG NEB 3 ML VIAL NEB PRN (20:22)
[2025-03-31 05:25] LABS: Hematocrit (blood only) 36.8 % (37.0-47.0); Hemoglobin 12.2 g/dL (12.0-16.0); Mean Corpuscular Hemoglobin 29.7 pg (25.0-34.0); Mean Corpuscular Volume 89.5 fL (80.0-100.0); Platelet Count 259 K/uL (130-400); RDW Standard Deviation 47.6 fL (36.4-46.3); Red Blood Count 4.11 M/uL (4.20-5.40); White Blood Count 6.38 K/ul (4.8-10.8)
[2025-03-31 05:41] LABS: Anion Gap 3.0 (3-11); Blood Urea Nitrogen 9.0 mg/dl (6-23); Calcium 8.7 mg/dl (8.6-10.3); Carbon Dioxide 33.0 mmol/L (21-32); Chloride 103.0 mmol/L (98-107); Creatinine Clr Calc Pharmacy 69.2 ml/min; Glucose 99.0 mg/dl (70-99(Fasting)); Potassium 3.7 mmol/L (3.5-5.1); Sodium 139.0 mmol/L (136-145)
[2025-03-31] MEDS: cefTRIAXone SODIUM 1,000 MG/50 ML BAG IV SCH (08:09)
--- NOTE | 2025-03-31 09:24 | Hospitalist Progress Note ---
<Statement entered by Bryan Harrison, DO - 03/31/25 14:47> Improving[address] CT showing likely atelectasis. Down to 1 L this AM. will continue to use IS. d/w daughter at bedside as well Patient seen and examined Agree with NATE I spent a total of 21 minutes coordinating, documenting, and providing care for this patient excluding time spent in the performance of separately billed services. This included personally reviewing all current laboratories and imaging studies, medical reconciliation, outpatient chart review and discussion with specialists Date of Service March 31, 2025 Assessment & Plan (1) Urinary tract infection: (2) Sepsis: (3) Ureteral stent present: (4) Bronchitis: (5) H/O supraventricular tachycardia: Plan Patient is an 89-year-old female with past medical history significant for HLD, COPD, hiatal hernia, CAD, cerebrovascular disease with history of TIAs, history of paroxysmal SVT, chronic bilateral lower extremity edema, IBS, GERD, CKD stage IIIa, lichen sclerosus of vulva, osteoporosis, history of nonmelanoma skin cancer, idiopathic progressive polyneuropathy, thrombocytopenia, mild cognitive impairment, depression and anxiety who presented to the ED on 03/28/2025 with c/o abdominal pain. Complicated UTI 2/2 Left ureteral stent present in setting of sepsis s/p cystoscopy, left ureteral stent removal, left ureteroscopy, laser lithotripsy and left ureteral stent placement on 03/15/[address] Hill of [facility]; presented to [facility] on 03/23 w/ hypotension, tachycardia, weakness and unable to remove stent Met sepsis criteria (leukocytosis, tachycardia, elevated lactate) * Leukocytosis on admission WBC 15K and elevated lactate -> WBC 6.38 K today; on Cefdinir day 4 antibiotics * UA +leuk esterase, WBC, bacteria via clean catch, asymptomatic-> initial urine culture negative; repeat straight cath yesterday per Dr. Hill request collected and pending * Had abdominal pain; CTAP revealed well positioned stent without hydronephrosis, mild inflammation of left renal collecting system could be postoperative vs early pyelonephritis * Final result urine culture from 03/28 with dorina glabrata Today no abd pain-> continue Tylenol PRN for pain control Discharge planning: Anticipate d/c to home with family support; Appt on 04/06/[address] Hill for stent removal but only if no active infection Bronchitis vs possible PNA Hypoxic in ED to 82% on RA-> placed on oxygen here; not oxygen dependent at home-> CT chest yesterday showing increased consolidation to BL lung bases; previous imaging via CTAP showing atelectasis versus early pneumonia right lung base Sputum culture pending, gram stain showing Moderate Gram Positive Cocci Continue doxycycline for CAP coverage day 4 Continue mucinex, ISP/FV, nebs PRN Wean O2 as able; now at 1LPM overnight and room air at rest; 2 minute walk test today Tachycardia possibly 2/2 SVT with history of symptomatic tachycardia Short run of PAT on tele this admission Per outside record, history exertional dyspnea with tachycardia; Zio monitoring outpatient showed a run of Vtach as well as SVT and trigeminy Metoprolol XR dosing increased outpatient with minimal improvement in symptoms Metoprolol has been held d/t hypotension this admission; heart rates improving; continue metoprolol 25 mg XL; BP's stable now 107/62 CAD History of CVA/TIA CT chest findings from today showing coronary artery calcifications- patient on statin Continue aspirin, Plavix, statin CKD stage IIIa Baseline creatinine 0.7-1 as per records Avoid nephrotoxic agents as able Monitor renal function Constipation Last BM 03/23 per patient Start bowel regimen with scheduled docusate and miralax Glycerin supp PRN Anxiety/depression Continue Lexapro GERD Continue PPI DVT Prophylaxis: SQ Heparin Code Status: FULL CODE PCP: Fermin Mcgarry MD Disposition: PT/OT recs dc back to home with assistance of daughter Patient seen in collaboration with Dr. Harrison. Please see addendum. I spent a total of 40 minutes coordinating, documenting and providing care for this patient excluding time spent in the performance of separately billed services or time spent by another provider/QHP. Admission and Anticipated Discharge Date Admission Date: March 27, 2025 Subjective Patient seen and examined at bedside. Daughter, Deepthi, at bedside. Patient awake and alert, off oxygen, NAD, and using IS with productive cough. Supplemental oxygen weaned to 1 LPM overnight. Discussed plan to do 2 minute walk test today for home oxygen need; patient and daughter agreeable to the plan. Reporting shortness of breath at times, but contributes symptoms to having a hiatal hernia. Patient without abdominal pain today. Overall, she feels better and reporting she feels frustrated, mostly because she wants to rest without interruption. Discussed clinical improvement in symptoms and possible discharge tomorrow. Goal is to be off oxygen for discharge to home. Denies headache, dizziness, chest pain, palpitations, breathing difficulty, nausea, abdominal pain. Review of Systems Review of Systems: All systems reviewed & are unremarkable except as noted in Subjective Physical Exam Physical Exam: VITALS: Reviewed. WEIGHT/BMI reviewed. GEN: Healthy appearing, well-developed, NAD. PSYCH: AOx3. Even mood. HEENT -Head: NC/AT; -Eyes: PERRL, EOMI. No discharge or redn ess; -Ears: External ears are normal. -Nose: Normal nares. -Mouth and throat: MMM. Normal gums, muc tiago, palate,. Good dentition. NECK: Supple, with no masses. CV: Tachycardic, systolic murmur to left sternal border, rhythm regular LUNGS: Coarse to bilateral bases, NAD on room air, productive cough ABD: Soft, NT/ND, NBS, no masses or organomegaly. : N/A SKIN: Warm, well perfused. Multiple keratotic lesions. MSK: No deformities, Diminished strength to lower legs 3/5 EXT: No clubbing, cyanosis, or edema. NEURO: CN II-XII grossly intact. Hard of hearing. No focal deficits. Results & Data Results & Data Vital Signs (Past 12 Hours) Vital Signs Temp Pulse Pulse Resp BP Pulse Ox O2 Del Method 03/31/25 08:17 Nasal Cannula 03/31/25 07:58 36.6 C 88 19 114/71 96 Nasal Cannula 03/31/25 03:00 36.9 C 89 15 106/67 96 Nasal Cannula 03/30/25 22:27 36.8 C 89 20 111/71 94 Nasal Cannula 03/30/25 22:09 90 O2 Flow Rate 03/31/25 08:17 1 03/31/25 07:58 1 03/31/25 03:00 1 03/30/25 22:27 1 03/30/25 22:09 Laboratory Results Short CBC 03/31/25 Range/Units 05:07 WBC 6.38 (4.8-10.8) K/ul Hgb 12.2 (12.0-16.0) g/dL Hct 36.8 L (37.0-47.0) % Plt Count 259 (130-400) K/uL [facility] 03/31/25 05:07 Sodium 139 Potassium 3.7 Chloride 103 Carbon Dioxide 33 H BUN 9 Creatinine 0.62 Glucose 99 Calcium 8.7
[2025-03-31] MEDS ORDERED: ACETAMINOPHEN 325 MG TAB PO PRN (09:25)
[2025-04-01 06:31] LABS: Hematocrit (blood only) 36.7 % (37.0-47.0); Hemoglobin 12.1 g/dL (12.0-16.0); Mean Corpuscular Hemoglobin 29.2 pg (25.0-34.0); Mean Corpuscular Volume 88.4 fL (80.0-100.0); Platelet Count 256 K/uL (130-400); RDW Standard Deviation 46.8 fL (36.4-46.3); Red Blood Count 4.15 M/uL (4.20-5.40); White Blood Count 5.39 K/ul (4.8-10.8)
[2025-04-01 07:40] LABS: Anion Gap 8.0 (3-11); Blood Urea Nitrogen 7.0 mg/dl (6-23); Calcium 8.6 mg/dl (8.6-10.3); Carbon Dioxide 30.0 mmol/L (21-32); Chloride 102.0 mmol/L (98-107); Creatinine Clr Calc Pharmacy 80.2 ml/min; Glucose 97.0 mg/dl (70-99(Fasting)); Potassium 3.5 mmol/L (3.5-5.1); Sodium 140.0 mmol/L (136-145)
--- NOTE | 2025-04-01 09:46 | Hospitalist Progress Note ---
<Statement entered by Bryan Harrison, - 04/01/25 13:12> off O2. feeling well without complaints. Family will be able to take her home tomorrow Patient seen and examined Agree with NATE I spent a total of 25 minutes coordinating, documenting, and providing care for this patient excluding time spent in the performance of separately billed services. This included personally reviewing all current laboratories and imaging studies, medical reconciliation, outpatient chart review and discussion with specialists Date of Service April 01, 2025 Assessment & Plan (1) Urinary tract infection: (2) Sepsis: (3) Ureteral stent present: (4) Bronchitis: (5) H/O supraventricular tachycardia: Plan Patient is an 89-year-old female with past medical history significant for HLD, COPD, hiatal hernia, CAD, cerebrovascular disease with history of TIAs, history of paroxysmal SVT, chronic bilateral lower extremity edema, IBS, GERD, CKD stage IIIa, lichen sclerosus of vulva, osteoporosis, history of nonmelanoma skin cancer, idiopathic progressive polyneuropathy, thrombocytopenia, mild cognitive impairment, depression and anxiety who presented to the ED on 03/28/2025 with c/o abdominal pain. Complicated UTI 2/2 Left ureteral stent present in setting of sepsis s/p cystoscopy, left ureteral stent removal, left ureteroscopy, laser lithotripsy and left ureteral stent placement on 03/15/[address] Hill of [facility]; presented to [facility] on 03/23 w/ hypotension, tachycardia, weakness and unable to remove stent Met sepsis criteria (leukocytosis, tachycardia, elevated lactate) * Leukocytosis on admission WBC 15K and elevated lactate -> WBC 6.38 K today; on Cefdinir day 5-> continue for 2 more days * UA +leuk esterase, WBC, bacteria via clean catch, asymptomatic-> initial urine culture negative; repeat straight cath yesterday per Dr. Hill request collected and pending * Had abdominal pain; CTAP revealed well positioned stent without hydronephrosis, mild inflammation of left renal collecting system could be postoperative vs early pyelonephritis * Final result urine culture from 03/28 with dorina glabrata Today no abd pain-> continue Tylenol PRN for pain control Discharge planning: Attempt to D/C to home tomorrow in daughter's care; Appt on 04/06/[address] Hill for stent removal but only if no active infection Bronchitis vs possible PNA Hypoxic in ED to 82% on RA-> placed on oxygen here; not oxygen dependent at home-> CT chest yesterday showing increased consolidation to BL lung bases; previous imaging via CTAP showing atelectasis versus early pneumonia right lung base Sputum culture normal, gram stain showing Moderate Gram Positive Cocci Continue doxycycline for CAP coverage day 5-> continue for 2 more days Continue mucinex, ISP/FV, nebs PRN On room air at rest; 2 minute walk test yesterday with stable sats; medically stable for discharge; will reevaluate tomorrow Tachycardia possibly 2/2 SVT with history of symptomatic tachycardia Short run of PAT on tele this admission Per outside record, history exertional dyspnea with tachycardia; Zio monitoring outpatient showed a run of Vtach as well as SVT and trigeminy Metoprolol XR dosing increased outpatient with minimal improvement in symptoms Metoprolol has been held d/t hypotension this admission; heart rates improving; continue metoprolol 25 mg XL; BP's stable now 107/62 CAD History of CVA/TIA CT chest findings from today showing coronary artery calcifications- patient on statin Continue aspirin, Plavix, statin CKD stage IIIa Baseline creatinine 0.7-1 as per records Avoid nephrotoxic agents as able Monitor renal function Constipation Last BM 03/23 per patient Start bowel regimen with scheduled docusate and miralax Glycerin supp PRN Anxiety/depression Continue Lexapro GERD Continue PPI DVT Prophylaxis: SQ Heparin Code Status: FULL CODE PCP: Fermin Mcgarry MD Disposition: PT/OT recs dc back to home with assistance of daughter Patient seen in collaboration with Dr. Harrison. Please see addendum. I spent a total of 40 minutes coordinating, documenting and providing care for this patient excluding time spent in the performance of separately billed services or time spent by another provider/QHP. Admission and Anticipated Discharge Date Admission Date: March 27, 2025 Subjective Patient seen and examined at bedside. Patient awake and alert, off oxygen, NAD. Was on room air overnight and without shortness of breath when walking to the bathroom. She has been feeling better, and was prepared for possible discharge today, but this morning has a headache and reports "just not feeling right today". Feels chilly and without fever or vital sign changes.Discussed seeing how she feels throughout the day and possible d/c to home tomorrow. Denies dizziness, chest pain, palpitations, breathing difficulty, nausea, abdominal pain. Review of Systems Review of Systems: All systems reviewed & are unremarkable except as noted in Subjective Physical Exam Physical Exam: VITALS: Reviewed. WEIGHT/BMI reviewed. GEN: Healthy appearing, well-developed, NAD. PSYCH: AOx3. Even mood. HEENT -Head: NC/AT; -Eyes: PERRL, EOMI. No discharge or redn ess; -Ears: External ears are normal. -Nose: Normal nares. -Mouth and throat: MMM. Normal gums, muc tiago, palate,. Good dentition. NECK: Supple, with no masses. CV: Tachycardic, systolic murmur to left sternal border, rhythm regular LUNGS: Fine crackles to bilateral bases, good air flow, NAD on room air, productive cough ABD: Soft, NT/ND, NBS, no masses or organomegaly. : N/A SKIN: Warm, well perfused. Multiple keratotic lesions. MSK: No deformities, Diminished strength to lower legs 3/5 EXT: No clubbing, cyanosis, or edema. NEURO: CN II-XII grossly intact. Hard of hearing. No focal deficits. Results & Data Results & Data Vital Signs (Past 12 Hours) Vital Signs Temp Pulse Pulse Resp BP Pulse Ox O2 Del Method 04/01/25 08:46 Room Air 04/01/25 07:25 36.8 C 85 16 119/72 91 Room Air 04/01/25 02:58 36.9 C 84 16 122/76 92 Room Air 03/31/25 22:33 36.8 C 89 15 127/75 95 Room Air 03/31/25 22:30 87 Laboratory Results Short CBC 04/01/25 Range/Units 05:54 WBC 5.39 (4.8-10.8) K/ul Hgb 12.1 (12.0-16.0) g/dL Hct 36.7 L (37.0-47.0) % Plt Count 256 (130-400) K/uL [facility] 04/01/25 05:54 Sodium 140 Potassium 3.5 Chloride 102 Carbon Dioxide 30 BUN 7 Creatinine 0.54 L Glucose 97 Calcium 8.6
[2025-04-01] MEDS: TROLAMINE SALICYLATE 10% CRM 255 APPLN/85 GM TUBE EXT PRN (18:03)
[2025-04-02] MEDS: DOXYCYCLINE HYCLATE 100 MG CAP PO SCH (08:21)
--- NOTE | 2025-04-02 08:32 | Discharge Summary ---
<Statement entered by Bryan Harrison, - 04/02/25 15:30> Feeling well and eager to go home. denies any complaints. She has an OP urology appt later this week at [facility] Seen and examined I spent a total of 21 minutes coordinating, documenting, and providing care for this patient excluding time spent in the performance of separately billed services. This included personally reviewing all current laboratories and imaging studies, medical reconciliation, outpatient chart review and discussion with specialists Discharge Summary Date of Service April 02, 2025 Principal Dx & Hospital Course #1 = Principal Diagnosis (1) Urinary tract infection: (2) Sepsis: (3) Ureteral stent present: (4) Bronchitis: (5) H/O supraventricular tachycardia: Plan Patient is an 89-year-old female with past medical history significant for HLD, COPD, hiatal hernia, CAD, cerebrovascular disease with history of TIAs, history of paroxysmal SVT, chronic bilateral lower extremity edema, IBS, GERD, CKD stage IIIa, lichen sclerosus of vulva, osteoporosis, history of nonmelanoma skin cancer, idiopathic progressive polyneuropathy, thrombocytopenia, mild cognitive impairment, depression and anxiety who presented to the ED on 03/27/25 with c/o abdominal pain. Severe sepsis, resolved 2/2 below; met criteria on admission 2/2 leukocytosis, tachycardia, lactic acidosis and active source(s). Infectious etiologies including UTI, possible pyelonephritis seen on CTAP, acute bronchitis vs. possible PNA seen on CTAP. Now resolved s/p IVF and ABX administration, as per below. Hemodynamically stable, afebrile on day of DC. Complicated UTI ISO left ureteral stent placement History of nephrolithiasis and left hydronephrosis s/p recent stent exchange S/p cystoscopy, left ureteral stent removal, left ureteroscopy, laser lithotripsy and left ureteral stent placement on 03/15/25 at [facility]. Returned back to [facility] on 03/23/25 for left ureteral stent removal. Left ureteral stent was not removed on 03/23/25 due to hypotension, tachycardia and weakness. UA on admission c/f infection given 2+ LE, >50 WBC, 1+ bacteria. CTAP on admission revealed well positioned left ureteral stent with mild inflammation of the left renal collecting system c/f early pyelonephritis vs. postoperative changes. Initially started on IV Rocephin on admission. Initial urine culture negative. Repeat straight cath urine culture obtained 03/28 per request of primary [facility] urologist, Dr. Hill. Repeat urine culture grew Aleja glabrata. Blood cultures negative. Transitioned to po Omnicef on 03/30/25. Set to complete full 7-day course. Appt scheduled for left ureteral stent removal on 04/06/[address] Hill at [facility]. -Spoke with pt's daughter, Edilma, this morning @ [phone]. -Edilma to call primary urologist's office today regarding whether or not pt needs to hold DAPT prior to her appt. Acute bronchitis vs. possible PNA Acute hypoxia 2/2 above, resolved P/w productive cough, mild SOB x approximately 1wk. Was hypoxic in ED down to 82% on RA, required 2-3L NC. Placed on supplemental O2 here; not O2 dependent TECHNICAL SME. Respiratory BioFire panel negative. CXR on 03/27 without evidence of any acute findings. Chest CT on 03/30 with increased consolidation in the lung bases which could represent atelectasis vs. PNA. Sputum culture obtained and grew light normal jeffrey. Doubt PNA, possible COPD exacerbation vs. acute bronchitis with component of compressive atelectasis given history of a large hiatal hernia. Was started on ISP, Mucinex, PRN nebs and po doxycycline with significant improvement in sx. Was successfully weaned off of supplemental O2 on 03/31. 2-minute walk test completed on 03/31 with stable sats. Remains on RA with stable O2 sat in the 90s at rest during DC exam. Set to complete 7-day course of doxycycline to cover for possible CAP. Short run of PAT on telemetry this admission History of paroxysmal SVT and symptomatic tachycardia Per outside records, history exertional dyspnea with tachycardia. Zio Patch monitoring as an outpatient showed a run of Vtach as well as SVT and trigeminy. Toprol-XL dosing increased outpatient with minimal improvement in symptoms. Toprol-XL had been held earlier this admission 2/2 hypotension. HR and BP now stable with reinitiation of Toprol-XL 25mg BID, continue on DC. Chronic BLE edema, L>R Remains grossly unchanged from baseline, has been off Lasix 2/2 hypotension. Continue to hold Lasix on discharge as BP remains soft, can readdress on outpatient basis >> discussed with pt's daughter. CAD Cerebrovascular disease with history of TIAs Continue aspirin, Plavix and statin therapy. CKD stage IIIa Cr remained stable during hospitalization, baseline creatinine 0.7-1 as per records. Continue routine outpatient renal function monitoring with avoidance of nephrotoxic agents as able. Anxiety/depression Continue Lexapro. GERD Continue PPI. PCP: Fermin Mcgarry MD Disposition: Pt is being DC'd home in stable condition with PCP and urology f/u appts. Pt's daughter, Edilma, updated on the above plans of care on day of DC. Patient seen in collaboration with Dr. Harrison. Please see addendum. I spent a total of 56 minutes coordinating, documenting, and providing care for this patient excluding time spent in the performance of separately billed services or time spent by another provider/QHP. This included personally reviewing all current laboratories and imaging studies, medical reconciliation, outpatient chart review and discussion with specialists. This chart was completed in part utilizing Speech Voice Recognition Software. Grammatical errors, random word insertions, pronoun errors, and incomplete sentences are an occasional consequence of this system due to software limitations, ambient noise, and hardware issues. Any formal questions or concerns about the content, text, or information contained within the body of this dictation should be directly addressed to the provider for clarification. Notes For Next Care Provider Will need to consider restarting po Lasix for chronic BLE edema; medication placed on hold 2/2 hypotension. Medication Changes From Visit Omnicef and doxycycline Admission HPI Per Admitting Provider Patient is an 89-year-old female with past medical history significant for HLD, COPD, diaphragmatic hernia, CAD, cerebrovascular disease with history of TIAs, history of paroxysmal SVT, chronic bilateral lower extremity edema, IBS, GERD, CKD stage IIIa, lichen sclerosus of vulva, osteoporosis, history of nonmelanoma skin cancer, idiopathic progressive polyneuropathy, thrombocytopenia, mild cognitive impairment, depression and anxiety who presented to the ED with c/o lower abdominal pain. History obtained from the patient, patient's daughter at bedside, discussion with ED provider and associated chart review. History of nephrolithiasis with left hydronephrosis. S/p cystoscopy, left ureteral stent removal, left ureteroscopy, possible retrograde pyelogram, laser lithotripsy and left ureteral stent placement on 03/15/25 at [facility]. Was admitted for overnight monitoring. Had asymptomatic hypotension POD#1. IM was consulted who recommended discontinuing Lasix. Otherwise recovered well after surgery and BP improved with IV fluid repletion. Was discharged home on 03/16/25. Was then scheduled for left ureteral stent removal on 03/23/25 at [facility]. Patient was reportedly hypotensive, tachycardic and weak at that time so the ureteral stent removal was canceled and patient was sent to the ED for further evaluation. Lab work in the ED was grossly unremarkable. Imaging evaluation including CXR, chest CT PE protocol also grossly unremarkable. Tachycardia and hypotension resolved with administration of IV fluids. Patient was discharged home. There was some issue with the rescheduling of her stent removal. Daughter reports she was rescheduled for May; she called the urology office today but has not yet heard back. Patient has experienced some lower abdominal pain, primarily LLQ, since her ureteral stent was replaced. However, the pain acutely worsened over the past 2 to 3 days. No reported nausea or vomiting. Describes poor p.o. intake since her stent exchange. Denies any urinary complaints such as dysuria, hematuria or increased urinary frequency. No reported issues with bowel movements. Does have a productive cough which has been ongoing since last week. Notes yellowish phlegm production. No reported fevers. Has been feeling slightly short of breath. No supplemental O2 use TECHNICAL SME. Has chronic BLE edema, L>R. Feels this is unchanged from baseline. Denies any chest pain. Admission Exam Per Admitting Provider General: Elderly female, NAD, sitting up in bed. Mildly ill-appearing. A&Ox3, significantly UPPER [place]I. Daughter at bedside. HEENT: Normocephalic, atraumatic. Somewhat dry mucous membranes. Respiratory: Normal respiratory effort. On 3L NC and saturating around 95% at rest. + wet-sounding cough. Decreased air entry bilaterally. No wheeze. Cardiovascular: Tachycardic rate (HR 105bpm), regular rhythm. 2+ LLE edema, 1+ RLE edema. Abdomen/GI: Active bowel sounds, somewhat tender to palpation across lower abdominal region (primarily L-sided). Soft, nondistended. No guarding. Extremities/Musculoskeletal: No cyanosis or clubbing, extremities motor strength intact, moves all extremities. Neurologic: No overt focal deficits, CN's II-XI not formally tested but appear grossly intact bilaterally. Discharge Exam General: Elderly female, NAD, sitting up in bed eating breakfast. A&Ox3, UPPER [place]. Well-appearing. HEENT: Normocephalic, atraumatic. Moist mucous membranes. Respiratory: Normal respiratory effort. Trace bibasilar crackles. On RA. Dry cough. Cardiovascular: RRR. 2+ LLE edema, 1+ RLE edema (unchanged compared to [facility]). Abdomen/GI: Active bowel sounds, nontender to palpation, soft. Extremities/Musculoskeletal: No cyanosis or clubbing, extremities motor strength intact, moves all extremities. Neurologic: No overt focal deficits, CN's II-XI not formally tested but appear grossly intact bilaterally. Updated Medication List Medication Instructions Recorded Confirmed Type omega 3-sap-soc-fish oil 1,000 mg 1 cap PO DAILY 01/24/19 03/27/25 History (120 mg-180 mg) capsule (Fish Oil) aspirin 81 mg tablet,delayed 81 mg PO DAILY 09/23/22 03/27/25 History release cholecalciferol (vitamin D3) 50 50 mcg PO DAILY 09/23/22 03/27/25 History mcg (2,000 unit) capsule clopidogrel 75 mg tablet 75 mg PO DAILY 09/23/22 03/27/25 History rosuvastatin 5 mg tablet 5 mg PO DAILY 09/23/22 03/27/25 History fluticasone propionate 50 2 spray intranasal DAILY 06/12/23 03/27/25 History mcg/actuation nasal spray,suspension albuterol sulfate 90 mcg/actuation 1 puff inhalation Q4H PRN 03/27/25 03/27/25 History aerosol inhaler SOB/Wheezing escitalopram oxalate 5 mg tablet 5 mg PO HS 03/27/25 03/27/25 History furosemide 20 mg tablet See Rx Instructions .Route .COMPLEX 03/27/25 03/27/25 History pantoprazole 40 mg tablet,delayed 40 mg PO DAILY 03/27/25 03/27/25 History release potassium chloride 20 mEq 20 meq PO DAILY 03/27/25 03/27/25 History tablet,extended release cefdinir 300 mg capsule 300 mg PO BID #1 cap 04/02/25 Rx doxycycline hyclate 100 mg capsule 100 mg PO BID #1 cap 04/02/25 Rx metoprolol succinate 25 mg 25 mg PO BID #60 tabs 04/02/25 Rx tablet,extended release 24 hr Hospital Stay Data Consultations 03/27/25 16:41 ED Decision to Admit Stat Diagnostic Imagining Performed 03/27/25 13:31 CT abd pelvis IV con only Stat FINDINGS: Stable very large hiatal hernia. There is mild atelectasis versus early pneumonia posterior right lung base. ABDOMEN: Gallbladder is surgically absent. Liver, spleen, pancreas, and adrenal glands are unremarkable. Kidneys show no hydronephrosis. Left ureteral stent is well positioned. There are a few small calculi in both kidneys. There is mild inflammation at the left renal collecting system. There are scattered atherosclerotic calcifications. No abdominal aortic aneurysm. There are a few small cysts at both kidneys. Pelvis: Uterus and adnexal regions are grossly unremarkable. Urinary bladder is nondistended. There is mild sigmoid diverticulosis. No acute diverticulitis. No bowel inflammation or obstruction seen. No free fluid, free air, or abscess. Appendix is not visualized. No enlarged adenopathy seen. Osseous structures: There is osteopenia. There are mild degenerative changes at the lumbar spine and hips. No acute osseous findings. IMPRESSION: 1. Atelectasis versus early pneumonia right lung base. 2. No hydronephrosis. Well positioned left ureteral stent. Mild inflammation of the left renal collecting system, postoperative versus early pyelonephritis. No renal abscess. 3. No bowel inflammation or obstruction seen. 4. Otherwise as described. 03/30/25 07:46 CT chest diagnostic wo con Urgent FINDINGS: There is a very large hiatal hernia with the entire stomach above the diaphragm. There are secretions in some of the right lower lobe bronchi. There is a moderate sized area of bandlike consolidation medial lower right lower lobe and mild to moderate bandlike consolidation medial left lower lobe, progressive, atelectasis versus pneumonia. No pleural effusion or pneumothorax. No enlarged adenopathy. There are diffuse coronary artery calcifications. No pericardial effusion. There is osteopenia. There is mild chronic-appearing height loss in a few thoracic vertebral bodies. No acute osseous findings seen. IMPRESSION: 1. Very large hiatal hernia. 2. Increased consolidation in the lung bases could represent atelectasis or pneumonia. No pleural effusion or pneumothorax seen. 3. Otherwise as described. Pending Results Patient Have Any Pending Studies at Discharge: No Discharge Instructions Given to Patient (Per Discharging Provider) MEDICATION CHANGES: Cefdinir and doxycycline - These are both antibiotics used to treat your UTI and bronchitis. You have 1 more dose of each of these antibiotics, which you are scheduled to take tonight. Instructions will be provided by the pharmacy. Please take these antibiotics as prescribed. Continue to hold your furosemide (Lasix) unless otherwise directed by your PCP or small offset printer. RECOMMENDATIONS FOR FOLLOW-UP: Please attend your PCP and urology appointments as scheduled. Recommend calling your urologist, NGUYỄN Aiken to clarify whether or not your aspirin and/or Plavix need to be held prior to your ureteral stent removal this Wednesday. Seek medical attention if you have: * temperature above 101F * chest pain or trouble breathing * abdominal pain, nausea, vomiting * diarrhea, dark stools or bloody stools * any unanswered questions or concerns Call 911 if symptoms are severe. Please take good care of yourself. It has been a pleasure taking care of you. If you have any questions regarding your recent hospitalization, please contact [facility] and request a [facility] Hospitalist @ [phone]. Total Time Total Time Spent Total Time Spent (In Minutes): 56
[2025-04-02 10:52] VITALS: BP 110/68; PULSE 73; RESP 16; TEMP 98.8; O2SAT 93
== END 2025-04-02 14:16 | disposition home or self-care (01) | DRG 871 ==
LOC: ED 13:10 → 2S 16:36 → SUATTDRO 16:36 → 2S 17:34